=== PATIENT | male | born 1940 | race Caucasian/White ===

== ENCOUNTER 2023-09-25 09:37 | Inpatient (IN) | payer OTHER ==
--- OUTSIDE RECORDS SUMMARY | 2023-09-25 13:41 | XMS REPORT | Continuity of Care Document ---
Author Name Unknown Address [address] [facility] [address] [place] [address] [facility] Address [address] [facility] [address] [place] [address] Care Team Providers [employer] Web Application Developer Name Role Phone Ramón Menjivar MD Primary Care Physician [phone] ARACELY ZAFAR Attending Clinician UnavailARACELY Majano Attending Clinician Unavaila LILLIE Soto Attending Clinician Unavailable EVGENY URIARTE Attending Clinician Unavailable Ramón Menjivar MD Attending Clinician [phone] ADEOLA RITCHIE Attending Clinician UnavailADEOLA Sullivan Attending Clinician UnavailEvgeny Levine MD Attending Clinician [phone] Nurse, [facility] Surgery Attending Clinician Aracely Wong MD Attending Clinician [phone] Fredis Mayorga MD Attending Clinician [phone] Doctor Unassigned, [place] Attending Clinician U navailable Lab, Ang - Db Attending Clinician Unavailable Pob, [facility] Main Attending Clinician UnavailDave Linares MD Attending Clinician [phone] DAVE CARLISLE Attending Clinician Unavailable CHARITY CAMPBELL Attending Clinician UnavailCharity Crooks Attending Clinician [phone] RAMÓN MENJIVAR Attending Clinician Unavailable Jody Kaminski MD Attending Clinician [phone] Unknown, Attending Attending Clinician Unavailab JODY Linares Attending Clinician Unavailable Serena PATRICIO, Adeola Abarca Attending Clinician [phone] BRIT ERICKSON Attending Clinician Unavailable Brit Erickson MD Attending Clinician [phone] Vaccine, Ang Db Cbc Fam Attending Clinician Unav ailable 2, [facility] Lab Attending Clinician Unavailable Nurse, [facility] Surgery Gu Attending Clinician aFby Lyon Attending Clinician [phone] Nadine Corado MD Attending Clinician [phone] NADINE CORADO Attending Clinician Unavailxiomy lord Rm2, [facility] Surg Proc Attending Clinician Unavailab Digna Soriano MA Attending Clinician Unavail dmitriy Zuniga MD, Claus Chaudhari Attending Clinician + [phone] Vaccine, [facility] Family Medicine Attending Clinician Unavailable Jacob Grey DO Attending Clinician [phone] GRAMM DIANA A Attending Clinician Unavailable Gramm MICHAEL Diana A Attending Clinician [phone] FREDIS MAYORGA Attending Clinician Unavail able FREDIS MAYORGA Attending Clinician Unavail able Nurse, [facility] Pob Immunization Attending Clinician Unavailable JACOB GREY Attending Clinician Unavail able DESTIN TIDWELL Attending Clinician Unavailable Lab, [facility] Fam Pob I Attending Clinician Unavailab Qi Lenz Attending Clinician [phone] CorinaEmperatriz Segura Attending Clinician [phone] Uday Pendleton Attending Clinician [phone] EVGENY URIARTE Admitting Clinician Unavailable Evgeny Uriarte MD Admitting Clinician [phone] DAVE CARLISLE Admitting Clinician Unavailable BRIT ERICKSON Admitting Clinician Unavailable NADINE CORADO Admitting Clinician UnavailFREDIS Norris Admitting Clinician Unavail RAMÓN Villagran Admitting Clinician Unavailable Payers Payer Name Policy Type Policy Number Effective Date Expirati on Date Source [facility] PPO [id number] 2020 00:00:00 [employer] CHOICE [id number] 2013 00:00:00 Problems Condition Name Condition Details Condition Category Status Onset Date Resolution Date Last Treatment Date Treating Clinician Comments Source ESTEFANIA treated with BiPAP ESTEFANIA treated with BiPAP Disease Active 08-19 00:00: 00 [facility] Preop cardiovasc ular exam Preop cardiovasc ular exam Disease Active 08-19 00:00: 00 [facility] 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 Disease Active 08-17 00:00: 00 [facility] Retention of urine, unspecifie d Retention of urine, unspecifie d Disease Active 08-17 00:00: 00 [facility] Hyperlipid emia with target LDL less than 100 Hyperlipid emia with target LDL less than 100 Disease Active 2014-05 00:00: 00 [facility] Essential hypertensi on Essential hypertensi on Disease Active 2014-05 00:00: 00 [facility] Hyperplasi a of prostate with lower urinary tract symptoms (LUTS) Hyperplasi a of prostate with lower urinary tract symptoms (LUTS) Disease Active 2014-05 00:00: 00 [facility] Lumbar disc disease Lumbar disc disease Disease Active 2014-05 00:00: 00 [facility] Ocular myasthenia Ocular myasthenia Disease Active 05-03 00:00: 00 [facility] Allergies, Adverse Reactions, Alerts Allergy Name Allergy Type Status Severity Reaction(s) Onset Date Inactive Date Treating Clinician Comments Source NO KNOWN ALLERGIE S Drug Class Active [facility] Social History Social Habit Start Date Stop Date Quantity Comments Source Gender identity [facility] History of tobacco use Cigarette Smoker [facility] Alcoholic beverage intake 2023-09-10 00:00:00 2023-09-10 00:00:00 Current drinker of alcohol (finding) [facility] Alcohol intake 2023-06-09 00:00:00 2023-06-09 00:00:00 Current drinker of alcohol (finding) [facility] History of Social function 2023-05-06 00:00:00 2023-05-06 00:00:00 [facility] Cigarettes smoked current (pack per day) - Reported 2023-05-06 00:00:00 2023-05-06 00:00:00 [facility] Cigarette pack-years 2023-05-06 00:00:00 2023-05-06 00:00:00 [facility] Tobacco use and exposure 2023-05-06 00:00:00 2023-05-06 00:00:00 Smokeless tobacco non-user [facility] Exposure to SARS-CoV-2 (event) 2022-08-16 00:00:00 2022-08-26 13:07:00 Not sure [facility] Tobacco Comment 2021-11-29 00:00:00 2021-11-29 00:00:00 quit 40 years ago. [facility] Sex assigned at 1940 00:00:00 1940 00:00:00 [facility] Smoking Status Start Date Stop Date Source Ex-smoker 2023-05-06 00:00:00 2023-05-06 [facility]00[facility] Ordered Medication Name Filled Medication Name Start Date Stop Date Current Medication? Ordering Clinician Indication Dosage Frequency Signature (SIG) Comments Components Source LOSARTAN 100 mg tablet 09-13 00:00: 00 Yes [id number] TAKE 1 TABLET BY MOUTH EVERY DAY IN THE MORNING [facility] cephALEXin 500 mg capsule 09-13 00:00: 00 Yes [id number] 500mg Take 1 capsule by mouth 4 (four) times daily. [facility] traMADoL (ULTRAM) tablet 50 mg 09-08 17:15: 00 09-08 16:43 :00 No 50mg 50 mg, Oral, ONCE, 1 dose, On Carole 09/09/23 at 1215, Routine, PACU [facility] FENTanyl PF (SUBLIMAZE (PF)) injection 25 mcg 09-08 16:10: 12 09-08 22:18 :27 No 25ug 25 mcg, Slow IV Push, Q5MIN PRN, 4 doses, Starting on Carole 09/09/23 at 1110, Until Carole 09/09/23 at 1718, Routine, Pain (scale 4-6), PACU [facility] ondansetron (ZOFRAN (PF)) injection 4 mg 09-08 16:10: 12 09-08 22:18 :27 No 4mg 4 mg, Slow IV Push, PRN, 1 dose, Starting on Carole 09/09/23 at 1110, Until Carole 09/09/23 at 1718, Routine, Nausea and Vomiting (N/V), PACU [facility] ondansetron (ZOFRAN (PF)) injection 4 mg 09-08 16:01: 14 09-08 22:18 :27 No 4mg 4 mg, Slow IV Push, Q4HPRN, 1 dose, Starting on Carole 09/09/23 at 1101, Until Carole 09/09/23 at 1718, Routine, Nausea and Vomiting (N/V), DSU Recovery [facility] lidocaine (XYLOCAINE) 2 % jelly URO-JET 09-08 15:36: 00 09-08 22:18 :27 No PRN, Starting on Carole 09/09/23 at 1036, Until Carole 09/09/23 at 1718, Routine, Intra-op [facility] water for irrigation irrigation solution 09-08 13:15: 00 09-08 15:23 :24 No PRN, Starting on Carole 09/09/23 at 0815, Until Carole 09/09/23 at 1023, Routine, Intra-op [facility] povidone-io dine (BETADINE) 10 % solution 09-08 13:08: 00 09-08 15:23 :24 No PRN, Starting on Carole 09/09/23 at 0808, Until Carole 09/09/23 at 1023, Routine, Intra-op [facility] sodium chloride 0.9 % irrigation solution 09-08 12:54: 00 09-08 15:23 :24 No PRN, Starting on Carole 09/09/23 at 0754, Until Carole 09/09/23 at 1023, Intra-op [facility] lactated ringers IV infusion 1,000 mL 09-08 11:45: 00 09-08 11:53 :00 No 1000mL at 42 mL/hr, 1,000 mL, IV Infusion, ONCE, 1 dose, On Carole 09/09/23 at 0645, Routine, DSU Pre-op [facility] cephALEXin 500 mg capsule 09-08 00:00: 00 09-13 00:00 :00 No [id number] 500mg Take 1 capsule by mouth 4 (four) times daily for 5 days. [facility] MELOXICAM 7.5 mg tablet 09-07 00:00: 00 Yes [id number] 7.5mg TAKE 1 TABLET BY MOUTH EVERY DAY IN THE MORNING [facility] gabapentin 300 mg capsule 08-29 00:00: 00 Yes [id number] TAKE 2 CAPSULES BY MOUTH 2 (TWO) TIMES DAILY AND 3 CAPSULES AT BEDTIME. [facility] perflutren protein-A microsphr (OPTISON) injection 3 mL 08-22 16:45: 00 08-22 16:43 :00 No [id number] 3mL 3 mL, IV Push, ONCE, 1 dose, On Wed08/23/23 at 1145, Routine [facility] cephALEXin 250 mg capsule 08-22 00:00: 00 08-28 04:59 :00 Yes [id number] 500mg Take 2 capsules by mouth every 12 (twelve) hours for 5 days. [facility] traMADoL 50 mg tablet 08-16 00:00: 00 Yes [id number] TAKE 1 TABLET BY MOUTH EVERY 6 (SIX) HOURS NEEDED FOR PAIN (SCALE 4-6) FOR UP TO 30 DAYS. INDICATION S: CHRONIC PAIN, LUMBAR RADICULOPA THY, S/P SURGERY. INDICATION S: CHRONIC PAIN Indication s: chronic pain, Chronic radiculopa thy [facility] atorvastati n 10 mg tablet 2024-0 4-15 00:00: 00 Yes 10mg Take 1 tablet by mouth in the morning. [facility] TAMSULOSIN 0.4 mg 24 hr capsule 4-09 00:00: 00 Yes [id number] TAKE 1 CAPSULE BY MOUTH IN THE MORNING AND IN THE EVENING [facility] atorvastati n 10 mg tablet 4-07 00:00: 00 08-12 00:00 :00 No TAKE 1 TABLET BY MOUTH EVERY DAY [facility] hydroCHLORO thiazide 25 mg tablet 3-19 00:00: 00 Yes [id number] TAKE 1 TABLET BY MOUTH EVERY DAY [facility] hydroCHLORO thiazide 25 mg tablet 3-11 00:00: 00 Yes [id number] TAKE 1 TABLET BY MOUTH EVERY DAY [facility] HYDROCHLORO THIAZIDE 25 mg tablet 2-16 00:00: 00 07-11 00:00 :00 No [id number] TAKE 1 TABLET BY MOUTH EVERY DAY [facility] SOLIFENACIN 5 mg tablet 2-09 00:00: 00 Yes [id number] TAKE 1 TABLET BY MOUTH EVERY DAY [facility] azithromyci n 250 mg tablet 2-07 00:00: 00 08-17 00:00 :00 No [id number] 250mg Take 1 tablet by mouth in the morning. Take 500 mg day 1, then 250 mg days 2 to 5. [facility] solifenacin 5 mg tablet 1-15 00:00: 00 06-11 00:00 :00 No [id number] TAKE 1 TABLET BY MOUTH EVERY DAY [facility] benzonatate 100 mg capsule 0 1-10 00:00: 00 08-17 00:00 :00 No [id number] 200mg Take 2 capsules by mouth every 8 (eight) hours as needed for Cough. [facility] guaiFENesin 400 mg tablet 1-10 00:00: 00 08-17 00:00 :00 No [id number] 400mg Take 1 tablet by mouth every 4 (four) hours as needed for Cough. [facility] azelastine 137 mcg (0.1 %) nasal spray 05-12 00:00: 00 08-17 00:00 :00 No [id number] 1{spray } Use 1 [place] in each nostril in the morning and 1 [place] in the evening. Use in each nostril as directed [facility] fluticasone propionate 50 mcg/actuati on nasal spray 05-12 00:00: 00 08-17 00:00 :00 No [id number] 1{spray } Use 1 [place] in each nostril in the morning. [facility] molnupiravi r 200 mg capsule 05-12 00:00: 00 08-17 00:00 :00 No [id number] 800mg Take 4 capsules by mouth every 12 (twelve) hours. [facility] atorvastati n 10 mg tablet 05-07 00:00: 00 08-07 00:00 :00 No TAKE 1 TABLET BY MOUTH EVERY DAY [facility] gabapentin 300 mg capsule 05-06 00:00: 00 08-29 00:00 :00 No [id number] Take 2 capsules by mouth 2 (two) times daily AND 3 capsules at bedtime. [facility] hydroCHLORO thiazide 25 mg tablet 2022-05 00:00: 00 06-18 00:00 :00 No [id number] TAKE 1 TABLET BY MOUTH EVERY DAY [facility] solifenacin 5 mg tablet 2022-05 00:00: 00 05-17 00:00 :00 No [id number] TAKE 1 TABLET BY MOUTH EVERY DAY [facility] atorvastati n 10 mg tablet 2022-05 00:00: 00 05-07 00:00 :00 No TAKE 1 TABLET BY MOUTH EVERY DAY [facility] ketoconazol e 2 % cream 2022-05 00:00: 00 Yes APPLY TO RASH ON FACE ONCE DAILY UNTIL HEALED. NEEDED WHEN FLAKING AND RED. [facility] DULOXETINE 30 mg capsule 2022-05 00:00: 00 06-09 00:00 :00 No [id number] 30mg TAKE 1 CAPSULE BY MOUTH EVERY MORNING [facility] methylPREDN ISolone 4 mg tablets 2022-05 00:00: 00 06-09 00:00 :00 No [id number] Take by mouth SEE-INSTRU CTIONS. follow package directions [facility] LOSARTAN 100 mg tablet 2022-05 00:00: 00 Yes [id number] TAKE 1 TABLET BY MOUTH EVERY DAY IN THE MORNING [facility] gabapentin 300 mg capsule 2022-05 00:00: 00 05-06 00:00 :00 No [id number] TAKE 2 CAPSULES BY MOUTH 3 TIMES A DAY [facility] DULoxetine 30 mg capsule 2022-05 00:00: 00 Yes [id number] 30mg Take 1 capsule by mouth in the morning. [facility] gabapentin 300 mg capsule 2022-05 00:00: 00 Yes [id number] TAKE 2 CAPSULES BY MOUTH 3 TIMES A DAY [facility] gadobenate dimeglumine (MULTIHANCE -15 mL) injection 0.2 mL/kg 2022-05 23:30: 00 03-15 23:27 :00 No [id number] .2mL/kg 0.2 mL/kg, Intravenou s, ONCE, 1 dose, On Wed03/15/23 at 1730, Routine [facility] meloxicam 7.5 mg tablet 2022-05 00:00: 00 09-07 00:00 :00 No [id number] 7.5mg Take 1 tablet by mouth every morning. [facility] traMADoL 50 mg tablet 2022-05 00:00: 00 08-15 00:00 :00 No [id number] TAKE 1 TABLET BY MOUTH EVERY 6 (SIX) HOURS NEEDED FOR PAIN (SCALE 4-6) FOR UP TO 30 DAYS. INDICATION S: CHRONIC PAIN, LUMBAR RADICULOPA THY, S/P SURGERY. INDICATION S: CHRONIC PAIN Indication s: chronic pain, Chronic radiculopa thy [facility] LINZESS 145 mcg capsule 2022-05 00:00: 00 Yes 145ug Take 1 capsule by mouth in the morning. [facility] gentamicin injection 80 mg 2022-05 15:45: 00 02-16 15:29 :00 No [id number] 80mg [facility] amoxicillin -pot clavulanate 500 mg (AUGMENTIN) 500-125 mg tablet 2022-05 00:00: 00 02-15 04:59 :00 No [id number] 500mg Take 1 tablet by mouth in the morning and 1 tablet at noon and 1 tablet in the evening. Do all this for 5 days. [facility] gabapentin 300 mg capsule 2022-05 00:00: 00 03-30 00:00 :00 No [id number] TAKE 2 CAPSULES BY MOUTH 3 TIMES A DAY [facility] gabapentin 300 mg capsule 01-26 00:00: 00 02-08 00:00 :00 No [id number] TAKE 2 CAPSULES BY MOUTH 3 TIMES A DAY [facility] ATORVASTATI N 10 mg tablet 01-25 00:00: 00 04-23 00:00 :00 No TAKE 1 TABLET BY MOUTH EVERY DAY [facility] SOLIFENACIN 5 mg tablet 01-25 00:00: 00 04-23 00:00 :00 No [id number] TAKE 1 TABLET BY MOUTH EVERY DAY [facility] HYDROCHLORO THIAZIDE 25 mg tablet 01-25 00:00: 00 04-23 00:00 :00 No [id number] TAKE 1 TABLET BY MOUTH EVERY DAY [facility] amoxicillin -pot clavulanate 500 mg (AUGMENTIN) 500-125 mg tablet 01-11 00:00: 00 01-17 04:59 :00 No [id number] 500mg Take 1 tablet by mouth in the morning and 1 tablet at noon and 1 tablet in the evening. Do all this for 5 days. [facility] cephALEXin (KEFLEX) 500 mg capsule 28 00:00: 00 01-05 04:59 :00 No [id number] 500mg Take 1 capsule by mouth in the morning and 1 capsule in the evening. Do all this for 7 days. [facility] LINZESS 72 mcg Cap 12-07 00:00: 00 06-09 00:00 :00 No 72ug Take 1 capsule by mouth in the morning. [facility] metoclopram david HCl 10 mg tablet 11-12 00:00: 00 02-08 00:00 :00 No TAKE 3 TABLETS BY MOUTH DIRECTED PER YOUR COLONOSCOP Y PREP PACKET [facility] sodium,pota ssium,mag sulfates 17.5-3.13-1 .6 gram 11-12 00:00: 00 02-08 00:00 :00 No TAKE 1 UNIT BY MOUTH DIRECTED USED DIRECTED BY YOUR COLONOSCOP Y PACKET INSTRUCTIO NS [facility] TAMSULOSIN 0.4 mg 24 hr capsule 11-04 00:00: 00 08-09 00:00 :00 No [id number] TAKE 1 CAPSULE BY MOUTH IN THE MORNING AND IN THE EVENING [facility] SOLIFENACIN 5 mg tablet 11-04 00:00: 00 01-25 00:00 :00 No [id number] TAKE 1 TABLET BY MOUTH EVERY DAY [facility] ATORVASTATI N 10 mg tablet 11-04 00:00: 00 01-25 00:00 :00 No TAKE 1 TABLET BY MOUTH EVERY DAY [facility] HYDROCHLORO THIAZIDE 25 mg tablet 11-02 00:00: 00 01-25 00:00 :00 No [id number] TAKE 1 TABLET BY MOUTH EVERY DAY [facility] LOSARTAN 100 mg tablet 10-20 00:00: 00 04-06 00:00 :00 No [id number] TAKE 1 TABLET BY MOUTH EVERY DAY IN THE MORNING [facility] omeprazole 40 mg capsule 2023-0 6-02 00:00: 00 Yes 40mg Take 1 capsule by mouth every morning. [facility] MELOXICAM 7.5 mg tablet 5-15 00:00: 00 03-08 00:00 :00 No [id number] TAKE 1 TABLET BY MOUTH EVERY DAY IN THE MORNING [facility] TRAMADOL 50 mg tablet 5-04 00:00: 00 03-08 00:00 :00 No [id number] TAKE 1 TABLET BY MOUTH EVERY 6 (SIX) HOURS NEEDED FOR PAIN (SCALE 4-6) FOR UP TO 30 DAYS. INDICATION S: CHRONIC PAIN, LUMBAR RADICULOPA THY, S/P SURGERY. INDICATION S: CHRONIC PAIN [facility] SOLIFENACIN 5 mg tablet 4-20 00:00: 00 11-04 00:00 :00 No [id number] TAKE 1 TABLET BY MOUTH EVERY DAY [facility] ATORVASTATI N 10 mg tablet 4-10 00:00: 00 11-04 00:00 :00 No TAKE 1 TABLET BY MOUTH EVERY DAY [facility] tamsulosin 0.4 mg 24 hr capsule 4-05 00:00: 00 11-04 00:00 :00 No [id number] .4mg Take 1 capsule by mouth in the morning and 1 capsule in the evening. [facility] HYDROCHLORO THIAZIDE 25 mg tablet 3-24 00:00: 00 11-02 00:00 :00 No [id number] TAKE 1 TABLET BY MOUTH EVERY DAY [facility] TAMSULOSIN 0.4 mg 24 hr capsule 0 1-30 00:00: 00 08-05 00:00 :00 No [id number] TAKE 1 CAPSULE BY MOUTH EVERYDAY AT BEDTIME [facility] famotidine (PEPCID) 40 mg tablet 1-19 07:39: 17 05-21 00:00 :00 No 40mg Take 40 mg by mouth daily. [facility] SOLIFENACIN 5 mg tablet 1-17 00:00: 00 08-20 00:00 :00 No [id number] TAKE 1 TABLET BY MOUTH EVERY DAY [facility] ATORVASTATI N 10 mg tablet 05-19 00:00: 00 08-10 00:00 :00 No TAKE 1 TABLET BY MOUTH EVERY DAY [facility] HYDROCHLORO THIAZIDE 25 mg tablet 05-07 00:00: 00 07-24 00:00 :00 No [id number] TAKE 1 TABLET BY MOUTH EVERY DAY [facility] TRAMADOL 50 mg tablet 2021-05 00:00: 00 09-03 00:00 :00 No [id number] TAKE 1 TABLET BY MOUTH EVERY 6 (SIX) HOURS NEEDED FOR PAIN (SCALE 4-6) FOR UP TO 30 DAYS. INDICATION S: CHRONIC PAIN, LUMBAR RADICULOPA THY, S/P SURGERY. INDICATION S: CHRONIC PAIN [facility] GABAPENTIN 300 mg capsule 2021-05 00:00: 00 01-26 00:00 :00 No [id number] TAKE 2 CAPSULES BY MOUTH 3 TIMES A DAY [facility] losartan 100 mg tablet 2021-05 00:00: 00 10-20 00:00 :00 No [id number] 100mg Take 1 tablet by mouth in the morning. [facility] meloxicam 7.5 mg tablet 2021-05 00:00: 00 09-14 00:00 :00 No [id number] 7.5mg Take 1 tablet by mouth in the morning. [facility] losartan 100 mg tablet 2021-05 00:00: 00 03-31 00:00 :00 No [id number] TAKE 1 TABLET BY MOUTH EVERY DAY [facility] famotidine 20 mg tablet 2021-05 00:00: 00 02-04 00:00 :00 No 20mg Take 1 tablet by mouth every evening. [facility] pantoprazol e 40 mg EC tablet 2021-05 00:00: 00 05-21 00:00 :00 No 40mg Take 40 mg by mouth every other day. [facility] fluocinonid e 0.05 % solution 2021-05 00:00: 00 Yes APPLY DAILY TO SCALP NEEDED FOR ITCHING [facility] tamsulosin 0.4 mg 24 hr capsule 2021-05 00:00: 00 06-01 00:00 :00 No .4mg Take 0.4 mg by mouth at bedtime. [facility] ATORVASTATI N 10 mg tablet 2021-05 00:00: 00 05-19 00:00 :00 No TAKE 1 TABLET BY MOUTH EVERY DAY [facility] HYDROCHLORO THIAZIDE 25 mg tablet 2021-05 0 00:00: 00 05-07 00:00 :00 No [id number] TAKE 1 TABLET BY MOUTH EVERY DAY [facility] SOLIFENACIN 5 mg tablet 2021-05 0 00:00: 00 05-19 00:00 :00 No [id number] TAKE 1 TABLET BY MOUTH EVERY DAY [facility] MELOXICAM 7.5 mg tablet 2021-05 0 00:00: 00 03-31 00:00 :00 No [id number] TAKE 1 TABLET BY MOUTH EVERY DAY [facility] Sodium Fluoride 1.1 % Pste 01-15 00:00: 00 08-17 00:00 :00 No BRUSH TEETH WITH PEA SIZE AMOUNT AT BEDTIME [facility] fluorouraci L 5 % cream 01-14 00:00: 00 08-17 00:00 :00 No APPLY TO AFFECTED AREA TWICE A DAY FOR 2 WEEKS THEN STOP [facility] MELOXICAM 7.5 mg tablet 01-13 00:00: 00 02-12 00:00 :00 No [id number] TAKE 1 TABLET BY MOUTH EVERY DAY [facility] LOSARTAN 100 mg tablet 12-29 00:00: 00 03-27 00:00 :00 No [id number] TAKE 1 TABLET BY MOUTH EVERY DAY [facility] MELOXICAM 7.5 mg tablet 12-22 00:00: 00 01-13 00:00 :00 No [id number] TAKE 1 TABLET BY MOUTH EVERY DAY [facility] molnupiravi r 200 mg capsule 11-29 00:00: 00 05-21 00:00 :00 No [id number] 800mg Take 4 capsules by mouth every 12 (twelve) hours. [facility] guaiFENesin 400 mg tablet 11-29 00:00: 00 05-21 00:00 :00 No [id number] 400mg Take 1 tablet by mouth every 4 (four) hours as needed for Cough. [facility] HYDROCHLORO THIAZIDE 25 mg tablet 11-28 00:00: 00 02-24 00:00 :00 No [id number] TAKE 1 TABLET BY MOUTH EVERY DAY [facility] SOLIFENACIN 5 mg tablet 11-24 00:00: 00 02-23 00:00 :00 No [id number] TAKE 1 TABLET BY MOUTH EVERY DAY [facility] TRAMADOL 50 mg tablet 11-14 00:00: 00 04-27 00:00 :00 No [id number] TAKE 1 TABLET BY MOUTH EVERY 6 (SIX) HOURS NEEDED FOR PAIN (SCALE 4-6) FOR UP TO 30 DAYS. INDICATION S: CHRONIC PAIN, LUMBAR RADICULOPA THY, S/P SURGERY. INDICATION S: CHRONIC PAIN [facility] ATORVASTATI N 10 mg tablet 11-12 00:00: 00 03-04 00:00 :00 No TAKE 1 TABLET BY MOUTH EVERY DAY [facility] MELOXICAM 7.5 mg tablet 11-12 00:00: 00 12-22 00:00 :00 No [id number] TAKE 1 TABLET BY MOUTH EVERY DAY [facility] MELOXICAM 7.5 mg tablet 10-01 00:00: 00 Yes [id number] TAKE 1 TABLET BY MOUTH EVERY DAY [facility] LOSARTAN 100 mg tablet 5- 00:00: 00 12-29 00:00 :00 No [id number] TAKE 1 TABLET BY MOUTH EVERY DAY [facility] TAMSULOSIN 0.4 mg 24 hr capsule 5-10 00:00: 00 12-09 04:59 :00 No [id number] TAKE 1 CAPSULE BY MOUTH EVERYDAY AT BEDTIME [facility] SOLIFENACIN 5 mg tablet 4-26 00:00: 00 11-24 00:00 :00 No [id number] TAKE 1 TABLET BY MOUTH EVERY DAY [facility] HYDROCHLORO THIAZIDE 25 mg tablet 4-15 00:00: 00 11-28 00:00 :00 No [id number] TAKE 1 TABLET BY MOUTH EVERY DAY [facility] ATORVASTATI N 10 mg tablet 08-15 00:00: 00 11-12 00:00 :00 No TAKE 1 TABLET BY MOUTH EVERY DAY [facility] famotidine (PEPCID) 40 mg tablet 08-07 11:47: 19 Yes 40mg Take 40 mg by mouth daily. [facility] gabapentin 300 mg capsule 3-14 00:00: 00 04-21 00:00 :00 No [id number] TAKE 2 CAPSULES BY MOUTH 3 TIMES A DAY [facility] traMADoL 50 mg tablet 2-10 00:00: 00 11-14 00:00 :00 No [id number] TAKE 1 TABLET BY MOUTH EVERY 6 (SIX) HOURS NEEDED FOR PAIN (SCALE 4-6) FOR UP TO 30 DAYS. INDICATION S: CHRONIC PAIN, LUMBAR RADICULOPA THY, S/P SURGERY. Indication s: chronic pain [facility] HYDROCHLORO THIAZIDE 25 mg tablet 5-04 00:00: 00 11-27 00:00 :00 No [id number] TAKE 1 TABLET BY MOUTH EVERY DAY [facility] MELOXICAM 7.5 mg tablet 5-03 00:00: 00 10-02 00:00 :00 No [id number] TAKE 1 TABLET BY MOUTH EVERY DAY [facility] LOSARTAN 100 mg tablet 4-08 00:00: 00 11-01 00:00 :00 No [id number] TAKE 1 TABLET BY MOUTH EVERY DAY [facility] ATORVASTATI N 10 mg tablet 3-15 00:00: 00 10-09 00:00 :00 No TAKE 1 TABLET BY MOUTH EVERY DAY [facility] gabapentin 300 mg capsule 3-05 00:00: 00 07-14 00:00 :00 No [id number] TAKE 2 CAPSULES 3 TIMES A DAY [facility] SOLIFENACIN 5 mg tablet 2-26 00:00: 00 10-21 00:00 :00 No [id number] TAKE 1 TABLET BY MOUTH EVERY DAY [facility] ketoconazol e 2 % shampoo 2019-05 2- 00:00: 00 05-06 00:00 :00 No [facility] Immunizations Ordered Immunization Name Filled Immunization Name Date Status Comments Source SARS-COV-2 COVID-19 LAKESHA-SUCROSE VACCINE 12 YRS+, BIVALENT 0.3ML, IM, (PFIZER [facility] [employer]) 2022-01-21 00:00:00 Completed [facility] Influenza Virus Vaccine,quad Im,preserve Free 65+ 2022-01-21 00:00:00 Completed [facility] SARS-COV-2 COVID-19 LAKESHA-SUCROSE VACCINE 12 YRS+, BIVALENT 0.3ML, IM, (PFIZER [facility] BOOSTER) 2022-01-21 00:00:00 Completed [facility] Influenza Virus Vaccine,quad Im,preserve Free 65+ 2022-01-21 00:00:00 Completed [facility] SARS-COV-2 COVID-19 LAKESHA-SUCROSE VACCINE 12 YRS+, BIVALENT 0.3ML, IM, (PFIZER [facility] [employer] BOOSTER) 2022-01-21 00:00:00 Completed [facility] Influenza Virus Vaccine,quad Im,preserve Free 65+ 2022-01-21 00:00:00 Completed [facility] SARS-COV-2 COVID-19 LAKESHA-SUCROSE VACCINE 12 YRS+, BIVALENT 0.3ML, IM, (PFIZER [employer] BOOSTER) 2022-01-21 00:00:00 Completed [facility] Influenza Virus Vaccine,quad Im,preserve Free 65+ 2022-01-21 00:00:00 Completed [facility] SARS-COV-2 COVID-19 LAKESHA-SUCROSE VACCINE 12 YRS+, BIVALENT 0.3ML, IM, (PFIZER [employer] BOOSTER) 2022-01-21 00:00:00 Completed [facility] Influenza Virus Vaccine,quad Im,preserve Free 65+ 2022-01-21 00:00:00 Completed [facility] SARS-COV-2 COVID-19 LAKESHA-SUCROSE VACCINE 12 YRS+, BIVALENT 0.3ML, IM, (PFIZER [employer] BOOSTER) 2022-01-21 00:00:00 Completed [facility] Influenza Virus Vaccine,quad Im,preserve Free 65+ 2022-01-21 00:00:00 Completed [facility] SARS-COV-2 COVID-19 LAKESHA-SUCROSE VACCINE 12 YRS+, BIVALENT 0.3ML, IM, (PFIZER [employer] BOOSTER) 2022-01-21 00:00:00 Completed [facility] Influenza Virus Vaccine,quad Im,preserve Free 65+ 2022-01-21 00:00:00 Completed [facility] SARS-COV-2 COVID-19 LAKESHA-SUCROSE VACCINE 12 YRS+, BIVALENT 0.3ML, IM, (PFIZER [employer] BOOSTER) 2022-01-21 00:00:00 Completed [facility] Influenza Virus Vaccine,quad Im,preserve Free 65+ 2022-01-21 00:00:00 Completed [facility] SARS-COV-2 COVID-19 LAKESHA-SUCROSE VACCINE 12 YRS+, BIVALENT 0.3ML, IM, (PFIZER [employer] BOOSTER) 2022-01-21 00:00:00 Completed [facility] Influenza Virus Vaccine,quad Im,preserve Free 65+ 2022-01-21 00:00:00 Completed [facility] SARS-COV-2 COVID-19 LAKESHA-SUCROSE VACCINE 12 YRS+, BIVALENT 0.3ML, IM, (PFIZER [employer] BOOSTER) 2022-01-21 00:00:00 Completed [facility] Influenza Virus Vaccine,quad Im,preserve Free 65+ 2022-01-21 00:00:00 Completed [facility] SARS-COV-2 COVID-19 LAKESHA-SUCROSE VACCINE 12 YRS+, BIVALENT 0.3ML, IM, (PFIZER [employer] BOOSTER) 2022-01-21 00:00:00 Completed [facility] Influenza Virus Vaccine,quad Im,preserve Free 65+ 2022-01-21 00:00:00 Completed [facility] SARS-COV-2 COVID-19 LAKESHA-SUCROSE VACCINE 12 YRS+, BIVALENT 0.3ML, IM, (PFIZER [employer] BOOSTER) 2022-01-21 00:00:00 Completed [facility] Influenza Virus Vaccine,quad Im,preserve Free 65+ 2022-01-21 00:00:00 Completed [facility] SARS-COV-2 COVID-19 LAKESHA-SUCROSE VACCINE 12 YRS+, BIVALENT 0.3ML, IM, (PFIZER [employer] BOOSTER) 2022-01-21 00:00:00 Completed [facility] Influenza Virus Vaccine,quad Im,preserve Free 65+ 2022-01-21 00:00:00 Completed [facility] SARS-COV-2 COVID-19 LAKESHA-SUCROSE VACCINE 12 YRS+, BIVALENT 0.3ML, IM, (PFIZER [employer] BOOSTER) 2022-01-21 00:00:00 Completed [facility] Influenza Virus Vaccine,quad Im,preserve Free 65+ 2022-01-21 00:00:00 Completed [facility] SARS-COV-2 COVID-19 LAEKSHA-SUCROSE VACCINE 12 YRS+, BIVALENT 0.3ML, IM, (PFIZER [employer] BOOSTER) 2022-01-21 00:00:00 Completed [facility] Influenza Virus Vaccine,quad Im,preserve Free 65+ 2022-01-21 00:00:00 Completed [facility] SARS-COV-2 COVID-19 LAKESHA-SUCROSE VACCINE 12 YRS+, BIVALENT 0.3ML, IM, (PFIZER [employer] BOOSTER) 2022-01-21 00:00:00 Completed [facility] Influenza Virus Vaccine,quad Im,preserve Free 65+ 2022-01-21 00:00:00 Completed [facility] SARS-COV-2 COVID-19 LAKESHA-SUCROSE VACCINE 12 YRS+, BIVALENT 0.3ML, IM, (PFIZER [employer] BOOSTER) 2022-01-21 00:00:00 Completed [facility] Influenza Virus Vaccine,quad Im,preserve Free 65+ 2022-01-21 00:00:00 Completed [facility] SARS-COV-2 COVID-19 LAKESHA-SUCROSE VACCINE 12 YRS+, BIVALENT 0.3ML, IM, (PFIZER [employer] BOOSTER) 2022-01-21 00:00:00 Completed [facility] Influenza Virus Vaccine,quad Im,preserve Free 65+ 2022-01-21 00:00:00 Completed [facility] SARS-COV-2 COVID-19 LAKESHA-SUCROSE VACCINE 12 YRS+, BIVALENT 0.3ML, IM, (PFIZER [employer] BOOSTER) 2022-01-21 00:00:00 Completed [facility] Influenza Virus Vaccine,quad Im,preserve Free 65+ 2022-01-21 00:00:00 Completed [facility] SARS-COV-2 COVID-19 LAKESHA-SUCROSE VACCINE 12 YRS+, BIVALENT 0.3ML, IM, (PFIZER [employer] BOOSTER) 2022-01-21 00:00:00 Completed [facility] Influenza Virus Vaccine,quad Im,preserve Free 65+ 2022-01-21 00:00:00 Completed [facility] SARS-COV-2 COVID-19 LAKESHA-SUCROSE VACCINE 12 YRS+, BIVALENT 0.3ML, IM, (PFIZER [employer] BOOSTER) 2022-01-21 00:00:00 Completed [facility] Influenza Virus Vaccine,quad Im,preserve Free 65+ 2022-01-21 00:00:00 Completed [facility] SARS-COV-2 COVID-19 LAKESHA-SUCROSE VACCINE 12 YRS+, BIVALENT 0.3ML, IM, (PFIZER [employer] BOOSTER) 2022-01-21 00:00:00 Completed [facility] Influenza Virus Vaccine,quad Im,preserve Free 65+ 2022-01-21 00:00:00 Completed [facility] SARS-COV-2 COVID-19 LAKESHA-SUCROSE VACCINE 12 YRS+, BIVALENT 0.3ML, IM, (PFIZER [employer] BOOSTER) 2022-01-21 00:00:00 Completed [facility] Influenza Virus Vaccine,quad Im,preserve Free 65+ 2022-01-21 00:00:00 Completed [facility] SARS-COV-2 COVID-19 LAKESHA-SUCROSE VACCINE 12 YRS+, BIVALENT 0.3ML, IM, (PFIZER [employer] BOOSTER) 2022-01-21 00:00:00 Completed [facility] Influenza Virus Vaccine,quad Im,preserve Free 65+ 2022-01-21 00:00:00 Completed [facility] SARS-COV-2 COVID-19 LAKESHA-SUCROSE VACCINE 12 YRS+, BIVALENT 0.3ML, IM, (PFIZER [employer] BOOSTER) 2022-01-21 00:00:00 Completed [facility] Influenza Virus Vaccine,quad Im,preserve Free 65+ 2022-01-21 00:00:00 Completed [facility] SARS-COV-2 COVID-19 LAKESHA-SUCROSE VACCINE 12 YRS+, BIVALENT 0.3ML, IM, (PFIZER [employer] BOOSTER) 2022-01-21 00:00:00 Completed [facility] Influenza Virus Vaccine,quad Im,preserve Free 65+ 2022-01-21 00:00:00 Completed [facility] SARS-COV-2 COVID-19 LAKESHA-SUCROSE VACCINE 12 YRS+, BIVALENT 0.3ML, IM, (PFIZER [facility] TOP) 2022-01-21 00:00:00 Completed [facility] Influenza Virus Vaccine,quad Im,preserve Free 65+ 2022-01-21 00:00:00 Completed [facility] SARS-COV-2 COVID-19 LAKESHA-SUCROSE VACCINE 12 YRS+, BIVALENT 0.3ML, IM, (PFIZER [facility] TOP) 2022-01-21 00:00:00 Completed [facility] Influenza Virus Vaccine,quad Im,preserve Free 65+ 2022-01-21 00:00:00 Completed [facility] SARS-COV-2 COVID-19 LAKESHA-SUCROSE VACCINE 12 YRS+, BIVALENT 0.3ML, IM, (PFIZER [facility] TOP) 2022-01-21 00:00:00 Completed [facility] Influenza Virus Vaccine,quad Im,preserve Free 65+ 2022-01-21 00:00:00 Completed [facility] SARS-COV-2 COVID-19 LAKESHA-SUCROSE VACCINE 12 YRS+, BIVALENT 0.3ML, IM, (PFIZER [facility] TOP) 2022-01-21 00:00:00 Completed [facility] Influenza Virus Vaccine,quad Im,preserve Free 65+ 2022-01-21 00:00:00 Completed [facility] SARS-COV-2 COVID-19 LAKESHA-SUCROSE VACCINE 12 YRS+, BIVALENT 0.3ML, IM, (PFIZER [facility] TOP) 2022-01-21 00:00:00 Completed [facility] Influenza Virus Vaccine,quad Im,preserve Free 65+ 2022-01-21 00:00:00 Completed [facility] SARS-COV-2 COVID-19 LAKESHA-SUCROSE VACCINE 12 YRS+, BIVALENT 0.3ML, IM, (PFIZER [facility] TOP) 2022-01-21 00:00:00 Completed [facility] Influenza Virus Vaccine,quad Im,preserve Free 65+ 2022-01-21 00:00:00 Completed [facility] SARS-COV-2 COVID-19 LAKESHA-SUCROSE VACCINE 12 YRS+, BIVALENT 0.3ML, IM, (PFIZER [facility] TOP) 2022-01-21 00:00:00 Completed [facility] Influenza Virus Vaccine,quad Im,preserve Free 65+ 2022-01-21 00:00:00 Completed [facility] SARS-COV-2 COVID-19 LAKESHA-SUCROSE VACCINE 12 YRS+, BIVALENT 0.3ML, IM, (PFIZER [facility] TOP) 2022-01-21 00:00:00 Completed [facility] Influenza Virus Vaccine,quad Im,preserve Free 65+ 2022-01-21 00:00:00 Completed [facility] SARS-COV-2 COVID-19 LAKESHA-SUCROSE VACCINE 12 YRS+, BIVALENT 0.3ML, IM, (PFIZER [facility] TOP) 2022-01-21 00:00:00 Completed [facility] Influenza Virus Vaccine,quad Im,preserve Free 65+ 2022-01-21 00:00:00 Completed [facility] SARS-COV-2 COVID-19 LAKESHA-SUCROSE VACCINE 12 YRS+, BIVALENT 0.3ML, IM, (PFIZER [facility] TOP) 2022-01-21 00:00:00 Completed [facility] Influenza Virus Vaccine,quad Im,preserve Free 65+ 2022-01-21 00:00:00 Completed [facility] SARS-COV-2 COVID-19 LAKESHA-SUCROSE VACCINE 12 YRS+, BIVALENT 0.3ML, IM, (PFIZER [facility] TOP) 2022-01-21 00:00:00 Completed [facility] Influenza Virus Vaccine,quad Im,preserve Free 65+ 2022-01-21 00:00:00 Completed [facility] SARS-COV-2 COVID-19 LAKESHA-SUCROSE VACCINE 12 YRS+, BIVALENT 0.3ML, IM, (PFIZER [facility] TOP) 2022-01-21 00:00:00 Completed [facility] Influenza Virus Vaccine,quad Im,preserve Free 65+ 2022-01-21 00:00:00 Completed [facility] SARS-COV-2 COVID-19 LAKESHA-SUCROSE VACCINE 12 YRS+, BIVALENT 0.3ML, IM, (PFIZER [facility] TOP) 2022-01-21 00:00:00 Completed [facility] Influenza Virus Vaccine,quad Im,preserve Free 65+ 2022-01-21 00:00:00 Completed [facility] SARS-COV-2 COVID-19 LAKESHA-SUCROSE VACCINE 12 YRS+, BIVALENT 0.3ML, IM, (PFIZER [facility] TOP) 2022-01-21 00:00:00 Completed [facility] Influenza Virus Vaccine,quad Im,preserve Free 65+ 2022-01-21 00:00:00 Completed [facility] SARS-COV-2 COVID-19 LAKESHA-SUCROSE VACCINE 12 YRS+, BIVALENT 0.3ML, IM, (PFIZER [facility] TOP) 2022-01-21 00:00:00 Completed [facility] Influenza Virus Vaccine,quad Im,preserve Free 65+ 2022-01-21 00:00:00 Completed [facility] SARS-COV-2 COVID-19 LAKESHA-SUCROSE VACCINE 12 YRS+, BIVALENT 0.3ML, IM, (PFIZER [facility] TOP) 2022-01-21 00:00:00 Completed [facility] Influenza Virus Vaccine,quad Im,preserve Free 65+ 2022-01-21 00:00:00 Completed [facility] SARS-COV-2 COVID-19 LAKESHA-SUCROSE VACCINE 12 YRS+, BIVALENT 0.3ML, IM, (PFIZER [facility] TOP) 2022-01-21 00:00:00 Completed [facility] Influenza Virus Vaccine,quad Im,preserve Free 65+ 2022-01-21 00:00:00 Completed [facility] SARS-COV-2 COVID-19 LAKESHA-SUCROSE VACCINE 12 YRS+, BIVALENT 0.3ML, IM, (PFIZER [facility] TOP) 2022-01-21 00:00:00 Completed [facility] Influenza Virus Vaccine,quad Im,preserve Free 65+ 2022-01-21 00:00:00 Completed [facility] SARS-COV-2 COVID-19 LAKESHA-SUCROSE VACCINE 12 YRS+, BIVALENT 0.3ML, IM, (PFIZER [facility] TOP) 2022-01-21 00:00:00 Completed [facility] Influenza Virus Vaccine,quad Im,preserve Free 65+ 2022-01-21 00:00:00 Completed [facility] SARS-COV-2 COVID-19 LAKESAH-SUCROSE VACCINE 12 YRS+, BIVALENT 0.3ML, IM, (PFIZER [facility] TOP) 2022-01-21 00:00:00 Completed [facility] Influenza Virus Vaccine,quad Im,preserve Free 65+ 2022-01-21 00:00:00 Completed [facility] SARS-COV-2 COVID-19 LAKESHA-SUCROSE VACCINE 12 YRS+, BIVALENT 0.3ML, IM, (PFIZER [facility] TOP) 2022-01-21 00:00:00 Completed [facility] Influenza Virus Vaccine,quad Im,preserve Free 65+ 2022-01-21 00:00:00 Completed [facility] SARS-COV-2 COVID-19 LAKESHA-SUCROSE VACCINE 12 YRS+, BIVALENT 0.3ML, IM, (PFIZER [facility] TOP) 2022-01-21 00:00:00 Completed [facility] Influenza Virus Vaccine,quad Im,preserve Free 65+ 2022-01-21 00:00:00 Completed [facility] SARS-COV-2 COVID-19 LAKESHA-SUCROSE VACCINE 12 YRS+, BIVALENT 0.3ML, IM, (PFIZER [facility] TOP) 2022-01-21 00:00:00 Completed [facility] Influenza Virus Vaccine,quad Im,preserve Free 65+ 2022-01-21 00:00:00 Completed [facility] SARS-COV-2 COVID-19 LAKESHA-SUCROSE VACCINE 12 YRS+, BIVALENT 0.3ML, IM, (PFIZER [facility] TOP) 2022-01-21 00:00:00 Completed [facility] Influenza Virus Vaccine,quad Im,preserve Free 65+ 2022-01-21 00:00:00 Completed [facility] SARS-COV-2 COVID-19 LAKESHA-SUCROSE VACCINE 12 YRS+, BIVALENT 0.3ML, IM, (PFIZER [facility] TOP) 2022-01-21 00:00:00 Completed [facility] Influenza Virus Vaccine,quad Im,preserve Free 65+ 2022-01-21 00:00:00 Completed [facility] SARS-COV-2 COVID-19 LAKESHA-SUCROSE VACCINE 12 YRS+, BIVALENT 0.3ML, IM, (PFIZER [facility] TOP) 2022-01-21 00:00:00 Completed [facility] Influenza Virus Vaccine,quad Im,preserve Free 65+ (FLUAD) 2022-01-21 00:00:00 Completed [facility] SARS-COV-2 COVID-19 LAKESHA-SUCROSE VACCINE 12 YRS+, BIVALENT 0.3ML, IM, (PFIZER [facility] TOP) 2022-01-21 00:00:00 Completed [facility] Influenza Virus Vaccine,quad Im,preserve Free 65+ (FLUAD) 2022-01-21 00:00:00 Completed [facility] SARS-COV-2 COVID-19 LAKESHA-SUCROSE VACCINE 12 YRS+, BIVALENT 0.3ML, IM, (PFIZER [facility] TOP) 2022-01-21 00:00:00 Completed [facility] Influenza Virus Vaccine,quad Im,preserve Free 65+ (FLUAD) 2022-01-21 00:00:00 Completed [facility] SARS-COV-2 COVID-19 LAKESHA-SUCROSE VACCINE 12 YRS+, BIVALENT 0.3ML, IM, (PFIZER [facility] TOP) 2022-01-21 00:00:00 Completed [facility] Influenza Virus Vaccine,quad Im,preserve Free 65+ (FLUAD) 2022-01-21 00:00:00 Completed [facility] SARS-COV-2 COVID-19 LAKESHA-SUCROSE VACCINE 12 YRS+, BIVALENT 0.3ML, IM, (PFIZER [facility] TOP) 2022-01-21 00:00:00 Completed [facility] Influenza Virus Vaccine,quad Im,preserve Free 65+ (FLUAD) 2022-01-21 00:00:00 Completed [facility] SARS-COV-2 COVID-19 LAKESHA-SUCROSE VACCINE 12 YRS+, BIVALENT 0.3ML, IM, (PFIZER [facility] TOP) 2022-01-21 00:00:00 Completed [facility] Influenza Virus Vaccine,quad Im,preserve Free 65+ (FLUAD) 2022-01-21 00:00:00 Completed [facility] SARS-COV-2 COVID-19 LAKESHA-SUCROSE VACCINE 12 YRS+, BIVALENT 0.3ML, IM, (PFIZER [facility] TOP) 2022-01-21 00:00:00 Completed [facility] Influenza Virus Vaccine,quad Im,preserve Free 65+ (FLUAD) 2022-01-21 00:00:00 Completed [facility] SARS-COV-2 COVID-19 LAKESHA-SUCROSE VACCINE 12 YRS+, BIVALENT 0.3ML, IM, (PFIZER [facility] TOP) 2022-01-21 00:00:00 Completed [facility] Influenza Virus Vaccine,quad Im,preserve Free 65+ (FLUAD) 2022-01-21 00:00:00 Completed [facility] SARS-COV-2 COVID-19 LAKESHA-SUCROSE VACCINE 12 YRS+, BIVALENT 0.3ML, IM, (PFIZER [facility] TOP) 2022-01-21 00:00:00 Completed [facility] Influenza Virus Vaccine,quad Im,preserve Free 65+ (FLUAD) 2022-01-21 00:00:00 Completed [facility] SARS-COV-2 COVID-19 LAKESHA-SUCROSE VACCINE 12 YRS+, BIVALENT 0.3ML, IM, (PFIZER [facility] TOP) 2022-01-21 00:00:00 Completed [facility] Influenza Virus Vaccine,quad Im,preserve Free 65+ (FLUAD) 2022-01-21 00:00:00 Completed [facility] SARS-COV-2 COVID-19 LAKESHA-SUCROSE VACCINE 12 YRS+, BIVALENT 0.3ML, IM, (PFIZER [facility] TOP) 2022-01-21 00:00:00 Completed [facility] Influenza Virus Vaccine,quad Im,preserve Free 65+ (FLUAD) 2022-01-21 00:00:00 Completed [facility] SARS-COV-2 COVID-19 LAKESHA-SUCROSE VACCINE 12 YRS+, BIVALENT 0.3ML, IM, (PFIZER [facility] TOP) 2022-01-21 00:00:00 Completed [facility] Influenza Virus Vaccine,quad Im,preserve Free 65+ (FLUAD) 2022-01-21 00:00:00 Completed [facility] SARS-COV-2 COVID-19 LAKESHA-SUCROSE VACCINE 12 YRS+, BIVALENT 0.3ML, IM, (PFIZER [facility] TOP) 2022-01-21 00:00:00 Completed [facility] Influenza Virus Vaccine,quad Im,preserve Free 65+ (FLUAD) 2022-01-21 00:00:00 Completed [facility] SARS-COV-2 COVID-19 LAKESHA-SUCROSE VACCINE 12 YRS+, BIVALENT 0.3ML, IM, (PFIZER [facility] TOP) 2022-01-21 00:00:00 Completed [facility] Influenza Virus Vaccine,quad Im,preserve Free 65+ (FLUAD) 2022-01-21 00:00:00 Completed [facility] SARS-COV-2 COVID-19 LAKESHA-SUCROSE VACCINE 12 YRS+, BIVALENT 0.3ML, IM, (PFIZER [facility] TOP) 2022-01-21 00:00:00 Completed [facility] Influenza Virus Vaccine,quad Im,preserve Free 65+ (FLUAD) 2022-01-21 00:00:00 Completed [facility] SARS-COV-2 COVID-19 PFIZER LAKESHA-SUCROSE VACCINE ([facility] TOP) 2021-08-07 00:00:00 Completed [facility] SARS-COV-2 COVID-19 PFIZER LAKESHA-SUCROSE VACCINE ([facility] TOP) 2021-08-07 00:00:00 Completed [facility] SARS-COV-2 COVID-19 PFIZER LAKESHA-SUCROSE VACCINE ([facility] TOP) 2021-08-07 00:00:00 Completed [facility] SARS-COV-2 COVID-19 PFIZER LAKESHA-SUCROSE VACCINE ([facility] TOP) 2021-08-07 00:00:00 Completed [facility] SARS-COV-2 COVID-19 PFIZER LAKESHA-SUCROSE VACCINE ([facility] TOP) 2021-08-07 00:00:00 Completed [facility] SARS-COV-2 COVID-19 PFIZER LAKESHA-SUCROSE VACCINE ([facility] TOP) 2021-08-07 00:00:00 Completed [facility] SARS-COV-2 COVID-19 PFIZER LAKESHA-SUCROSE VACCINE ([facility] TOP) 2021-08-07 00:00:00 Completed [facility] SARS-COV-2 COVID-19 PFIZER LAKESHA-SUCROSE VACCINE ([facility] TOP) 2021-08-07 00:00:00 Completed [facility] SARS-COV-2 COVID-19 PFIZER LAKESHA-SUCROSE VACCINE ([facility] TOP) 2021-08-07 00:00:00 Completed [facility] SARS-COV-2 COVID-19 PFIZER LAKESHA-SUCROSE VACCINE ([facility] TOP) 2021-08-07 00:00:00 Completed [facility] SARS-COV-2 COVID-19 PFIZER LAKESHA-SUCROSE VACCINE ([facility] TOP) 2021-08-07 00:00:00 Completed [facility] SARS-COV-2 COVID-19 PFIZER LAKESHA-SUCROSE VACCINE ([facility] TOP) 2021-08-07 00:00:00 Completed [facility] SARS-COV-2 COVID-19 PFIZER LAKESHA-SUCROSE VACCINE ([facility] TOP) 2021-08-07 00:00:00 Completed [facility] SARS-COV-2 COVID-19 PFIZER LAKESHA-SUCROSE VACCINE ([facility] TOP) 2021-08-07 00:00:00 Completed [facility] SARS-COV-2 COVID-19 PFIZER LAKESHA-SUCROSE VACCINE ([facility] TOP) 2021-08-07 00:00:00 Completed [facility] SARS-COV-2 COVID-19 PFIZER LAKESHA-SUCROSE VACCINE ([facility] TOP) 2021-08-07 00:00:00 Completed [facility] SARS-COV-2 COVID-19 PFIZER LAKESHA-SUCROSE VACCINE ([facility] TOP) 2021-08-07 00:00:00 Completed [facility] SARS-COV-2 COVID-19 PFIZER LAKESHA-SUCROSE VACCINE ([facility] TOP) 2021-08-07 00:00:00 Completed [facility] SARS-COV-2 COVID-19 PFIZER LAKESHA-SUCROSE VACCINE ([facility] TOP) 2021-08-07 00:00:00 Completed [facility] SARS-COV-2 COVID-19 PFIZER LAKESHA-SUCROSE VACCINE ([facility] TOP) 2021-08-07 00:00:00 Completed [facility] SARS-COV-2 COVID-19 PFIZER LAKESHA-SUCROSE VACCINE ([facility] TOP) 2021-08-07 00:00:00 Completed [facility] SARS-COV-2 COVID-19 PFIZER LAKESHA-SUCROSE VACCINE ([facility] TOP) 2021-08-07 00:00:00 Completed [facility] SARS-COV-2 COVID-19 PFIZER LAKESHA-SUCROSE VACCINE ([facility] TOP) 2021-08-07 00:00:00 Completed [facility] SARS-COV-2 COVID-19 PFIZER LAKESHA-SUCROSE VACCINE ([facility] TOP) 2021-08-07 00:00:00 Completed [facility] SARS-COV-2 COVID-19 PFIZER LAKESHA-SUCROSE VACCINE ([facility] TOP) 2021-08-07 00:00:00 Completed [facility] SARS-COV-2 COVID-19 PFIZER LAKESHA-SUCROSE VACCINE ([facility] TOP) 2021-08-07 00:00:00 Completed [facility] SARS-COV-2 COVID-19 PFIZER LAKESHA-SUCROSE VACCINE ([facility] TOP) 2021-08-07 00:00:00 Completed [facility] SARS-COV-2 COVID-19 PFIZER LAKESHA-SUCROSE VACCINE ([facility] TOP) 2021-08-07 00:00:00 Completed [facility] SARS-COV-2 COVID-19 PFIZER ALKESHA-SUCROSE VACCINE ([facility] TOP) 2021-08-07 00:00:00 Completed [facility] SARS-COV-2 COVID-19 PFIZER LAKESHA-SUCROSE VACCINE ([facility] TOP) 2021-08-07 00:00:00 Completed [facility] SARS-COV-2 COVID-19 PFIZER LAKESHA-SUCROSE VACCINE ([facility] TOP) 2021-08-07 00:00:00 Completed [facility] SARS-COV-2 COVID-19 PFIZER LAKESHA-SUCROSE VACCINE ([facility] TOP) 2021-08-07 00:00:00 Completed [facility] SARS-COV-2 COVID-19 PFIZER LAKESHA-SUCROSE VACCINE ([facility] TOP) 2021-08-07 00:00:00 Completed [facility] SARS-COV-2 COVID-19 PFIZER LAKESHA-SUCROSE VACCINE ([facility] TOP) 2021-08-07 00:00:00 Completed [facility] SARS-COV-2 COVID-19 PFIZER LAKESHA-SUCROSE VACCINE ([facility] TOP) 2021-08-07 00:00:00 Completed [facility] SARS-COV-2 COVID-19 PFIZER LAKESHA-SUCROSE VACCINE ([facility] TOP) 2021-08-07 00:00:00 Completed [facility] SARS-COV-2 COVID-19 PFIZER LAKESHA-SUCROSE VACCINE ([facility] TOP) 2021-08-07 00:00:00 Completed [facility] SARS-COV-2 COVID-19 PFIZER LAKESHA-SUCROSE VACCINE ([facility] TOP) 2021-08-07 00:00:00 Completed [facility] SARS-COV-2 COVID-19 PFIZER LAKESHA-SUCROSE VACCINE ([facility] TOP) 2021-08-07 00:00:00 Completed [facility] SARS-COV-2 COVID-19 PFIZER LAKESHA-SUCROSE VACCINE ([facility] TOP) 2021-08-07 00:00:00 Completed [facility] SARS-COV-2 COVID-19 PFIZER LAKESHA-SUCROSE VACCINE ([facility] TOP) 2021-08-07 00:00:00 Completed [facility] SARS-COV-2 COVID-19 PFIZER LAKESHA-SUCROSE VACCINE ([facility]) 2021-08-07 00:00:00 Completed [facility] SARS-COV-2 COVID-19 PFIZER LAKESHA-SUCROSE VACCINE ([facility]) 2021-08-07 00:00:00 Completed [facility] SARS-COV-2 COVID-19 PFIZER LAKESHA-SUCROSE VACCINE ([facility]) 2021-08-07 00:00:00 Completed [facility] SARS-COV-2 COVID-19 PFIZER LAKESHA-SUCROSE VACCINE ([facility]) 2021-08-07 00:00:00 Completed [facility] SARS-COV-2 COVID-19 PFIZER LAKESHA-SUCROSE VACCINE ([facility]) 2021-08-07 00:00:00 Completed [facility] SARS-COV-2 COVID-19 PFIZER LAKESHA-SUCROSE VACCINE ([facility]) 2021-08-07 00:00:00 Completed [facility] SARS-COV-2 COVID-19 PFIZER LAKESHA-SUCROSE VACCINE ([facility]) 2021-08-07 00:00:00 Completed [facility] SARS-COV-2 COVID-19 PFIZER LAKESHA-SUCROSE VACCINE ([facility]) 2021-08-07 00:00:00 Completed [facility] SARS-COV-2 COVID-19 PFIZER LAKESHA-SUCROSE VACCINE ([facility]) 2021-08-07 00:00:00 Completed [facility] SARS-COV-2 COVID-19 PFIZER LAKESHA-SUCROSE VACCINE ([facility]) 2021-08-07 00:00:00 Completed [facility] SARS-COV-2 COVID-19 PFIZER LAKESHA-SUCROSE VACCINE ([facility]) 2021-08-07 00:00:00 Completed [facility] SARS-COV-2 COVID-19 PFIZER LAKESHA-SUCROSE VACCINE ([facility]) 2021-08-07 00:00:00 Completed [facility] SARS-COV-2 COVID-19 PFIZER LAKESHA-SUCROSE VACCINE ([facility]) 2021-08-07 00:00:00 Completed [facility] SARS-COV-2 COVID-19 PFIZER LAKESHA-SUCROSE VACCINE ([facility]) 2021-08-07 00:00:00 Completed [facility] SARS-COV-2 COVID-19 PFIZER LAKESHA-SUCROSE VACCINE ([facility]) 2021-08-07 00:00:00 Completed [facility] SARS-COV-2 COVID-19 PFIZER LAKESHA-SUCROSE VACCINE ([facility]) 2021-08-07 00:00:00 Completed [facility] SARS-COV-2 COVID-19 PFIZER LAKESHA-SUCROSE VACCINE ([facility]) 2021-08-07 00:00:00 Completed [facility] SARS-COV-2 COVID-19 PFIZER LAKESHA-SUCROSE VACCINE ([facility]) 2021-08-07 00:00:00 Completed [facility] SARS-COV-2 COVID-19 PFIZER LAKESHA-SUCROSE VACCINE ([facility] TOP) 2021-08-07 00:00:00 Completed [facility] SARS-COV-2 COVID-19 PFIZER LAKESHA-SUCROSE VACCINE ([facility]) 2021-08-07 00:00:00 Completed [facility] SARS-COV-2 COVID-19 PFIZER LAKESHA-SUCROSE VACCINE ([facility]) 2021-08-07 00:00:00 Completed [facility] SARS-COV-2 COVID-19 PFIZER LAKESHA-SUCROSE VACCINE ([facility]) 2021-08-07 00:00:00 Completed [facility] SARS-COV-2 COVID-19 PFIZER LAKESHA-SUCROSE VACCINE ([facility]) 2021-08-07 00:00:00 Completed [facility] SARS-COV-2 COVID-19 PFIZER LAKESHA-SUCROSE VACCINE ([facility]) 2021-08-07 00:00:00 Completed [facility] SARS-COV-2 COVID-19 PFIZER LAKESHA-SUCROSE VACCINE ([facility]) 2021-08-07 00:00:00 Completed [facility] SARS-COV-2 COVID-19 PFIZER LAKESHA-SUCROSE VACCINE ([facility]) 2021-08-07 00:00:00 Completed [facility] SARS-COV-2 COVID-19 PFIZER LAKESHA-SUCROSE VACCINE ([facility]) 2021-08-07 00:00:00 Completed [facility] SARS-COV-2 COVID-19 PFIZER LAKESHA-SUCROSE VACCINE ([facility]) 2021-08-07 00:00:00 Completed [facility] SARS-COV-2 COVID-19 PFIZER LAKESHA-SUCROSE VACCINE ([facility]) 2021-08-07 00:00:00 Completed [facility] SARS-COV-2 COVID-19 PFIZER LAKESHA-SUCROSE VACCINE ([facility]) 2021-08-07 00:00:00 Completed [facility] SARS-COV-2 COVID-19 PFIZER LAKESHA-SUCROSE VACCINE ([facility]) 2021-08-07 00:00:00 Completed [facility] SARS-COV-2 COVID-19 PFIZER LAKESHA-SUCROSE VACCINE ([facility]) 2021-08-07 00:00:00 Completed [facility] SARS-COV-2 COVID-19 PFIZER LAKESHA-SUCROSE VACCINE ([facility]) 2021-08-07 00:00:00 Completed [facility] SARS-COV-2 COVID-19 PFIZER LAKESHA-SUCROSE VACCINE ([facility]) 2021-08-07 00:00:00 Completed [facility] SARS-COV-2 COVID-19 PFIZER LAKESHA-SUCROSE VACCINE ([facility]) 2021-08-07 00:00:00 Completed [facility] SARS-COV-2 COVID-19 PFIZER LAKESHA-SUCROSE VACCINE ([facility]) 2021-08-07 00:00:00 Completed [facility] SARS-COV-2 COVID-19 PFIZER LAKESHA-SUCROSE VACCINE ([facility]) 2021-08-07 00:00:00 Completed [facility] SARS-COV-2 COVID-19 PFIZER LAKESHA-SUCROSE VACCINE ([facility]) 2021-08-07 00:00:00 Completed [facility] SARS-COV-2 COVID-19 PFIZER LAKESHA-SUCROSE VACCINE ([facility]) 2021-08-07 00:00:00 Completed [facility] SARS-COV-2 COVID-19 PFIZER LAKESHA-SUCROSE VACCINE ([facility]) 2021-08-07 00:00:00 Completed [facility] SARS-COV-2 COVID-19 PFIZER LAKESHA-SUCROSE VACCINE ([facility]) 2021-08-07 00:00:00 Completed [facility] SARS-COV-2 COVID-19 PFIZER LAKESHA-SUCROSE VACCINE ([facility]) 2021-08-07 00:00:00 Completed [facility] SARS-COV-2 COVID-19 PFIZER LAKESHA-SUCROSE VACCINE ([facility]) 2021-08-07 00:00:00 Completed [facility] SARS-COV-2 COVID-19 PFIZER LAKESHA-SUCROSE VACCINE ([facility]) 2021-08-07 00:00:00 Completed [facility] SARS-COV-2 COVID-19 PFIZER LAKESHA-SUCROSE VACCINE ([facility]) 2021-08-07 00:00:00 Completed [facility] SARS-COV-2 COVID-19 PFIZER LAKESHA-SUCROSE VACCINE ([facility]) 2021-08-07 00:00:00 Completed [facility] SARS-COV-2 COVID-19 PFIZER LAKESHA-SUCROSE VACCINE ([facility]) 2021-08-07 00:00:00 Completed [facility] SARS-COV-2 COVID-19 PFIZER LAKESHA-SUCROSE VACCINE ([facility]) 2021-08-07 00:00:00 Completed [facility] SARS-COV-2 COVID-19 PFIZER LAKESHA-SUCROSE VACCINE ([facility]) 2021-08-07 00:00:00 Completed [facility] SARS-COV-2 COVID-19 PFIZER VACCINE 2021-02-14 00:00:00 Completed [facility] SARS-COV-2 COVID-19 PFIZER VACCINE 2021-02-14 00:00:00 Completed [facility] SARS-COV-2 COVID-19 PFIZER VACCINE 2021-02-14 00:00:00 Completed [facility] SARS-COV-2 COVID-19 PFIZER VACCINE 2021-02-14 00:00:00 Completed [facility] SARS-COV-2 COVID-19 PFIZER VACCINE 2021-02-14 00:00:00 Completed [facility] SARS-COV-2 COVID-19 PFIZER VACCINE 2021-02-14 00:00:00 Completed [facility] SARS-COV-2 COVID-19 PFIZER VACCINE 2021-02-14 00:00:00 Completed [facility] SARS-COV-2 COVID-19 PFIZER VACCINE 2021-02-14 00:00:00 Completed [facility] SARS-COV-2 COVID-19 PFIZER VACCINE 2021-02-14 00:00:00 Completed [facility] SARS-COV-2 COVID-19 PFIZER VACCINE 2021-02-14 00:00:00 Completed [facility] SARS-COV-2 COVID-19 PFIZER VACCINE 2021-02-14 00:00:00 Completed [facility] SARS-COV-2 COVID-19 PFIZER VACCINE 2021-02-14 00:00:00 Completed [facility] SARS-COV-2 COVID-19 PFIZER VACCINE 2021-02-14 00:00:00 Completed [facility] SARS-COV-2 COVID-19 PFIZER VACCINE 2021-02-14 00:00:00 Completed [facility] SARS-COV-2 COVID-19 PFIZER VACCINE 2021-02-14 00:00:00 Completed [facility] SARS-COV-2 COVID-19 PFIZER VACCINE 2021-02-14 00:00:00 Completed [facility] SARS-COV-2 COVID-19 PFIZER VACCINE 2021-02-14 00:00:00 Completed [facility] SARS-COV-2 COVID-19 PFIZER VACCINE 2021-02-14 00:00:00 Completed [facility] SARS-COV-2 COVID-19 PFIZER VACCINE 2021-02-14 00:00:00 Completed [facility] SARS-COV-2 COVID-19 PFIZER VACCINE 2021-02-14 00:00:00 Completed [facility] SARS-COV-2 COVID-19 PFIZER VACCINE 2021-02-14 00:00:00 Completed [facility] SARS-COV-2 COVID-19 PFIZER VACCINE 2021-02-14 00:00:00 Completed [facility] SARS-COV-2 COVID-19 PFIZER VACCINE 2021-02-14 00:00:00 Completed [facility] SARS-COV-2 COVID-19 PFIZER VACCINE 2021-02-14 00:00:00 Completed [facility] SARS-COV-2 COVID-19 PFIZER VACCINE 2021-02-14 00:00:00 Completed [facility] SARS-COV-2 COVID-19 PFIZER VACCINE 2021-02-14 00:00:00 Completed [facility] SARS-COV-2 COVID-19 PFIZER VACCINE 2021-02-14 00:00:00 Completed [facility] SARS-COV-2 COVID-19 PFIZER VACCINE 2021-02-14 00:00:00 Completed [facility] SARS-COV-2 COVID-19 PFIZER VACCINE 2021-02-14 00:00:00 Completed [facility] SARS-COV-2 COVID-19 PFIZER VACCINE 2021-02-14 00:00:00 Completed [facility] SARS-COV-2 COVID-19 PFIZER VACCINE 2021-02-14 00:00:00 Completed [facility] SARS-COV-2 COVID-19 PFIZER VACCINE 2021-02-14 00:00:00 Completed [facility] SARS-COV-2 COVID-19 PFIZER VACCINE 2021-02-14 00:00:00 Completed [facility] SARS-COV-2 COVID-19 PFIZER VACCINE 2021-02-14 00:00:00 Completed [facility] SARS-COV-2 COVID-19 PFIZER VACCINE 2021-02-14 00:00:00 Completed [facility] SARS-COV-2 COVID-19 PFIZER VACCINE 2021-02-14 00:00:00 Completed [facility] SARS-COV-2 COVID-19 PFIZER VACCINE 2021-02-14 00:00:00 Completed [facility] SARS-COV-2 COVID-19 PFIZER VACCINE 2021-02-14 00:00:00 Completed [facility] SARS-COV-2 COVID-19 PFIZER VACCINE 2021-02-14 00:00:00 Completed [facility] SARS-COV-2 COVID-19 PFIZER VACCINE 2021-02-14 00:00:00 Completed [facility] SARS-COV-2 COVID-19 PFIZER VACCINE 2021-02-14 00:00:00 Completed [facility] SARS-COV-2 COVID-19 PFIZER VACCINE 2021-02-14 00:00:00 Completed [facility] SARS-COV-2 COVID-19 PFIZER VACCINE 2021-02-14 00:00:00 Completed [facility] SARS-COV-2 COVID-19 PFIZER VACCINE 2021-02-14 00:00:00 Completed [facility] SARS-COV-2 COVID-19 PFIZER VACCINE 2021-02-14 00:00:00 Completed [facility] SARS-COV-2 COVID-19 PFIZER VACCINE 2021-02-14 00:00:00 Completed [facility] SARS-COV-2 COVID-19 PFIZER VACCINE 2021-02-14 00:00:00 Completed [facility] SARS-COV-2 COVID-19 PFIZER VACCINE 2021-02-14 00:00:00 Completed [facility] SARS-COV-2 COVID-19 PFIZER VACCINE 2021-02-14 00:00:00 Completed [facility] SARS-COV-2 COVID-19 PFIZER VACCINE 2021-02-14 00:00:00 Completed [facility] SARS-COV-2 COVID-19 PFIZER VACCINE 2021-02-14 00:00:00 Completed [facility] SARS-COV-2 COVID-19 PFIZER VACCINE 2021-02-14 00:00:00 Completed [facility] SARS-COV-2 COVID-19 PFIZER VACCINE 2021-02-14 00:00:00 Completed [facility] SARS-COV-2 COVID-19 PFIZER VACCINE 2021-02-14 00:00:00 Completed [facility] SARS-COV-2 COVID-19 PFIZER VACCINE 2021-02-14 00:00:00 Completed [facility] SARS-COV-2 COVID-19 PFIZER VACCINE 2021-02-14 00:00:00 Completed [facility] SARS-COV-2 COVID-19 PFIZER VACCINE 2021-02-14 00:00:00 Completed [facility] SARS-COV-2 COVID-19 PFIZER VACCINE 2021-02-14 00:00:00 Completed [facility] SARS-COV-2 COVID-19 PFIZER VACCINE 2021-02-14 00:00:00 Completed [facility] SARS-COV-2 COVID-19 PFIZER VACCINE 2021-02-14 00:00:00 Completed [facility] SARS-COV-2 COVID-19 PFIZER VACCINE 2021-02-14 00:00:00 Completed [facility] SARS-COV-2 COVID-19 PFIZER VACCINE 2021-02-14 00:00:00 Completed [facility] SARS-COV-2 COVID-19 PFIZER VACCINE 2021-02-14 00:00:00 Completed [facility] SARS-COV-2 COVID-19 PFIZER VACCINE 2021-02-14 00:00:00 Completed [facility] SARS-COV-2 COVID-19 PFIZER VACCINE 2021-02-14 00:00:00 Completed [facility] SARS-COV-2 COVID-19 PFIZER VACCINE 2021-02-14 00:00:00 Completed [facility] SARS-COV-2 COVID-19 PFIZER VACCINE 2021-02-14 00:00:00 Completed [facility] SARS-COV-2 COVID-19 PFIZER VACCINE 2021-02-14 00:00:00 Completed [facility] SARS-COV-2 COVID-19 PFIZER VACCINE 2021-02-14 00:00:00 Completed [facility] SARS-COV-2 COVID-19 PFIZER VACCINE 2021-02-14 00:00:00 Completed [facility] SARS-COV-2 COVID-19 PFIZER VACCINE 2021-02-14 00:00:00 Completed [facility] SARS-COV-2 COVID-19 PFIZER VACCINE 2021-02-14 00:00:00 Completed [facility] SARS-COV-2 COVID-19 PFIZER VACCINE 2021-02-14 00:00:00 Completed [facility] SARS-COV-2 COVID-19 PFIZER VACCINE 2021-02-14 00:00:00 Completed [facility] SARS-COV-2 COVID-19 PFIZER VACCINE 2021-02-14 00:00:00 Completed [facility] SARS-COV-2 COVID-19 PFIZER VACCINE 2021-02-14 00:00:00 Completed [facility] SARS-COV-2 COVID-19 PFIZER VACCINE 2021-02-14 00:00:00 Completed [facility] SARS-COV-2 COVID-19 PFIZER VACCINE 2021-02-14 00:00:00 Completed [facility] SARS-COV-2 COVID-19 PFIZER VACCINE 2021-02-14 00:00:00 Completed [facility] SARS-COV-2 COVID-19 PFIZER VACCINE 2021-02-14 00:00:00 Completed [facility] SARS-COV-2 COVID-19 PFIZER VACCINE 2021-02-14 00:00:00 Completed [facility] SARS-COV-2 COVID-19 PFIZER VACCINE 2021-02-14 00:00:00 Completed [facility] SARS-COV-2 COVID-19 PFIZER VACCINE 2021-02-14 00:00:00 Completed [facility] SARS-COV-2 COVID-19 PFIZER VACCINE 2021-02-14 00:00:00 Completed [facility] SARS-COV-2 COVID-19 PFIZER VACCINE 2021-02-14 00:00:00 Completed [facility] SARS-COV-2 COVID-19 PFIZER VACCINE 2021-02-14 00:00:00 Completed [facility] SARS-COV-2 COVID-19 PFIZER VACCINE 2021-02-14 00:00:00 Completed [facility] SARS-COV-2 COVID-19 PFIZER VACCINE 2021-02-14 00:00:00 Completed [facility] SARS-COV-2 COVID-19 PFIZER VACCINE 2021-02-14 00:00:00 Completed [facility] SARS-COV-2 COVID-19 PFIZER VACCINE 2021-02-14 00:00:00 Completed [facility] SARS-COV-2 COVID-19 PFIZER VACCINE 2021-02-14 00:00:00 Completed [facility] SARS-COV-2 COVID-19 PFIZER VACCINE 2020-06-13 00:00:00 Completed [facility] SARS-COV-2 COVID-19 PFIZER VACCINE 2020-06-13 00:00:00 Completed [facility] SARS-COV-2 COVID-19 PFIZER VACCINE 2020-06-13 00:00:00 Completed [facility] SARS-COV-2 COVID-19 PFIZER VACCINE 2020-06-13 00:00:00 Completed [facility] SARS-COV-2 COVID-19 PFIZER VACCINE 2020-06-13 00:00:00 Completed [facility] SARS-COV-2 COVID-19 PFIZER VACCINE 2020-06-13 00:00:00 Completed [facility] SARS-COV-2 COVID-19 PFIZER VACCINE 2020-06-13 00:00:00 Completed [facility] SARS-COV-2 COVID-19 PFIZER VACCINE 2020-06-13 00:00:00 Completed [facility] SARS-COV-2 COVID-19 PFIZER VACCINE 2020-06-13 00:00:00 Completed [facility] SARS-COV-2 COVID-19 PFIZER VACCINE 2020-06-13 00:00:00 Completed [facility] SARS-COV-2 COVID-19 PFIZER VACCINE 2020-06-13 00:00:00 Completed [facility] SARS-COV-2 COVID-19 PFIZER VACCINE 2020-06-13 00:00:00 Completed [facility] SARS-COV-2 COVID-19 PFIZER VACCINE 2020-06-13 00:00:00 Completed [facility] SARS-COV-2 COVID-19 PFIZER VACCINE 2020-06-13 00:00:00 Completed [facility] SARS-COV-2 COVID-19 PFIZER VACCINE 2020-06-13 00:00:00 Completed [facility] SARS-COV-2 COVID-19 PFIZER VACCINE 2020-06-13 00:00:00 Completed [facility] SARS-COV-2 COVID-19 PFIZER VACCINE 2020-06-13 00:00:00 Completed [facility] SARS-COV-2 COVID-19 PFIZER VACCINE 2020-06-13 00:00:00 Completed [facility] SARS-COV-2 COVID-19 PFIZER VACCINE 2020-06-13 00:00:00 Completed [facility] SARS-COV-2 COVID-19 PFIZER VACCINE 2020-06-13 00:00:00 Completed [facility] SARS-COV-2 COVID-19 PFIZER VACCINE 2020-06-13 00:00:00 Completed [facility] SARS-COV-2 COVID-19 PFIZER VACCINE 2020-06-13 00:00:00 Completed [facility] SARS-COV-2 COVID-19 PFIZER VACCINE 2020-06-13 00:00:00 Completed [facility] SARS-COV-2 COVID-19 PFIZER VACCINE 2020-06-13 00:00:00 Completed [facility] SARS-COV-2 COVID-19 PFIZER VACCINE 2020-06-13 00:00:00 Completed [facility] SARS-COV-2 COVID-19 PFIZER VACCINE 2020-06-13 00:00:00 Completed [facility] SARS-COV-2 COVID-19 PFIZER VACCINE 2020-06-13 00:00:00 Completed [facility] SARS-COV-2 COVID-19 PFIZER VACCINE 2020-06-13 00:00:00 Completed [facility] SARS-COV-2 COVID-19 PFIZER VACCINE 2020-06-13 00:00:00 Completed [facility] SARS-COV-2 COVID-19 PFIZER VACCINE 2020-06-13 00:00:00 Completed [facility] SARS-COV-2 COVID-19 PFIZER VACCINE 2020-06-13 00:00:00 Completed [facility] SARS-COV-2 COVID-19 PFIZER VACCINE 2020-06-13 00:00:00 Completed [facility] SARS-COV-2 COVID-19 PFIZER VACCINE 2020-06-13 00:00:00 Completed [facility] SARS-COV-2 COVID-19 PFIZER VACCINE 2020-06-13 00:00:00 Completed [facility] SARS-COV-2 COVID-19 PFIZER VACCINE 2020-06-13 00:00:00 Completed [facility] SARS-COV-2 COVID-19 PFIZER VACCINE 2020-06-13 00:00:00 Completed [facility] SARS-COV-2 COVID-19 PFIZER VACCINE 2020-06-13 00:00:00 Completed [facility] SARS-COV-2 COVID-19 PFIZER VACCINE 2020-06-13 00:00:00 Completed [facility] SARS-COV-2 COVID-19 PFIZER VACCINE 2020-06-13 00:00:00 Completed [facility] SARS-COV-2 COVID-19 PFIZER VACCINE 2020-06-13 00:00:00 Completed [facility] SARS-COV-2 COVID-19 PFIZER VACCINE 2020-06-13 00:00:00 Completed [facility] SARS-COV-2 COVID-19 PFIZER VACCINE 2020-06-13 00:00:00 Completed [facility] SARS-COV-2 COVID-19 PFIZER VACCINE 2020-06-13 00:00:00 Completed [facility] SARS-COV-2 COVID-19 PFIZER VACCINE 2020-06-13 00:00:00 Completed [facility] SARS-COV-2 COVID-19 PFIZER VACCINE 2020-06-13 00:00:00 Completed [facility] SARS-COV-2 COVID-19 PFIZER VACCINE 2020-06-13 00:00:00 Completed [facility] SARS-COV-2 COVID-19 PFIZER VACCINE 2020-06-13 00:00:00 Completed [facility] SARS-COV-2 COVID-19 PFIZER VACCINE 2020-06-13 00:00:00 Completed [facility] SARS-COV-2 COVID-19 PFIZER VACCINE 2020-06-13 00:00:00 Completed [facility] SARS-COV-2 COVID-19 PFIZER VACCINE 2020-06-13 00:00:00 Completed [facility] SARS-COV-2 COVID-19 PFIZER VACCINE 2020-06-13 00:00:00 Completed [facility] SARS-COV-2 COVID-19 PFIZER VACCINE 2020-06-13 00:00:00 Completed [facility] SARS-COV-2 COVID-19 PFIZER VACCINE 2020-06-13 00:00:00 Completed [facility] SARS-COV-2 COVID-19 PFIZER VACCINE 2020-06-13 00:00:00 Completed [facility] SARS-COV-2 COVID-19 PFIZER VACCINE 2020-06-13 00:00:00 Completed [facility] SARS-COV-2 COVID-19 PFIZER VACCINE 2020-06-13 00:00:00 Completed [facility] SARS-COV-2 COVID-19 PFIZER VACCINE 2020-06-13 00:00:00 Completed [facility] SARS-COV-2 COVID-19 PFIZER VACCINE 2020-06-13 00:00:00 Completed [facility] SARS-COV-2 COVID-19 PFIZER VACCINE 2020-06-13 00:00:00 Completed [facility] SARS-COV-2 COVID-19 PFIZER VACCINE 2020-06-13 00:00:00 Completed [facility] SARS-COV-2 COVID-19 PFIZER VACCINE 2020-06-13 00:00:00 Completed [facility] SARS-COV-2 COVID-19 PFIZER VACCINE 2020-06-13 00:00:00 Completed [facility] SARS-COV-2 COVID-19 PFIZER VACCINE 2020-06-13 00:00:00 Completed [facility] SARS-COV-2 COVID-19 PFIZER VACCINE 2020-06-13 00:00:00 Completed [facility] SARS-COV-2 COVID-19 PFIZER VACCINE 2020-06-13 00:00:00 Completed [facility] SARS-COV-2 COVID-19 PFIZER VACCINE 2020-06-13 00:00:00 Completed [facility] SARS-COV-2 COVID-19 PFIZER VACCINE 2020-06-13 00:00:00 Completed [facility] SARS-COV-2 COVID-19 PFIZER VACCINE 2020-06-13 00:00:00 Completed [facility] SARS-COV-2 COVID-19 PFIZER VACCINE 2020-06-13 00:00:00 Completed [facility] SARS-COV-2 COVID-19 PFIZER VACCINE 2020-06-13 00:00:00 Completed [facility] SARS-COV-2 COVID-19 PFIZER VACCINE 2020-06-13 00:00:00 Completed [facility] SARS-COV-2 COVID-19 PFIZER VACCINE 2020-06-13 00:00:00 Completed [facility] SARS-COV-2 COVID-19 PFIZER VACCINE 2020-06-13 00:00:00 Completed [facility] SARS-COV-2 COVID-19 PFIZER VACCINE 2020-06-13 00:00:00 Completed [facility] SARS-COV-2 COVID-19 PFIZER VACCINE 2020-06-13 00:00:00 Completed [facility] SARS-COV-2 COVID-19 PFIZER VACCINE 2020-06-13 00:00:00 Completed [facility] SARS-COV-2 COVID-19 PFIZER VACCINE 2020-06-13 00:00:00 Completed [facility] SARS-COV-2 COVID-19 PFIZER VACCINE 2020-06-13 00:00:00 Completed [facility] SARS-COV-2 COVID-19 PFIZER VACCINE 2020-06-13 00:00:00 Completed [facility] SARS-COV-2 COVID-19 PFIZER VACCINE 2020-06-13 00:00:00 Completed [facility] SARS-COV-2 COVID-19 PFIZER VACCINE 2020-06-13 00:00:00 Completed [facility] SARS-COV-2 COVID-19 PFIZER VACCINE 2020-06-13 00:00:00 Completed [facility] SARS-COV-2 COVID-19 PFIZER VACCINE 2020-06-13 00:00:00 Completed [facility] SARS-COV-2 COVID-19 PFIZER VACCINE 2020-06-13 00:00:00 Completed [facility] SARS-COV-2 COVID-19 PFIZER VACCINE 2020-06-13 00:00:00 Completed [facility] SARS-COV-2 COVID-19 PFIZER VACCINE 2020-06-13 00:00:00 Completed [facility] SARS-COV-2 COVID-19 PFIZER VACCINE 2020-06-13 00:00:00 Completed [facility] SARS-COV-2 COVID-19 PFIZER VACCINE 2020-06-13 00:00:00 Completed [facility] SARS-COV-2 COVID-19 PFIZER VACCINE 2020-06-13 00:00:00 Completed [facility] SARS-COV-2 COVID-19 PFIZER VACCINE 2020-06-13 00:00:00 Completed [facility] SARS-COV-2 COVID-19 PFIZER VACCINE 2020-06-13 00:00:00 Completed [facility] SARS-COV-2 COVID-19 PFIZER VACCINE 2020-05-23 00:00:00 Completed [facility] SARS-COV-2 COVID-19 PFIZER VACCINE 2020-05-23 00:00:00 Completed [facility] SARS-COV-2 COVID-19 PFIZER VACCINE 2020-05-23 00:00:00 Completed [facility] SARS-COV-2 COVID-19 PFIZER VACCINE 2020-05-23 00:00:00 Completed [facility] SARS-COV-2 COVID-19 PFIZER VACCINE 2020-05-23 00:00:00 Completed [facility] SARS-COV-2 COVID-19 PFIZER VACCINE 2020-05-23 00:00:00 Completed [facility] SARS-COV-2 COVID-19 PFIZER VACCINE 2020-05-23 00:00:00 Completed [facility] SARS-COV-2 COVID-19 PFIZER VACCINE 2020-05-23 00:00:00 Completed [facility] SARS-COV-2 COVID-19 PFIZER VACCINE 2020-05-23 00:00:00 Completed [facility] SARS-COV-2 COVID-19 PFIZER VACCINE 2020-05-23 00:00:00 Completed [facility] SARS-COV-2 COVID-19 PFIZER VACCINE 2020-05-23 00:00:00 Completed [facility] SARS-COV-2 COVID-19 PFIZER VACCINE 2020-05-23 00:00:00 Completed [facility] SARS-COV-2 COVID-19 PFIZER VACCINE 2020-05-23 00:00:00 Completed [facility] SARS-COV-2 COVID-19 PFIZER VACCINE 2020-05-23 00:00:00 Completed [facility] SARS-COV-2 COVID-19 PFIZER VACCINE 2020-05-23 00:00:00 Completed [facility] SARS-COV-2 COVID-19 PFIZER VACCINE 2020-05-23 00:00:00 Completed [facility] SARS-COV-2 COVID-19 PFIZER VACCINE 2020-05-23 00:00:00 Completed [facility] SARS-COV-2 COVID-19 PFIZER VACCINE 2020-05-23 00:00:00 Completed [facility] SARS-COV-2 COVID-19 PFIZER VACCINE 2020-05-23 00:00:00 Completed [facility] SARS-COV-2 COVID-19 PFIZER VACCINE 2020-05-23 00:00:00 Completed [facility] SARS-COV-2 COVID-19 PFIZER VACCINE 2020-05-23 00:00:00 Completed [facility] SARS-COV-2 COVID-19 PFIZER VACCINE 2020-05-23 00:00:00 Completed [facility] SARS-COV-2 COVID-19 PFIZER VACCINE 2020-05-23 00:00:00 Completed [facility] SARS-COV-2 COVID-19 PFIZER VACCINE 2020-05-23 00:00:00 Completed [facility] SARS-COV-2 COVID-19 PFIZER VACCINE 2020-05-23 00:00:00 Completed [facility] SARS-COV-2 COVID-19 PFIZER VACCINE 2020-05-23 00:00:00 Completed [facility] SARS-COV-2 COVID-19 PFIZER VACCINE 2020-05-23 00:00:00 Completed [facility] SARS-COV-2 COVID-19 PFIZER VACCINE 2020-05-23 00:00:00 Completed [facility] SARS-COV-2 COVID-19 PFIZER VACCINE 2020-05-23 00:00:00 Completed [facility] SARS-COV-2 COVID-19 PFIZER VACCINE 2020-05-23 00:00:00 Completed [facility] SARS-COV-2 COVID-19 PFIZER VACCINE 2020-05-23 00:00:00 Completed [facility] SARS-COV-2 COVID-19 PFIZER VACCINE 2020-05-23 00:00:00 Completed [facility] SARS-COV-2 COVID-19 PFIZER VACCINE 2020-05-23 00:00:00 Completed [facility] SARS-COV-2 COVID-19 PFIZER VACCINE 2020-05-23 00:00:00 Completed [facility] SARS-COV-2 COVID-19 PFIZER VACCINE 2020-05-23 00:00:00 Completed [facility] SARS-COV-2 COVID-19 PFIZER VACCINE 2020-05-23 00:00:00 Completed [facility] SARS-COV-2 COVID-19 PFIZER VACCINE 2020-05-23 00:00:00 Completed [facility] SARS-COV-2 COVID-19 PFIZER VACCINE 2020-05-23 00:00:00 Completed [facility] SARS-COV-2 COVID-19 PFIZER VACCINE 2020-05-23 00:00:00 Completed [facility] SARS-COV-2 COVID-19 PFIZER VACCINE 2020-05-23 00:00:00 Completed [facility] SARS-COV-2 COVID-19 PFIZER VACCINE 2020-05-23 00:00:00 Completed [facility] SARS-COV-2 COVID-19 PFIZER VACCINE 2020-05-23 00:00:00 Completed [facility] SARS-COV-2 COVID-19 PFIZER VACCINE 2020-05-23 00:00:00 Completed [facility] SARS-COV-2 COVID-19 PFIZER VACCINE 2020-05-23 00:00:00 Completed [facility] SARS-COV-2 COVID-19 PFIZER VACCINE 2020-05-23 00:00:00 Completed [facility] SARS-COV-2 COVID-19 PFIZER VACCINE 2020-05-23 00:00:00 Completed [facility] SARS-COV-2 COVID-19 PFIZER VACCINE 2020-05-23 00:00:00 Completed [facility] SARS-COV-2 COVID-19 PFIZER VACCINE 2020-05-23 00:00:00 Completed [facility] SARS-COV-2 COVID-19 PFIZER VACCINE 2020-05-23 00:00:00 Completed [facility] SARS-COV-2 COVID-19 PFIZER VACCINE 2020-05-23 00:00:00 Completed [facility] SARS-COV-2 COVID-19 PFIZER VACCINE 2020-05-23 00:00:00 Completed [facility] SARS-COV-2 COVID-19 PFIZER VACCINE 2020-05-23 00:00:00 Completed [facility] SARS-COV-2 COVID-19 PFIZER VACCINE 2020-05-23 00:00:00 Completed [facility] SARS-COV-2 COVID-19 PFIZER VACCINE 2020-05-23 00:00:00 Completed [facility] SARS-COV-2 COVID-19 PFIZER VACCINE 2020-05-23 00:00:00 Completed [facility] SARS-COV-2 COVID-19 PFIZER VACCINE 2020-05-23 00:00:00 Completed [facility] SARS-COV-2 COVID-19 PFIZER VACCINE 2020-05-23 00:00:00 Completed [facility] SARS-COV-2 COVID-19 PFIZER VACCINE 2020-05-23 00:00:00 Completed [facility] SARS-COV-2 COVID-19 PFIZER VACCINE 2020-05-23 00:00:00 Completed [facility] SARS-COV-2 COVID-19 PFIZER VACCINE 2020-05-23 00:00:00 Completed [facility] SARS-COV-2 COVID-19 PFIZER VACCINE 2020-05-23 00:00:00 Completed [facility] SARS-COV-2 COVID-19 PFIZER VACCINE 2020-05-23 00:00:00 Completed [facility] SARS-COV-2 COVID-19 PFIZER VACCINE 2020-05-23 00:00:00 Completed [facility] SARS-COV-2 COVID-19 PFIZER VACCINE 2020-05-23 00:00:00 Completed [facility] SARS-COV-2 COVID-19 PFIZER VACCINE 2020-05-23 00:00:00 Completed [facility] SARS-COV-2 COVID-19 PFIZER VACCINE 2020-05-23 00:00:00 Completed [facility] SARS-COV-2 COVID-19 PFIZER VACCINE 2020-05-23 00:00:00 Completed [facility] SARS-COV-2 COVID-19 PFIZER VACCINE 2020-05-23 00:00:00 Completed [facility] SARS-COV-2 COVID-19 PFIZER VACCINE 2020-05-23 00:00:00 Completed [facility] SARS-COV-2 COVID-19 PFIZER VACCINE 2020-05-23 00:00:00 Completed [facility] SARS-COV-2 COVID-19 PFIZER VACCINE 2020-05-23 00:00:00 Completed [facility] SARS-COV-2 COVID-19 PFIZER VACCINE 2020-05-23 00:00:00 Completed [facility] SARS-COV-2 COVID-19 PFIZER VACCINE 2020-05-23 00:00:00 Completed [facility] SARS-COV-2 COVID-19 PFIZER VACCINE 2020-05-23 00:00:00 Completed [facility] SARS-COV-2 COVID-19 PFIZER VACCINE 2020-05-23 00:00:00 Completed [facility] SARS-COV-2 COVID-19 PFIZER VACCINE 2020-05-23 00:00:00 Completed [facility] SARS-COV-2 COVID-19 PFIZER VACCINE 2020-05-23 00:00:00 Completed [facility] SARS-COV-2 COVID-19 PFIZER VACCINE 2020-05-23 00:00:00 Completed [facility] SARS-COV-2 COVID-19 PFIZER VACCINE 2020-05-23 00:00:00 Completed [facility] SARS-COV-2 COVID-19 PFIZER VACCINE 2020-05-23 00:00:00 Completed [facility] SARS-COV-2 COVID-19 PFIZER VACCINE 2020-05-23 00:00:00 Completed [facility] SARS-COV-2 COVID-19 PFIZER VACCINE 2020-05-23 00:00:00 Completed [facility] SARS-COV-2 COVID-19 PFIZER VACCINE 2020-05-23 00:00:00 Completed [facility] SARS-COV-2 COVID-19 PFIZER VACCINE 2020-05-23 00:00:00 Completed [facility] SARS-COV-2 COVID-19 PFIZER VACCINE 2020-05-23 00:00:00 Completed [facility] SARS-COV-2 COVID-19 PFIZER VACCINE 2020-05-23 00:00:00 Completed [facility] SARS-COV-2 COVID-19 PFIZER VACCINE 2020-05-23 00:00:00 Completed [facility] SARS-COV-2 COVID-19 PFIZER VACCINE 2020-05-23 00:00:00 Completed [facility] SARS-COV-2 COVID-19 PFIZER VACCINE 2020-05-23 00:00:00 Completed [facility] SARS-COV-2 COVID-19 PFIZER VACCINE 2020-05-23 00:00:00 Completed [facility] SARS-COV-2 COVID-19 PFIZER VACCINE 2020-05-23 00:00:00 Completed [facility] Influenza Virus Vaccine 2020-01-26 00:00:00 Completed [facility] Influenza Virus Vaccine 2020-01-26 00:00:00 Completed [facility] Influenza Virus Vaccine 2020-01-26 00:00:00 Completed [facility] Influenza Virus Vaccine 2020-01-26 00:00:00 Completed [facility] Influenza Virus Vaccine 2020-01-26 00:00:00 Completed [facility] Influenza Virus Vaccine 2020-01-26 00:00:00 Completed [facility] Influenza Virus Vaccine 2020-01-26 00:00:00 Completed [facility] Influenza Virus Vaccine 2020-01-26 00:00:00 Completed [facility] Influenza Virus Vaccine 2020-01-26 00:00:00 Completed [facility] Influenza Virus Vaccine 2020-01-26 00:00:00 Completed [facility] Influenza Virus Vaccine 2020-01-26 00:00:00 Completed [facility] Influenza Virus Vaccine 2020-01-26 00:00:00 Completed [facility] Influenza Virus Vaccine 2020-01-26 00:00:00 Completed [facility] Influenza Virus Vaccine 2020-01-26 00:00:00 Completed [facility] Influenza Virus Vaccine 2020-01-26 00:00:00 Completed [facility] Influenza Virus Vaccine 2020-01-26 00:00:00 Completed [facility] Influenza Virus Vaccine 2020-01-26 00:00:00 Completed [facility] Influenza Virus Vaccine 2020-01-26 00:00:00 Completed [facility] Influenza Virus Vaccine 2020-01-26 00:00:00 Completed [facility] Influenza Virus Vaccine 2020-01-26 00:00:00 Completed [facility] Influenza Virus Vaccine 2020-01-26 00:00:00 Completed [facility] Influenza Virus Vaccine 2020-01-26 00:00:00 Completed [facility] Influenza Virus Vaccine 2020-01-26 00:00:00 Completed [facility] Influenza Virus Vaccine 2020-01-26 00:00:00 Completed [facility] Influenza Virus Vaccine 2020-01-26 00:00:00 Completed [facility] Influenza Virus Vaccine 2020-01-26 00:00:00 Completed [facility] Influenza Virus Vaccine 2020-01-26 00:00:00 Completed [facility] Influenza Virus Vaccine 2020-01-26 00:00:00 Completed [facility] Influenza Virus Vaccine 2020-01-26 00:00:00 Completed [facility] Influenza Virus Vaccine 2020-01-26 00:00:00 Completed [facility] Influenza Virus Vaccine 2020-01-26 00:00:00 Completed [facility] Influenza Virus Vaccine 2020-01-26 00:00:00 Completed [facility] Influenza Virus Vaccine 2020-01-26 00:00:00 Completed [facility] Influenza Virus Vaccine 2020-01-26 00:00:00 Completed [facility] Influenza Virus Vaccine 2020-01-26 00:00:00 Completed [facility] Influenza Virus Vaccine 2020-01-26 00:00:00 Completed [facility] Influenza Virus Vaccine 2020-01-26 00:00:00 Completed [facility] Influenza Virus Vaccine 2020-01-26 00:00:00 Completed [facility] Influenza Virus Vaccine 2020-01-26 00:00:00 Completed [facility] Influenza Virus Vaccine 2020-01-26 00:00:00 Completed [facility] Influenza Virus Vaccine 2020-01-26 00:00:00 Completed [facility] Influenza Virus Vaccine 2020-01-26 00:00:00 Completed [facility] Influenza Virus Vaccine 2020-01-26 00:00:00 Completed [facility] Influenza Virus Vaccine 2020-01-26 00:00:00 Completed [facility] Influenza Virus Vaccine 2020-01-26 00:00:00 Completed [facility] Influenza Virus Vaccine 2020-01-26 00:00:00 Completed [facility] Influenza Virus Vaccine 2020-01-26 00:00:00 Completed [facility] Influenza Virus Vaccine 2020-01-26 00:00:00 Completed [facility] Influenza Virus Vaccine 2020-01-26 00:00:00 Completed [facility] Influenza Virus Vaccine 2020-01-26 00:00:00 Completed [facility] Influenza Virus Vaccine 2020-01-26 00:00:00 Completed [facility] Influenza Virus Vaccine 2020-01-26 00:00:00 Completed [facility] Influenza Virus Vaccine 2020-01-26 00:00:00 Completed [facility] Influenza Virus Vaccine 2020-01-26 00:00:00 Completed [facility] Influenza Virus Vaccine 2020-01-26 00:00:00 Completed [facility] Influenza Virus Vaccine 2020-01-26 00:00:00 Completed [facility] Influenza Virus Vaccine 2020-01-26 00:00:00 Completed [facility] Influenza Virus Vaccine 2020-01-26 00:00:00 Completed [facility] Influenza Virus Vaccine 2020-01-26 00:00:00 Completed [facility] Influenza Virus Vaccine 2020-01-26 00:00:00 Completed [facility] Influenza Virus Vaccine 2020-01-26 00:00:00 Completed [facility] Influenza Virus Vaccine 2020-01-26 00:00:00 Completed [facility] Influenza Virus Vaccine 2020-01-26 00:00:00 Completed [facility] Influenza Virus Vaccine 2020-01-26 00:00:00 Completed [facility] Influenza Virus Vaccine 2020-01-26 00:00:00 Completed [facility] Influenza Virus Vaccine 2020-01-26 00:00:00 Completed [facility] Influenza Virus Vaccine 2020-01-26 00:00:00 Completed [facility] Influenza Virus Vaccine 2020-01-26 00:00:00 Completed [facility] Influenza Virus Vaccine 2020-01-26 00:00:00 Completed [facility] Influenza Virus Vaccine 2020-01-26 00:00:00 Completed [facility] Influenza Virus Vaccine 2020-01-26 00:00:00 Completed [facility] Influenza Virus Vaccine 2020-01-26 00:00:00 Completed [facility] Influenza Virus Vaccine 2020-01-26 00:00:00 Completed [facility] Influenza Virus Vaccine 2020-01-26 00:00:00 Completed [facility] Influenza Virus Vaccine 2020-01-26 00:00:00 Completed [facility] Influenza Virus Vaccine 2020-01-26 00:00:00 Completed [facility] Influenza Virus Vaccine 2020-01-26 00:00:00 Completed [facility] Influenza Virus Vaccine 2020-01-26 00:00:00 Completed [facility] Influenza Virus Vaccine 2020-01-26 00:00:00 Completed [facility] Influenza Virus Vaccine 2020-01-26 00:00:00 Completed [facility] Influenza Virus Vaccine 2020-01-26 00:00:00 Completed [facility] Influenza Virus Vaccine 2020-01-26 00:00:00 Completed [facility] Influenza Virus Vaccine 2020-01-26 00:00:00 Completed [facility] Influenza Virus Vaccine 2020-01-26 00:00:00 Completed [facility] Influenza Virus Vaccine 2020-01-26 00:00:00 Completed [facility] Influenza Virus Vaccine 2020-01-26 00:00:00 Completed [facility] Influenza Virus Vaccine 2020-01-26 00:00:00 Completed [facility] Influenza Virus Vaccine 2020-01-26 00:00:00 Completed [facility] Influenza Virus Vaccine 2020-01-26 00:00:00 Completed [facility] Influenza Virus Vaccine 2020-01-26 00:00:00 Completed [facility] Influenza Virus Vaccine 2020-01-26 00:00:00 Completed [facility] Influenza High Dose 2019-03-13 00:00:00 Completed [facility] Influenza High Dose 2019-03-13 00:00:00 Completed [facility] Influenza High Dose 2019-03-13 00:00:00 Completed [facility] Influenza High Dose 2019-03-13 00:00:00 Completed [facility] Influenza High Dose 2019-03-13 00:00:00 Completed [facility] Influenza High Dose 2019-03-13 00:00:00 Completed [facility] Influenza High Dose 2019-03-13 00:00:00 Completed [facility] Influenza High Dose 2019-03-13 00:00:00 Completed [facility] Influenza High Dose 2019-03-13 00:00:00 Completed [facility] Influenza High Dose 2019-03-13 00:00:00 Completed [facility] Influenza High Dose 2019-03-13 00:00:00 Completed [facility] Influenza High Dose 2019-03-13 00:00:00 Completed [facility] Influenza High Dose 2019-03-13 00:00:00 Completed [facility] Influenza High Dose 2019-03-13 00:00:00 Completed [facility] Influenza High Dose 2019-03-13 00:00:00 Completed [facility] Influenza High Dose 2019-03-13 00:00:00 Completed [facility] Influenza High Dose 2019-03-13 00:00:00 Completed [facility] Influenza High Dose 2019-03-13 00:00:00 Completed [facility] Influenza High Dose 2019-03-13 00:00:00 Completed [facility] Influenza High Dose 2019-03-13 00:00:00 Completed [facility] Influenza High Dose 2019-03-13 00:00:00 Completed [facility] Influenza High Dose 2019-03-13 00:00:00 Completed [facility] Influenza High Dose 2019-03-13 00:00:00 Completed [facility] Influenza High Dose 2019-03-13 00:00:00 Completed [facility] Influenza High Dose 2019-03-13 00:00:00 Completed [facility] Influenza High Dose 2019-03-13 00:00:00 Completed [facility] Influenza High Dose 2019-03-13 00:00:00 Completed [facility] Influenza High Dose 2019-03-13 00:00:00 Completed [facility] Influenza High Dose 2019-03-13 00:00:00 Completed [facility] Influenza High Dose 2019-03-13 00:00:00 Completed [facility] Influenza High Dose 2019-03-13 00:00:00 Completed [facility] Influenza High Dose 2019-03-13 00:00:00 Completed [facility] Influenza High Dose 2019-03-13 00:00:00 Completed [facility] Influenza High Dose 2019-03-13 00:00:00 Completed [facility] Influenza High Dose 2019-03-13 00:00:00 Completed [facility] Influenza High Dose 2019-03-13 00:00:00 Completed [facility] Influenza High Dose 2019-03-13 00:00:00 Completed [facility] Influenza High Dose 2019-03-13 00:00:00 Completed [facility] Influenza High Dose 2019-03-13 00:00:00 Completed [facility] Influenza High Dose 2019-03-13 00:00:00 Completed [facility] Influenza High Dose 2019-03-13 00:00:00 Completed [facility] Influenza High Dose 2019-03-13 00:00:00 Completed [facility] Influenza High Dose 2019-03-13 00:00:00 Completed [facility] Influenza High Dose 2019-03-13 00:00:00 Completed [facility] Influenza High Dose 2019-03-13 00:00:00 Completed [facility] Influenza High Dose 2019-03-13 00:00:00 Completed [facility] Influenza High Dose 2019-03-13 00:00:00 Completed [facility] Influenza High Dose 2019-03-13 00:00:00 Completed [facility] Influenza High Dose 2019-03-13 00:00:00 Completed [facility] Influenza High Dose 2019-03-13 00:00:00 Completed [facility] Influenza High Dose 2019-03-13 00:00:00 Completed [facility] Influenza High Dose 2019-03-13 00:00:00 Completed [facility] Influenza High Dose 2019-03-13 00:00:00 Completed [facility] Influenza High Dose 2019-03-13 00:00:00 Completed [facility] Influenza High Dose 2019-03-13 00:00:00 Completed [facility] Influenza High Dose 2019-03-13 00:00:00 Completed [facility] Influenza High Dose 2019-03-13 00:00:00 Completed [facility] Influenza High Dose 2019-03-13 00:00:00 Completed [facility] Influenza High Dose 2019-03-13 00:00:00 Completed [facility] Influenza High Dose 2019-03-13 00:00:00 Completed [facility] Influenza High Dose 2019-03-13 00:00:00 Completed [facility] Influenza High Dose 2019-03-13 00:00:00 Completed [facility] Influenza High Dose 2019-03-13 00:00:00 Completed [facility] Influenza High Dose 2019-03-13 00:00:00 Completed [facility] Influenza High Dose 2019-03-13 00:00:00 Completed [facility] Influenza High Dose 2019-03-13 00:00:00 Completed [facility] Influenza High Dose 2019-03-13 00:00:00 Completed [facility] Influenza High Dose 2019-03-13 00:00:00 Completed [facility] Influenza High Dose 2019-03-13 00:00:00 Completed [facility] Influenza High Dose 2019-03-13 00:00:00 Completed [facility] Influenza High Dose 2019-03-13 00:00:00 Completed [facility] Influenza High Dose 2019-03-13 00:00:00 Completed [facility] Influenza High Dose 2019-03-13 00:00:00 Completed [facility] Influenza High Dose 2019-03-13 00:00:00 Completed [facility] Influenza High Dose 2019-03-13 00:00:00 Completed [facility] Influenza High Dose 2019-03-13 00:00:00 Completed [facility] Influenza High Dose 2019-03-13 00:00:00 Completed [facility] Influenza High Dose 2019-03-13 00:00:00 Completed [facility] Influenza High Dose 2019-03-13 00:00:00 Completed [facility] Influenza High Dose 2019-03-13 00:00:00 Completed [facility] Influenza High Dose 2019-03-13 00:00:00 Completed [facility] Influenza High Dose 2019-03-13 00:00:00 Completed [facility] Influenza High Dose 2019-03-13 00:00:00 Completed [facility] Influenza High Dose 2019-03-13 00:00:00 Completed [facility] Influenza High Dose 2019-03-13 00:00:00 Completed [facility] Influenza High Dose 2019-03-13 00:00:00 Completed [facility] Influenza High Dose 2019-03-13 00:00:00 Completed [facility] Influenza High Dose 2019-03-13 00:00:00 Completed [facility] Influenza High Dose 2019-03-13 00:00:00 Completed [facility] Influenza High Dose 2019-03-13 00:00:00 Completed [facility] Influenza High Dose 2019-03-13 00:00:00 Completed [facility] Influenza High Dose 2018-04-14 00:00:00 Completed [facility] Influenza High Dose 2018-04-14 00:00:00 Completed [facility] Influenza High Dose 2018-04-14 00:00:00 Completed [facility] Influenza High Dose 2018-04-14 00:00:00 Completed [facility] Influenza High Dose 2018-04-14 00:00:00 Completed [facility] Influenza High Dose 2018-04-14 00:00:00 Completed [facility] Influenza High Dose 2018-04-14 00:00:00 Completed [facility] Influenza High Dose 2018-04-14 00:00:00 Completed [facility] Influenza High Dose 2018-04-14 00:00:00 Completed [facility] Influenza High Dose 2018-04-14 00:00:00 Completed [facility] Influenza High Dose 2018-04-14 00:00:00 Completed [facility] Influenza High Dose 2018-04-14 00:00:00 Completed [facility] Influenza High Dose 2018-04-14 00:00:00 Completed [facility] Influenza High Dose 2018-04-14 00:00:00 Completed [facility] Influenza High Dose 2018-04-14 00:00:00 Completed [facility] Influenza High Dose 2018-04-14 00:00:00 Completed [facility] Influenza High Dose 2018-04-14 00:00:00 Completed [facility] Influenza High Dose 2018-04-14 00:00:00 Completed [facility] Influenza High Dose 2018-04-14 00:00:00 Completed [facility] Influenza High Dose 2018-04-14 00:00:00 Completed [facility] Influenza High Dose 2018-04-14 00:00:00 Completed [facility] Influenza High Dose 2018-04-14 00:00:00 Completed [facility] Influenza High Dose 2018-04-14 00:00:00 Completed [facility] Influenza High Dose 2018-04-14 00:00:00 Completed [facility] Influenza High Dose 2018-04-14 00:00:00 Completed [facility] Influenza High Dose 2018-04-14 00:00:00 Completed [facility] Influenza High Dose 2018-04-14 00:00:00 Completed [facility] Influenza High Dose 2018-04-14 00:00:00 Completed [facility] Influenza High Dose 2018-04-14 00:00:00 Completed [facility] Influenza High Dose 2018-04-14 00:00:00 Completed [facility] Influenza High Dose 2018-04-14 00:00:00 Completed [facility] Influenza High Dose 2018-04-14 00:00:00 Completed [facility] Influenza High Dose 2018-04-14 00:00:00 Completed [facility] Influenza High Dose 2018-04-14 00:00:00 Completed [facility] Influenza High Dose 2018-04-14 00:00:00 Completed [facility] Influenza High Dose 2018-04-14 00:00:00 Completed [facility] Influenza High Dose 2018-04-14 00:00:00 Completed [facility] Influenza High Dose 2018-04-14 00:00:00 Completed [facility] Influenza High Dose 2018-04-14 00:00:00 Completed [facility] Influenza High Dose 2018-04-14 00:00:00 Completed [facility] Influenza High Dose 2018-04-14 00:00:00 Completed [facility] Influenza High Dose 2018-04-14 00:00:00 Completed [facility] Influenza High Dose 2018-04-14 00:00:00 Completed [facility] Influenza High Dose 2018-04-14 00:00:00 Completed [facility] Influenza High Dose 2018-04-14 00:00:00 Completed [facility] Influenza High Dose 2018-04-14 00:00:00 Completed [facility] Influenza High Dose 2018-04-14 00:00:00 Completed [facility] Influenza High Dose 2018-04-14 00:00:00 Completed [facility] Influenza High Dose 2018-04-14 00:00:00 Completed [facility] Influenza High Dose 2018-04-14 00:00:00 Completed [facility] Influenza High Dose 2018-04-14 00:00:00 Completed [facility] Influenza High Dose 2018-04-14 00:00:00 Completed [facility] Influenza High Dose 2018-04-14 00:00:00 Completed [facility] Influenza High Dose 2018-04-14 00:00:00 Completed [facility] Influenza High Dose 2018-04-14 00:00:00 Completed [facility] Influenza High Dose 2018-04-14 00:00:00 Completed [facility] Influenza High Dose 2018-04-14 00:00:00 Completed [facility] Influenza High Dose 2018-04-14 00:00:00 Completed [facility] Influenza High Dose 2018-04-14 00:00:00 Completed [facility] Influenza High Dose 2018-04-14 00:00:00 Completed [facility] Influenza High Dose 2018-04-14 00:00:00 Completed [facility] Influenza High Dose 2018-04-14 00:00:00 Completed [facility] Influenza High Dose 2018-04-14 00:00:00 Completed [facility] Influenza High Dose 2018-04-14 00:00:00 Completed [facility] Influenza High Dose 2018-04-14 00:00:00 Completed [facility] Influenza High Dose 2018-04-14 00:00:00 Completed [facility] Influenza High Dose 2018-04-14 00:00:00 Completed [facility] Influenza High Dose 2018-04-14 00:00:00 Completed [facility] Influenza High Dose 2018-04-14 00:00:00 Completed [facility] Influenza High Dose 2018-04-14 00:00:00 Completed [facility] Influenza High Dose 2018-04-14 00:00:00 Completed [facility] Influenza High Dose 2018-04-14 00:00:00 Completed [facility] Influenza High Dose 2018-04-14 00:00:00 Completed [facility] Influenza High Dose 2018-04-14 00:00:00 Completed [facility] Influenza High Dose 2018-04-14 00:00:00 Completed [facility] Influenza High Dose 2018-04-14 00:00:00 Completed [facility] Influenza High Dose 2018-04-14 00:00:00 Completed [facility] Influenza High Dose 2018-04-14 00:00:00 Completed [facility] Influenza High Dose 2018-04-14 00:00:00 Completed [facility] Influenza High Dose 2018-04-14 00:00:00 Completed [facility] Influenza High Dose 2018-04-14 00:00:00 Completed [facility] Influenza High Dose 2018-04-14 00:00:00 Completed [facility] Influenza High Dose 2018-04-14 00:00:00 Completed [facility] Influenza High Dose 2018-04-14 00:00:00 Completed [facility] Influenza High Dose 2018-04-14 00:00:00 Completed [facility] Influenza High Dose 2018-04-14 00:00:00 Completed [facility] Influenza High Dose 2018-04-14 00:00:00 Completed [facility] Influenza High Dose 2018-04-14 00:00:00 Completed [facility] Influenza High Dose 2018-04-14 00:00:00 Completed [facility] Influenza High Dose 2018-04-14 00:00:00 Completed [facility] Influenza High Dose 2018-04-14 00:00:00 Completed [facility] Influenza High Dose 2017-04-12 00:00:00 Completed [facility] Influenza High Dose 2017-04-12 00:00:00 Completed [facility] Influenza High Dose 2017-04-12 00:00:00 Completed [facility] Influenza High Dose 2017-04-12 00:00:00 Completed [facility] Influenza High Dose 2017-04-12 00:00:00 Completed [facility] Influenza High Dose 2017-04-12 00:00:00 Completed [facility] Influenza High Dose 2017-04-12 00:00:00 Completed [facility] Influenza High Dose 2017-04-12 00:00:00 Completed [facility] Influenza High Dose 2017-04-12 00:00:00 Completed [facility] Influenza High Dose 2017-04-12 00:00:00 Completed [facility] Influenza High Dose 2017-04-12 00:00:00 Completed [facility] Influenza High Dose 2017-04-12 00:00:00 Completed [facility] Influenza High Dose 2017-04-12 00:00:00 Completed [facility] Influenza High Dose 2017-04-12 00:00:00 Completed [facility] Influenza High Dose 2017-04-12 00:00:00 Completed [facility] Influenza High Dose 2017-04-12 00:00:00 Completed [facility] Influenza High Dose 2017-04-12 00:00:00 Completed [facility] Influenza High Dose 2017-04-12 00:00:00 Completed [facility] Influenza High Dose 2017-04-12 00:00:00 Completed [facility] Influenza High Dose 2017-04-12 00:00:00 Completed [facility] Influenza High Dose 2017-04-12 00:00:00 Completed [facility] Influenza High Dose 2017-04-12 00:00:00 Completed [facility] Influenza High Dose 2017-04-12 00:00:00 Completed [facility] Influenza High Dose 2017-04-12 00:00:00 Completed [facility] Influenza High Dose 2017-04-12 00:00:00 Completed [facility] Influenza High Dose 2017-04-12 00:00:00 Completed [facility] Influenza High Dose 2017-04-12 00:00:00 Completed [facility] Influenza High Dose 2017-04-12 00:00:00 Completed [facility] Influenza High Dose 2017-04-12 00:00:00 Completed [facility] Influenza High Dose 2017-04-12 00:00:00 Completed [facility] Influenza High Dose 2017-04-12 00:00:00 Completed [facility] Influenza High Dose 2017-04-12 00:00:00 Completed [facility] Influenza High Dose 2017-04-12 00:00:00 Completed [facility] Influenza High Dose 2017-04-12 00:00:00 Completed [facility] Influenza High Dose 2017-04-12 00:00:00 Completed [facility] Influenza High Dose 2017-04-12 00:00:00 Completed [facility] Influenza High Dose 2017-04-12 00:00:00 Completed [facility] Influenza High Dose 2017-04-12 00:00:00 Completed [facility] Influenza High Dose 2017-04-12 00:00:00 Completed [facility] Influenza High Dose 2017-04-12 00:00:00 Completed [facility] Influenza High Dose 2017-04-12 00:00:00 Completed [facility] Influenza High Dose 2017-04-12 00:00:00 Completed [facility] Influenza High Dose 2017-04-12 00:00:00 Completed [facility] Influenza High Dose 2017-04-12 00:00:00 Completed [facility] Influenza High Dose 2017-04-12 00:00:00 Completed [facility] Influenza High Dose 2017-04-12 00:00:00 Completed [facility] Influenza High Dose 2017-04-12 00:00:00 Completed [facility] Influenza High Dose 2017-04-12 00:00:00 Completed [facility] Influenza High Dose 2017-04-12 00:00:00 Completed [facility] Influenza High Dose 2017-04-12 00:00:00 Completed [facility] Influenza High Dose 2017-04-12 00:00:00 Completed [facility] Influenza High Dose 2017-04-12 00:00:00 Completed [facility] Influenza High Dose 2017-04-12 00:00:00 Completed [facility] Influenza High Dose 2017-04-12 00:00:00 Completed [facility] Influenza High Dose 2017-04-12 00:00:00 Completed [facility] Influenza High Dose 2017-04-12 00:00:00 Completed [facility] Influenza High Dose 2017-04-12 00:00:00 Completed [facility] Influenza High Dose 2017-04-12 00:00:00 Completed [facility] Influenza High Dose 2017-04-12 00:00:00 Completed [facility] Influenza High Dose 2017-04-12 00:00:00 Completed [facility] Influenza High Dose 2017-04-12 00:00:00 Completed [facility] Influenza High Dose 2017-04-12 00:00:00 Completed [facility] Influenza High Dose 2017-04-12 00:00:00 Completed [facility] Influenza High Dose 2017-04-12 00:00:00 Completed [facility] Influenza High Dose 2017-04-12 00:00:00 Completed [facility] Influenza High Dose 2017-04-12 00:00:00 Completed [facility] Influenza High Dose 2017-04-12 00:00:00 Completed [facility] Influenza High Dose 2017-04-12 00:00:00 Completed [facility] Influenza High Dose 2017-04-12 00:00:00 Completed [facility] Influenza High Dose 2017-04-12 00:00:00 Completed [facility] Influenza High Dose 2017-04-12 00:00:00 Completed [facility] Influenza High Dose 2017-04-12 00:00:00 Completed [facility] Influenza High Dose 2017-04-12 00:00:00 Completed [facility] Influenza High Dose 2017-04-12 00:00:00 Completed [facility] Influenza High Dose 2017-04-12 00:00:00 Completed [facility] Influenza High Dose 2017-04-12 00:00:00 Completed [facility] Influenza High Dose 2017-04-12 00:00:00 Completed [facility] Influenza High Dose 2017-04-12 00:00:00 Completed [facility] Influenza High Dose 2017-04-12 00:00:00 Completed [facility] Influenza High Dose 2017-04-12 00:00:00 Completed [facility] Influenza High Dose 2017-04-12 00:00:00 Completed [facility] Influenza High Dose 2017-04-12 00:00:00 Completed [facility] Influenza High Dose 2017-04-12 00:00:00 Completed [facility] Influenza High Dose 2017-04-12 00:00:00 Completed [facility] Influenza High Dose 2017-04-12 00:00:00 Completed [facility] Influenza High Dose 2017-04-12 00:00:00 Completed [facility] Influenza High Dose 2017-04-12 00:00:00 Completed [facility] Influenza High Dose 2017-04-12 00:00:00 Completed [facility] Influenza High Dose 2017-04-12 00:00:00 Completed [facility] Influenza High Dose 2017-04-12 00:00:00 Completed [facility] Influenza High Dose 2017-04-12 00:00:00 Completed [facility] Pneumococcal 13 Conjugate, PCV13 (Prevnar 13) 2016-03-04 00:00:00 Completed [facility] Influenza High Dose 2016-03-04 00:00:00 Completed [facility] Pneumococcal 13 Conjugate, PCV13 (Prevnar 13) 2016-03-04 00:00:00 Completed [facility] Influenza High Dose 2016-03-04 00:00:00 Completed [facility] Pneumococcal 13 Conjugate, PCV13 (Prevnar 13) 2016-03-04 00:00:00 Completed [facility] Influenza High Dose 2016-03-04 00:00:00 Completed [facility] Pneumococcal 13 Conjugate, PCV13 (Prevnar 13) 2016-03-04 00:00:00 Completed [facility] Influenza High Dose 2016-03-04 00:00:00 Completed [facility] Pneumococcal 13 Conjugate, PCV13 (Prevnar 13) 2016-03-04 00:00:00 Completed [facility] Influenza High Dose 2016-03-04 00:00:00 Completed [facility] Pneumococcal 13 Conjugate, PCV13 (Prevnar 13) 2016-03-04 00:00:00 Completed [facility] Influenza High Dose 2016-03-04 00:00:00 Completed [facility] Pneumococcal 13 Conjugate, PCV13 (Prevnar 13) 2016-03-04 00:00:00 Completed [facility] Influenza High Dose 2016-03-04 00:00:00 Completed [facility] Pneumococcal 13 Conjugate, PCV13 (Prevnar 13) 2016-03-04 00:00:00 Completed [facility] Influenza High Dose 2016-03-04 00:00:00 Completed [facility] Pneumococcal 13 Conjugate, PCV13 (Prevnar 13) 2016-03-04 00:00:00 Completed [facility] Influenza High Dose 2016-03-04 00:00:00 Completed [facility] Pneumococcal 13 Conjugate, PCV13 (Prevnar 13) 2016-03-04 00:00:00 Completed [facility] Influenza High Dose 2016-03-04 00:00:00 Completed [facility] Pneumococcal 13 Conjugate, PCV13 (Prevnar 13) 2016-03-04 00:00:00 Completed [facility] Influenza High Dose 2016-03-04 00:00:00 Completed [facility] Pneumococcal 13 Conjugate, PCV13 (Prevnar 13) 2016-03-04 00:00:00 Completed [facility] Influenza High Dose 2016-03-04 00:00:00 Completed [facility] Pneumococcal 13 Conjugate, PCV13 (Prevnar 13) 2016-03-04 00:00:00 Completed [facility] Influenza High Dose 2016-03-04 00:00:00 Completed [facility] Pneumococcal 13 Conjugate, PCV13 (Prevnar 13) 2016-03-04 00:00:00 Completed [facility] Influenza High Dose 2016-03-04 00:00:00 Completed [facility] Pneumococcal 13 Conjugate, PCV13 (Prevnar 13) 2016-03-04 00:00:00 Completed [facility] Influenza High Dose 2016-03-04 00:00:00 Completed [facility] Pneumococcal 13 Conjugate, PCV13 (Prevnar 13) 2016-03-04 00:00:00 Completed [facility] Influenza High Dose 2016-03-04 00:00:00 Completed [facility] Pneumococcal 13 Conjugate, PCV13 (Prevnar 13) 2016-03-04 00:00:00 Completed [facility] Influenza High Dose 2016-03-04 00:00:00 Completed [facility] Pneumococcal 13 Conjugate, PCV13 (Prevnar 13) 2016-03-04 00:00:00 Completed [facility] Influenza High Dose 2016-03-04 00:00:00 Completed [facility] Pneumococcal 13 Conjugate, PCV13 (Prevnar 13) 2016-03-04 00:00:00 Completed [facility] Influenza High Dose 2016-03-04 00:00:00 Completed [facility] Pneumococcal 13 Conjugate, PCV13 (Prevnar 13) 2016-03-04 00:00:00 Completed [facility] Influenza High Dose 2016-03-04 00:00:00 Completed [facility] Pneumococcal 13 Conjugate, PCV13 (Prevnar 13) 2016-03-04 00:00:00 Completed [facility] Influenza High Dose 2016-03-04 00:00:00 Completed [facility] Pneumococcal 13 Conjugate, PCV13 (Prevnar 13) 2016-03-04 00:00:00 Completed [facility] Influenza High Dose 2016-03-04 00:00:00 Completed [facility] Pneumococcal 13 Conjugate, PCV13 (Prevnar 13) 2016-03-04 00:00:00 Completed [facility] Influenza High Dose 2016-03-04 00:00:00 Completed [facility] Pneumococcal 13 Conjugate, PCV13 (Prevnar 13) 2016-03-04 00:00:00 Completed [facility] Influenza High Dose 2016-03-04 00:00:00 Completed [facility] Pneumococcal 13 Conjugate, PCV13 (Prevnar 13) 2016-03-04 00:00:00 Completed [facility] Influenza High Dose 2016-03-04 00:00:00 Completed [facility] Pneumococcal 13 Conjugate, PCV13 (Prevnar 13) 2016-03-04 00:00:00 Completed [facility] Influenza High Dose 2016-03-04 00:00:00 Completed [facility] Pneumococcal 13 Conjugate, PCV13 (Prevnar 13) 2016-03-04 00:00:00 Completed [facility] Influenza High Dose 2016-03-04 00:00:00 Completed [facility] Pneumococcal 13 Conjugate, PCV13 (Prevnar 13) 2016-03-04 00:00:00 Completed [facility] Influenza High Dose 2016-03-04 00:00:00 Completed [facility] Pneumococcal 13 Conjugate, PCV13 (Prevnar 13) 2016-03-04 00:00:00 Completed [facility] Influenza High Dose 2016-03-04 00:00:00 Completed [facility] Pneumococcal 13 Conjugate, PCV13 (Prevnar 13) 2016-03-04 00:00:00 Completed [facility] Influenza High Dose 2016-03-04 00:00:00 Completed [facility] Pneumococcal 13 Conjugate, PCV13 (Prevnar 13) 2016-03-04 00:00:00 Completed [facility] Influenza High Dose 2016-03-04 00:00:00 Completed [facility] Pneumococcal 13 Conjugate, PCV13 (Prevnar 13) 2016-03-04 00:00:00 Completed [facility] Influenza High Dose 2016-03-04 00:00:00 Completed [facility] Pneumococcal 13 Conjugate, PCV13 (Prevnar 13) 2016-03-04 00:00:00 Completed [facility] Influenza High Dose 2016-03-04 00:00:00 Completed [facility] Pneumococcal 13 Conjugate, PCV13 (Prevnar 13) 2016-03-04 00:00:00 Completed [facility] Influenza High Dose 2016-03-04 00:00:00 Completed [facility] Pneumococcal 13 Conjugate, PCV13 (Prevnar 13) 2016-03-04 00:00:00 Completed [facility] Influenza High Dose 2016-03-04 00:00:00 Completed [facility] Pneumococcal 13 Conjugate, PCV13 (Prevnar 13) 2016-03-04 00:00:00 Completed [facility] Influenza High Dose 2016-03-04 00:00:00 Completed [facility] Pneumococcal 13 Conjugate, PCV13 (Prevnar 13) 2016-03-04 00:00:00 Completed [facility] Influenza High Dose 2016-03-04 00:00:00 Completed [facility] Pneumococcal 13 Conjugate, PCV13 (Prevnar 13) 2016-03-04 00:00:00 Completed [facility] Influenza High Dose 2016-03-04 00:00:00 Completed [facility] Pneumococcal 13 Conjugate, PCV13 (Prevnar 13) 2016-03-04 00:00:00 Completed [facility] Influenza High Dose 2016-03-04 00:00:00 Completed [facility] Pneumococcal 13 Conjugate, PCV13 (Prevnar 13) 2016-03-04 00:00:00 Completed [facility] Influenza High Dose 2016-03-04 00:00:00 Completed [facility] Pneumococcal 13 Conjugate, PCV13 (Prevnar 13) 2016-03-04 00:00:00 Completed [facility] Influenza High Dose 2016-03-04 00:00:00 Completed [facility] Pneumococcal 13 Conjugate, PCV13 (Prevnar 13) 2016-03-04 00:00:00 Completed [facility] Influenza High Dose 2016-03-04 00:00:00 Completed [facility] Pneumococcal 13 Conjugate, PCV13 (Prevnar 13) 2016-03-04 00:00:00 Completed [facility] Influenza High Dose 2016-03-04 00:00:00 Completed [facility] Pneumococcal 13 Conjugate, PCV13 (Prevnar 13) 2016-03-04 00:00:00 Completed [facility] Influenza High Dose 2016-03-04 00:00:00 Completed [facility] Pneumococcal 13 Conjugate, PCV13 (Prevnar 13) 2016-03-04 00:00:00 Completed [facility] Influenza High Dose 2016-03-04 00:00:00 Completed [facility] Pneumococcal 13 Conjugate, PCV13 (Prevnar 13) 2016-03-04 00:00:00 Completed [facility] Influenza High Dose 2016-03-04 00:00:00 Completed [facility] Pneumococcal 13 Conjugate, PCV13 (Prevnar 13) 2016-03-04 00:00:00 Completed [facility] Influenza High Dose 2016-03-04 00:00:00 Completed [facility] Pneumococcal 13 Conjugate, PCV13 (Prevnar 13) 2016-03-04 00:00:00 Completed [facility] Influenza High Dose 2016-03-04 00:00:00 Completed [facility] Pneumococcal 13 Conjugate, PCV13 (Prevnar 13) 2016-03-04 00:00:00 Completed [facility] Influenza High Dose 2016-03-04 00:00:00 Completed [facility] Pneumococcal 13 Conjugate, PCV13 (Prevnar 13) 2016-03-04 00:00:00 Completed [facility] Influenza High Dose 2016-03-04 00:00:00 Completed [facility] Pneumococcal 13 Conjugate, PCV13 (Prevnar 13) 2016-03-04 00:00:00 Completed [facility] Influenza High Dose 2016-03-04 00:00:00 Completed [facility] Pneumococcal 13 Conjugate, PCV13 (Prevnar 13) 2016-03-04 00:00:00 Completed [facility] Influenza High Dose 2016-03-04 00:00:00 Completed [facility] Pneumococcal 13 Conjugate, PCV13 (Prevnar 13) 2016-03-04 00:00:00 Completed [facility] Influenza High Dose 2016-03-04 00:00:00 Completed [facility] Pneumococcal 13 Conjugate, PCV13 (Prevnar 13) 2016-03-04 00:00:00 Completed [facility] Influenza High Dose 2016-03-04 00:00:00 Completed [facility] Pneumococcal 13 Conjugate, PCV13 (Prevnar 13) 2016-03-04 00:00:00 Completed [facility] Influenza High Dose 2016-03-04 00:00:00 Completed [facility] Pneumococcal 13 Conjugate, PCV13 (Prevnar 13) 2016-03-04 00:00:00 Completed [facility] Influenza High Dose 2016-03-04 00:00:00 Completed [facility] Pneumococcal 13 Conjugate, PCV13 (Prevnar 13) 2016-03-04 00:00:00 Completed [facility] Influenza High Dose 2016-03-04 00:00:00 Completed [facility] Pneumococcal 13 Conjugate, PCV13 (Prevnar 13) 2016-03-04 00:00:00 Completed [facility] Influenza High Dose 2016-03-04 00:00:00 Completed [facility] Pneumococcal 13 Conjugate, PCV13 (Prevnar 13) 2016-03-04 00:00:00 Completed [facility] Influenza High Dose 2016-03-04 00:00:00 Completed [facility] Pneumococcal 13 Conjugate, PCV13 (Prevnar 13) 2016-03-04 00:00:00 Completed [facility] Influenza High Dose 2016-03-04 00:00:00 Completed [facility] Pneumococcal 13 Conjugate, PCV13 (Prevnar 13) 2016-03-04 00:00:00 Completed [facility] Influenza High Dose 2016-03-04 00:00:00 Completed [facility] Pneumococcal 13 Conjugate, PCV13 (Prevnar 13) 2016-03-04 00:00:00 Completed [facility] Influenza High Dose 2016-03-04 00:00:00 Completed [facility] Pneumococcal 13 Conjugate, PCV13 (Prevnar 13) 2016-03-04 00:00:00 Completed [facility] Influenza High Dose 2016-03-04 00:00:00 Completed [facility] Pneumococcal 13 Conjugate, PCV13 (Prevnar 13) 2016-03-04 00:00:00 Completed [facility] Influenza High Dose 2016-03-04 00:00:00 Completed [facility] Pneumococcal 13 Conjugate, PCV13 (Prevnar 13) 2016-03-04 00:00:00 Completed [facility] Influenza High Dose 2016-03-04 00:00:00 Completed [facility] Pneumococcal 13 Conjugate, PCV13 (Prevnar 13) 2016-03-04 00:00:00 Completed [facility] Influenza High Dose 2016-03-04 00:00:00 Completed [facility] Pneumococcal 13 Conjugate, PCV13 (Prevnar 13) 2016-03-04 00:00:00 Completed [facility] Influenza High Dose 2016-03-04 00:00:00 Completed [facility] Pneumococcal 13 Conjugate, PCV13 (Prevnar 13) 2016-03-04 00:00:00 Completed [facility] Influenza High Dose 2016-03-04 00:00:00 Completed [facility] Pneumococcal 13 Conjugate, PCV13 (Prevnar 13) 2016-03-04 00:00:00 Completed [facility] Influenza High Dose 2016-03-04 00:00:00 Completed [facility] Pneumococcal 13 Conjugate, PCV13 (Prevnar 13) 2016-03-04 00:00:00 Completed [facility] Influenza High Dose 2016-03-04 00:00:00 Completed [facility] Pneumococcal 13 Conjugate, PCV13 (Prevnar 13) 2016-03-04 00:00:00 Completed [facility] Influenza High Dose 2016-03-04 00:00:00 Completed [facility] Pneumococcal 13 Conjugate, PCV13 (Prevnar 13) 2016-03-04 00:00:00 Completed [facility] Influenza High Dose 2016-03-04 00:00:00 Completed [facility] Pneumococcal 13 Conjugate, PCV13 (Prevnar 13) 2016-03-04 00:00:00 Completed [facility] Influenza High Dose 2016-03-04 00:00:00 Completed [facility] Pneumococcal 13 Conjugate, PCV13 (Prevnar 13) 2016-03-04 00:00:00 Completed [facility] Influenza High Dose 2016-03-04 00:00:00 Completed [facility] Pneumococcal 13 Conjugate, PCV13 (Prevnar 13) 2016-03-04 00:00:00 Completed [facility] Influenza High Dose 2016-03-04 00:00:00 Completed [facility] Pneumococcal 13 Conjugate, PCV13 (Prevnar 13) 2016-03-04 00:00:00 Completed [facility] Influenza High Dose 2016-03-04 00:00:00 Completed [facility] Pneumococcal 13 Conjugate, PCV13 (Prevnar 13) 2016-03-04 00:00:00 Completed [facility] Influenza High Dose 2016-03-04 00:00:00 Completed [facility] Pneumococcal 13 Conjugate, PCV13 (Prevnar 13) 2016-03-04 00:00:00 Completed [facility] Influenza High Dose 2016-03-04 00:00:00 Completed [facility] Pneumococcal 13 Conjugate, PCV13 (Prevnar 13) 2016-03-04 00:00:00 Completed [facility] Influenza High Dose 2016-03-04 00:00:00 Completed [facility] Pneumococcal 13 Conjugate, PCV13 (Prevnar 13) 2016-03-04 00:00:00 Completed [facility] Influenza High Dose 2016-03-04 00:00:00 Completed [facility] Pneumococcal 13 Conjugate, PCV13 (Prevnar 13) 2016-03-04 00:00:00 Completed [facility] Influenza High Dose 2016-03-04 00:00:00 Completed [facility] Pneumococcal 13 Conjugate, PCV13 (Prevnar 13) 2016-03-04 00:00:00 Completed [facility] Influenza High Dose 2016-03-04 00:00:00 Completed [facility] Pneumococcal 13 Conjugate, PCV13 (Prevnar 13) 2016-03-04 00:00:00 Completed [facility] Influenza High Dose 2016-03-04 00:00:00 Completed [facility] Pneumococcal 13 Conjugate, PCV13 (Prevnar 13) 2016-03-04 00:00:00 Completed [facility] Influenza High Dose 2016-03-04 00:00:00 Completed [facility] Pneumococcal 13 Conjugate, PCV13 (Prevnar 13) 2016-03-04 00:00:00 Completed [facility] Influenza High Dose 2016-03-04 00:00:00 Completed [facility] Pneumococcal 13 Conjugate, PCV13 (Prevnar 13) 2016-03-04 00:00:00 Completed [facility] Influenza High Dose 2016-03-04 00:00:00 Completed [facility] Pneumococcal 13 Conjugate, PCV13 (Prevnar 13) 2016-03-04 00:00:00 Completed [facility] Influenza High Dose 2016-03-04 00:00:00 Completed [facility] Pneumococcal 13 Conjugate, PCV13 (Prevnar 13) 2016-03-04 00:00:00 Completed [facility] Influenza High Dose 2016-03-04 00:00:00 Completed [facility] Pneumococcal 13 Conjugate, PCV13 (Prevnar 13) 2016-03-04 00:00:00 Completed [facility] Influenza High Dose 2016-03-04 00:00:00 Completed [facility] Pneumococcal 13 Conjugate, PCV13 (Prevnar 13) 2016-03-04 00:00:00 Completed [facility] Influenza High Dose 2016-03-04 00:00:00 Completed [facility] Pneumococcal 13 Conjugate, PCV13 (Prevnar 13) 2016-03-04 00:00:00 Completed [facility] Influenza High Dose 2016-03-04 00:00:00 Completed [facility] Influenza High Dose 2015-03-18 00:00:00 Completed [facility] Influenza High Dose 2015-03-18 00:00:00 Completed [facility] Influenza High Dose 2015-03-18 00:00:00 Completed [facility] Influenza High Dose 2015-03-18 00:00:00 Completed [facility] Influenza High Dose 2015-03-18 00:00:00 Completed [facility] Influenza High Dose 2015-03-18 00:00:00 Completed [facility] Influenza High Dose 2015-03-18 00:00:00 Completed [facility] Influenza High Dose 2015-03-18 00:00:00 Completed [facility] Influenza High Dose 2015-03-18 00:00:00 Completed [facility] Influenza High Dose 2015-03-18 00:00:00 Completed [facility] Influenza High Dose 2015-03-18 00:00:00 Completed [facility] Influenza High Dose 2015-03-18 00:00:00 Completed [facility] Influenza High Dose 2015-03-18 00:00:00 Completed [facility] Influenza High Dose 2015-03-18 00:00:00 Completed [facility] Influenza High Dose 2015-03-18 00:00:00 Completed [facility] Influenza High Dose 2015-03-18 00:00:00 Completed [facility] Influenza High Dose 2015-03-18 00:00:00 Completed [facility] [facility] 2015-03-18 00:00:00 Completed [facility] Influenza High Dose 2015-03-18 00:00:00 Completed [facility] Influenza High Dose 2015-03-18 00:00:00 Completed [facility] Influenza High Dose 2015-03-18 00:00:00 Completed [facility] Influenza High Dose 2015-03-18 00:00:00 Completed [facility] Influenza High Dose 2015-03-18 00:00:00 Completed [facility] Influenza High Dose 2015-03-18 00:00:00 Completed [facility] Influenza High Dose 2015-03-18 00:00:00 Completed [facility] Influenza High Dose 2015-03-18 00:00:00 Completed [facility] Influenza High Dose 2015-03-18 00:00:00 Completed [facility] Influenza High Dose 2015-03-18 00:00:00 Completed [facility] Influenza High Dose 2015-03-18 00:00:00 Completed [facility] Influenza High Dose 2015-03-18 00:00:00 Completed [facility] Influenza High Dose 2015-03-18 00:00:00 Completed [facility] Influenza High Dose 2015-03-18 00:00:00 Completed [facility] Influenza High Dose 2015-03-18 00:00:00 Completed [facility] Influenza High Dose 2015-03-18 00:00:00 Completed [facility] Influenza High Dose 2015-03-18 00:00:00 Completed [facility] Influenza High Dose 2015-03-18 00:00:00 Completed [facility] Influenza High Dose 2015-03-18 00:00:00 Completed [facility] Influenza High Dose 2015-03-18 00:00:00 Completed [facility] Influenza High Dose 2015-03-18 00:00:00 Completed [facility] Influenza High Dose 2015-03-18 00:00:00 Completed [facility] Influenza High Dose 2015-03-18 00:00:00 Completed [facility] Influenza High Dose 2015-03-18 00:00:00 Completed [facility] Influenza High Dose 2015-03-18 00:00:00 Completed [facility] Influenza High Dose 2015-03-18 00:00:00 Completed [facility] Influenza High Dose 2015-03-18 00:00:00 Completed [facility] Influenza High Dose 2015-03-18 00:00:00 Completed [facility] Influenza High Dose 2015-03-18 00:00:00 Completed [facility] Influenza High Dose 2015-03-18 00:00:00 Completed [facility] Influenza High Dose 2015-03-18 00:00:00 Completed [facility] Influenza High Dose 2015-03-18 00:00:00 Completed [facility] Influenza High Dose 2015-03-18 00:00:00 Completed [facility] Influenza High Dose 2015-03-18 00:00:00 Completed [facility] Influenza High Dose 2015-03-18 00:00:00 Completed [facility] Influenza High Dose 2015-03-18 00:00:00 Completed [facility] Influenza High Dose 2015-03-18 00:00:00 Completed [facility] Influenza High Dose 2015-03-18 00:00:00 Completed [facility] Influenza High Dose 2015-03-18 00:00:00 Completed [facility] Influenza High Dose 2015-03-18 00:00:00 Completed [facility] Influenza High Dose 2015-03-18 00:00:00 Completed [facility] Influenza High Dose 2015-03-18 00:00:00 Completed [facility] Influenza High Dose 2015-03-18 00:00:00 Completed [facility] Influenza High Dose 2015-03-18 00:00:00 Completed [facility] Influenza High Dose 2015-03-18 00:00:00 Completed [facility] Influenza High Dose 2015-03-18 00:00:00 Completed [facility] Influenza High Dose 2015-03-18 00:00:00 Completed [facility] Influenza High Dose 2015-03-18 00:00:00 Completed [facility] Influenza High Dose 2015-03-18 00:00:00 Completed [facility] Influenza High Dose 2015-03-18 00:00:00 Completed [facility] Influenza High Dose 2015-03-18 00:00:00 Completed [facility] Influenza High Dose 2015-03-18 00:00:00 Completed [facility] Influenza High Dose 2015-03-18 00:00:00 Completed [facility] Influenza High Dose 2015-03-18 00:00:00 Completed [facility] Influenza High Dose 2015-03-18 00:00:00 Completed [facility] Influenza High Dose 2015-03-18 00:00:00 Completed [facility] Influenza High Dose 2015-03-18 00:00:00 Completed [facility] Influenza High Dose 2015-03-18 00:00:00 Completed [facility] Influenza High Dose 2015-03-18 00:00:00 Completed [facility] Influenza High Dose 2015-03-18 00:00:00 Completed [facility] Influenza High Dose 2015-03-18 00:00:00 Completed [facility] Influenza High Dose 2015-03-18 00:00:00 Completed [facility] Influenza High Dose 2015-03-18 00:00:00 Completed [facility] Influenza High Dose 2015-03-18 00:00:00 Completed [facility] Influenza High Dose 2015-03-18 00:00:00 Completed [facility] Influenza High Dose 2015-03-18 00:00:00 Completed [facility] Influenza High Dose 2015-03-18 00:00:00 Completed [facility] Influenza High Dose 2015-03-18 00:00:00 Completed [facility] Influenza High Dose 2015-03-18 00:00:00 Completed [facility] Influenza High Dose 2015-03-18 00:00:00 Completed [facility] Influenza High Dose 2015-03-18 00:00:00 Completed [facility] Influenza High Dose 2015-03-18 00:00:00 Completed [facility] Influenza High Dose 2015-03-18 00:00:00 Completed [facility] Pneumococcal Polysaccharide, PPSV23 (PNEUMOVAX) 2013-03-04 00:00:00 Completed [facility] Pneumococcal Polysaccharide, PPSV23 (PNEUMOVAX) 2013-03-04 00:00:00 Completed [facility] Pneumococcal Polysaccharide, PPSV23 (PNEUMOVAX) 2013-03-04 00:00:00 Completed [facility] Pneumococcal Polysaccharide, PPSV23 (PNEUMOVAX) 2013-03-04 00:00:00 Completed [facility] Pneumococcal Polysaccharide, PPSV23 (PNEUMOVAX) 2013-03-04 00:00:00 Completed [facility] Pneumococcal Polysaccharide, PPSV23 (PNEUMOVAX) 2013-03-04 00:00:00 Completed [facility] Pneumococcal Polysaccharide, PPSV23 (PNEUMOVAX) 2013-03-04 00:00:00 Completed [facility] Pneumococcal Polysaccharide, PPSV23 (PNEUMOVAX) 2013-03-04 00:00:00 Completed [facility] Pneumococcal Polysaccharide, PPSV23 (PNEUMOVAX) 2013-03-04 00:00:00 Completed [facility] Pneumococcal Polysaccharide, PPSV23 (PNEUMOVAX) 2013-03-04 00:00:00 Completed [facility] Pneumococcal Polysaccharide, PPSV23 (PNEUMOVAX) 2013-03-04 00:00:00 Completed [facility] Pneumococcal Polysaccharide, PPSV23 (PNEUMOVAX) 2013-03-04 00:00:00 Completed [facility] Pneumococcal Polysaccharide, PPSV23 (PNEUMOVAX) 2013-03-04 00:00:00 Completed [facility] Pneumococcal Polysaccharide, PPSV23 (PNEUMOVAX) 2013-03-04 00:00:00 Completed [facility] Pneumococcal Polysaccharide, PPSV23 (PNEUMOVAX) 2013-03-04 00:00:00 Completed [facility] Pneumococcal Polysaccharide, PPSV23 (PNEUMOVAX) 2013-03-04 00:00:00 Completed [facility] Pneumococcal Polysaccharide, PPSV23 (PNEUMOVAX) 2013-03-04 00:00:00 Completed [facility] Pneumococcal Polysaccharide, PPSV23 (PNEUMOVAX) 2013-03-04 00:00:00 Completed [facility] Pneumococcal Polysaccharide, PPSV23 (PNEUMOVAX) 2013-03-04 00:00:00 Completed [facility] Pneumococcal Polysaccharide, PPSV23 (PNEUMOVAX) 2013-03-04 00:00:00 Completed [facility] Pneumococcal Polysaccharide, PPSV23 (PNEUMOVAX) 2013-03-04 00:00:00 Completed [facility] Pneumococcal Polysaccharide, PPSV23 (PNEUMOVAX) 2013-03-04 00:00:00 Completed [facility] Pneumococcal Polysaccharide, PPSV23 (PNEUMOVAX) 2013-03-04 00:00:00 Completed [facility] Pneumococcal Polysaccharide, PPSV23 (PNEUMOVAX) 2013-03-04 00:00:00 Completed [facility] Pneumococcal Polysaccharide, PPSV23 (PNEUMOVAX) 2013-03-04 00:00:00 Completed [facility] Pneumococcal Polysaccharide, PPSV23 (PNEUMOVAX) 2013-03-04 00:00:00 Completed [facility] Pneumococcal Polysaccharide, PPSV23 (PNEUMOVAX) 2013-03-04 00:00:00 Completed [facility] Pneumococcal Polysaccharide, PPSV23 (PNEUMOVAX) 2013-03-04 00:00:00 Completed [facility] Pneumococcal Polysaccharide, PPSV23 (PNEUMOVAX) 2013-03-04 00:00:00 Completed [facility] Pneumococcal Polysaccharide, PPSV23 (PNEUMOVAX) 2013-03-04 00:00:00 Completed [facility] Pneumococcal Polysaccharide, PPSV23 (PNEUMOVAX) 2013-03-04 00:00:00 Completed [facility] Pneumococcal Polysaccharide, PPSV23 (PNEUMOVAX) 2013-03-04 00:00:00 Completed [facility] Pneumococcal Polysaccharide, PPSV23 (PNEUMOVAX) 2013-03-04 00:00:00 Completed [facility] Pneumococcal Polysaccharide, PPSV23 (PNEUMOVAX) 2013-03-04 00:00:00 Completed [facility] Pneumococcal Polysaccharide, PPSV23 (PNEUMOVAX) 2013-03-04 00:00:00 Completed [facility] Pneumococcal Polysaccharide, PPSV23 (PNEUMOVAX) 2013-03-04 00:00:00 Completed [facility] Pneumococcal Polysaccharide, PPSV23 (PNEUMOVAX) 2013-03-04 00:00:00 Completed [facility] Pneumococcal Polysaccharide, PPSV23 (PNEUMOVAX) 2013-03-04 00:00:00 Completed [facility] Pneumococcal Polysaccharide, PPSV23 (PNEUMOVAX) 2013-03-04 00:00:00 Completed [facility] Pneumococcal Polysaccharide, PPSV23 (PNEUMOVAX) 2013-03-04 00:00:00 Completed [facility] Pneumococcal Polysaccharide, PPSV23 (PNEUMOVAX) 2013-03-04 00:00:00 Completed [facility] Pneumococcal Polysaccharide, PPSV23 (PNEUMOVAX) 2013-03-04 00:00:00 Completed [facility] Pneumococcal Polysaccharide, PPSV23 (PNEUMOVAX) 2013-03-04 00:00:00 Completed [facility] Pneumococcal Polysaccharide, PPSV23 (PNEUMOVAX) 2013-03-04 00:00:00 Completed [facility] Pneumococcal Polysaccharide, PPSV23 (PNEUMOVAX) 2013-03-04 00:00:00 Completed [facility] Pneumococcal Polysaccharide, PPSV23 (PNEUMOVAX) 2013-03-04 00:00:00 Completed [facility] Pneumococcal Polysaccharide, PPSV23 (PNEUMOVAX) 2013-03-04 00:00:00 Completed [facility] Pneumococcal Polysaccharide, PPSV23 (PNEUMOVAX) 2013-03-04 00:00:00 Completed [facility] Pneumococcal Polysaccharide, PPSV23 (PNEUMOVAX) 2013-03-04 00:00:00 Completed [facility] Pneumococcal Polysaccharide, PPSV23 (PNEUMOVAX) 2013-03-04 00:00:00 Completed [facility] Pneumococcal Polysaccharide, PPSV23 (PNEUMOVAX) 2013-03-04 00:00:00 Completed [facility] Pneumococcal Polysaccharide, PPSV23 (PNEUMOVAX) 2013-03-04 00:00:00 Completed [facility] Pneumococcal Polysaccharide, PPSV23 (PNEUMOVAX) 2013-03-04 00:00:00 Completed [facility] Pneumococcal Polysaccharide, PPSV23 (PNEUMOVAX) 2013-03-04 00:00:00 Completed [facility] Pneumococcal Polysaccharide, PPSV23 (PNEUMOVAX) 2013-03-04 00:00:00 Completed [facility] Pneumococcal Polysaccharide, PPSV23 (PNEUMOVAX) 2013-03-04 00:00:00 Completed [facility] Pneumococcal Polysaccharide, PPSV23 (PNEUMOVAX) 2013-03-04 00:00:00 Completed [facility] Pneumococcal Polysaccharide, PPSV23 (PNEUMOVAX) 2013-03-04 00:00:00 Completed [facility] Pneumococcal Polysaccharide, PPSV23 (PNEUMOVAX) 2013-03-04 00:00:00 Completed [facility] Pneumococcal Polysaccharide, PPSV23 (PNEUMOVAX) 2013-03-04 00:00:00 Completed [facility] Pneumococcal Polysaccharide, PPSV23 (PNEUMOVAX) 2013-03-04 00:00:00 Completed [facility] Pneumococcal Polysaccharide, PPSV23 (PNEUMOVAX) 2013-03-04 00:00:00 Completed [facility] Pneumococcal Polysaccharide, PPSV23 (PNEUMOVAX) 2013-03-04 00:00:00 Completed [facility] Pneumococcal Polysaccharide, PPSV23 (PNEUMOVAX) 2013-03-04 00:00:00 Completed [facility] Pneumococcal Polysaccharide, PPSV23 (PNEUMOVAX) 2013-03-04 00:00:00 Completed [facility] Pneumococcal Polysaccharide, PPSV23 (PNEUMOVAX) 2013-03-04 00:00:00 Completed [facility] Pneumococcal Polysaccharide, PPSV23 (PNEUMOVAX) 2013-03-04 00:00:00 Completed [facility] Pneumococcal Polysaccharide, PPSV23 (PNEUMOVAX) 2013-03-04 00:00:00 Completed [facility] Pneumococcal Polysaccharide, PPSV23 (PNEUMOVAX) 2013-03-04 00:00:00 Completed [facility] Pneumococcal Polysaccharide, PPSV23 (PNEUMOVAX) 2013-03-04 00:00:00 Completed [facility] Pneumococcal Polysaccharide, PPSV23 (PNEUMOVAX) 2013-03-04 00:00:00 Completed [facility] Pneumococcal Polysaccharide, PPSV23 (PNEUMOVAX) 2013-03-04 00:00:00 Completed [facility] Pneumococcal Polysaccharide, PPSV23 (PNEUMOVAX) 2013-03-04 00:00:00 Completed [facility] Pneumococcal Polysaccharide, PPSV23 (PNEUMOVAX) 2013-03-04 00:00:00 Completed [facility] Pneumococcal Polysaccharide, PPSV23 (PNEUMOVAX) 2013-03-04 00:00:00 Completed [facility] Pneumococcal Polysaccharide, PPSV23 (PNEUMOVAX) 2013-03-04 00:00:00 Completed [facility] Pneumococcal Polysaccharide, PPSV23 (PNEUMOVAX) 2013-03-04 00:00:00 Completed [facility] Pneumococcal Polysaccharide, PPSV23 (PNEUMOVAX) 2013-03-04 00:00:00 Completed [facility] Pneumococcal Polysaccharide, PPSV23 (PNEUMOVAX) 2013-03-04 00:00:00 Completed [facility] Pneumococcal Polysaccharide, PPSV23 (PNEUMOVAX) 2013-03-04 00:00:00 Completed [facility] Pneumococcal Polysaccharide, PPSV23 (PNEUMOVAX) 2013-03-04 00:00:00 Completed [facility] Pneumococcal Polysaccharide, PPSV23 (PNEUMOVAX) 2013-03-04 00:00:00 Completed [facility] Pneumococcal Polysaccharide, PPSV23 (PNEUMOVAX) 2013-03-04 00:00:00 Completed [facility] Pneumococcal Polysaccharide, PPSV23 (PNEUMOVAX) 2013-03-04 00:00:00 Completed [facility] Pneumococcal Polysaccharide, PPSV23 (PNEUMOVAX) 2013-03-04 00:00:00 Completed [facility] Pneumococcal Polysaccharide, PPSV23 (PNEUMOVAX) 2013-03-04 00:00:00 Completed [facility] Pneumococcal Polysaccharide, PPSV23 (PNEUMOVAX) 2013-03-04 00:00:00 Completed [facility] Pneumococcal Polysaccharide, PPSV23 (PNEUMOVAX) 2013-03-04 00:00:00 Completed [facility] Pneumococcal Polysaccharide, PPSV23 (PNEUMOVAX) 2013-03-04 00:00:00 Completed [facility] Pneumococcal Polysaccharide, PPSV23 (PNEUMOVAX) 2013-03-04 00:00:00 Completed [facility] Pneumococcal Polysaccharide, PPSV23 (PNEUMOVAX) 2013-03-04 00:00:00 Completed [facility] Influenza High Dose Unknown Completed [facility] Pneumococcal 13 Conjugate, PCV13 (Prevnar 13) Unknown Completed [facility] Influenza High Dose Unknown Completed [facility] Influenza High Dose Unknown Completed [facility] Pneumococcal Polysaccharide, PPSV23 (PNEUMOVAX) Unknown [facility] Influ[facility] High Dose Unknown Completed [facility] Influenza High Dose Unknown Completed [facility] Influenza Virus Vaccine Unknown Completed [facility] SARS-COV-2 COVID-19 PFIZER VACCINE Unknown Completed [facility] SARS-COV-2 COVID-19 PFIZER VACCINE Unknown Completed [facility] SARS-COV-2 COVID-19 PFIZER VACCINE Unknown Completed [facility] SARS-COV-2 COVID-19 PFIZER LAKESHA-SUCROSE VACCINE (OLIVEROS TOP) Unknown [facility] SARS-COV-2 COVID-19 LAKESHA-SUCROSE VACCINE 12 YRS+, BIVALENT 0.3ML, IM, (PFIZER OLIVEROS TOP) Unknown Completed [facility] Influenza Virus Vaccine,quad Im,preserve Free 65+ (FLUAD) Unknown Completed [facility] Influenza High Dose Unknown Completed [facility] Pneumococcal 13 Conjugate, PCV13 (Prevnar 13) Unknown Completed [facility] Influenza High Dose Unknown Completed [facility] Influenza High Dose Unknown Completed [facility] Pneumococcal Polysaccharide, PPSV23 (PNEUMOVAX) Unknown [facility] Influenza High Dose Unknown Completed [facility] Influenza High Dose Unknown Completed [facility] Influenza Virus Vaccine Unknown Completed [facility] SARS-COV-2 COVID-19 PFIZER VACCINE Unknown Completed [facility] SARS-COV-2 COVID-19 PFIZER VACCINE Unknown Completed [facility] SARS-COV-2 COVID-19 PFIZER VACCINE Unknown Completed [facility] SARS-COV-2 COVID-19 PFIZER LAKESHA-SUCROSE VACCINE (OLIVEROS TOP) Unknown [facility] SARS-COV-2 COVID-19 LAKESHA-SUCROSE VACCINE 12 YRS+, BIVALENT 0.3ML, IM, (PFIZER OLIVEROS TOP) Unknown Completed [facility] Influenza Virus Vaccine,quad Im,preserve Free 65+ (FLUAD) Unknown Completed [facility] Influenza High Dose Unknown Completed [facility] Pneumococcal 13 Conjugate, PCV13 (Prevnar 13) Unknown Completed [facility] Influenza High Dose Unknown Completed [facility] Influenza High Dose Unknown Completed [facility] Pneumococcal Polysaccharide, PPSV23 (PNEUMOVAX) Unknown [facility] Influenza High Dose Unknown Completed [facility] Influenza High Dose Unknown Completed [facility] Influenza Virus Vaccine Unknown Completed [facility] SARS-COV-2 COVID-19 PFIZER VACCINE Unknown Completed [facility] SARS-COV-2 COVID-19 PFIZER VACCINE Unknown Completed [facility] SARS-COV-2 COVID-19 PFIZER VACCINE Unknown Completed [facility] SARS-COV-2 COVID-19 PFIZER LAKESHA-SUCROSE VACCINE (OLIVEROS TOP) Unknown [facility] SARS-COV-2 COVID-19 LAKESHA-SUCROSE VACCINE 12 YRS+, BIVALENT 0.3ML, IM, (PFIZER OLIVEROS TOP) Unknown Completed [facility] Influenza Virus Vaccine,quad Im,preserve Free 65+ (FLUAD) Unknown Completed [facility] Influenza High Dose Unknown Completed [facility] Pneumococcal 13 Conjugate, PCV13 (Prevnar 13) Unknown Completed [facility] Influenza High Dose Unknown Completed [facility] Influenza High Dose Unknown Completed [facility] Pneumococcal Polysaccharide, PPSV23 (PNEUMOVAX) Unknown [facility] Influenza High Dose Unknown Completed [facility] Influenza High Dose Unknown Completed [facility] Influenza Virus Vaccine Unknown Completed [facility] SARS-COV-2 COVID-19 PFIZER VACCINE Unknown Completed [facility] SARS-COV-2 COVID-19 PFIZER VACCINE Unknown Completed [facility] SARS-COV-2 COVID-19 PFIZER VACCINE Unknown Completed [facility] SARS-COV-2 COVID-19 PFIZER LAKESHA-SUCROSE VACCINE (OLIVEROS TOP) Unknown [facility] SARS-COV-2 COVID-19 LAKESHA-SUCROSE VACCINE 12 YRS+, BIVALENT 0.3ML, IM, (PFIZER OLIVEROS TOP) Unknown Completed [facility] Influenza Virus Vaccine,quad Im,preserve Free 65+ (FLUAD) Unknown Completed [facility] Influenza High Dose Unknown Completed [facility] Pneumococcal 13 Conjugate, PCV13 (Prevnar 13) Unknown Completed [facility] Influenza High Dose Unknown Completed [facility] Influenza High Dose Unknown Completed [facility] Pneumococcal Polysaccharide, PPSV23 (PNEUMOVAX) Unknown [facility] Influenza High Dose Unknown Completed [facility] Influenza High Dose Unknown Completed [facility] Influenza Virus Vaccine Unknown Completed [facility] SARS-COV-2 COVID-19 PFIZER VACCINE Unknown Completed [facility] SARS-COV-2 COVID-19 PFIZER VACCINE Unknown Completed [facility] SARS-COV-2 COVID-19 PFIZER VACCINE Unknown Completed [facility] SARS-COV-2 COVID-19 PFIZER LAKESHA-SUCROSE VACCINE (OLIVEROS TOP) Unknown [facility] Influenza High Dose Unknown Completed [facility] Pneumococcal 13 Conjugate, PCV13 (Prevnar 13) Unknown Completed [facility] Influenza High Dose Unknown Completed [facility] Influenza High Dose Unknown Completed [facility] Pneumococcal Polysaccharide, PPSV23 (PNEUMOVAX) [facility] Influenza High Dose Unknown Completed [facility] Influenza Virus Vaccine Unknown Completed [facility] SARS-COV-2 COVID-19 PFIZER VACCINE Unknown Completed [facility] SARS-COV-2 COVID-19 PFIZER VACCINE Unknown Completed [facility] SARS-COV-2 COVID-19 PFIZER VACCINE Unknown Completed [facility] SARS-COV-2 COVID-19 PFIZER LAKESHA-SUCROSE VACCINE (OLIVEROS TOP) Unknown [facility] Influenza High Dose Unknown Completed [facility] Pneumococcal 13 Conjugate, PCV13 (Prevnar 13) Unknown Completed [facility] Influenza High Dose Unknown Completed [facility] Influenza High Dose Unknown Completed [facility] Pneumococcal Polysaccharide, PPSV23 (PNEUMOVAX) Unknown [facility] Influenza High Dose Unknown Completed [facility] Influenza High Dose Unknown Completed [facility] Influenza Virus Vaccine Unknown Completed [facility] SARS-COV-2 COVID-19 PFIZER VACCINE Unknown Completed [facility] SARS-COV-2 COVID-19 PFIZER VACCINE Unknown Completed [facility] SARS-COV-2 COVID-19 PFIZER VACCINE Unknown Completed [facility] Influenza High Dose Unknown Completed [facility] Pneumococcal 13 Conjugate, PCV13 (Prevnar 13) Unknown Completed [facility] Influenza High Dose Unknown Completed [facility] Influenza High Dose Unknown Completed [facility] Pneumococcal Polysaccharide, PPSV23 (PNEUMOVAX) Unknown [facility] Influenza High Dose Unknown Completed [facility] Influenza High Dose Unknown Completed [facility] Influenza Virus Vaccine Unknown Completed [facility] SARS-COV-2 COVID-19 PFIZER VACCINE Unknown Completed [facility] SARS-COV-2 COVID-19 PFIZER VACCINE Unknown Completed [facility] SARS-COV-2 COVID-19 PFIZER VACCINE Unknown Completed [facility] Influenza High Dose Unknown Completed [facility] Pneumococcal 13 Conjugate, PCV13 (Prevnar 13) Unknown Completed [facility] Influenza High Dose Unknown Completed [facility] Influenza High Dose Unknown Completed [facility] Pneumococcal Polysaccharide, PPSV23 (PNEUMOVAX) Unknown [facility]pleted [facility] Influenza High Dose Unknown Completed [facility] Influenza High Dose Unknown Completed [facility] Influenza Virus Vaccine Unknown Completed [facility] SARS-COV-2 COVID-19 PFIZER VACCINE Unknown Completed [facility] SARS-COV-2 COVID-19 PFIZER VACCINE Unknown Completed [facility] SARS-COV-2 COVID-19 PFIZER VACCINE Unknown Completed [facility] Influenza High Dose Unknown Completed [facility] Pneumococcal 13 Conjugate, PCV13 (Prevnar 13) Unknown Completed [facility] Influenza High Dose Unknown Completed [facility] Influenza High Dose Unknown Completed [facility] Pneumococcal Polysaccharide, PPSV23 (PNEUMOVAX) Unknown [facility]pleted [facility] Influenza High Dose Unknown Completed [facility] Influenza High Dose Unknown Completed [facility] Influenza Virus Vaccine Unknown Completed [facility] SARS-COV-2 COVID-19 PFIZER VACCINE Unknown Completed [facility] SARS-COV-2 COVID-19 PFIZER VACCINE Unknown Completed [facility] Influenza High Dose Unknown Completed [facility] Pneumococcal 13 Conjugate, PCV13 (Prevnar 13) Unknown Completed [facility] [facility] Completed [facility] Influenza High Dose Unknown Completed [facility] Pneumococcal Polysaccharide, PPSV23 (PNEUMOVAX) Unknown [facility] Influ[facility] High Dose Unknown Completed [facility] Influenza High Dose Unknown Completed [facility] Influenza Virus Vaccine Unknown Completed [facility] SARS-COV-2 COVID-19 PFIZER VACCINE Unknown Completed [facility] SARS-COV-2 COVID-19 PFIZER VACCINE Unknown Completed [facility] Influenza High Dose Unknown Completed [facility] Pneumococcal 13 Conjugate, PCV13 (Prevnar 13) Unknown Completed [facility] Influenza High Dose Unknown Completed [facility] Influenza High Dose Unknown Completed [facility] Pneumococcal Polysaccharide, PPSV23 (PNEUMOVAX) Unknown [facility] Influenza High Dose Unknown Completed [facility] Influenza High Dose Unknown Completed [facility] Influenza Virus Vaccine Unknown Completed [facility] SARS-COV-2 COVID-19 PFIZER VACCINE Unknown Completed [facility] SARS-COV-2 COVID-19 PFIZER VACCINE Unknown Completed [facility] Influenza High Dose Unknown Completed [facility] Pneumococcal 13 Conjugate, PCV13 (Prevnar 13) Unknown Completed [facility] Influenza High Dose Unknown Completed [facility] Influenza High Dose Unknown Completed [facility] Pneumococcal Polysaccharide, PPSV23 (PNEUMOVAX) Unknown [facility] Influenza High Dose Unknown Completed [facility] Influenza High Dose Unknown Completed [facility] Influenza Virus Vaccine Unknown Completed [facility] SARS-COV-2 COVID-19 PFIZER VACCINE Unknown Completed [facility] SARS-COV-2 COVID-19 PFIZER VACCINE Unknown Completed [facility] Influenza High Dose Unknown Completed [facility] Pneumococcal 13 Conjugate, PCV13 (Prevnar 13) Unknown Completed [facility] Influenza High Dose Unknown Completed [facility] Influenza High Dose Unknown Completed [facility] Pneumococcal Polysaccharide, PPSV23 (PNEUMOVAX) Unknown [facility] Influenza High Dose Unknown Completed [facility] Influenza High Dose Unknown Completed [facility] Influenza Virus Vaccine Unknown Completed [facility] SARS-COV-2 COVID-19 PFIZER VACCINE Unknown Completed [facility] SARS-COV-2 COVID-19 PFIZER VACCINE Unknown Completed [facility] Influenza High Dose Unknown Completed [facility] Pneumococcal 13 Conjugate, PCV13 (Prevnar 13) Unknown Completed [facility] Influenza High Dose Unknown Completed [facility] Influenza High Dose Unknown Completed [facility] Pneumococcal Polysaccharide, PPSV23 (PNEUMOVAX) Unknown [facility] Influenza High Dose Unknown Completed [facility] Influenza High Dose Unknown Completed [facility] Influenza Virus Vaccine Unknown Completed [facility] SARS-COV-2 COVID-19 PFIZER VACCINE Unknown Completed [facility] SARS-COV-2 COVID-19 PFIZER VACCINE Unknown Completed [facility] Influenza High Dose Unknown Completed [facility] Pneumococcal 13 Conjugate, PCV13 (Prevnar 13) Unknown Completed [facility] Influenza High Dose Unknown Completed [facility] Influenza High Dose Unknown Completed [facility] Pneumococcal Polysaccharide, PPSV23 (PNEUMOVAX) Unknown [facility] Influenza High Dose Unknown Completed [facility] Influenza High Dose Unknown Completed [facility] Influenza Virus Vaccine Unknown Completed [facility] Influenza High Dose Unknown Completed [facility] Pneumococcal 13 Conjugate, PCV13 (Prevnar 13) Unknown Completed [facility] Influenza High Dose Unknown Completed [facility] Influenza High Dose Unknown Completed [facility] Pneumococcal Polysaccharide, PPSV23 (PNEUMOVAX) Unknown [facility] Influenza High Dose Unknown Completed [facility] Influenza High Dose Unknown Completed [facility] Influenza High Dose Unknown Completed [facility] Pneumococcal 13 Conjugate, PCV13 (Prevnar 13) Unknown Completed [facility] Influenza High Dose Unknown Completed [facility] Influenza High Dose Unknown Completed [facility] Pneumococcal Polysaccharide, PPSV23 (PNEUMOVAX) Unknown [facility]pleted [facility] Influenza High Dose Unknown Completed [facility] Influenza High Dose Unknown Completed [facility] Influenza Virus Vaccine Unknown Completed [facility] SARS-COV-2 COVID-19 PFIZER VACCINE Unknown Completed [facility] SARS-COV-2 COVID-19 PFIZER VACCINE Unknown Completed [facility] SARS-COV-2 COVID-19 PFIZER VACCINE Unknown Completed [facility] SARS-COV-2 COVID-19 PFIZER LAKESHA-SUCROSE VACCINE (OLIVEROS TOP) Unknown [facility]pleted [facility] SARS-COV-2 COVID-19 LAKESHA-SUCROSE VACCINE 12 YRS+, BIVALENT 0.3ML, IM, (PFIZER OLIVEROS TOP) Unknown Completed [facility] Influenza Virus Vaccine,quad Im,preserve Free 65+ (FLUAD) Unknown Completed [facility] Influenza High Dose Unknown Completed [facility] Pneumococcal 13 Conjugate, PCV13 (Prevnar 13) Unknown Completed [facility] Influenza High Dose Unknown Completed [facility] Influenza High Dose Unknown Completed [facility] Pneumococcal Polysaccharide, PPSV23 (PNEUMOVAX) Unknown [facility]pleted [facility] Influenza High Dose Unknown Completed [facility] Influenza High Dose Unknown Completed [facility] Influenza Virus Vaccine Unknown Completed [facility] SARS-COV-2 COVID-19 PFIZER VACCINE Unknown Completed [facility] SARS-COV-2 COVID-19 PFIZER VACCINE Unknown Completed [facility] SARS-COV-2 COVID-19 PFIZER VACCINE Unknown Completed [facility] SARS-COV-2 COVID-19 PFIZER LAKESHA-SUCROSE VACCINE (OLIVEROS TOP) Unknown Completed [facility] SARS-COV-2 COVID-19 LAKESHA-SUCROSE VACCINE 12 YRS+, BIVALENT 0.3ML, IM, (PFIZER OLIVEROS TOP) Unknown Completed [facility] Influenza Virus Vaccine,quad Im,preserve Free 65+ (FLUAD) Unknown Completed [facility] Influenza High Dose Unknown Completed [facility] Pneumococcal 13 Conjugate, PCV13 (Prevnar 13) Unknown Completed [facility] Influenza High Dose Unknown Completed [facility] Influenza High Dose Unknown Completed [facility] Pneumococcal Polysaccharide, PPSV23 (PNEUMOVAX) Unknown [facility]pleted [facility] Influenza High Dose Unknown Completed [facility] Influenza High Dose Unknown Completed [facility] Influenza Virus Vaccine Unknown Completed [facility] SARS-COV-2 COVID-19 PFIZER VACCINE Unknown Completed [facility] SARS-COV-2 COVID-19 PFIZER VACCINE Unknown Completed [facility] SARS-COV-2 COVID-19 PFIZER VACCINE Unknown Completed [facility] SARS-COV-2 COVID-19 PFIZER LAKESHA-SUCROSE VACCINE (OLIVEROS TOP) Unknown Completed [facility] SARS-COV-2 COVID-19 LAKESHA-SUCROSE VACCINE 12 YRS+, BIVALENT 0.3ML, IM, (PFIZER OLIVEROS TOP) Unknown Completed [facility] Influenza Virus Vaccine,quad Im,preserve Free 65+ (FLUAD) Unknown Completed [facility] Influenza High Dose Unknown Completed [facility] Pneumococcal 13 Conjugate, PCV13 (Prevnar 13) Unknown Completed [facility] Influenza High Dose Unknown Completed [facility] Influenza High Dose Unknown Completed [facility] Pneumococcal Polysaccharide, PPSV23 (PNEUMOVAX) Unknown Completed [facility] Influenza High Dose Unknown Completed [facility] Influenza High Dose Unknown Completed [facility] Influenza Virus Vaccine Unknown Completed [facility] SARS-COV-2 COVID-19 PFIZER VACCINE Unknown Completed [facility] SARS-COV-2 COVID-19 PFIZER VACCINE Unknown Completed [facility] SARS-COV-2 COVID-19 PFIZER VACCINE Unknown Completed [facility] SARS-COV-2 COVID-19 PFIZER LAKESHA-SUCROSE VACCINE (OLIVEROS TOP) Unknown Completed [facility] SARS-COV-2 COVID-19 LAKESHA-SUCROSE VACCINE 12 YRS+, BIVALENT 0.3ML, IM, (PFIZER OLIVEROS TOP) Unknown Completed [facility] Influenza Virus Vaccine,quad Im,preserve Free 65+ (FLUAD) Unknown Completed [facility] Influenza Virus Vaccine,quad Im,preserve Free 65+ (FLUAD) Unknown Completed [facility] Influenza High Dose Unknown Completed [facility] Pneumococcal 13 Conjugate, PCV13 (Prevnar 13) Unknown Completed [facility] Influenza High Dose Unknown Completed [facility] Influenza High Dose Unknown Completed [facility] Pneumococcal Polysaccharide, PPSV23 (PNEUMOVAX) Unknown Completed [facility] Influenza High Dose Unknown Completed [facility] Influenza High Dose Unknown Completed [facility] Influenza Virus Vaccine Unknown Completed [facility] SARS-COV-2 COVID-19 PFIZER VACCINE Unknown Completed [facility] SARS-COV-2 COVID-19 PFIZER VACCINE Unknown Completed [facility] SARS-COV-2 COVID-19 PFIZER VACCINE Unknown Completed [facility] SARS-COV-2 COVID-19 PFIZER LAKESHA-SUCROSE VACCINE (OLIVEROS TOP) Unknown Completed [facility] SARS-COV-2 COVID-19 LAKESHA-SUCROSE VACCINE 12 YRS+, BIVALENT 0.3ML, IM, (PFIZER OLIVEROS TOP) Unknown Completed [facility] Influenza Virus Vaccine,quad Im,preserve Free 65+ (FLUAD) Unknown Completed [facility] Influenza Virus Vaccine,quad Im,preserve Free 65+ (FLUAD) Unknown Completed [facility] Influenza High Dose Unknown Completed [facility] Pneumococcal 13 Conjugate, PCV13 (Prevnar 13) Unknown Completed [facility] Influenza High Dose Unknown Completed [facility] Influenza High Dose Unknown Completed [facility] Pneumococcal Polysaccharide, PPSV23 (PNEUMOVAX) Unknown Completed [facility] Influenza High Dose Unknown Completed [facility] Influenza High Dose Unknown Completed [facility] Influenza Virus Vaccine Unknown Completed [facility] SARS-COV-2 COVID-19 PFIZER VACCINE Unknown Completed [facility] SARS-COV-2 COVID-19 PFIZER VACCINE Unknown Completed [facility] SARS-COV-2 COVID-19 PFIZER VACCINE Unknown Completed [facility] SARS-COV-2 COVID-19 PFIZER LAKESHA-SUCROSE VACCINE (OLIVEROS TOP) Unknown Completed [facility] SARS-COV-2 COVID-19 LAKESHA-SUCROSE VACCINE 12 YRS+, BIVALENT 0.3ML, IM, (PFIZER OLIVEROS TOP) Unknown Completed [facility] Influenza Virus Vaccine,quad Im,preserve Free 65+ (FLUAD) Unknown Completed [facility] Influenza Virus Vaccine,quad Im,preserve Free 65+ (FLUAD) Unknown Completed [facility] Influenza High Dose Unknown Completed [facility] Pneumococcal 13 Conjugate, PCV13 (Prevnar 13) Unknown Completed [facility] Influenza High Dose Unknown Completed [facility] Influenza High Dose Unknown Completed [facility] Pneumococcal Polysaccharide, PPSV23 (PNEUMOVAX) Unknown Completed [facility] Influenza High Dose Unknown Completed [facility] Influenza High Dose Unknown Completed [facility] Influenza Virus Vaccine Unknown Completed [facility] SARS-COV-2 COVID-19 PFIZER VACCINE Unknown Completed [facility] SARS-COV-2 COVID-19 PFIZER VACCINE Unknown Completed [facility] SARS-COV-2 COVID-19 PFIZER VACCINE Unknown Completed [facility] SARS-COV-2 COVID-19 PFIZER LAKESHA-SUCROSE VACCINE (OLIVEROS TOP) Unknown Completed [facility] SARS-COV-2 COVID-19 LAKESHA-SUCROSE VACCINE 12 YRS+, BIVALENT 0.3ML, IM, (PFIZER OLIVEROS TOP) Unknown Completed [facility] Influenza Virus Vaccine,quad Im,preserve Free 65+ (FLUAD) Unknown Completed [facility] Influenza Virus Vaccine,quad Im,preserve Free 65+ (FLUAD) Unknown Completed [facility] Influenza High Dose Unknown Completed [facility] Pneumococcal 13 Conjugate, PCV13 (Prevnar 13) Unknown Completed [facility] Influenza High Dose Unknown Completed [facility] Influenza High Dose Unknown Completed [facility] Pneumococcal Polysaccharide, PPSV23 (PNEUMOVAX) Unknown Completed [facility] Influenza High Dose Unknown Completed [facility] Influenza High Dose Unknown Completed [facility] Influenza Virus Vaccine Unknown Completed [facility] SARS-COV-2 COVID-19 PFIZER VACCINE Unknown Completed [facility] SARS-COV-2 COVID-19 PFIZER VACCINE Unknown Completed [facility] SARS-COV-2 COVID-19 PFIZER VACCINE Unknown Completed [facility] SARS-COV-2 COVID-19 PFIZER LAKESHA-SUCROSE VACCINE (OLIVEROS TOP) Unknown Completed [facility] SARS-COV-2 COVID-19 LAKESHA-SUCROSE VACCINE 12 YRS+, BIVALENT 0.3ML, IM, (PFIZER OLIVEROS TOP) Unknown Completed [facility] Influenza Virus Vaccine,quad Im,preserve Free 65+ (FLUAD) Unknown Completed [facility] Influenza Virus Vaccine,quad Im,preserve Free 65+ (FLUAD) Unknown Completed [facility] Influenza High Dose Unknown Completed [facility] Pneumococcal 13 Conjugate, PCV13 (Prevnar 13) Unknown Completed [facility] Influenza High Dose Unknown Completed [facility] Influenza High Dose Unknown Completed [facility] Pneumococcal Polysaccharide, PPSV23 (PNEUMOVAX) Unknown Completed [facility] Influenza High Dose Unknown Completed [facility] Influenza High Dose Unknown Completed [facility] Influenza Virus Vaccine Unknown Completed [facility] SARS-COV-2 COVID-19 PFIZER VACCINE Unknown Completed [facility] SARS-COV-2 COVID-19 PFIZER VACCINE Unknown Completed [facility] SARS-COV-2 COVID-19 PFIZER VACCINE Unknown Completed [facility] SARS-COV-2 COVID-19 PFIZER LAKESHA-SUCROSE VACCINE (OLIVEROS TOP) Unknown Completed [facility] SARS-COV-2 COVID-19 LAKESHA-SUCROSE VACCINE 12 YRS+, BIVALENT 0.3ML, IM, (PFIZER OLIVEROS TOP) Unknown Completed [facility] Influenza Virus Vaccine,quad Im,preserve Free 65+ (FLUAD) Unknown Completed [facility] Influenza Virus Vaccine,quad Im,preserve Free 65+ (FLUAD) Unknown Completed [facility] Influenza High Dose Unknown Completed [facility] Pneumococcal 13 Conjugate, PCV13 (Prevnar 13) Unknown Completed [facility] Influenza High Dose Unknown Completed [facility] Influenza High Dose Unknown Completed [facility] Pneumococcal Polysaccharide, PPSV23 (PNEUMOVAX) Unknown [facility]pleted [facility] Influenza High Dose Unknown Completed [facility] Influenza High Dose Unknown Completed [facility] Influenza Virus Vaccine Unknown Completed [facility] SARS-COV-2 COVID-19 PFIZER VACCINE Unknown Completed [facility] SARS-COV-2 COVID-19 PFIZER VACCINE Unknown Completed [facility] SARS-COV-2 COVID-19 PFIZER VACCINE Unknown Completed [facility] SARS-COV-2 COVID-19 PFIZER LAKESHA-SUCROSE VACCINE (OLIVEROS TOP) Unknown Completed [facility] SARS-COV-2 COVID-19 LAKESHA-SUCROSE VACCINE 12 YRS+, BIVALENT 0.3ML, IM, (PFIZER OLIVEROS TOP) Unknown Completed [facility] Influenza Virus Vaccine,quad Im,preserve Free 65+ (FLUAD) Unknown Completed [facility] Influenza Virus Vaccine,quad Im,preserve Free 65+ (FLUAD) Unknown Completed [facility] Influenza High Dose Unknown Completed [facility] Pneumococcal 13 Conjugate, PCV13 (Prevnar 13) Unknown Completed [facility] Influenza High Dose Unknown Completed [facility] Influenza High Dose Unknown Completed [facility] Pneumococcal Polysaccharide, PPSV23 (PNEUMOVAX) Unknown [facility]pleted [facility] Influenza High Dose Unknown Completed [facility] Influenza High Dose Unknown Completed [facility] Influenza Virus Vaccine Unknown Completed [facility] SARS-COV-2 COVID-19 PFIZER VACCINE Unknown Completed [facility] SARS-COV-2 COVID-19 PFIZER VACCINE Unknown Completed [facility] SARS-COV-2 COVID-19 PFIZER VACCINE Unknown Completed [facility] SARS-COV-2 COVID-19 PFIZER LAKESHA-SUCROSE VACCINE (OLIVEROS TOP) Unknown Completed [facility] SARS-COV-2 COVID-19 LAKESHA-SUCROSE VACCINE 12 YRS+, BIVALENT 0.3ML, IM, (PFIZER OLIVEROS TOP) Unknown Completed [facility] Influenza Virus Vaccine,quad Im,preserve Free 65+ (FLUAD) Unknown Completed [facility] Influenza Virus Vaccine,quad Im,preserve Free 65+ (FLUAD) Unknown Completed [facility] Influenza High Dose Unknown Completed [facility] Pneumococcal 13 Conjugate, PCV13 (Prevnar 13) Unknown Completed [facility] Influenza High Dose Unknown Completed [facility] Influenza High Dose Unknown Completed [facility] Pneumococcal Polysaccharide, PPSV23 (PNEUMOVAX) Unknown Completed [facility] Influenza High Dose Unknown Completed [facility] Influenza High Dose Unknown Completed [facility] Influenza Virus Vaccine Unknown Completed [facility] SARS-COV-2 COVID-19 PFIZER VACCINE Unknown Completed [facility] SARS-COV-2 COVID-19 PFIZER VACCINE Unknown Completed [facility] SARS-COV-2 COVID-19 PFIZER VACCINE Unknown Completed [facility] SARS-COV-2 COVID-19 PFIZER LAKESHA-SUCROSE VACCINE (OLIVEROS TOP) Unknown Completed [facility] SARS-COV-2 COVID-19 LAKESHA-SUCROSE VACCINE 12 YRS+, BIVALENT 0.3ML, IM, (PFIZER OLIVEROS TOP) Unknown Completed [facility] Influenza Virus Vaccine,quad Im,preserve Free 65+ (FLUAD) Unknown Completed [facility] Influenza Virus Vaccine,quad Im,preserve Free 65+ (FLUAD) Unknown Completed [facility] Influenza High Dose Unknown Completed [facility] Pneumococcal 13 Conjugate, PCV13 (Prevnar 13) Unknown Completed [facility] Influenza High Dose Unknown Completed [facility] Influenza High Dose Unknown Completed [facility] Pneumococcal Polysaccharide, PPSV23 (PNEUMOVAX) Unknown [facility]pleted [facility] Influenza High Dose Unknown Completed [facility] Influenza High Dose Unknown Completed [facility] Influenza Virus Vaccine Unknown Completed [facility] SARS-COV-2 COVID-19 PFIZER VACCINE Unknown Completed [facility] SARS-COV-2 COVID-19 PFIZER VACCINE Unknown Completed [facility] SARS-COV-2 COVID-19 PFIZER VACCINE Unknown Completed [facility] SARS-COV-2 COVID-19 PFIZER LAKESHA-SUCROSE VACCINE (OLIVEROS TOP) Unknown Completed [facility] SARS-COV-2 COVID-19 LAKESHA-SUCROSE VACCINE 12 YRS+, BIVALENT 0.3ML, IM, (PFIZER OLIVEROS TOP) Unknown Completed [facility] Influenza Virus Vaccine,quad Im,preserve Free 65+ (FLUAD) Unknown Completed [facility] Influenza Virus Vaccine,quad Im,preserve Free 65+ (FLUAD) Unknown Completed [facility] Influenza High Dose Unknown Completed [facility] Pneumococcal 13 Conjugate, PCV13 (Prevnar 13) Unknown Completed [facility] Influenza High Dose Unknown Completed [facility] Influenza High Dose Unknown Completed [facility] Pneumococcal Polysaccharide, PPSV23 (PNEUMOVAX) Unknown [facility]pleted [facility] Influenza High Dose Unknown Completed [facility] Influenza High Dose Unknown Completed [facility] Influenza Virus Vaccine Unknown Completed [facility] SARS-COV-2 COVID-19 PFIZER VACCINE Unknown Completed [facility] SARS-COV-2 COVID-19 PFIZER VACCINE Unknown Completed [facility] SARS-COV-2 COVID-19 PFIZER VACCINE Unknown Completed [facility] SARS-COV-2 COVID-19 PFIZER LAKESHA-SUCROSE VACCINE (OLIVEROS TOP) Unknown Completed [facility] SARS-COV-2 COVID-19 LAKESHA-SUCROSE VACCINE 12 YRS+, BIVALENT 0.3ML, IM, (PFIZER OLIVEROS TOP) Unknown Completed [facility] Influenza Virus Vaccine,quad Im,preserve Free 65+ (FLUAD) Unknown Completed [facility] Influenza Virus Vaccine,quad Im,preserve Free 65+ (FLUAD) Unknown Completed [facility] Influenza High Dose Unknown Completed [facility] Pneumococcal 13 Conjugate, PCV13 (Prevnar 13) Unknown Completed [facility] Influenza High Dose Unknown Completed [facility] Influenza High Dose Unknown Completed [facility] Pneumococcal Polysaccharide, PPSV23 (PNEUMOVAX) Unknown Completed [facility] Influenza High Dose Unknown Completed [facility] Influenza High Dose Unknown Completed [facility] Influenza Virus Vaccine Unknown Completed [facility] SARS-COV-2 COVID-19 PFIZER VACCINE Unknown Completed [facility] SARS-COV-2 COVID-19 PFIZER VACCINE Unknown Completed [facility] SARS-COV-2 COVID-19 PFIZER VACCINE Unknown Completed [facility] SARS-COV-2 COVID-19 PFIZER LAKESHA-SUCROSE VACCINE (OLIVEROS TOP) Unknown Completed [facility] SARS-COV-2 COVID-19 LAKESHA-SUCROSE VACCINE 12 YRS+, BIVALENT 0.3ML, IM, (PFIZER OLIVEROS TOP) Unknown Completed [facility] Influenza Virus Vaccine,quad Im,preserve Free 65+ (FLUAD) Unknown Completed [facility] Influenza Virus Vaccine,quad Im,preserve Free 65+ (FLUAD) Unknown Completed [facility] Influenza High Dose Unknown Completed [facility] Pneumococcal 13 Conjugate, PCV13 (Prevnar 13) Unknown Completed [facility] Influenza High Dose Unknown Completed [facility] Influenza High Dose Unknown Completed [facility] Pneumococcal Polysaccharide, PPSV23 (PNEUMOVAX) Unknown [facility]pleted [facility] Influenza High Dose Unknown Completed [facility] Influenza High Dose Unknown Completed [facility] Influenza Virus Vaccine Unknown Completed [facility] SARS-COV-2 COVID-19 PFIZER VACCINE Unknown Completed [facility] SARS-COV-2 COVID-19 PFIZER VACCINE Unknown Completed [facility] SARS-COV-2 COVID-19 PFIZER VACCINE Unknown Completed [facility] SARS-COV-2 COVID-19 PFIZER LAKESHA-SUCROSE VACCINE (OLIVEROS TOP) Unknown Completed [facility] SARS-COV-2 COVID-19 LAKESHA-SUCROSE VACCINE 12 YRS+, BIVALENT 0.3ML, IM, (PFIZER OLIVEROS TOP) Unknown Completed [facility] Influenza Virus Vaccine,quad Im,preserve Free 65+ (FLUAD) Unknown Completed [facility] Influenza Virus Vaccine,quad Im,preserve Free 65+ (FLUAD) Unknown Completed [facility] Influenza High Dose Unknown Completed [facility] Pneumococcal 13 Conjugate, PCV13 (Prevnar 13) Unknown Completed [facility] Influenza High Dose Unknown Completed [facility] Influenza High Dose Unknown Completed [facility] Pneumococcal Polysaccharide, PPSV23 (PNEUMOVAX) Unknown [facility] Influenza High Dose Unknown Completed [facility] Influenza High Dose Unknown Completed [facility] [facility] Vaccine Unknown Completed [facility] SARS-COV-2 COVID-19 PFIZER VACCINE Unknown Completed [facility] SARS-COV-2 COVID-19 PFIZER VACCINE Unknown Completed [facility] SARS-COV-2 COVID-19 PFIZER VACCINE Unknown Completed [facility] SARS-COV-2 COVID-19 PFIZER LAKESHA-SUCROSE VACCINE (OLIVEROS TOP) Unknown [facility] SARS-COV-2 COVID-19 LAKESHA-SUCROSE VACCINE 12 YRS+, BIVALENT 0.3ML, IM, (PFIZER OLIVEROS TOP) Unknown Completed [facility] Influenza Virus Vaccine,quad Im,preserve Free 65+ (FLUAD) Unknown Completed [facility] Influenza Virus Vaccine,quad Im,preserve Free 65+ (FLUAD) Unknown Completed [facility] Influenza High Dose Unknown Completed [facility] Pneumococcal 13 Conjugate, PCV13 (Prevnar 13) Unknown Completed [facility] Influenza High Dose Unknown Completed [facility] Influenza High Dose Unknown Completed [facility] Pneumococcal Polysaccharide, PPSV23 (PNEUMOVAX) Unknown Completed [facility] Influenza High Dose Unknown Completed [facility] Influenza High Dose Unknown Completed [facility] Influenza Virus Vaccine Unknown Completed [facility] SARS-COV-2 COVID-19 PFIZER VACCINE Unknown Completed [facility] SARS-COV-2 COVID-19 PFIZER VACCINE Unknown Completed [facility] SARS-COV-2 COVID-19 PFIZER VACCINE Unknown Completed [facility] SARS-COV-2 COVID-19 PFIZER LAKESHA-SUCROSE VACCINE (OLIVEROS TOP) Unknown Completed [facility] SARS-COV-2 COVID-19 LAKESHA-SUCROSE VACCINE 12 YRS+, BIVALENT 0.3ML, IM, (PFIZER OLIVEROS TOP) Unknown Completed [facility] Influenza Virus Vaccine,quad Im,preserve Free 65+ (FLUAD) Unknown Completed [facility] Influenza Virus Vaccine,quad Im,preserve Free 65+ (FLUAD) Unknown Completed [facility] Influenza High Dose Unknown Completed [facility] Pneumococcal 13 Conjugate, PCV13 (Prevnar 13) Unknown Completed [facility] Influenza High Dose Unknown Completed [facility] Influenza High Dose Unknown Completed [facility] Pneumococcal Polysaccharide, PPSV23 (PNEUMOVAX) Unknown [facility]pleted [facility] Influenza High Dose Unknown Completed [facility] Influenza High Dose Unknown Completed [facility] Influenza Virus Vaccine Unknown Completed [facility] SARS-COV-2 COVID-19 PFIZER VACCINE Unknown Completed [facility] SARS-COV-2 COVID-19 PFIZER VACCINE Unknown Completed [facility] SARS-COV-2 COVID-19 PFIZER VACCINE Unknown Completed [facility] SARS-COV-2 COVID-19 PFIZER LAKESHA-SUCROSE VACCINE (OLIVEROS TOP) Unknown Completed [facility] SARS-COV-2 COVID-19 LAKESHA-SUCROSE VACCINE 12 YRS+, BIVALENT 0.3ML, IM, (PFIZER OLIVEROS TOP) Unknown Completed [facility] Influenza Virus Vaccine,quad Im,preserve Free 65+ (FLUAD) Unknown Completed [facility] Influenza Virus Vaccine,quad Im,preserve Free 65+ (FLUAD) Unknown Completed [facility] Influenza High Dose Unknown Completed [facility] Pneumococcal 13 Conjugate, PCV13 (Prevnar 13) Unknown Completed [facility] Influenza High Dose Unknown Completed [facility] Influenza High Dose Unknown Completed [facility] Pneumococcal Polysaccharide, PPSV23 (PNEUMOVAX) Unknown [facility]pleted [facility] Influenza High Dose Unknown Completed [facility] Influenza High Dose Unknown Completed [facility] Influenza Virus Vaccine Unknown Completed [facility] SARS-COV-2 COVID-19 PFIZER VACCINE Unknown Completed [facility] SARS-COV-2 COVID-19 PFIZER VACCINE Unknown Completed [facility] SARS-COV-2 COVID-19 PFIZER VACCINE Unknown Completed [facility] SARS-COV-2 COVID-19 PFIZER LAKESHA-SUCROSE VACCINE (OLIVEROS TOP) Unknown Completed [facility] SARS-COV-2 COVID-19 LAKESHA-SUCROSE VACCINE 12 YRS+, BIVALENT 0.3ML, IM, (PFIZER OLIVEROS TOP) Unknown Completed [facility] Influenza Virus Vaccine,quad Im,preserve Free 65+ (FLUAD) Unknown Completed [facility] Influenza Virus Vaccine,quad Im,preserve Free 65+ (FLUAD) Unknown Completed [facility] Influenza High Dose Unknown Completed [facility] Pneumococcal 13 Conjugate, PCV13 (Prevnar 13) Unknown Completed [facility] Influenza High Dose Unknown Completed [facility] Influenza High Dose Unknown Completed [facility] Pneumococcal Polysaccharide, PPSV23 (PNEUMOVAX) Unknown Completed [facility] Influenza High Dose Unknown Completed [facility] Influenza High Dose Unknown Completed [facility] Influenza Virus Vaccine Unknown Completed [facility] SARS-COV-2 COVID-19 PFIZER VACCINE Unknown Completed [facility] SARS-COV-2 COVID-19 PFIZER VACCINE Unknown Completed [facility] SARS-COV-2 COVID-19 PFIZER VACCINE Unknown Completed [facility] SARS-COV-2 COVID-19 PFIZER LAKESHA-SUCROSE VACCINE (OLIVEROS TOP) Unknown Completed [facility] SARS-COV-2 COVID-19 LAKESHA-SUCROSE VACCINE 12 YRS+, BIVALENT 0.3ML, IM, (PFIZER OLIVEROS TOP) Unknown Completed [facility] Influenza Virus Vaccine,quad Im,preserve Free 65+ (FLUAD) Unknown Completed [facility] Influenza Virus Vaccine,quad Im,preserve Free 65+ (FLUAD) Unknown Completed [facility] Influenza High Dose Unknown Completed [facility] Pneumococcal 13 Conjugate, PCV13 (Prevnar 13) Unknown Completed [facility] Influenza High Dose Unknown Completed [facility] Influenza High Dose Unknown Completed [facility] Pneumococcal Polysaccharide, PPSV23 (PNEUMOVAX) Unknown Completed [facility] Influenza High Dose Unknown Completed [facility] Influenza High Dose Unknown Completed [facility] Influenza Virus Vaccine Unknown Completed [facility] SARS-COV-2 COVID-19 PFIZER VACCINE Unknown Completed [facility] SARS-COV-2 COVID-19 PFIZER VACCINE Unknown Completed [facility] SARS-COV-2 COVID-19 PFIZER VACCINE Unknown Completed [facility] SARS-COV-2 COVID-19 PFIZER LAKESHA-SUCROSE VACCINE (OLIVEROS TOP) Unknown [facility]pleted [facility] SARS-COV-2 COVID-19 LAKESHA-SUCROSE VACCINE 12 YRS+, BIVALENT 0.3ML, IM, (PFIZER OLIVEROS TOP) Unknown Completed [facility] Influenza Virus Vaccine,quad Im,preserve Free 65+ (FLUAD) Unknown Completed [facility] Influenza Virus Vaccine,quad Im,preserve Free 65+ (FLUAD) Unknown Completed [facility] Influenza High Dose Unknown Completed [facility] Pneumococcal 13 Conjugate, PCV13 (Prevnar 13) Unknown Completed [facility] Influenza High Dose Unknown Completed [facility] Influenza High Dose Unknown Completed [facility] Pneumococcal Polysaccharide, PPSV23 (PNEUMOVAX) Unknown Completed [facility] Influenza High Dose Unknown Completed [facility] Influenza High Dose Unknown Completed [facility] Influenza Virus Vaccine Unknown Completed [facility] SARS-COV-2 COVID-19 PFIZER VACCINE Unknown Completed [facility] SARS-COV-2 COVID-19 PFIZER VACCINE Unknown Completed [facility] SARS-COV-2 COVID-19 PFIZER VACCINE Unknown Completed [facility] SARS-COV-2 COVID-19 PFIZER LAKESHA-SUCROSE VACCINE (OLIVEROS TOP) Unknown Completed [facility] SARS-COV-2 COVID-19 LAKESHA-SUCROSE VACCINE 12 YRS+, BIVALENT 0.3ML, IM, (PFIZER OLIVEROS TOP) Unknown Completed [facility] Influenza Virus Vaccine,quad Im,preserve Free 65+ (FLUAD) Unknown Completed [facility] Influenza Virus Vaccine,quad Im,preserve Free 65+ (FLUAD) Unknown Completed [facility] SARS-COV-2 COVID 19 LAKESHA SUCROSE VACCINE 12+, [id number], 0.3 ML (30 MCG), IM PFIZER (OLIVEROS TOP) Unknown Completed [facility] Influenza High Dose Unknown Completed [facility] Pneumococcal 13 Conjugate, PCV13 (Prevnar 13) Unknown Completed [facility] Influenza High Dose Unknown Completed [facility] Influenza High Dose Unknown Completed [facility] Pneumococcal Polysaccharide, PPSV23 (PNEUMOVAX) Unknown Completed [facility] Influenza High Dose Unknown Completed [facility] Influenza High Dose Unknown Completed [facility] Influenza Virus Vaccine Unknown Completed [facility] SARS-COV-2 COVID-19 PFIZER VACCINE Unknown Completed [facility] SARS-COV-2 COVID-19 PFIZER VACCINE Unknown Completed [facility] SARS-COV-2 COVID-19 PFIZER VACCINE Unknown Completed [facility] SARS-COV-2 COVID-19 PFIZER LAKESHA-SUCROSE VACCINE (OLIVEROS TOP) Unknown Completed [facility] SARS-COV-2 COVID-19 LAKESHA-SUCROSE VACCINE 12 YRS+, BIVALENT 0.3ML, IM, (PFIZER OLIVEROS TOP) Unknown Completed [facility] Influenza Virus Vaccine,quad Im,preserve Free 65+ (FLUAD) Unknown Completed [facility] Influenza Virus Vaccine,quad Im,preserve Free 65+ (FLUAD) Unknown Completed [facility] SARS-COV-2 COVID 19 LAKESHA SUCROSE VACCINE 12+, [id number], 0.3 ML (30 MCG), IM PFIZER (OLIVEROS TOP) Unknown Completed [facility] Influenza High Dose Unknown Completed [facility] Pneumococcal 13 Conjugate, PCV13 (Prevnar 13) Unknown Completed [facility] Influenza High Dose Unknown Completed [facility] Influenza High Dose Unknown Completed [facility] Pneumococcal Polysaccharide, PPSV23 (PNEUMOVAX) Unknown Completed [facility] Influenza High Dose Unknown Completed [facility] Influenza High Dose Unknown Completed [facility] Influenza Virus Vaccine Unknown Completed [facility] SARS-COV-2 COVID-19 PFIZER VACCINE Unknown Completed [facility] SARS-COV-2 COVID-19 PFIZER VACCINE Unknown Completed [facility] SARS-COV-2 COVID-19 PFIZER VACCINE Unknown Completed [facility] SARS-COV-2 COVID-19 PFIZER LAKESHA-SUCROSE VACCINE (OLIVEROS TOP) Unknown [facility]pleted [facility] SARS-COV-2 COVID-19 LAKESHA-SUCROSE VACCINE 12 YRS+, BIVALENT 0.3ML, IM, (PFIZER OLIVEROS TOP) Unknown Completed [facility] Influenza Virus Vaccine,quad Im,preserve Free 65+ (FLUAD) Unknown Completed [facility] Influenza Virus Vaccine,quad Im,preserve Free 65+ (FLUAD) Unknown Completed [facility] SARS-COV-2 COVID 19 LAKESHA SUCROSE VACCINE 12+, , 0.3 ML (30 MCG), IM PFIZER (OLIVEROS TOP) Unknown Completed [facility] Influenza High Dose Unknown Completed [facility] Pneumococcal 13 Conjugate, PCV13 (Prevnar 13) Unknown Completed [facility] Influenza High Dose Unknown Completed [facility] Influenza High Dose Unknown Completed [facility] Pneumococcal Polysaccharide, PPSV23 (PNEUMOVAX) Unknown Completed [facility] Influenza High Dose Unknown Completed [facility] Influenza High Dose Unknown Completed [facility] Influenza Virus Vaccine Unknown Completed [facility] SARS-COV-2 COVID-19 PFIZER VACCINE Unknown Completed [facility] SARS-COV-2 COVID-19 PFIZER VACCINE Unknown Completed [facility] SARS-COV-2 COVID-19 PFIZER VACCINE Unknown Completed [facility] SARS-COV-2 COVID-19 PFIZER LAKESHA-SUCROSE VACCINE (OLIVEROS TOP) Unknown Completed [facility] SARS-COV-2 COVID-19 LAKESHA-SUCROSE VACCINE 12 YRS+, BIVALENT 0.3ML, IM, (PFIZER OLIVEROS TOP) Unknown Completed [facility] Influenza Virus Vaccine,quad Im,preserve Free 65+ (FLUAD) Unknown Completed [facility] Influenza Virus Vaccine,quad Im,preserve Free 65+ (FLUAD) Unknown Completed [facility] SARS-COV-2 COVID 19 LAKESHA SUCROSE VACCINE 12, , 0.3 ML (30 MCG), IM PFIZER (OLIVEROS TOP) Unknown Completed [facility] Influenza High Dose Unknown Completed [facility] Pneumococcal 13 Conjugate, PCV13 (Prevnar 13) Unknown Completed [facility] Influenza High Dose Unknown Completed [facility] Influenza High Dose Unknown Completed [facility] Pneumococcal Polysaccharide, PPSV23 (PNEUMOVAX) Unknown [facility]pleted [facility] Influenza High Dose Unknown Completed [facility] Influenza High Dose Unknown Completed [facility] Influenza Virus Vaccine Unknown Completed [facility] SARS-COV-2 COVID-19 PFIZER VACCINE Unknown Completed [facility] SARS-COV-2 COVID-19 PFIZER VACCINE Unknown Completed [facility] SARS-COV-2 COVID-19 PFIZER VACCINE Unknown Completed [facility] SARS-COV-2 COVID-19 PFIZER LAKESHA-SUCROSE VACCINE (OLIVEROS TOP) Unknown Completed [facility] SARS-COV-2 COVID-19 LAKESHA-SUCROSE VACCINE 12 YRS+, BIVALENT 0.3ML, IM, (PFIZER OLIVEROS TOP) Unknown Completed [facility] Influenza Virus Vaccine,quad Im,preserve Free 65+ (FLUAD) Unknown Completed [facility] Influenza Virus Vaccine,quad Im,preserve Free 65+ (FLUAD) Unknown Completed [facility] SARS-COV-2 COVID 19 LAKESHA SUCROSE VACCINE 12+, [id number], 0.3 ML (30 MCG), IM PFIZER (OLIVEROS TOP) Unknown Completed [facility] Influenza High Dose Unknown Completed [facility] Pneumococcal 13 Conjugate, PCV13 (Prevnar 13) Unknown Completed [facility] Influenza High Dose Unknown Completed [facility] Influenza High Dose Unknown Completed [facility] Pneumococcal Polysaccharide, PPSV23 (PNEUMOVAX) Unknown Completed [facility] Influenza High Dose Unknown Completed [facility] Influenza High Dose Unknown Completed [facility] Influenza Virus Vaccine Unknown Completed [facility] SARS-COV-2 COVID-19 PFIZER VACCINE Unknown Completed [facility] SARS-COV-2 COVID-19 PFIZER VACCINE Unknown Completed [facility] SARS-COV-2 COVID-19 PFIZER VACCINE Unknown Completed [facility] SARS-COV-2 COVID-19 PFIZER LAKESHA-SUCROSE VACCINE (OLIVEROS TOP) Unknown Completed [facility] SARS-COV-2 COVID-19 LAKESHA-SUCROSE VACCINE 12 YRS+, BIVALENT 0.3ML, IM, (PFIZER OLIVEROS TOP) Unknown Completed [facility] Influenza Virus Vaccine,quad Im,preserve Free 65+ (FLUAD) Unknown Completed [facility] Influenza Virus Vaccine,quad Im,preserve Free 65+ (FLUAD) Unknown Completed [facility] SARS-COV-2 COVID 19 LAKESHA SUCROSE VACCINE 12+, [id number], 0.3 ML (30 MCG), IM PFIZER (OLIVEROS TOP) Unknown Completed [facility] Influenza High Dose Unknown Completed [facility] Pneumococcal 13 Conjugate, PCV13 (Prevnar 13) Unknown Completed [facility] Influenza High Dose Unknown Completed [facility] Influenza High Dose Unknown Completed [facility] Pneumococcal Polysaccharide, PPSV23 (PNEUMOVAX) Unknown [facility]pleted [facility] Influenza High Dose Unknown Completed [facility] Influenza High Dose Unknown Completed [facility] Influenza Virus Vaccine Unknown Completed [facility] SARS-COV-2 COVID-19 PFIZER VACCINE Unknown Completed [facility] SARS-COV-2 COVID-19 PFIZER VACCINE Unknown Completed [facility] SARS-COV-2 COVID-19 PFIZER VACCINE Unknown Completed [facility] SARS-COV-2 COVID-19 PFIZER LAKESHA-SUCROSE VACCINE (OLIVEROS TOP) Unknown Completed [facility] SARS-COV-2 COVID-19 LAKESHA-SUCROSE VACCINE 12 YRS+, BIVALENT 0.3ML, IM, (PFIZER OLIVEROS TOP) Unknown Completed [facility] Influenza Virus Vaccine,quad Im,preserve Free 65+ (FLUAD) Unknown Completed [facility] Influenza Virus Vaccine,quad Im,preserve Free 65+ (FLUAD) Unknown Completed [facility] Influenza High Dose Unknown Completed [facility] Pneumococcal 13 Conjugate, PCV13 (Prevnar 13) Unknown Completed [facility] Influenza High Dose Unknown Completed [facility] Influenza High Dose Unknown Completed [facility] Pneumococcal Polysaccharide, PPSV23 (PNEUMOVAX) Unknown Completed [facility] Influenza High Dose Unknown Completed [facility] Influenza High Dose Unknown Completed [facility] Influenza Virus Vaccine Unknown Completed [facility] SARS-COV-2 COVID-19 PFIZER VACCINE Unknown Completed [facility] SARS-COV-2 COVID-19 PFIZER VACCINE Unknown Completed [facility] SARS-COV-2 COVID-19 PFIZER VACCINE Unknown Completed [facility] SARS-COV-2 COVID-19 PFIZER LAKESHA-SUCROSE VACCINE (OLIVEROS TOP) Unknown Completed [facility] SARS-COV-2 COVID-19 LAKESHA-SUCROSE VACCINE 12 YRS+, BIVALENT 0.3ML, IM, (PFIZER OLIVEROS TOP) Unknown Completed [facility] Influenza Virus Vaccine,quad Im,preserve Free 65+ (FLUAD) Unknown Completed [facility] Influenza Virus Vaccine,quad Im,preserve Free 65+ (FLUAD) Unknown Completed [facility] SARS-COV-2 COVID 19 LAKESHA SUCROSE VACCINE 12+, , 0.3 ML (30 MCG), IM PFIZER (OLIVEROS TOP) Unknown Completed [facility] Influenza High Dose Unknown Completed [facility] Pneumococcal 13 Conjugate, PCV13 (Prevnar 13) Unknown Completed [facility] Influenza High Dose Unknown Completed [facility] Influenza High Dose Unknown Completed [facility] Pneumococcal Polysaccharide, PPSV23 (PNEUMOVAX) Unknown Completed [facility] Influenza High Dose Unknown Completed [facility] Influenza High Dose Unknown Completed [facility] Influenza Virus Vaccine Unknown Completed [facility] SARS-COV-2 COVID-19 PFIZER VACCINE Unknown Completed [facility] SARS-COV-2 COVID-19 PFIZER VACCINE Unknown Completed [facility] SARS-COV-2 COVID-19 PFIZER VACCINE Unknown Completed [facility] SARS-COV-2 COVID-19 PFIZER LAKESHA-SUCROSE VACCINE (OLIVEROS TOP) Unknown Completed [facility] SARS-COV-2 COVID-19 LAKESHA-SUCROSE VACCINE 12 YRS+, BIVALENT 0.3ML, IM, (PFIZER OLIVEROS TOP) Unknown Completed [facility] Influenza Virus Vaccine,quad Im,preserve Free 65+ (FLUAD) Unknown Completed [facility] Influenza Virus Vaccine,quad Im,preserve Free 65+ (FLUAD) Unknown Completed [facility] SARS-COV-2 COVID 19 LAKESHA SUCROSE VACCINE 12+, , 0.3 ML (30 MCG), IM PFIZER (OLIVEROS TOP) Unknown Completed [facility] Influenza High Dose Unknown Completed [facility] Pneumococcal 13 Conjugate, PCV13 (Prevnar 13) Unknown Completed [facility] Influenza High Dose Unknown Completed [facility] Influenza High Dose Unknown Completed [facility] Pneumococcal Polysaccharide, PPSV23 (PNEUMOVAX) Unknown [facility]pleted [facility] Influenza High Dose Unknown Completed [facility] Influenza High Dose Unknown Completed [facility] Influenza Virus Vaccine Unknown Completed [facility] SARS-COV-2 COVID-19 PFIZER VACCINE Unknown Completed [facility] SARS-COV-2 COVID-19 PFIZER VACCINE Unknown Completed [facility] SARS-COV-2 COVID-19 PFIZER VACCINE Unknown Completed [facility] SARS-COV-2 COVID-19 PFIZER LAKESHA-SUCROSE VACCINE (OLIVEROS TOP) Unknown Completed [facility] SARS-COV-2 COVID-19 LAKESHA-SUCROSE VACCINE 12 YRS+, BIVALENT 0.3ML, IM, (PFIZER OLIVEROS TOP) Unknown Completed [facility] Influenza Virus Vaccine,quad Im,preserve Free 65+ (FLUAD) Unknown Completed [facility] Influenza Virus Vaccine,quad Im,preserve Free 65+ (FLUAD) Unknown Completed [facility] SARS-COV-2 COVID 19 LAKESHA SUCROSE VACCINE 12+, [id number], 0.3 ML (30 MCG), IM PFIZER (OLIVEROS TOP) Unknown Completed [facility] Influenza High Dose Unknown Completed [facility] Pneumococcal 13 Conjugate, PCV13 (Prevnar 13) Unknown Completed [facility] Influenza High Dose Unknown Completed [facility] Influenza High Dose Unknown Completed [facility] Pneumococcal Polysaccharide, PPSV23 (PNEUMOVAX) Unknown Completed [facility] Influenza High Dose Unknown Completed [facility] Influenza High Dose Unknown Completed [facility] Influenza Virus Vaccine Unknown Completed [facility] SARS-COV-2 COVID-19 PFIZER VACCINE Unknown Completed [facility] SARS-COV-2 COVID-19 PFIZER VACCINE Unknown Completed [facility] SARS-COV-2 COVID-19 PFIZER VACCINE Unknown Completed [facility] SARS-COV-2 COVID-19 PFIZER LAKESHA-SUCROSE VACCINE (OLIVEROS TOP) Unknown Completed [facility] SARS-COV-2 COVID-19 LAKESHA-SUCROSE VACCINE 12 YRS+, BIVALENT 0.3ML, IM, (PFIZER OLIVEROS TOP) Unknown Completed [facility] Influenza Virus Vaccine,quad Im,preserve Free 65+ (FLUAD) Unknown Completed [facility] Influenza Virus Vaccine,quad Im,preserve Free 65+ (FLUAD) Unknown Completed [facility] Influenza High Dose Unknown Completed [facility] Pneumococcal 13 Conjugate, PCV13 (Prevnar 13) Unknown Completed [facility] Influenza High Dose Unknown Completed [facility] Influenza High Dose Unknown Completed [facility] Pneumococcal Polysaccharide, PPSV23 (PNEUMOVAX) Unknown Completed [facility] Influenza High Dose Unknown Completed [facility] Influenza High Dose Unknown Completed [facility] Influenza Virus Vaccine Unknown Completed [facility] SARS-COV-2 COVID-19 PFIZER VACCINE Unknown Completed [facility] SARS-COV-2 COVID-19 PFIZER VACCINE Unknown Completed [facility] SARS-COV-2 COVID-19 PFIZER VACCINE Unknown Completed [facility] SARS-COV-2 COVID-19 PFIZER LAKESHA-SUCROSE VACCINE (OLIVEROS TOP) Unknown [facility]pleted [facility] SARS-COV-2 COVID-19 LAKESHA-SUCROSE VACCINE 12 YRS+, BIVALENT 0.3ML, IM, (PFIZER OLIVEROS TOP) Unknown Completed [facility] Influenza Virus Vaccine,quad Im,preserve Free 65+ (FLUAD) Unknown Completed [facility] Influenza Virus Vaccine,quad Im,preserve Free 65+ (FLUAD) Unknown Completed [facility] SARS-COV-2 COVID 19 LAKESHA SUCROSE VACCINE 12+, [id number], 0.3 ML (30 MCG), IM PFIZER (OLIVEROS TOP) Unknown Completed [facility] Influenza High Dose Unknown Completed [facility] Pneumococcal 13 Conjugate, PCV13 (Prevnar 13) Unknown Completed [facility] Influenza High Dose Unknown Completed [facility] Influenza High Dose Unknown Completed [facility] Pneumococcal Polysaccharide, PPSV23 (PNEUMOVAX) Unknown Completed [facility] Influenza High Dose Unknown Completed [facility] Influenza High Dose Unknown Completed [facility] Influenza Virus Vaccine Unknown Completed [facility] SARS-COV-2 COVID-19 PFIZER VACCINE Unknown Completed [facility] SARS-COV-2 COVID-19 PFIZER VACCINE Unknown Completed [facility] SARS-COV-2 COVID-19 PFIZER VACCINE Unknown Completed [facility] SARS-COV-2 COVID-19 PFIZER LAKESHA-SUCROSE VACCINE (OLIVEROS TOP) Unknown Completed [facility] SARS-COV-2 COVID-19 LAKESHA-SUCROSE VACCINE 12 YRS+, BIVALENT 0.3ML, IM, (PFIZER OLIVEROS TOP) Unknown Completed [facility] Influenza Virus Vaccine,quad Im,preserve Free 65+ (FLUAD) Unknown Completed [facility] Influenza Virus Vaccine,quad Im,preserve Free 65+ (FLUAD) Unknown Completed [facility] [facility] 19 LAKESHA SUCROSE VACCINE 12+, [id number], 0.3 ML (30 MCG), IM PFIZER (OLIVEROS TOP) Unknown Completed [facility] Influenza High Dose Unknown Completed [facility] Pneumococcal 13 Conjugate, PCV13 (Prevnar 13) Unknown Completed [facility] Influenza High Dose Unknown Completed [facility] Influenza High Dose Unknown Completed [facility] Pneumococcal Polysaccharide, PPSV23 (PNEUMOVAX) Unknown [facility]pleted [facility] Influenza High Dose Unknown Completed [facility] Influenza High Dose Unknown Completed [facility] Influenza Virus Vaccine Unknown Completed [facility] SARS-COV-2 COVID-19 PFIZER VACCINE Unknown Completed [facility] SARS-COV-2 COVID-19 PFIZER VACCINE Unknown Completed [facility] SARS-COV-2 COVID-19 PFIZER VACCINE Unknown Completed [facility] SARS-COV-2 COVID-19 PFIZER LAKESHA-SUCROSE VACCINE (OLIVEROS TOP) Unknown [facility]pleted [facility] SARS-COV-2 COVID-19 LAKESHA-SUCROSE VACCINE 12 YRS+, BIVALENT 0.3ML, IM, (PFIZER OLIVEROS TOP) Unknown Completed [facility] Influenza Virus Vaccine,quad Im,preserve Free 65+ (FLUAD) Unknown Completed [facility] Influenza Virus Vaccine,quad Im,preserve Free 65+ (FLUAD) Unknown Completed [facility] SARS-COV-2 COVID 19 LAKESHA SUCROSE VACCINE 12+, , 0.3 ML (30 MCG), IM PFIZER (OLIVEROS TOP) Unknown Completed [facility] Influenza High Dose Unknown Completed [facility] Pneumococcal 13 Conjugate, PCV13 (Prevnar 13) Unknown Completed [facility] Influenza High Dose Unknown Completed [facility] Influenza High Dose Unknown Completed [facility] Pneumococcal Polysaccharide, PPSV23 (PNEUMOVAX) Unknown [facility] Influenza High Dose Unknown Completed [facility] Influenza High Dose Unknown Completed [facility] Influenza Virus Vaccine Unknown Completed [facility] SARS-COV-2 COVID-19 PFIZER VACCINE Unknown Completed [facility] SARS-COV-2 COVID-19 PFIZER VACCINE Unknown Completed [facility] SARS-COV-2 COVID-19 PFIZER VACCINE Unknown Completed [facility] SARS-COV-2 COVID-19 PFIZER LAKESHA-SUCROSE VACCINE (OLIVEROS TOP) Unknown [facility]pleted [facility] SARS-COV-2 COVID-19 LAKESHA-SUCROSE VACCINE 12 YRS+, BIVALENT 0.3ML, IM, (PFIZER OLIVEROS TOP) Unknown Completed [facility] Influenza Virus Vaccine,quad Im,preserve Free 65+ (FLUAD) Unknown Completed [facility] Influenza Virus Vaccine,quad Im,preserve Free 65+ (FLUAD) Unknown Completed [facility] SARS-COV-2 COVID 19 LAKESHA SUCROSE VACCINE 12+, , 0.3 ML (30 MCG), IM PFIZER (OLIVEROS TOP) Unknown Completed [facility] Influenza High Dose Unknown Completed [facility] Pneumococcal 13 Conjugate, PCV13 (Prevnar 13) Unknown Completed [facility] Influenza High Dose Unknown Completed [facility] Influenza High Dose Unknown Completed [facility] Pneumococcal Polysaccharide, PPSV23 (PNEUMOVAX) Unknown [facility]pleted [facility] Influenza High Dose Unknown Completed [facility] Influenza High Dose Unknown Completed [facility] Influenza Virus Vaccine Unknown Completed [facility] SARS-COV-2 COVID-19 PFIZER VACCINE Unknown Completed [facility] SARS-COV-2 COVID-19 PFIZER VACCINE Unknown Completed [facility] SARS-COV-2 COVID-19 PFIZER VACCINE Unknown Completed [facility] SARS-COV-2 COVID-19 PFIZER LAKESHA-SUCROSE VACCINE (OLIVEROS TOP) Unknown [facility]pleted [facility] SARS-COV-2 COVID-19 LAKESHA-SUCROSE VACCINE 12 YRS+, BIVALENT 0.3ML, IM, (PFIZER OLIVEROS TOP) Unknown Completed [facility] Influenza Virus Vaccine,quad Im,preserve Free 65+ (FLUAD) Unknown Completed [facility] Influenza Virus Vaccine,quad Im,preserve Free 65+ (FLUAD) Unknown Completed [facility] SARS-COV-2 COVID 19 LAKESHA SUCROSE VACCINE 12+, [id number], 0.3 ML (30 MCG), IM PFIZER (OLIVEROS TOP) Unknown Completed [facility] Influenza High Dose Unknown Completed [facility] Pneumococcal 13 Conjugate, PCV13 (Prevnar 13) Unknown Completed [facility] Influenza High Dose Unknown Completed [facility] Influenza High Dose Unknown Completed [facility] Pneumococcal Polysaccharide, PPSV23 (PNEUMOVAX) Unknown Completed [facility] Influenza High Dose Unknown Completed [facility] Influenza High Dose Unknown Completed [facility] Influenza Virus Vaccine Unknown Completed [facility] SARS-COV-2 COVID-19 PFIZER VACCINE Unknown Completed [facility] SARS-COV-2 COVID-19 PFIZER VACCINE Unknown Completed [facility] SARS-COV-2 COVID-19 PFIZER VACCINE Unknown Completed [facility] SARS-COV-2 COVID-19 PFIZER LAKESHA-SUCROSE VACCINE (OLIVEROS TOP) Unknown [facility]pleted [facility] SARS-COV-2 COVID-19 LAKESHA-SUCROSE VACCINE 12 YRS+, BIVALENT 0.3ML, IM, (PFIZER OLIVEROS TOP) Unknown Completed [facility] Influenza Virus Vaccine,quad Im,preserve Free 65+ (FLUAD) Unknown Completed [facility] Influenza Virus Vaccine,quad Im,preserve Free 65+ (FLUAD) Unknown Completed [facility] SARS-COV-2 COVID 19 LAKESHA SUCROSE VACCINE 12+, [id number], 0.3 ML (30 MCG), IM PFIZER (OLIVEROS TOP) Unknown Completed [facility] Influenza High Dose Unknown Completed [facility] Pneumococcal 13 Conjugate, PCV13 (Prevnar 13) Unknown Completed [facility] Influenza High Dose Unknown Completed [facility] Influenza High Dose Unknown Completed [facility] Pneumococcal Polysaccharide, PPSV23 (PNEUMOVAX) Unknown Completed [facility] Influenza High Dose Unknown Completed [facility] Influenza High Dose Unknown Completed [facility] Influenza Virus Vaccine Unknown Completed [facility] SARS-COV-2 COVID-19 PFIZER VACCINE Unknown Completed [facility] SARS-COV-2 COVID-19 PFIZER VACCINE Unknown Completed [facility] SARS-COV-2 COVID-19 PFIZER VACCINE Unknown Completed [facility] SARS-COV-2 COVID-19 PFIZER LAKESHA-SUCROSE VACCINE (OLIVEROS TOP) Unknown Completed [facility] SARS-COV-2 COVID-19 LAKESHA-SUCROSE VACCINE 12 YRS+, BIVALENT 0.3ML, IM, (PFIZER OLIVEROS TOP) Unknown Completed [facility] Influenza Virus Vaccine,quad Im,preserve Free 65+ (FLUAD) Unknown Completed [facility] Influenza Virus Vaccine,quad Im,preserve Free 65+ (FLUAD) Unknown Completed [facility] SARS-COV-2 COVID 19 LAKESHA SUCROSE VACCINE 12+, , 0.3 ML (30 MCG), IM PFIZER (OLIVEROS TOP) Unknown Completed [facility] Influenza High Dose Unknown Completed [facility] Pneumococcal 13 Conjugate, PCV13 (Prevnar 13) Unknown Completed [facility] Influenza High Dose Unknown Completed [facility] Influenza High Dose Unknown Completed [facility] Pneumococcal Polysaccharide, PPSV23 (PNEUMOVAX) Unknown Completed [facility] Influenza High Dose Unknown Completed [facility] Influenza High Dose Unknown Completed [facility] Influenza Virus Vaccine Unknown Completed [facility] SARS-COV-2 COVID-19 PFIZER VACCINE Unknown Completed [facility] SARS-COV-2 COVID-19 PFIZER VACCINE Unknown Completed [facility] SARS-COV-2 COVID-19 PFIZER VACCINE Unknown Completed [facility] SARS-COV-2 COVID-19 PFIZER LAKESHA-SUCROSE VACCINE (OLIVEROS TOP) Unknown Completed [facility] SARS-COV-2 COVID-19 LAKESHA-SUCROSE VACCINE 12 YRS+, BIVALENT 0.3ML, IM, (PFIZER OLIVEROS TOP) Unknown Completed [facility] Influenza Virus Vaccine,quad Im,preserve Free 65+ (FLUAD) Unknown Completed [facility] Influenza Virus Vaccine,quad Im,preserve Free 65+ (FLUAD) Unknown Completed [facility] SARS-COV-2 COVID 19 LAKESHA SUCROSE VACCINE 12+, , 0.3 ML (30 MCG), IM PFIZER (OLIVEROS TOP) Unknown Completed [facility] Influenza High Dose Unknown Completed [facility] Pneumococcal 13 Conjugate, PCV13 (Prevnar 13) Unknown Completed [facility] Influenza High Dose Unknown Completed [facility] Influenza High Dose Unknown Completed [facility] Pneumococcal Polysaccharide, PPSV23 (PNEUMOVAX) Unknown Completed [facility] Influenza High Dose Unknown Completed [facility] Influenza High Dose Unknown Completed [facility] Influenza Virus Vaccine Unknown Completed [facility] SARS-COV-2 COVID-19 PFIZER VACCINE Unknown Completed [facility] SARS-COV-2 COVID-19 PFIZER VACCINE Unknown Completed [facility] SARS-COV-2 COVID-19 PFIZER VACCINE Unknown Completed [facility] SARS-COV-2 COVID-19 PFIZER LAKESHA-SUCROSE VACCINE (OLIVEROS TOP) Unknown Completed [facility] SARS-COV-2 COVID-19 LAKESHA-SUCROSE VACCINE 12 YRS+, BIVALENT 0.3ML, IM, (PFIZER OLIVEROS TOP) Unknown Completed [facility] Influenza Virus Vaccine,quad Im,preserve Free 65+ (FLUAD) Unknown Completed [facility] Influenza Virus Vaccine,quad Im,preserve Free 65+ (FLUAD) Unknown Completed [facility] SARS-COV-2 COVID 19 LAKESHA SUCROSE VACCINE 12, , 0.3 ML (30 MCG), IM PFIZER (OLIVEROS TOP) Unknown Completed [facility] Influenza High Dose Unknown Completed [facility] Pneumococcal 13 Conjugate, PCV13 (Prevnar 13) Unknown Completed [facility] Influenza High Dose Unknown Completed [facility] Influenza High Dose Unknown Completed [facility] Pneumococcal Polysaccharide, PPSV23 (PNEUMOVAX) Unknown [facility]pleted [facility] Influenza High Dose Unknown Completed [facility] Influenza High Dose Unknown Completed [facility] Influenza Virus Vaccine Unknown Completed [facility] SARS-COV-2 COVID-19 PFIZER VACCINE Unknown Completed [facility] SARS-COV-2 COVID-19 PFIZER VACCINE Unknown Completed [facility] SARS-COV-2 COVID-19 PFIZER VACCINE Unknown Completed [facility] SARS-COV-2 COVID-19 PFIZER LAKESHA-SUCROSE VACCINE (OLIVEROS TOP) Unknown Completed [facility] SARS-COV-2 COVID-19 LAKESHA-SUCROSE VACCINE 12 YRS+, BIVALENT 0.3ML, IM, (PFIZER OLIVEROS TOP) Unknown Completed [facility] Influenza Virus Vaccine,quad Im,preserve Free 65+ (FLUAD) Unknown Completed [facility] Influenza Virus Vaccine,quad Im,preserve Free 65+ (FLUAD) Unknown Completed [facility] SARS-COV-2 COVID 19 LAKESHA SUCROSE VACCINE 12, , 0.3 ML (30 MCG), IM PFIZER (OLIVEROS TOP) Unknown Completed [facility] Influenza High Dose Unknown Completed [facility] Pneumococcal 13 Conjugate, PCV13 (Prevnar 13) Unknown Completed [facility] Influenza High Dose Unknown Completed [facility] Influenza High Dose Unknown Completed [facility] Pneumococcal Polysaccharide, PPSV23 (PNEUMOVAX) Unknown [facility]pleted [facility] Influenza High Dose Unknown Completed [facility] Influenza High Dose Unknown Completed [facility] Influenza Virus Vaccine Unknown Completed [facility] SARS-COV-2 COVID-19 PFIZER VACCINE Unknown Completed [facility] SARS-COV-2 COVID-19 PFIZER VACCINE Unknown Completed [facility] SARS-COV-2 COVID-19 PFIZER VACCINE Unknown Completed [facility] SARS-COV-2 COVID-19 PFIZER LAKESHA-SUCROSE VACCINE (OLIVEROS TOP) Unknown Completed [facility] SARS-COV-2 COVID-19 LAKESHA-SUCROSE VACCINE 12 YRS+, BIVALENT 0.3ML, IM, (PFIZER OLIVEROS TOP) Unknown Completed [facility] Influenza Virus Vaccine,quad Im,preserve Free 65+ (FLUAD) Unknown Completed [facility] Influenza Virus Vaccine,quad Im,preserve Free 65+ (FLUAD) Unknown Completed [facility] SARS-COV-2 COVID 19 LAKESHA SUCROSE VACCINE 12+, [id number], 0.3 ML (30 MCG), IM PFIZER (OLIVEROS TOP) Unknown Completed [facility] Influenza High Dose Unknown Completed [facility] Pneumococcal 13 Conjugate, PCV13 (Prevnar 13) Unknown Completed [facility] Influenza High Dose Unknown Completed [facility] Influenza High Dose Unknown Completed [facility] Pneumococcal Polysaccharide, PPSV23 (PNEUMOVAX) Unknown Completed [facility] Influenza High Dose Unknown Completed [facility] Influenza High Dose Unknown Completed [facility] Influenza Virus Vaccine Unknown Completed [facility] SARS-COV-2 COVID-19 PFIZER VACCINE Unknown Completed [facility] SARS-COV-2 COVID-19 PFIZER VACCINE Unknown Completed [facility] SARS-COV-2 COVID-19 PFIZER VACCINE Unknown Completed [facility] SARS-COV-2 COVID-19 PFIZER LAKESHA-SUCROSE VACCINE (OLIVEROS TOP) Unknown Completed [facility] SARS-COV-2 COVID-19 LAKESHA-SUCROSE VACCINE 12 YRS+, BIVALENT 0.3ML, IM, (PFIZER OLIVEROS TOP) Unknown Completed [facility] Influenza Virus Vaccine,quad Im,preserve Free 65+ (FLUAD) Unknown Completed [facility] Influenza Virus Vaccine,quad Im,preserve Free 65+ (FLUAD) Unknown Completed [facility] SARS-COV-2 COVID 19 LAKESHA SUCROSE VACCINE 12+, , 0.3 ML (30 MCG), IM PFIZER (OLIVEROS TOP) Unknown Completed [facility] Influenza High Dose Unknown Completed [facility] Pneumococcal 13 Conjugate, PCV13 (Prevnar 13) Unknown Completed [facility] Influenza High Dose Unknown Completed [facility] Influenza High Dose Unknown Completed [facility] Pneumococcal Polysaccharide, PPSV23 (PNEUMOVAX) Unknown Completed [facility] Influenza High Dose Unknown Completed [facility] Influenza High Dose Unknown Completed [facility] Influenza Virus Vaccine Unknown Completed [facility] SARS-COV-2 COVID-19 PFIZER VACCINE Unknown Completed [facility] SARS-COV-2 COVID-19 PFIZER VACCINE Unknown Completed [facility] SARS-COV-2 COVID-19 PFIZER VACCINE Unknown Completed [facility] SARS-COV-2 COVID-19 PFIZER LAKESHA-SUCROSE VACCINE (OLIVEROS TOP) Unknown Completed [facility] SARS-COV-2 COVID-19 LAKESHA-SUCROSE VACCINE 12 YRS+, BIVALENT 0.3ML, IM, (PFIZER OLIVEROS TOP) Unknown Completed [facility] Influenza Virus Vaccine,quad Im,preserve Free 65+ (FLUAD) Unknown Completed [facility] Influenza Virus Vaccine,quad Im,preserve Free 65+ (FLUAD) Unknown Completed [facility] SARS-COV-2 COVID 19 LAKESHA SUCROSE VACCINE 12, , 0.3 ML (30 MCG), IM PFIZER (OLIVEROS TOP) Unknown Completed [facility] Influenza High Dose Unknown Completed [facility] Pneumococcal 13 Conjugate, PCV13 (Prevnar 13) Unknown Completed [facility] Influenza High Dose Unknown Completed [facility] Influenza High Dose Unknown Completed [facility] Pneumococcal Polysaccharide, PPSV23 (PNEUMOVAX) Unknown Completed [facility] Influenza High Dose Unknown Completed [facility] Influenza High Dose Unknown Completed [facility] Influenza Virus Vaccine Unknown Completed [facility] SARS-COV-2 COVID-19 PFIZER VACCINE Unknown Completed [facility] SARS-COV-2 COVID-19 PFIZER VACCINE Unknown Completed [facility] SARS-COV-2 COVID-19 PFIZER VACCINE Unknown Completed [facility] SARS-COV-2 COVID-19 PFIZER LAKESHA-SUCROSE VACCINE (OLIVEROS TOP) Unknown Completed [facility] SARS-COV-2 COVID-19 LAKESHA-SUCROSE VACCINE 12 YRS+, BIVALENT 0.3ML, IM, (PFIZER OLIVEROS TOP) Unknown Completed [facility] Influenza Virus Vaccine,quad Im,preserve Free 65+ (FLUAD) Unknown Completed [facility] Influenza Virus Vaccine,quad Im,preserve Free 65+ (FLUAD) Unknown Completed [facility] SARS-COV-2 COVID 19 LAKESHA SUCROSE VACCINE 12+, , 0.3 ML (30 MCG), IM PFIZER (OLIVEROS TOP) Unknown Completed [facility] Influenza High Dose Unknown Completed [facility] Pneumococcal 13 Conjugate, PCV13 (Prevnar 13) Unknown Completed [facility] Influenza High Dose Unknown Completed [facility] Influenza High Dose Unknown Completed [facility] Pneumococcal Polysaccharide, PPSV23 (PNEUMOVAX) Unknown Completed [facility] Influenza High Dose Unknown Completed [facility] Influenza High Dose Unknown Completed [facility] Influenza Virus Vaccine Unknown Completed [facility] SARS-COV-2 COVID-19 PFIZER VACCINE Unknown Completed [facility] SARS-COV-2 COVID-19 PFIZER VACCINE Unknown Completed [facility] SARS-COV-2 COVID-19 PFIZER VACCINE Unknown Completed [facility] SARS-COV-2 COVID-19 PFIZER LAKESHA-SUCROSE VACCINE (OLIVEROS TOP) Unknown Completed [facility] SARS-COV-2 COVID-19 LAKESHA-SUCROSE VACCINE 12 YRS+, BIVALENT 0.3ML, IM, (PFIZER OLIVEROS TOP) Unknown Completed [facility] Influenza Virus Vaccine,quad Im,preserve Free 65+ (FLUAD) Unknown Completed [facility] Influenza Virus Vaccine,quad Im,preserve Free 65+ (FLUAD) Unknown Completed [facility] SARS-COV-2 COVID 19 LAKESHA SUCROSE VACCINE 12+, , 0.3 ML (30 MCG), IM PFIZER (OLIVEROS TOP) Unknown Completed [facility] Influenza High Dose Unknown Completed [facility] Pneumococcal 13 Conjugate, PCV13 (Prevnar 13) Unknown Completed [facility] Influenza High Dose Unknown Completed [facility] Influenza High Dose Unknown Completed [facility] Pneumococcal Polysaccharide, PPSV23 (PNEUMOVAX) Unknown Completed [facility] Influenza High Dose Unknown Completed [facility] Influenza High Dose Unknown Completed [facility] Influenza Virus Vaccine Unknown Completed [facility] SARS-COV-2 COVID-19 PFIZER VACCINE Unknown Completed [facility] SARS-COV-2 COVID-19 PFIZER VACCINE Unknown Completed [facility] SARS-COV-2 COVID-19 PFIZER VACCINE Unknown Completed [facility] SARS-COV-2 COVID-19 PFIZER LAKESHA-SUCROSE VACCINE (OLIVEROS TOP) Unknown Completed [facility] SARS-COV-2 COVID-19 LAKESHA-SUCROSE VACCINE 12 YRS+, BIVALENT 0.3ML, IM, (PFIZER OLIVEROS TOP) Unknown Completed [facility] Influenza Virus Vaccine,quad Im,preserve Free 65+ (FLUAD) Unknown Completed [facility] Influenza Virus Vaccine,quad Im,preserve Free 65+ (FLUAD) Unknown Completed [facility] SARS-COV-2 COVID 19 LAKESHA SUCROSE VACCINE 12+, [id number], 0.3 ML (30 MCG), IM PFIZER (OLIVEROS TOP) Unknown Completed [facility] Influenza High Dose Unknown Completed [facility] Pneumococcal 13 Conjugate, PCV13 (Prevnar 13) Unknown Completed [facility] Influenza High Dose Unknown Completed [facility] Influenza High Dose Unknown Completed [facility] Pneumococcal Polysaccharide, PPSV23 (PNEUMOVAX) Unknown Completed [facility] Influenza High Dose Unknown Completed [facility] Influenza High Dose Unknown Completed [facility] Influenza Virus Vaccine Unknown Completed [facility] SARS-COV-2 COVID-19 PFIZER VACCINE Unknown Completed [facility] SARS-COV-2 COVID-19 PFIZER VACCINE Unknown Completed [facility] SARS-COV-2 COVID-19 PFIZER VACCINE Unknown Completed [facility] SARS-COV-2 COVID-19 PFIZER LAKESHA-SUCROSE VACCINE (OLIVEROS TOP) Unknown Completed [facility] SARS-COV-2 COVID-19 LAKESHA-SUCROSE VACCINE 12 YRS+, BIVALENT 0.3ML, IM, (PFIZER OLIVEROS TOP) Unknown Completed [facility] Influenza Virus Vaccine,quad Im,preserve Free 65+ (FLUAD) Unknown Completed [facility] Influenza Virus Vaccine,quad Im,preserve Free 65+ (FLUAD) Unknown Completed [facility] SARS-COV-2 COVID 19 LAKESHA SUCROSE VACCINE 12+, , 0.3 ML (30 MCG), IM PFIZER (OLIVEROS TOP) Unknown Completed [facility] Influenza High Dose Unknown Completed [facility] Pneumococcal 13 Conjugate, PCV13 (Prevnar 13) Unknown Completed [facility] Influenza High Dose Unknown Completed [facility] Influenza High Dose Unknown Completed [facility] Pneumococcal Polysaccharide, PPSV23 (PNEUMOVAX) Unknown Completed [facility] Influenza High Dose Unknown Completed [facility] Influenza High Dose Unknown Completed [facility] Influenza Virus Vaccine Unknown Completed [facility] SARS-COV-2 COVID-19 PFIZER VACCINE Unknown Completed [facility] SARS-COV-2 COVID-19 PFIZER VACCINE Unknown Completed [facility] SARS-COV-2 COVID-19 PFIZER VACCINE Unknown Completed [facility] SARS-COV-2 COVID-19 PFIZER LAKESHA-SUCROSE VACCINE (OLIVEROS TOP) Unknown Completed [facility] SARS-COV-2 COVID-19 LAKESHA-SUCROSE VACCINE 12 YRS+, BIVALENT 0.3ML, IM, (PFIZER OLIVEROS TOP) Unknown Completed [facility] Influenza Virus Vaccine,quad Im,preserve Free 65+ (FLUAD) Unknown Completed [facility] Influenza Virus Vaccine,quad Im,preserve Free 65+ (FLUAD) Unknown Completed [facility] SARS-COV-2 COVID 19 LAKESHA SUCROSE VACCINE 12+, , 0.3 ML (30 MCG), IM PFIZER (OLIVEROS TOP) Unknown Completed [facility] Influenza High Dose Unknown Completed [facility] Pneumococcal 13 Conjugate, PCV13 (Prevnar 13) Unknown Completed [facility] Influenza High Dose Unknown Completed [facility] Influenza High Dose Unknown Completed [facility] Pneumococcal Polysaccharide, PPSV23 (PNEUMOVAX) Unknown [facility]pleted [facility] Influenza High Dose Unknown Completed [facility] Influenza High Dose Unknown Completed [facility] Influenza Virus Vaccine Unknown Completed [facility] SARS-COV-2 COVID-19 PFIZER VACCINE Unknown Completed [facility] SARS-COV-2 COVID-19 PFIZER VACCINE Unknown Completed [facility] SARS-COV-2 COVID-19 PFIZER VACCINE Unknown Completed [facility] SARS-COV-2 COVID-19 PFIZER LAKESHA-SUCROSE VACCINE (OLIVEROS TOP) Unknown Completed [facility] SARS-COV-2 COVID-19 LAKESHA-SUCROSE VACCINE 12 YRS+, BIVALENT 0.3ML, IM, (PFIZER OLIVEROS TOP) Unknown Completed [facility] Influenza Virus Vaccine,quad Im,preserve Free 65+ (FLUAD) Unknown Completed [facility] Influenza Virus Vaccine,quad Im,preserve Free 65+ (FLUAD) Unknown Completed [facility] SARS-COV-2 COVID 19 LAKESHA SUCROSE VACCINE , , 0.3 ML (30 MCG), IM PFIZER (OLIVEROS TOP) Unknown Completed [facility] Influenza High Dose Unknown Completed [facility] Pneumococcal 13 Conjugate, PCV13 (Prevnar 13) Unknown Completed [facility] Influenza High Dose Unknown Completed [facility] Influenza High Dose Unknown Completed [facility] Pneumococcal Polysaccharide, PPSV23 (PNEUMOVAX) Unknown Completed [facility] Influenza High Dose Unknown Completed [facility] Influenza High Dose Unknown Completed [facility] Influenza Virus Vaccine Unknown Completed [facility] SARS-COV-2 COVID-19 PFIZER VACCINE Unknown Completed [facility] SARS-COV-2 COVID-19 PFIZER VACCINE Unknown Completed [facility] SARS-COV-2 COVID-19 PFIZER VACCINE Unknown Completed [facility] SARS-COV-2 COVID-19 PFIZER LAKESHA-SUCROSE VACCINE (OLIVEROS TOP) Unknown Completed [facility] [facility] SARS-COV-2 COVID-19 LAKESHA-SUCROSE VACCINE 12 YRS+, BIVALENT 0.3ML, IM, (PFIZER OLIVEROS TOP) Unknown Completed [facility] Influenza Virus Vaccine,quad Im,preserve Free 65+ (FLUAD) Unknown Completed [facility] Influenza Virus Vaccine,quad Im,preserve Free 65+ (FLUAD) Unknown Completed [facility] SARS-COV-2 COVID 19 LAKESHA SUCROSE VACCINE , , 0.3 ML (30 MCG), IM PFIZER (OLIVEROS TOP) Unknown Completed [facility] Influenza High Dose Unknown Completed [facility] Pneumococcal 13 Conjugate, PCV13 (Prevnar 13) Unknown Completed [facility] Influenza High Dose Unknown Completed [facility] Influenza High Dose Unknown Completed [facility] Pneumococcal Polysaccharide, PPSV23 (PNEUMOVAX) Unknown [facility]pleted [facility] Influenza High Dose Unknown Completed [facility] Influenza High Dose Unknown Completed [facility] Influenza Virus Vaccine Unknown Completed [facility] SARS-COV-2 COVID-19 PFIZER VACCINE Unknown Completed [facility] SARS-COV-2 COVID-19 PFIZER VACCINE Unknown Completed [facility] SARS-COV-2 COVID-19 PFIZER VACCINE Unknown Completed [facility] SARS-COV-2 COVID-19 PFIZER LAKESHA-SUCROSE VACCINE (OLIVEROS TOP) Unknown [facility] SARS-COV-2 COVID-19 LAKESHA-SUCROSE VACCINE 12 YRS+, BIVALENT 0.3ML, IM, (PFIZER OLIVEROS TOP) Unknown Completed [facility] Influenza Virus Vaccine,quad Im,preserve Free 65+ (FLUAD) Unknown Completed [facility] Influenza Virus Vaccine,quad Im,preserve Free 65+ (FLUAD) Unknown Completed [facility] SARS-COV-2 COVID 19 LAKESHA SUCROSE VACCINE 12+, [id number], 0.3 ML (30 MCG), IM PFIZER (OLIVEROS TOP) Unknown Completed [facility] Influenza High Dose Unknown Completed [facility] Pneumococcal 13 Conjugate, PCV13 (Prevnar 13) Unknown Completed [facility] Influenza High Dose Unknown Completed [facility] Influenza High Dose Unknown Completed [facility] Pneumococcal Polysaccharide, PPSV23 (PNEUMOVAX) Unknown [facility]pleted [facility] Influenza High Dose Unknown Completed [facility] Influenza High Dose Unknown Completed [facility] Influenza Virus Vaccine Unknown Completed [facility] SARS-COV-2 COVID-19 PFIZER VACCINE Unknown Completed [facility] SARS-COV-2 COVID-19 PFIZER VACCINE Unknown Completed [facility] SARS-COV-2 COVID-19 PFIZER VACCINE Unknown Completed [facility] SARS-COV-2 COVID-19 PFIZER LAKESHA-SUCROSE VACCINE (OLIVEROS TOP) Unknown [facility] SARS-COV-2 COVID-19 LAKESHA-SUCROSE VACCINE 12 YRS+, BIVALENT 0.3ML, IM, (PFIZER OLIVEROS TOP) Unknown Completed [facility] Influenza Virus Vaccine,quad Im,preserve Free 65+ (FLUAD) Unknown Completed [facility] Influenza Virus Vaccine,quad Im,preserve Free 65+ (FLUAD) Unknown Completed [facility] SARS-COV-2 COVID 19 LAKESHA SUCROSE VACCINE 12+, , 0.3 ML (30 MCG), IM PFIZER (OLIVEROS TOP) Unknown Completed [facility] Influenza High Dose Unknown Completed [facility] Pneumococcal 13 Conjugate, PCV13 (Prevnar 13) Unknown Completed [facility] Influenza High Dose Unknown Completed [facility] Influenza High Dose Unknown Completed [facility] Pneumococcal Polysaccharide, PPSV23 (PNEUMOVAX) Unknown [facility]pleted [facility] Influenza High Dose Unknown Completed [facility] Influenza High Dose Unknown Completed [facility] Influenza Virus Vaccine Unknown Completed [facility] SARS-COV-2 COVID-19 PFIZER VACCINE Unknown Completed [facility] SARS-COV-2 COVID-19 PFIZER VACCINE Unknown Completed [facility] SARS-COV-2 COVID-19 PFIZER VACCINE Unknown Completed [facility] SARS-COV-2 COVID-19 PFIZER LAKESHA-SUCROSE VACCINE (OLIVEROS TOP) Unknown [facility]pleted [facility] SARS-COV-2 COVID-19 LAKESHA-SUCROSE VACCINE 12 YRS+, BIVALENT 0.3ML, IM, (PFIZER OLIVEROS TOP) Unknown Completed [facility] Influenza Virus Vaccine,quad Im,preserve Free 65+ (FLUAD) Unknown Completed [facility] Influenza Virus Vaccine,quad Im,preserve Free 65+ (FLUAD) Unknown Completed [facility] SARS-COV-2 COVID 19 LAKESHA SUCROSE VACCINE 12+, , 0.3 ML (30 MCG), IM PFIZER (OLIVEROS TOP) Unknown Completed [facility] Influenza High Dose Unknown Completed [facility] Pneumococcal 13 Conjugate, PCV13 (Prevnar 13) Unknown Completed [facility] Influenza High Dose Unknown Completed [facility] Influenza High Dose Unknown Completed [facility] Pneumococcal Polysaccharide, PPSV23 (PNEUMOVAX) Unknown [facility]pleted [facility] Influenza High Dose Unknown Completed [facility] Influenza High Dose Unknown Completed [facility] Influenza Virus Vaccine Unknown Completed [facility] SARS-COV-2 COVID-19 PFIZER VACCINE Unknown Completed [facility] SARS-COV-2 COVID-19 PFIZER VACCINE Unknown Completed [facility] SARS-COV-2 COVID-19 PFIZER VACCINE Unknown Completed [facility] SARS-COV-2 COVID-19 PFIZER LAKESHA-SUCROSE VACCINE (OLIVEROS TOP) Unknown [facility]pleted [facility] SARS-COV-2 COVID-19 LAKESHA-SUCROSE VACCINE 12 YRS+, BIVALENT 0.3ML, IM, (PFIZER OLIVEROS TOP) Unknown Completed [facility] Influenza Virus Vaccine,quad Im,preserve Free 65+ (FLUAD) Unknown Completed [facility] Influenza Virus Vaccine,quad Im,preserve Free 65+ (FLUAD) Unknown Completed [facility] SARS-COV-2 COVID 19 LAKESHA SUCROSE VACCINE , 0.3 ML (30 MCG), IM PFIZER (OLIVEROS TOP) Unknown Completed [facility] Influenza High Dose Unknown Completed [facility] Pneumococcal 13 Conjugate, PCV13 (Prevnar 13) Unknown Completed [facility] Influenza High Dose Unknown Completed [facility] Influenza High Dose Unknown Completed [facility] Pneumococcal Polysaccharide, PPSV23 (PNEUMOVAX) Unknown Completed [facility] Influenza High Dose Unknown Completed [facility] Influenza High Dose Unknown Completed [facility] Influenza Virus Vaccine Unknown Completed [facility] SARS-COV-2 COVID-19 PFIZER VACCINE Unknown Completed [facility] SARS-COV-2 COVID-19 PFIZER VACCINE Unknown Completed [facility] SARS-COV-2 COVID-19 PFIZER VACCINE Unknown Completed [facility] SARS-COV-2 COVID-19 PFIZER LAKESHA-SUCROSE VACCINE (OLIVEROS TOP) Unknown Completed [facility] SARS-COV-2 COVID-19 LAKESHA-SUCROSE VACCINE 12 YRS+, BIVALENT 0.3ML, IM, (PFIZER OLIVEROS TOP) Unknown Completed [facility] Influenza Virus Vaccine,quad Im,preserve Free 65+ (FLUAD) Unknown Completed [facility] Influenza Virus Vaccine,quad Im,preserve Free 65+ (FLUAD) Unknown Completed [facility] SARS-COV-2 COVID 19 LAKESHA SUCROSE VACCINE 12, , 0.3 ML (30 MCG), IM PFIZER (OLIVEROS TOP) Unknown Completed [facility] Influenza High Dose Unknown Completed [facility] Pneumococcal 13 Conjugate, PCV13 (Prevnar 13) Unknown Completed [facility] Influenza High Dose Unknown Completed [facility] Influenza High Dose Unknown Completed [facility] Pneumococcal Polysaccharide, PPSV23 (PNEUMOVAX) Unknown Completed [facility] Influenza High Dose Unknown Completed [facility] Influenza High Dose Unknown Completed [facility] Influenza Virus Vaccine Unknown Completed [facility] SARS-COV-2 COVID-19 PFIZER VACCINE Unknown Completed [facility] SARS-COV-2 COVID-19 PFIZER VACCINE Unknown Completed [facility] SARS-COV-2 COVID-19 PFIZER VACCINE Unknown Completed [facility] SARS-COV-2 COVID-19 PFIZER LAKESHA-SUCROSE VACCINE (OLIVEROS TOP) Unknown Completed [facility] SARS-COV-2 COVID-19 LAKESHA-SUCROSE VACCINE 12 YRS+, BIVALENT 0.3ML, IM, (PFIZER OLIVEROS TOP) Unknown Completed [facility] Influenza Virus Vaccine,quad Im,preserve Free 65+ (FLUAD) Unknown Completed [facility] Influenza Virus Vaccine,quad Im,preserve Free 65+ (FLUAD) Unknown Completed [facility] SARS-COV-2 COVID 19 LAKESHA SUCROSE VACCINE 12+, , 0.3 ML (30 MCG), IM PFIZER (OLIVEROS TOP) Unknown Completed [facility] Influenza High Dose Unknown Completed [facility] Pneumococcal 13 Conjugate, PCV13 (Prevnar 13) Unknown Completed [facility] Influenza High Dose Unknown Completed [facility] Influenza High Dose Unknown Completed [facility] Pneumococcal Polysaccharide, PPSV23 (PNEUMOVAX) Unknown Completed [facility] Influenza High Dose Unknown Completed [facility] Influenza High Dose Unknown Completed [facility] Influenza Virus Vaccine Unknown Completed [facility] SARS-COV-2 COVID-19 PFIZER VACCINE Unknown Completed [facility] SARS-COV-2 COVID-19 PFIZER VACCINE Unknown Completed [facility] SARS-COV-2 COVID-19 PFIZER VACCINE Unknown Completed [facility] SARS-COV-2 COVID-19 PFIZER LAKESHA-SUCROSE VACCINE (OLIVEROS TOP) Unknown Completed [facility] SARS-COV-2 COVID-19 LAKESHA-SUCROSE VACCINE 12 YRS+, BIVALENT 0.3ML, IM, (PFIZER OLIVEROS TOP) Unknown Completed [facility] Influenza Virus Vaccine,quad Im,preserve Free 65+ (FLUAD) Unknown Completed [facility] Influenza Virus Vaccine,quad Im,preserve Free 65+ (FLUAD) Unknown Completed [facility] SARS-COV-2 COVID 19 LAKESHA SUCROSE VACCINE 12+, , 0.3 ML (30 MCG), IM PFIZER (OLIVEROS TOP) Unknown Completed [facility] Influenza High Dose Unknown Completed [facility] Pneumococcal 13 Conjugate, PCV13 (Prevnar 13) Unknown Completed [facility] Influenza High Dose Unknown Completed [facility] Influenza High Dose Unknown Completed [facility] Pneumococcal Polysaccharide, PPSV23 (PNEUMOVAX) Unknown Completed [facility] Influenza High Dose Unknown Completed [facility] Influenza High Dose Unknown Completed [facility] Influenza Virus Vaccine Unknown Completed [facility] SARS-COV-2 COVID-19 PFIZER VACCINE Unknown Completed [facility] SARS-COV-2 COVID-19 PFIZER VACCINE Unknown Completed [facility] SARS-COV-2 COVID-19 PFIZER VACCINE Unknown Completed [facility] SARS-COV-2 COVID-19 PFIZER LAKESHA-SUCROSE VACCINE (OLIVEROS TOP) Unknown Completed [facility] SARS-COV-2 COVID-19 LAKESHA-SUCROSE VACCINE 12 YRS+, BIVALENT 0.3ML, IM, (PFIZER OLIVEROS TOP) Unknown Completed [facility] Influenza Virus Vaccine,quad Im,preserve Free 65+ (FLUAD) Unknown Completed [facility] Influenza Virus Vaccine,quad Im,preserve Free 65+ (FLUAD) Unknown Completed [facility] SARS-COV-2 COVID 19 LAKESHA SUCROSE VACCINE 12+, , 0.3 ML (30 MCG), IM PFIZER (OLIVEROS TOP) Unknown Completed [facility] Influenza High Dose Unknown Completed [facility] Pneumococcal 13 Conjugate, PCV13 (Prevnar 13) Unknown Completed [facility] Influenza High Dose Unknown Completed [facility] Influenza High Dose Unknown Completed [facility] Pneumococcal Polysaccharide, PPSV23 (PNEUMOVAX) Unknown Completed [facility] Influenza High Dose Unknown Completed [facility] Influenza High Dose Unknown Completed [facility] Influenza Virus Vaccine Unknown Completed [facility] SARS-COV-2 COVID-19 PFIZER VACCINE Unknown Completed [facility] SARS-COV-2 COVID-19 PFIZER VACCINE Unknown Completed [facility] SARS-COV-2 COVID-19 PFIZER VACCINE Unknown Completed [facility] SARS-COV-2 COVID-19 PFIZER LAKESHA-SUCROSE VACCINE (OLIVEROS TOP) Unknown Completed [facility] SARS-COV-2 COVID-19 LAKESHA-SUCROSE VACCINE 12 YRS+, BIVALENT 0.3ML, IM, (PFIZER OLIVEROS TOP) Unknown Completed [facility] Influenza Virus Vaccine,quad Im,preserve Free 65+ (FLUAD) Unknown Completed [facility] Influenza Virus Vaccine,quad Im,preserve Free 65+ (FLUAD) Unknown Completed [facility] SARS-COV-2 COVID 19 LAKESHA SUCROSE VACCINE 12+, [id number], 0.3 ML (30 MCG), IM PFIZER (OLIVEROS TOP) Unknown Completed [facility] Influenza High Dose Unknown Completed [facility] Pneumococcal 13 Conjugate, PCV13 (Prevnar 13) Unknown Completed [facility] Influenza High Dose Unknown Completed [facility] Influenza High Dose Unknown Completed [facility] Pneumococcal Polysaccharide, PPSV23 (PNEUMOVAX) Unknown Completed [facility] Influenza High Dose Unknown Completed [facility] Influenza High Dose Unknown Completed [facility] Influenza Virus Vaccine Unknown Completed [facility] SARS-COV-2 COVID-19 PFIZER VACCINE Unknown Completed [facility] SARS-COV-2 COVID-19 PFIZER VACCINE Unknown Completed [facility] SARS-COV-2 COVID-19 PFIZER VACCINE Unknown Completed [facility] SARS-COV-2 COVID-19 PFIZER LAKESHA-SUCROSE VACCINE (OLIVEROS TOP) Unknown Completed [facility] SARS-COV-2 COVID-19 LAKESHA-SUCROSE VACCINE 12 YRS+, BIVALENT 0.3ML, IM, (PFIZER OLIVEROS TOP) Unknown Completed [facility] Influenza Virus Vaccine,quad Im,preserve Free 65+ (FLUAD) Unknown Completed [facility] Influenza Virus Vaccine,quad Im,preserve Free 65+ (FLUAD) Unknown Completed [facility] SARS-COV-2 COVID 19 LAKESHA SUCROSE VACCINE 12+, [id number], 0.3 ML (30 MCG), IM PFIZER (OLIVEROS TOP) Unknown Completed [facility] Influenza High Dose Unknown Completed [facility] Pneumococcal 13 Conjugate, PCV13 (Prevnar 13) Unknown Completed [facility] Influenza High Dose Unknown Completed [facility] Influenza High Dose Unknown Completed [facility] Pneumococcal Polysaccharide, PPSV23 (PNEUMOVAX) Unknown Completed [facility] Influenza High Dose Unknown Completed [facility] Influenza High Dose Unknown Completed [facility] Influenza Virus Vaccine Unknown Completed [facility] SARS-COV-2 COVID-19 PFIZER VACCINE Unknown Completed [facility] SARS-COV-2 COVID-19 PFIZER VACCINE Unknown Completed [facility] SARS-COV-2 COVID-19 PFIZER VACCINE Unknown Completed [facility] SARS-COV-2 COVID-19 PFIZER LAKESHA-SUCROSE VACCINE (OLIVEROS TOP) Unknown Completed [facility] SARS-COV-2 COVID-19 LAKESHA-SUCROSE VACCINE 12 YRS+, BIVALENT 0.3ML, IM, (PFIZER OLIVEROS TOP) Unknown Completed [facility] Influenza Virus Vaccine,quad Im,preserve Free 65+ (FLUAD) Unknown Completed [facility] Influenza Virus Vaccine,quad Im,preserve Free 65+ (FLUAD) Unknown Completed [facility] SARS-COV-2 COVID 19 LAKESHA SUCROSE VACCINE 12+, [id number], 0.3 ML (30 MCG), IM PFIZER (OLIVEROS TOP) Unknown Completed [facility] Influenza High Dose Unknown Completed [facility] Pneumococcal 13 Conjugate, PCV13 (Prevnar 13) Unknown Completed [facility] Influenza High Dose Unknown Completed [facility] Influenza High Dose Unknown Completed [facility] Pneumococcal Polysaccharide, PPSV23 (PNEUMOVAX) Unknown Completed [facility] Influenza High Dose Unknown Completed [facility] Influenza High Dose Unknown Completed [facility] Influenza Virus Vaccine Unknown Completed [facility] SARS-COV-2 COVID-19 PFIZER VACCINE Unknown Completed [facility] SARS-COV-2 COVID-19 PFIZER VACCINE Unknown Completed [facility] SARS-COV-2 COVID-19 PFIZER VACCINE Unknown Completed [facility] SARS-COV-2 COVID-19 PFIZER LAKESHA-SUCROSE VACCINE (OLIVEROS TOP) Unknown Completed [facility] SARS-COV-2 COVID-19 LAKESHA-SUCROSE VACCINE 12 YRS+, BIVALENT 0.3ML, IM, (PFIZER OLIVEROS TOP) Unknown Completed [facility] Influenza Virus Vaccine,quad Im,preserve Free 65+ (FLUAD) Unknown Completed [facility] Influenza Virus Vaccine,quad Im,preserve Free 65+ (FLUAD) Unknown Completed [facility] SARS-COV-2 COVID 19 LAKESHA SUCROSE VACCINE 12+, , 0.3 ML (30 MCG), IM PFIZER (OLIVEROS TOP) Unknown Completed [facility] Influenza High Dose Unknown Completed [facility] Pneumococcal 13 Conjugate, PCV13 (Prevnar 13) Unknown Completed [facility] Influenza High Dose Unknown Completed [facility] Influenza High Dose Unknown Completed [facility] Pneumococcal Polysaccharide, PPSV23 (PNEUMOVAX) Unknown Completed [facility] Influenza High Dose Unknown Completed [facility] Influenza High Dose Unknown Completed [facility] Influenza Virus Vaccine Unknown Completed [facility] SARS-COV-2 COVID-19 PFIZER VACCINE Unknown Completed [facility] SARS-COV-2 COVID-19 PFIZER VACCINE Unknown Completed [facility] SARS-COV-2 COVID-19 PFIZER VACCINE Unknown Completed [facility] SARS-COV-2 COVID-19 PFIZER LAKESHA-SUCROSE VACCINE (OLIVEROS TOP) Unknown Completed [facility] SARS-COV-2 COVID-19 LAKESHA-SUCROSE VACCINE 12 YRS+, BIVALENT 0.3ML, IM, (PFIZER OLIVEROS TOP) Unknown Completed [facility] Influenza Virus Vaccine,quad Im,preserve Free 65+ (FLUAD) Unknown Completed [facility] Influenza Virus Vaccine,quad Im,preserve Free 65+ (FLUAD) Unknown Completed [facility] SARS-COV-2 COVID 19 LAKESHA SUCROSE VACCINE 12, , 0.3 ML (30 MCG), IM PFIZER (OLIVEROS TOP) Unknown Completed [facility] Influenza High Dose Unknown Completed [facility] Pneumococcal 13 Conjugate, PCV13 (Prevnar 13) Unknown Completed [facility] Influenza High Dose Unknown Completed [facility] Influenza High Dose Unknown Completed [facility] Pneumococcal Polysaccharide, PPSV23 (PNEUMOVAX) Unknown Completed [facility] Influenza High Dose Unknown Completed [facility] Influenza High Dose Unknown Completed [facility] Influenza Virus Vaccine Unknown Completed [facility] SARS-COV-2 COVID-19 PFIZER VACCINE Unknown Completed [facility] SARS-COV-2 COVID-19 PFIZER VACCINE Unknown Completed [facility] SARS-COV-2 COVID-19 PFIZER VACCINE Unknown Completed [facility] SARS-COV-2 COVID-19 PFIZER LAKESHA-SUCROSE VACCINE (OLIVEROS TOP) Unknown Completed [facility] SARS-COV-2 COVID-19 LAKESHA-SUCROSE VACCINE 12 YRS+, BIVALENT 0.3ML, IM, (PFIZER OLIVEROS TOP) Unknown Completed [facility] Influenza Virus Vaccine,quad Im,preserve Free 65+ (FLUAD) Unknown Completed [facility] Influenza Virus Vaccine,quad Im,preserve Free 65+ (FLUAD) Unknown Completed [facility] SARS-COV-2 COVID 19 LAKESHA SUCROSE VACCINE 12+, [id number], 0.3 ML (30 MCG), IM PFIZER (OLIVEROS TOP) Unknown Completed [facility] Influenza High Dose Unknown Completed [facility] Pneumococcal 13 Conjugate, PCV13 (Prevnar 13) Unknown Completed [facility] Influenza High Dose Unknown Completed [facility] Influenza High Dose Unknown Completed [facility] Pneumococcal Polysaccharide, PPSV23 (PNEUMOVAX) Unknown Completed [facility] Influenza High Dose Unknown Completed [facility] Influenza High Dose Unknown Completed [facility] Influenza Virus Vaccine Unknown Completed [facility] SARS-COV-2 COVID-19 PFIZER VACCINE Unknown Completed [facility] SARS-COV-2 COVID-19 PFIZER VACCINE Unknown Completed [facility] SARS-COV-2 COVID-19 PFIZER VACCINE Unknown Completed [facility] SARS-COV-2 COVID-19 PFIZER LAKESHA-SUCROSE VACCINE (OLIVEROS TOP) Unknown Completed [facility] SARS-COV-2 COVID-19 LAKESHA-SUCROSE VACCINE 12 YRS+, BIVALENT 0.3ML, IM, (PFIZER OLIVEROS TOP) Unknown Completed [facility] Influenza Virus Vaccine,quad Im,preserve Free 65+ (FLUAD) Unknown Completed [facility] Influenza Virus Vaccine,quad Im,preserve Free 65+ (FLUAD) Unknown Completed [facility] SARS-COV-2 COVID 19 LAKESHA SUCROSE VACCINE 12+, [id number], 0.3 ML (30 MCG), IM PFIZER (OLIVEROS TOP) Unknown Completed [facility] Influenza High Dose Unknown Completed [facility] Pneumococcal 13 Conjugate, PCV13 (Prevnar 13) Unknown Completed [facility] Influenza High Dose Unknown Completed [facility] Influenza High Dose Unknown Completed [facility] Pneumococcal Polysaccharide, PPSV23 (PNEUMOVAX) Unknown Completed [facility] Influenza High Dose Unknown Completed [facility] Influenza High Dose Unknown Completed [facility] Influenza Virus Vaccine Unknown Completed [facility] SARS-COV-2 COVID-19 PFIZER VACCINE Unknown Completed [facility] SARS-COV-2 COVID-19 PFIZER VACCINE Unknown Completed [facility] SARS-COV-2 COVID-19 PFIZER VACCINE Unknown Completed [facility] SARS-COV-2 COVID-19 PFIZER LAKESHA-SUCROSE VACCINE (OLIVEROS TOP) Unknown Completed [facility] SARS-COV-2 COVID-19 LAKESHA-SUCROSE VACCINE 12 YRS+, BIVALENT 0.3ML, IM, (PFIZER OLIVEROS TOP) Unknown Completed [facility] Influenza Virus Vaccine,quad Im,preserve Free 65+ (FLUAD) Unknown Completed [facility] Influenza Virus Vaccine,quad Im,preserve Free 65+ (FLUAD) Unknown Completed [facility] SARS-COV-2 COVID 19 LAKESHA SUCROSE VACCINE 12+, [id number], 0.3 ML (30 MCG), IM PFIZER (OLIVEROS TOP) Unknown Completed [facility] Influenza High Dose Unknown Completed [facility] Pneumococcal 13 Conjugate, PCV13 (Prevnar 13) Unknown Completed [facility] Influenza High Dose Unknown Completed [facility] Influenza High Dose Unknown Completed [facility] Pneumococcal Polysaccharide, PPSV23 (PNEUMOVAX) Unknown Completed [facility] Influenza High Dose Unknown Completed [facility] Influenza High Dose Unknown Completed [facility] Influenza Virus Vaccine Unknown Completed [facility] SARS-COV-2 COVID-19 PFIZER VACCINE Unknown Completed [facility] SARS-COV-2 COVID-19 PFIZER VACCINE Unknown Completed [facility] SARS-COV-2 COVID-19 PFIZER VACCINE Unknown Completed [facility] SARS-COV-2 COVID-19 PFIZER LAKESHA-SUCROSE VACCINE (OLIVEROS TOP) Unknown Completed [facility] SARS-COV-2 COVID-19 LAKESHA-SUCROSE VACCINE 12 YRS+, BIVALENT 0.3ML, IM, (PFIZER OLIVEROS TOP) Unknown Completed [facility] Influenza Virus Vaccine,quad Im,preserve Free 65+ (FLUAD) Unknown Completed [facility] Influenza Virus Vaccine,quad Im,preserve Free 65+ (FLUAD) Unknown Completed [facility] SARS-COV-2 COVID 19 LAKESHA SUCROSE VACCINE 12, , 0.3 ML (30 MCG), IM PFIZER (OLIVEROS TOP) Unknown Completed [facility] Influenza High Dose Unknown Completed [facility] Pneumococcal 13 Conjugate, PCV13 (Prevnar 13) Unknown Completed [facility] Influenza High Dose Unknown Completed [facility] Influenza High Dose Unknown Completed [facility] Pneumococcal Polysaccharide, PPSV23 (PNEUMOVAX) Unknown Completed [facility] Influenza High Dose Unknown Completed [facility] Influenza High Dose Unknown Completed [facility] Influenza Virus Vaccine Unknown Completed [facility] [facility] PFIZER VACCINE Unknown Completed [facility] SARS-COV-2 COVID-19 PFIZER VACCINE Unknown Completed [facility] SARS-COV-2 COVID-19 PFIZER VACCINE Unknown Completed [facility] SARS-COV-2 COVID-19 PFIZER LAKESHA-SUCROSE VACCINE (OLIVEROS TOP) Unknown [facility]pleted [facility] SARS-COV-2 COVID-19 LAKESHA-SUCROSE VACCINE 12 YRS+, BIVALENT 0.3ML, IM, (PFIZER OILVEROS TOP) Unknown Completed [facility] Influenza Virus Vaccine,quad Im,preserve Free 65+ (FLUAD) Unknown Completed [facility] Influenza Virus Vaccine,quad Im,preserve Free 65+ (FLUAD) Unknown Completed [facility] SARS-COV-2 COVID 19 LAKESHA SUCROSE VACCINE 12, , 0.3 ML (30 MCG), IM PFIZER (OLIVEROS TOP) Unknown Completed [facility] Influenza High Dose Unknown Completed [facility] Pneumococcal 13 Conjugate, PCV13 (Prevnar 13) Unknown Completed [facility] Influenza High Dose Unknown Completed [facility] Influenza High Dose Unknown Completed [facility] Pneumococcal Polysaccharide, PPSV23 (PNEUMOVAX) Unknown [facility] Influenza High Dose Unknown Completed [facility] Influenza High Dose Unknown Completed [facility] Influenza Virus Vaccine Unknown Completed [facility] SARS-COV-2 COVID-19 PFIZER VACCINE Unknown Completed [facility] SARS-COV-2 COVID-19 PFIZER VACCINE Unknown Completed [facility] SARS-COV-2 COVID-19 PFIZER VACCINE Unknown Completed [facility] SARS-COV-2 COVID-19 PFIZER LAKESHA-SUCROSE VACCINE (OLIVEROS TOP) Unknown [facility]pleted [facility] SARS-COV-2 COVID-19 LAKESHA-SUCROSE VACCINE 12 YRS+, BIVALENT 0.3ML, IM, (PFIZER OLIVEROS TOP) Unknown Completed [facility] Influenza Virus Vaccine,quad Im,preserve Free 65+ (FLUAD) Unknown Completed [facility] Influenza Virus Vaccine,quad Im,preserve Free 65+ (FLUAD) Unknown Completed [facility] SARS-COV-2 COVID 19 LAKESHA SUCROSE VACCINE 12, [id number], 0.3 ML (30 MCG), IM PFIZER (OLIVEROS TOP) Unknown Completed [facility] Influenza High Dose Unknown Completed [facility] Pneumococcal 13 Conjugate, PCV13 (Prevnar 13) Unknown Completed [facility] Influenza High Dose Unknown Completed [facility] Influenza High Dose Unknown Completed [facility] Pneumococcal Polysaccharide, PPSV23 (PNEUMOVAX) Unknown [facility]pleted [facility] Influenza High Dose Unknown Completed [facility] Influenza High Dose Unknown Completed [facility] Influenza Virus Vaccine Unknown Completed [facility] SARS-COV-2 COVID-19 PFIZER VACCINE Unknown Completed [facility] SARS-COV-2 COVID-19 PFIZER VACCINE Unknown Completed [facility] SARS-COV-2 COVID-19 PFIZER VACCINE Unknown Completed [facility] SARS-COV-2 COVID-19 PFIZER LAKESHA-SUCROSE VACCINE (OLIVEROS TOP) Unknown [facility] SARS-COV-2 COVID-19 LAKESHA-SUCROSE VACCINE 12 YRS+, BIVALENT 0.3ML, IM, (PFIZER OLIVEROS TOP) Unknown Completed [facility] Influenza Virus Vaccine,quad Im,preserve Free 65+ (FLUAD) Unknown Completed [facility] Influenza Virus Vaccine,quad Im,preserve Free 65+ (FLUAD) Unknown Completed [facility] SARS-COV-2 COVID 19 LAKESHA SUCROSE VACCINE 12+, , 0.3 ML (30 MCG), IM PFIZER (OLIVEROS TOP) Unknown Completed [facility] Influenza High Dose Unknown Completed [facility] Pneumococcal 13 Conjugate, PCV13 (Prevnar 13) Unknown Completed [facility] Influenza High Dose Unknown Completed [facility] Influenza High Dose Unknown Completed [facility] Pneumococcal Polysaccharide, PPSV23 (PNEUMOVAX) Unknown [facility]pleted [facility] Influenza High Dose Unknown Completed [facility] Influenza High Dose Unknown Completed [facility] Influenza Virus Vaccine Unknown Completed [facility] SARS-COV-2 COVID-19 PFIZER VACCINE Unknown Completed [facility] SARS-COV-2 COVID-19 PFIZER VACCINE Unknown Completed [facility] SARS-COV-2 COVID-19 PFIZER VACCINE Unknown Completed [facility] SARS-COV-2 COVID-19 PFIZER LAKESHA-SUCROSE VACCINE (OLIVEROS TOP) Unknown [facility]pleted [facility] SARS-COV-2 COVID-19 LAKESHA-SUCROSE VACCINE 12 YRS+, BIVALENT 0.3ML, IM, (PFIZER OLIVEROS TOP) Unknown Completed [facility] Influenza Virus Vaccine,quad Im,preserve Free 65+ (FLUAD) Unknown Completed [facility] Influenza Virus Vaccine,quad Im,preserve Free 65+ (FLUAD) Unknown Completed [facility] SARS-COV-2 COVID 19 LAKESHA SUCROSE VACCINE 12+, , 0.3 ML (30 MCG), IM PFIZER (OLIVEROS TOP) Unknown Completed [facility] Influenza High Dose Unknown Completed [facility] Pneumococcal 13 Conjugate, PCV13 (Prevnar 13) Unknown Completed [facility] Influenza High Dose Unknown Completed [facility] Influenza High Dose Unknown Completed [facility] Pneumococcal Polysaccharide, PPSV23 (PNEUMOVAX) Unknown [facility]pleted [facility] Influenza High Dose Unknown Completed [facility] Influenza High Dose Unknown Completed [facility] Influenza Virus Vaccine Unknown Completed [facility] SARS-COV-2 COVID-19 PFIZER VACCINE Unknown Completed [facility] SARS-COV-2 COVID-19 PFIZER VACCINE Unknown Completed [facility] SARS-COV-2 COVID-19 PFIZER VACCINE Unknown Completed [facility] SARS-COV-2 COVID-19 PFIZER LAKESHA-SUCROSE VACCINE (OLIVEROS TOP) Unknown [facility]pleted [facility] SARS-COV-2 COVID-19 LAKESHA-SUCROSE VACCINE 12 YRS+, BIVALENT 0.3ML, IM, (PFIZER OLIVEROS TOP) Unknown Completed [facility] Influenza Virus Vaccine,quad Im,preserve Free 65+ (FLUAD) Unknown Completed [facility] Influenza Virus Vaccine,quad Im,preserve Free 65+ (FLUAD) Unknown Completed [facility] SARS-COV-2 COVID 19 LAKESHA SUCROSE VACCINE 12+, , 0.3 ML (30 MCG), IM PFIZER (OLIVEROS TOP) Unknown Completed [facility] Influenza High Dose Unknown Completed [facility] Pneumococcal 13 Conjugate, PCV13 (Prevnar 13) Unknown Completed [facility] Influenza High Dose Unknown Completed [facility] Influenza High Dose Unknown Completed [facility] Pneumococcal Polysaccharide, PPSV23 (PNEUMOVAX) Unknown Completed [facility] Influenza High Dose Unknown Completed [facility] Influenza High Dose Unknown Completed [facility] Influenza Virus Vaccine Unknown Completed [facility] SARS-COV-2 COVID-19 PFIZER VACCINE Unknown Completed [facility] SARS-COV-2 COVID-19 PFIZER VACCINE Unknown Completed [facility] SARS-COV-2 COVID-19 PFIZER VACCINE Unknown Completed [facility] SARS-COV-2 COVID-19 PFIZER LAKESHA-SUCROSE VACCINE (OLIVEROS TOP) Unknown [facility]pleted [facility] SARS-COV-2 COVID-19 LAKESHA-SUCROSE VACCINE 12 YRS+, BIVALENT 0.3ML, IM, (PFIZER OLIVEROS TOP) Unknown Completed [facility] Influenza Virus Vaccine,quad Im,preserve Free 65+ (FLUAD) Unknown Completed [facility] Influenza Virus Vaccine,quad Im,preserve Free 65+ (FLUAD) Unknown Completed [facility] SARS-COV-2 COVID 19 LAKESHA SUCROSE VACCINE 12+, , 0.3 ML (30 MCG), IM PFIZER (OLIVEROS TOP) Unknown Completed [facility] Influenza High Dose Unknown Completed [facility] Pneumococcal 13 Conjugate, PCV13 (Prevnar 13) Unknown Completed [facility] Influenza High Dose Unknown Completed [facility] Influenza High Dose Unknown Completed [facility] Pneumococcal Polysaccharide, PPSV23 (PNEUMOVAX) Unknown [facility]pleted [facility] Influenza High Dose Unknown Completed [facility] Influenza High Dose Unknown Completed [facility] Influenza Virus Vaccine Unknown Completed [facility] SARS-COV-2 COVID-19 PFIZER VACCINE Unknown Completed [facility] SARS-COV-2 COVID-19 PFIZER VACCINE Unknown Completed [facility] SARS-COV-2 COVID-19 PFIZER VACCINE Unknown Completed [facility] SARS-COV-2 COVID-19 PFIZER LAKESHA-SUCROSE VACCINE (OLIVEROS TOP) Unknown Completed [facility] SARS-COV-2 COVID-19 LAKESHA-SUCROSE VACCINE 12 YRS+, BIVALENT 0.3ML, IM, (PFIZER OLIVEROS TOP) Unknown Completed [facility] Influenza Virus Vaccine,quad Im,preserve Free 65+ (FLUAD) Unknown Completed [facility] Influenza Virus Vaccine,quad Im,preserve Free 65+ (FLUAD) Unknown Completed [facility] SARS-COV-2 COVID 19 LAKESHA SUCROSE VACCINE 12+, [id number], 0.3 ML (30 MCG), IM PFIZER (OLIVEROS TOP) Unknown Completed [facility] Influenza High Dose Unknown Completed [facility] Pneumococcal 13 Conjugate, PCV13 (Prevnar 13) Unknown Completed [facility] Influenza High Dose Unknown Completed [facility] Influenza High Dose Unknown Completed [facility] Pneumococcal Polysaccharide, PPSV23 (PNEUMOVAX) Unknown [facility]pleted [facility] Influenza High Dose Unknown Completed [facility] Influenza High Dose Unknown Completed [facility] Influenza Virus Vaccine Unknown Completed [facility] SARS-COV-2 COVID-19 PFIZER VACCINE Unknown Completed [facility] SARS-COV-2 COVID-19 PFIZER VACCINE Unknown Completed [facility] SARS-COV-2 COVID-19 PFIZER VACCINE Unknown Completed [facility] SARS-COV-2 COVID-19 PFIZER LAKESHA-SUCROSE VACCINE (OLIVEROS TOP) Unknown Completed [facility] SARS-COV-2 COVID-19 LAKESHA-SUCROSE VACCINE 12 YRS+, BIVALENT 0.3ML, IM, (PFIZER OLIVEROS TOP) Unknown Completed [facility] Influenza Virus Vaccine,quad Im,preserve Free 65+ (FLUAD) Unknown Completed [facility] Influenza Virus Vaccine,quad Im,preserve Free 65+ (FLUAD) Unknown Completed [facility] SARS-COV-2 COVID 19 LAKESHA SUCROSE VACCINE 12+, , 0.3 ML (30 MCG), IM PFIZER (OLIVEROS TOP) Unknown Completed [facility] Influenza High Dose Unknown Completed [facility] Pneumococcal 13 Conjugate, PCV13 (Prevnar 13) Unknown Completed [facility] Influenza High Dose Unknown Completed [facility] Influenza High Dose Unknown Completed [facility] Pneumococcal Polysaccharide, PPSV23 (PNEUMOVAX) Unknown Completed [facility] Influenza High Dose Unknown Completed [facility] Influenza High Dose Unknown Completed [facility] Influenza Virus Vaccine Unknown Completed [facility] SARS-COV-2 COVID-19 PFIZER VACCINE Unknown Completed [facility] SARS-COV-2 COVID-19 PFIZER VACCINE Unknown Completed [facility] SARS-COV-2 COVID-19 PFIZER VACCINE Unknown Completed [facility] SARS-COV-2 COVID-19 PFIZER LAKESHA-SUCROSE VACCINE (OLIVEROS TOP) Unknown Completed [facility] SARS-COV-2 COVID-19 LAKESHA-SUCROSE VACCINE 12 YRS+, BIVALENT 0.3ML, IM, (PFIZER OLIVEROS TOP) Unknown Completed [facility] Influenza Virus Vaccine,quad Im,preserve Free 65+ (FLUAD) Unknown Completed [facility] Influenza Virus Vaccine,quad Im,preserve Free 65+ (FLUAD) Unknown Completed [facility] SARS-COV-2 COVID 19 LAKESHA SUCROSE VACCINE 12+, , 0.3 ML (30 MCG), IM PFIZER (OLIVEROS TOP) Unknown Completed [facility] Influenza High Dose Unknown Completed [facility] Pneumococcal 13 Conjugate, PCV13 (Prevnar 13) Unknown Completed [facility] Influenza High Dose Unknown Completed [facility] Influenza High Dose Unknown Completed [facility] Pneumococcal Polysaccharide, PPSV23 (PNEUMOVAX) Unknown [facility]pleted [facility] Influenza High Dose Unknown Completed [facility] Influenza High Dose Unknown Completed [facility] Influenza Virus Vaccine Unknown Completed [facility] SARS-COV-2 COVID-19 PFIZER VACCINE Unknown Completed [facility] SARS-COV-2 COVID-19 PFIZER VACCINE Unknown Completed [facility] SARS-COV-2 COVID-19 PFIZER VACCINE Unknown Completed [facility] SARS-COV-2 COVID-19 PFIZER LAKESHA-SUCROSE VACCINE (OLIVEROS TOP) Unknown Completed [facility] SARS-COV-2 COVID-19 LAKESHA-SUCROSE VACCINE 12 YRS+, BIVALENT 0.3ML, IM, (PFIZER OLIVEROS TOP) Unknown Completed [facility] Influenza Virus Vaccine,quad Im,preserve Free 65+ (FLUAD) Unknown Completed [facility] Influenza Virus Vaccine,quad Im,preserve Free 65+ (FLUAD) Unknown Completed [facility] SARS-COV-2 COVID 19 LAKESHA SUCROSE VACCINE 12, , 0.3 ML (30 MCG), IM PFIZER (OLIVEROS TOP) Unknown Completed [facility] Influenza High Dose Unknown Completed [facility] Pneumococcal 13 Conjugate, PCV13 (Prevnar 13) Unknown Completed [facility] Influenza High Dose Unknown Completed [facility] Influenza High Dose Unknown Completed [facility] Pneumococcal Polysaccharide, PPSV23 (PNEUMOVAX) Unknown Completed [facility] Influenza High Dose Unknown Completed [facility] Influenza High Dose Unknown Completed [facility] Influenza Virus Vaccine Unknown Completed [facility] SARS-COV-2 COVID-19 PFIZER VACCINE Unknown Completed [facility] SARS-COV-2 COVID-19 PFIZER VACCINE Unknown Completed [facility] SARS-COV-2 COVID-19 PFIZER VACCINE Unknown Completed [facility] SARS-COV-2 COVID-19 PFIZER LAKESHA-SUCROSE VACCINE (OLIVEROS TOP) Unknown Completed [facility] SARS-COV-2 COVID-19 LAKESHA-SUCROSE VACCINE 12 YRS+, BIVALENT 0.3ML, IM, (PFIZER OLIVEROS TOP) Unknown Completed [facility] Influenza Virus Vaccine,quad Im,preserve Free 65+ (FLUAD) Unknown Completed [facility] Influenza Virus Vaccine,quad Im,preserve Free 65+ (FLUAD) Unknown Completed [facility] SARS-COV-2 COVID 19 LAKESHA SUCROSE VACCINE 12+, , 0.3 ML (30 MCG), IM PFIZER (OLIVEROS TOP) Unknown Completed [facility] Influenza High Dose Unknown Completed [facility] Pneumococcal 13 Conjugate, PCV13 (Prevnar 13) Unknown Completed [facility] Influenza High Dose Unknown Completed [facility] Influenza High Dose Unknown Completed [facility] Pneumococcal Polysaccharide, PPSV23 (PNEUMOVAX) Unknown Completed [facility] Influenza High Dose Unknown Completed [facility] Influenza High Dose Unknown Completed [facility] Influenza Virus Vaccine Unknown Completed [facility] SARS-COV-2 COVID-19 PFIZER VACCINE Unknown Completed [facility] SARS-COV-2 COVID-19 PFIZER VACCINE Unknown Completed [facility] SARS-COV-2 COVID-19 PFIZER VACCINE Unknown Completed [facility] SARS-COV-2 COVID-19 PFIZER LAKESHA-SUCROSE VACCINE (OLIVEROS TOP) Unknown Completed [facility] SARS-COV-2 COVID-19 LAKESHA-SUCROSE VACCINE 12 YRS+, BIVALENT 0.3ML, IM, (PFIZER OLIVEROS TOP) Unknown Completed [facility] Influenza Virus Vaccine,quad Im,preserve Free 65+ (FLUAD) Unknown Completed [facility] Influenza Virus Vaccine,quad Im,preserve Free 65+ (FLUAD) Unknown Completed [facility] SARS-COV-2 COVID 19 LAKESHA SUCROSE VACCINE 12+, [id number], 0.3 ML (30 MCG), IM PFIZER (OLIVEROS TOP) Unknown Completed [facility] Influenza High Dose Unknown Completed [facility] Pneumococcal 13 Conjugate, PCV13 (Prevnar 13) Unknown Completed [facility] Influenza High Dose Unknown Completed [facility] Influenza High Dose Unknown Completed [facility] Pneumococcal Polysaccharide, PPSV23 (PNEUMOVAX) Unknown Completed [facility] Influenza High Dose Unknown Completed [facility] Influenza High Dose Unknown Completed [facility] Influenza Virus Vaccine Unknown Completed [facility] SARS-COV-2 COVID-19 PFIZER VACCINE Unknown Completed [facility] SARS-COV-2 COVID-19 PFIZER VACCINE Unknown Completed [facility] SARS-COV-2 COVID-19 PFIZER VACCINE Unknown Completed [facility] SARS-COV-2 COVID-19 PFIZER LAKESHA-SUCROSE VACCINE (OLIVEROS TOP) Unknown Completed [facility] SARS-COV-2 COVID-19 LAKESHA-SUCROSE VACCINE 12 YRS+, BIVALENT 0.3ML, IM, (PFIZER OLIVEROS TOP) Unknown Completed [facility] Influenza Virus Vaccine,quad Im,preserve Free 65+ (FLUAD) Unknown Completed [facility] Influenza Virus Vaccine,quad Im,preserve Free 65+ (FLUAD) Unknown Completed [facility] SARS-COV-2 COVID 19 LAKESHA SUCROSE VACCINE 12+, , 0.3 ML (30 MCG), IM PFIZER (OLIVEROS TOP) Unknown Completed [facility] Influenza High Dose Unknown Completed [facility] Pneumococcal 13 Conjugate, PCV13 (Prevnar 13) Unknown Completed [facility] Influenza High Dose Unknown Completed [facility] Influenza High Dose Unknown Completed [facility] Pneumococcal Polysaccharide, PPSV23 (PNEUMOVAX) Unknown Completed [facility] Influenza High Dose Unknown Completed [facility] Influenza High Dose Unknown Completed [facility] Influenza Virus Vaccine Unknown Completed [facility] SARS-COV-2 COVID-19 PFIZER VACCINE Unknown Completed [facility] SARS-COV-2 COVID-19 PFIZER VACCINE Unknown Completed [facility] SARS-COV-2 COVID-19 PFIZER VACCINE Unknown Completed [facility] SARS-COV-2 COVID-19 PFIZER LAKESHA-SUCROSE VACCINE (OLIVEROS TOP) Unknown Completed [facility] SARS-COV-2 COVID-19 LAKESHA-SUCROSE VACCINE 12 YRS+, BIVALENT 0.3ML, IM, (PFIZER OLIVEROS TOP) Unknown Completed [facility] Influenza Virus Vaccine,quad Im,preserve Free 65+ (FLUAD) Unknown Completed [facility] Influenza Virus Vaccine,quad Im,preserve Free 65+ (FLUAD) Unknown Completed [facility] SARS-COV-2 COVID 19 LAKESHA SUCROSE VACCINE 12, , 0.3 ML (30 MCG), IM PFIZER (OLIVEROS TOP) Unknown Completed [facility] Influenza High Dose Unknown Completed [facility] Pneumococcal 13 Conjugate, PCV13 (Prevnar 13) Unknown Completed [facility] Influenza High Dose Unknown Completed [facility] Influenza High Dose Unknown Completed [facility] Pneumococcal Polysaccharide, PPSV23 (PNEUMOVAX) Unknown Completed [facility] Influenza High Dose Unknown Completed [facility] Influenza High Dose Unknown Completed [facility] Influenza Virus Vaccine Unknown Completed [facility] SARS-COV-2 COVID-19 PFIZER VACCINE Unknown Completed [facility] SARS-COV-2 COVID-19 PFIZER VACCINE Unknown Completed [facility] SARS-COV-2 COVID-19 PFIZER VACCINE Unknown Completed [facility] SARS-COV-2 COVID-19 PFIZER LAKESHA-SUCROSE VACCINE (OLIVEROS TOP) Unknown Completed [facility] SARS-COV-2 COVID-19 LAKESHA-SUCROSE VACCINE 12 YRS+, BIVALENT 0.3ML, IM, (PFIZER OLIVEROS TOP) Unknown Completed [facility] Influenza Virus Vaccine,quad Im,preserve Free 65+ (FLUAD) Unknown Completed [facility] Influenza Virus Vaccine,quad Im,preserve Free 65+ (FLUAD) Unknown Completed [facility] SARS-COV-2 COVID 19 LAKESHA SUCROSE VACCINE 12+, , 0.3 ML (30 MCG), IM PFIZER (OLIVEROS TOP) Unknown Completed [facility] Influenza High Dose Unknown Completed [facility] Pneumococcal 13 Conjugate, PCV13 (Prevnar 13) Unknown Completed [facility] Influenza High Dose Unknown Completed [facility] Influenza High Dose Unknown Completed [facility] Pneumococcal Polysaccharide, PPSV23 (PNEUMOVAX) Unknown Completed [facility] Influenza High Dose Unknown Completed [facility] Influenza High Dose Unknown Completed [facility] Influenza Virus Vaccine Unknown Completed [facility] SARS-COV-2 COVID-19 PFIZER VACCINE Unknown Completed [facility] SARS-COV-2 COVID-19 PFIZER VACCINE Unknown Completed [facility] SARS-COV-2 COVID-19 PFIZER VACCINE Unknown Completed [facility] SARS-COV-2 COVID-19 PFIZER LAKESHA-SUCROSE VACCINE (OLIVEROS TOP) Unknown Completed [facility] SARS-COV-2 COVID-19 LAKESHA-SUCROSE VACCINE 12 YRS+, BIVALENT 0.3ML, IM, (PFIZER OLIVEROS TOP) Unknown Completed [facility] Influenza Virus Vaccine,quad Im,preserve Free 65+ (FLUAD) Unknown Completed [facility] Influenza Virus Vaccine,quad Im,preserve Free 65+ (FLUAD) Unknown Completed [facility] SARS-COV-2 COVID 19 LAKESHA SUCROSE VACCINE 12+, , 0.3 ML (30 MCG), IM PFIZER (OLIVEROS TOP) Unknown Completed [facility] Influenza High Dose Unknown Completed [facility] Pneumococcal 13 Conjugate, PCV13 (Prevnar 13) Unknown Completed [facility] Influenza High Dose Unknown Completed [facility] Influenza High Dose Unknown Completed [facility] Pneumococcal Polysaccharide, PPSV23 (PNEUMOVAX) Unknown Completed [facility] Influenza High Dose Unknown Completed [facility] Influenza High Dose Unknown Completed [facility] Influenza Virus Vaccine Unknown Completed [facility] SARS-COV-2 COVID-19 PFIZER VACCINE Unknown Completed [facility] SARS-COV-2 COVID-19 PFIZER VACCINE Unknown Completed [facility] SARS-COV-2 COVID-19 PFIZER VACCINE Unknown Completed [facility] SARS-COV-2 COVID-19 PFIZER LAKESHA-SUCROSE VACCINE (OLIVEROS TOP) Unknown [facility]pleted [facility] SARS-COV-2 COVID-19 LAKESHA-SUCROSE VACCINE 12 YRS+, BIVALENT 0.3ML, IM, (PFIZER OLIVEROS TOP) Unknown Completed [facility] Influenza Virus Vaccine,quad Im,preserve Free 65+ (FLUAD) Unknown Completed [facility] Influenza Virus Vaccine,quad Im,preserve Free 65+ (FLUAD) Unknown Completed [facility] SARS-COV-2 COVID 19 LAKESHA SUCROSE VACCINE 12+, [id number], 0.3 ML (30 MCG), IM PFIZER (OLIVEROS TOP) Unknown Completed [facility] Influenza High Dose Unknown Completed [facility] Pneumococcal 13 Conjugate, PCV13 (Prevnar 13) Unknown Completed [facility] Influenza High Dose Unknown Completed [facility] Influenza High Dose Unknown Completed [facility] Pneumococcal Polysaccharide, PPSV23 (PNEUMOVAX) Unknown Completed [facility] Influenza High Dose Unknown Completed [facility] Influenza High Dose Unknown Completed [facility] Influenza Virus Vaccine Unknown Completed [facility] SARS-COV-2 COVID-19 PFIZER VACCINE Unknown Completed [facility] SARS-COV-2 COVID-19 PFIZER VACCINE Unknown Completed [facility] SARS-COV-2 COVID-19 PFIZER VACCINE Unknown Completed [facility] SARS-COV-2 COVID-19 PFIZER LAKESHA-SUCROSE VACCINE (OLIVEROS TOP) Unknown Completed [facility] SARS-COV-2 COVID-19 LAKESHA-SUCROSE VACCINE 12 YRS+, BIVALENT 0.3ML, IM, (PFIZER OLIVEROS TOP) Unknown Completed [facility] Influenza Virus Vaccine,quad Im,preserve Free 65+ (FLUAD) Unknown Completed [facility] Influenza Virus Vaccine,quad Im,preserve Free 65+ (FLUAD) Unknown Completed [facility] SARS-COV-2 COVID 19 LAKESHA SUCROSE VACCINE 12+, , 0.3 ML (30 MCG), IM PFIZER (OLIVEROS TOP) Unknown Completed [facility] Influenza High Dose Unknown Completed [facility] Pneumococcal 13 Conjugate, PCV13 (Prevnar 13) Unknown Completed [facility] Influenza High Dose Unknown Completed [facility] Influenza High Dose Unknown Completed [facility] Pneumococcal Polysaccharide, PPSV23 (PNEUMOVAX) Unknown [facility]pleted [facility] Influenza High Dose Unknown Completed [facility] Influenza High Dose Unknown Completed [facility] Influenza Virus Vaccine Unknown Completed [facility] SARS-COV-2 COVID-19 PFIZER VACCINE Unknown Completed [facility] SARS-COV-2 COVID-19 PFIZER VACCINE Unknown Completed [facility] SARS-COV-2 COVID-19 PFIZER VACCINE Unknown Completed [facility] SARS-COV-2 COVID-19 PFIZER LAKESHA-SUCROSE VACCINE (OLIVEROS TOP) Unknown [facility]pleted [facility] SARS-COV-2 COVID-19 LAKESHA-SUCROSE VACCINE 12 YRS+, BIVALENT 0.3ML, IM, (PFIZER OLIVEROS TOP) Unknown Completed [facility] Influenza Virus Vaccine,quad Im,preserve Free 65+ (FLUAD) Unknown Completed [facility] Influenza Virus Vaccine,quad Im,preserve Free 65+ (FLUAD) Unknown Completed [facility] SARS-COV-2 COVID 19 LAKESHA SUCROSE VACCINE 12+, , 0.3 ML (30 MCG), IM PFIZER (OLIVEROS TOP) Unknown Completed [facility] Influenza High Dose Unknown Completed [facility] Pneumococcal 13 Conjugate, PCV13 (Prevnar 13) Unknown Completed [facility] Influenza High Dose Unknown Completed [facility] Influenza High Dose Unknown Completed [facility] Pneumococcal Polysaccharide, PPSV23 (PNEUMOVAX) Unknown [facility]pleted [facility] Influenza High Dose Unknown Completed [facility] Influenza High Dose Unknown Completed [facility] Influenza Virus Vaccine Unknown Completed [facility] SARS-COV-2 COVID-19 PFIZER VACCINE Unknown Completed [facility] SARS-COV-2 COVID-19 PFIZER VACCINE Unknown Completed [facility] SARS-COV-2 COVID-19 PFIZER VACCINE Unknown Completed [facility] SARS-COV-2 COVID-19 PFIZER LAKESHA-SUCROSE VACCINE (OLIVEROS TOP) Unknown Completed [facility] SARS-COV-2 COVID-19 LAKESHA-SUCROSE VACCINE 12 YRS+, BIVALENT 0.3ML, IM, (PFIZER OLIVEROS TOP) Unknown Completed [facility] Influenza Virus Vaccine,quad Im,preserve Free 65+ (FLUAD) Unknown Completed [facility] Influenza Virus Vaccine,quad Im,preserve Free 65+ (FLUAD) Unknown Completed [facility] SARS-COV-2 COVID 19 LAKESHA SUCROSE VACCINE 12, , 0.3 ML (30 MCG), IM PFIZER (OLIVEROS TOP) Unknown Completed [facility] Influenza High Dose Unknown Completed [facility] Pneumococcal 13 Conjugate, PCV13 (Prevnar 13) Unknown Completed [facility] Influenza High Dose Unknown Completed [facility] Influenza High Dose Unknown Completed [facility] Pneumococcal Polysaccharide, PPSV23 (PNEUMOVAX) Unknown Completed [facility] Influenza High Dose Unknown Completed [facility] Influenza High Dose Unknown Completed [facility] Influenza Virus Vaccine Unknown Completed [facility] SARS-COV-2 COVID-19 PFIZER VACCINE Unknown Completed [facility] SARS-COV-2 COVID-19 PFIZER VACCINE Unknown Completed [facility] SARS-COV-2 COVID-19 PFIZER VACCINE Unknown Completed [facility] SARS-COV-2 COVID-19 PFIZER LAKESHA-SUCROSE VACCINE (OLIVEROS TOP) Unknown Completed [facility] SARS-COV-2 COVID-19 LAKESHA-SUCROSE VACCINE 12 YRS+, BIVALENT 0.3ML, IM, (PFIZER OLIVEROS TOP) Unknown Completed [facility] Influenza Virus Vaccine,quad Im,preserve Free 65+ (FLUAD) Unknown Completed [facility] Influenza Virus Vaccine,quad Im,preserve Free 65+ (FLUAD) Unknown Completed [facility] SARS-COV-2 COVID 19 LAKESHA SUCROSE VACCINE 12+, , 0.3 ML (30 MCG), IM PFIZER (OLIVEROS TOP) Unknown Completed [facility] Influenza High Dose Unknown Completed [facility] Pneumococcal 13 Conjugate, PCV13 (Prevnar 13) Unknown Completed [facility] Influenza High Dose Unknown Completed [facility] Influenza High Dose Unknown Completed [facility] Pneumococcal Polysaccharide, PPSV23 (PNEUMOVAX) Unknown Completed [facility] Influenza High Dose Unknown Completed [facility] Influenza High Dose Unknown Completed [facility] Influenza Virus Vaccine Unknown Completed [facility] SARS-COV-2 COVID-19 PFIZER VACCINE Unknown Completed [facility] SARS-COV-2 COVID-19 PFIZER VACCINE Unknown Completed [facility] SARS-COV-2 COVID-19 PFIZER VACCINE Unknown Completed [facility] SARS-COV-2 COVID-19 PFIZER LAKESHA-SUCROSE VACCINE (OLIVEROS TOP) Unknown Completed [facility] SARS-COV-2 COVID-19 LAKESHA-SUCROSE VACCINE 12 YRS+, BIVALENT 0.3ML, IM, (PFIZER OLIVEROS TOP) Unknown Completed [facility] Influenza Virus Vaccine,quad Im,preserve Free 65+ (FLUAD) Unknown Completed [facility] Influenza Virus Vaccine,quad Im,preserve Free 65+ (FLUAD) Unknown Completed [facility] SARS-COV-2 COVID 19 LAKESHA SUCROSE VACCINE 12+, [id number], 0.3 ML (30 MCG), IM PFIZER (OLIVEROS TOP) Unknown Completed [facility] Influenza High Dose Unknown Completed [facility] Pneumococcal 13 Conjugate, PCV13 (Prevnar 13) Unknown Completed [facility] Influenza High Dose Unknown Completed [facility] Influenza High Dose Unknown Completed [facility] Pneumococcal Polysaccharide, PPSV23 (PNEUMOVAX) Unknown Completed [facility] Influenza High Dose Unknown Completed [facility] Influenza High Dose Unknown Completed [facility] Influenza Virus Vaccine Unknown Completed [facility] SARS-COV-2 COVID-19 PFIZER VACCINE Unknown Completed [facility] SARS-COV-2 COVID-19 PFIZER VACCINE Unknown Completed [facility] SARS-COV-2 COVID-19 PFIZER VACCINE Unknown Completed [facility] SARS-COV-2 COVID-19 PFIZER LAKESHA-SUCROSE VACCINE (OLIVEROS TOP) Unknown Completed [facility] SARS-COV-2 COVID-19 LAKESHA-SUCROSE VACCINE 12 YRS+, BIVALENT 0.3ML, IM, (PFIZER OLIVEROS TOP) Unknown Completed [facility] Influenza Virus Vaccine,quad Im,preserve Free 65+ (FLUAD) Unknown Completed [facility] Influenza Virus Vaccine,quad Im,preserve Free 65+ (FLUAD) Unknown Completed [facility] SARS-COV-2 COVID 19 LAKESHA SUCROSE VACCINE 12+, , 0.3 ML (30 MCG), IM PFIZER (OLIVEROS TOP) Unknown Completed [facility] Influenza High Dose Unknown Completed [facility] Pneumococcal 13 Conjugate, PCV13 (Prevnar 13) Unknown Completed [facility] Influenza High Dose Unknown Completed [facility] Influenza High Dose Unknown Completed [facility] Pneumococcal Polysaccharide, PPSV23 (PNEUMOVAX) Unknown Completed [facility] Influenza High Dose Unknown Completed [facility] Influenza High Dose Unknown Completed [facility] Influenza Virus Vaccine Unknown Completed [facility] SARS-COV-2 COVID-19 PFIZER VACCINE Unknown Completed [facility] SARS-COV-2 COVID-19 PFIZER VACCINE Unknown Completed [facility] SARS-COV-2 COVID-19 PFIZER VACCINE Unknown Completed [facility] SARS-COV-2 COVID-19 PFIZER LAKESHA-SUCROSE VACCINE (OLIVEROS TOP) Unknown Completed [facility] SARS-COV-2 COVID-19 LAKESHA-SUCROSE VACCINE 12 YRS+, BIVALENT 0.3ML, IM, (PFIZER OLIVEROS TOP) Unknown Completed [facility] Influenza Virus Vaccine,quad Im,preserve Free 65+ (FLUAD) Unknown Completed [facility] Influenza Virus Vaccine,quad Im,preserve Free 65+ (FLUAD) Unknown Completed [facility] SARS-COV-2 COVID 19 LAKESHA SUCROSE VACCINE 12, , 0.3 ML (30 MCG), IM PFIZER (OLIVEROS TOP) Unknown Completed [facility] Influenza High Dose Unknown Completed [facility] Pneumococcal 13 Conjugate, PCV13 (Prevnar 13) Unknown Completed [facility] Influenza High Dose Unknown Completed [facility] Influenza High Dose Unknown Completed [facility] Pneumococcal Polysaccharide, PPSV23 (PNEUMOVAX) Unknown Completed [facility] Influenza High Dose Unknown Completed [facility] Influenza High Dose Unknown Completed [facility] Influenza Virus Vaccine Unknown Completed [facility] SARS-COV-2 COVID-19 PFIZER VACCINE Unknown Completed [facility] SARS-COV-2 COVID-19 PFIZER VACCINE Unknown Completed [facility] SARS-COV-2 COVID-19 PFIZER VACCINE Unknown Completed [facility] SARS-COV-2 COVID-19 PFIZER LAKESHA-SUCROSE VACCINE (OLIVEROS TOP) Unknown Completed [facility] SARS-COV-2 COVID-19 LAKESHA-SUCROSE VACCINE 12 YRS+, BIVALENT 0.3ML, IM, (PFIZER OLIVEROS TOP) Unknown Completed [facility] Influenza Virus Vaccine,quad Im,preserve Free 65+ (FLUAD) Unknown Completed [facility] Influenza Virus Vaccine,quad Im,preserve Free 65+ (FLUAD) Unknown Completed [facility] SARS-COV-2 COVID 19 LAKESHA SUCROSE VACCINE 12+, , 0.3 ML (30 MCG), IM PFIZER (OLIVEROS TOP) Unknown Completed [facility] Vital Signs Vital Name Observation Time Observation Value Comments S ource Body weight 2023-09-13 15:43:00 81.647 kg [facility] BMI 2023-09-13 15:43:00 29.95 kg/m2 [facility] Systolic blood pressure 2023-09-09 19:06:00 128 mm[Hg] [facility] Diastolic blood pressure 2023-09-09 19:06:00 60 mm[Hg] [facility] Heart rate 2023-09-09 19:06:00 97 /min [facility] Respiratory rate 2023-09-09 19:06:00 14 /min [facility] Oxygen saturation in Arterial blood by Pulse oximetry 2023-09-09 19:06:00 91 /min [facility] Body temperature 2023-09-09 15:27:00 36.44 Janis [facility] Body height 2023-08-31 22:00:00 167.6 cm [facility] Body weight 2023-08-31 22:00:00 81.647 kg [facility] BMI 2023-08-31 22:00:00 29.05 kg/m2 [facility] Systolic blood pressure 2023-09-09 11:50:00 149 mm[Hg] [facility] Diastolic blood pressure 2023-09-09 11:50:00 82 mm[Hg] [facility] Heart rate 2023-09-09 11:50:00 65 /min [facility] Body temperature 2023-09-09 11:50:00 36.44 Jan[facility] Respiratory rate 2023-09-09 11:50:00 19 /min [facility] Oxygen saturation in Arterial blood by Pulse oximetry 2023-09-09 11:50:00 99 /min [facility] Body height 2023-08-31 22:00:00 167.6 cm [facility] Body weight 2023-08-31 22:00:00 81.647 kg [facility] BMI 2023-08-31 22:00:00 29.05 kg/m2 [facility] Systolic blood pressure 2023-09-08 19:26:00 145 mm[Hg] [facility] Diastolic blood pressure 2023-09-08 19:26:00 80 mm[Hg] [facility] Heart rate 2023-09-08 19:26:00 80 /min [facility] Respiratory rate 2023-09-08 19:26:00 17 /min [facility] Body height 2023-09-08 19:26:00 165.1 cm [facility] Body weight 2023-09-08 19:26:00 78.529 kg [facility] BMI 2023-09-08 19:26:00 28.81 kg/m2 [facility] Oxygen saturation in Arterial blood by Pulse oximetry 2023-09-08 19:26:00 96 /min [facility] Systolic blood pressure 2023-08-20 15:40:00 149 mm[Hg] [facility] Diastolic blood pressure 2023-08-20 15:40:00 79 mm[Hg] [facility] Heart rate 2023-08-20 15:40:00 61 /min [facility] Oxygen saturation in Arterial blood by Pulse oximetry 2023-08-20 15:40:00 96 /min [facility] Respiratory rate 2023-08-20 15:38:00 18 /min [facility] Body height 2023-08-20 15:38:00 165.1 cm [facility] Body weight 2023-08-20 15:38:00 78.926 kg [facility] BMI 2023-08-20 15:38:00 28.96 kg/m2 [facility] Systolic blood pressure 2023-08-18 18:50:00 140 mm[Hg] [facility] Diastolic blood pressure 2023-08-18 18:50:00 75 mm[Hg] [facility] Heart rate 2023-08-18 18:50:00 85 /min [facility] Oxygen saturation in Arterial blood by Pulse oximetry 2023-08-18 18:50:00 94 /min [facility] Body temperature 2023-08-18 18:49:00 36.61 Jan[facility] Respiratory rate 2023-08-18 18:49:00 16 /min [facility] Body weight 2023-08-18 18:49:00 79.833 kg [facility] BMI 2023-08-18 18:49:00 29.29 kg/m2 [facility] Systolic blood pressure 2023-06-09 15:26:00 157 mm[Hg] [facility] Diastolic blood pressure 2023-06-09 15:26:00 80 mm[Hg] [facility] Heart rate 2023-06-09 15:25:00 77 /min [facility] Body temperature 2023-06-09 15:25:00 36.17 [facility] Body height 2023-06-09 15:25:00 165.1 cm [facility] Body weight 2023-06-09 15:25:00 77.61 kg [facility] BMI 2023-06-09 15:25:00 28.47 kg/m2 [facility] Oxygen saturation in Arterial blood by Pulse oximetry 2023-06-09 15:25:00 98 /min [facility] Systolic blood pressure 2023-05-19 21:19:00 169 mm[Hg] [facility] Diastolic blood pressure 2023-05-19 21:19:00 84 mm[Hg] [facility] Heart rate 2023-05-19 21:19:00 73 /min [facility] Respiratory rate 2023-05-19 21:19:00 18 /min [facility] Body height 2023-05-19 21:19:00 167.6 cm [facility] Body weight 2023-05-19 21:19:00 79.379 kg [facility] BMI 2023-05-19 21:19:00 28.25 kg/m2 [facility] Oxygen saturation in Arterial blood by Pulse oximetry 2023-05-19 21:19:00 97 /min [facility] Systolic blood pressure 2023-05-12 15:45:00 131 mm[Hg] [facility] Diastolic blood pressure 2023-05-12 15:45:00 76 mm[Hg] [facility] Heart rate 2023-05-12 15:45:00 77 /min [facility] Body temperature 2023-05-12 15:45:00 37 Jan[facility] Respiratory rate 2023-05-12 15:45:00 17 /min [facility] Body height 2023-05-12 15:45:00 167.6 cm [facility] Body weight 2023-05-12 15:45:00 80.196 kg [facility] BMI 2023-05-12 15:45:00 28.54 kg/m2 [facility] Oxygen saturation in Arterial blood by Pulse oximetry 2023-05-12 15:45:00 96 /min [facility] Systolic blood pressure 2023-05-06 16:19:00 136 mm[Hg] [facility] Diastolic blood pressure 2023-05-06 16:19:00 77 mm[Hg] [facility] Heart rate 2023-05-06 16:00:00 76 /min [facility] Respiratory rate 2023-05-06 16:00:00 18 /min [facility] Body height 2023-05-06 16:00:00 167.6 cm [facility] Body weight 2023-05-06 16:00:00 78.019 kg [facility] BMI 2023-05-06 16:00:00 27.76 kg/m2 [facility] Oxygen saturation in Arterial blood by Pulse oximetry 2023-05-06 16:00:00 96 /min [facility] Systolic blood pressure 2023-04-29 19:26:00 124 mm[Hg] [facility] Diastolic blood pressure 2023-04-29 19:26:00 83 mm[Hg] [facility] Heart rate 2023-04-29 19:26:00 89 /min [facility] Body height 2023-04-29 19:26:00 167.6 cm [facility] Body weight 2023-04-29 19:26:00 78.155 kg [facility] BMI 2023-04-29 19:26:00 27.81 kg/m2 [facility] Oxygen saturation in Arterial blood by Pulse oximetry 2023-04-29 19:26:00 97 /min [facility] Systolic blood pressure 2023-04-22 22:00:00 153 mm[Hg] [facility] Diastolic blood pressure 2023-04-22 22:00:00 75 mm[Hg] [facility] Heart rate 2023-04-22 22:00:00 73 /min [facility] Respiratory rate 2023-04-22 22:00:00 14 /min [facility] Oxygen saturation in Arterial blood by Pulse oximetry 2023-04-22 22:00:00 99 /min [facility] Body temperature 2023-04-22 20:53:00 36.06 Jan[facility] Body height 2023-04-22 20:53:00 172.7 cm [facility] Body weight 2023-04-22 20:53:00 81.647 kg [facility] BMI 2023-04-22 20:53:00 27.37 kg/m2 [facility] Systolic blood pressure 2023-02-16 14:29:00 158 mm[Hg] [facility] Diastolic blood pressure 2023-02-16 14:29:00 87 mm[Hg] [facility] Heart rate 2023-02-16 14:29:00 78 /min [facility] Oxygen saturation in Arterial blood by Pulse oximetry 2023-02-16 14:29:00 96 /min [facility] Body temperature 2023-02-16 14:27:00 36.72 Jan[facility] Respiratory rate 2023-02-16 14:27:00 18 /min [facility] Body height 2023-02-16 14:27:00 166.4 cm [facility] Body weight 2023-02-16 14:27:00 78.472 kg [facility] BMI 2023-02-16 14:27:00 28.35 kg/m2 [facility] Body weight 2023-02-12 15:25:00 78.926 kg [facility] BMI 2023-02-12 15:25:00 28.96 kg/m2 [facility] Systolic blood pressure 2023-02-08 20:10:00 157 mm[Hg] [facility] Diastolic blood pressure 2023-02-08 20:10:00 84 mm[Hg] [facility] Heart rate 2023-02-08 19:58:00 77 /min [facility] Respiratory rate 2023-02-08 19:58:00 18 /min [facility] Body height 2023-02-08 19:58:00 165.1 cm [facility] Body weight 2023-02-08 19:58:00 78.926 kg [facility] BMI 2023-02-08 19:58:00 28.96 kg/m2 [facility] Oxygen saturation in Arterial blood by Pulse oximetry 2023-02-08 19:58:00 97 /min [facility] Systolic blood pressure 2023-01-06 20:20:00 153 mm[Hg] [facility] Diastolic blood pressure 2023-01-06 20:20:00 81 mm[Hg] [facility] Heart rate 2023-01-06 20:19:00 70 /min [facility] Body temperature 2023-01-06 20:19:00 36.56 [facility] Respiratory rate 2023-01-06 20:19:00 18 /min [facility] Body weight 2023-01-06 20:19:00 80.74 kg [facility] BMI 2023-01-06 20:19:00 28.73 kg/m2 [facility] Oxygen saturation in Arterial blood by Pulse oximetry 2023-01-06 20:19:00 97 /min [facility] Systolic blood pressure 2022-10-21 13:15:00 149 mm[Hg] [facility] Diastolic blood pressure 2022-10-21 13:15:00 78 mm[Hg] [facility] Heart rate 2022-10-21 13:15:00 63 /min [facility] Oxygen saturation in Arterial blood by Pulse oximetry 2022-10-21 13:15:00 97 /min [facility] Body temperature 2022-10-21 13:12:00 36.44 Jan[facility] Respiratory rate 2022-10-21 13:12:00 18 /min [facility] Body height 2022-10-21 13:12:00 167.6 cm [facility] Body weight 2022-10-21 13:12:00 81.012 kg [facility] BMI 2022-10-21 13:12:00 28.83 kg/m2 [facility] Systolic blood pressure 2022-08-26 18:19:00 143 mm[Hg] [facility] Diastolic blood pressure 2022-08-26 18:19:00 72 mm[Hg] [facility] Heart rate 2022-08-26 18:13:00 78 /min [facility] Body weight 2022-08-26 18:13:00 82.101 kg [facility] BMI 2022-08-26 18:13:00 29.21 kg/m2 [facility] Oxygen saturation in Arterial blood by Pulse oximetry 2022-08-26 18:13:00 94 /min [facility] Systolic blood pressure 2022-08-05 15:42:00 155 mm[Hg] [facility] Diastolic blood pressure 2022-08-05 15:42:00 79 mm[Hg] [facility] Heart rate 2022-08-05 15:42:00 62 /min [facility] Oxygen saturation in Arterial blood by Pulse oximetry 2022-08-05 15:42:00 94 /min [facility] Body temperature 2022-08-05 15:39:00 36.44 Jan[facility] Respiratory rate 2022-08-05 15:39:00 18 /min [facility] Body height 2022-08-05 15:39:00 167.6 cm [facility] Body weight 2022-08-05 15:39:00 83.553 kg [facility] BMI 2022-08-05 15:39:00 29.73 kg/m2 [facility] Systolic blood pressure 2022-05-21 13:39:00 173 mm[Hg] [facility] Diastolic blood pressure 2022-05-21 13:39:00 70 mm[Hg] [facility] Heart rate 2022-05-21 13:38:00 62 /min [facility] Body height 2022-05-21 13:38:00 172.7 cm [facility] Body weight 2022-05-21 13:38:00 83.462 kg [facility] BMI 2022-05-21 13:38:00 27.98 kg/m2 [facility] Oxygen saturation in Arterial blood by Pulse oximetry 2022-05-21 13:38:00 98 /min [facility] Systolic blood pressure 2022-03-31 15:41:00 135 mm[Hg] [facility] Diastolic blood pressure 2022-03-31 15:41:00 80 mm[Hg] [facility] Heart rate 2022-03-31 15:41:00 70 /min [facility] Body height 2022-03-31 15:41:00 172.7 cm [facility] Body weight 2022-03-31 15:41:00 81.375 kg [facility] BMI 2022-03-31 15:41:00 27.28 kg/m2 [facility] Oxygen saturation in Arterial blood by Pulse oximetry 2022-03-31 15:41:00 98 /min [facility] Systolic blood pressure 2021-11-29 17:30:00 157 mm[Hg] [facility] Diastolic blood pressure 2021-11-29 17:30:00 80 mm[Hg] [facility] Heart rate 2021-11-29 17:27:00 74 /min [facility] Body temperature 2021-11-29 17:27:00 37.5 Jan[facility] Respiratory rate 2021-11-29 17:27:00 16 /min [facility] Body height 2021-11-29 17:27:00 175.3 cm [facility] Body weight 2021-11-29 17:27:00 82.328 kg [facility] BMI 2021-11-29 17:27:00 26.80 kg/m2 [facility] Oxygen saturation in Arterial blood by Pulse oximetry 2021-11-29 17:27:00 96 /min [facility] Procedures Procedure Date / Time Performed Performing Clinician Source [id number] - HI LASER ENUCLEATION PROSTATE W/MORCELLATION 2023-09-09 12:41:00 Evgeny Uriarte [facility] TRANSTHORACIC ECHO (TTE) COMPLETE W/ CONTRAST 2023-08-23 16:57:21 Dave Carlisle [facility] EKG-12 LEAD 2023-08-20 15:35:26 Doctor Unass igned, [place] [facility] POCT URINALYSIS AUTO 2023-08-18 18:57:00 Diaz Campbell [facility] MAGALY,POST-VOID RES,US,NON-IMAGING 2023-08-18 18:56:00 Charity Campbell [facility] POCT URINALYSIS AUTO 2023-05-19 00:00:00 Diaz Campbell [facility] POCT SARS-COV-2 ANTIGEN (BINAX NOW) 2023-05-12 16:27:00 Jody Kaminski [facility] CT HIP LEFT WO CONTRAST 2023-04-22 21:57:41 Do khari Erickson [facility] XR HIPS 3 VW LEFT 2023-04-22 21:22:00 Brit Erickson [facility] SARS-COV-2 COVID 19 LAKESHA SUCROSE VACCINE 12+, , 0.3 ML (30 MCG), IM PFIZER (OLIVEROS TOP) 2023-03-23 16:21:55 Doctor Unassigned, [place] [facility] POCT URINALYSIS AUTO 2023-02-16 14:35:00 Mark Uriarte [facility] DISCLOSURE AND CONSENT, MEDICAL AND SURGICAL PROCEDURES 2023-02-16 05:01:00 Doctor Unassigned, [place] [facility] FLU VACC(),65+YR,0. 5 ML,IM,ADJUVANTED,QUAD(FL UAD) 2023-02-08 20:18:42 Lillie Smith [facility] REFERRAL- REQUEST/RESPONSE 2022-11-26 05:01:00 Doctor Unassigned, [place] [facility] POCT URINALYSIS AUTO 2022-10-21 13:46:00 Diaz Campbell [facility] CONSENT/REFUSAL FOR DIAGNOSIS AND TREATMENT 2022-10-21 12:54:13 Doctor Unassigned, [place] [facility] PATIENT FINANCIAL POLICY 2022-08-05 15:16:18 Doctor Unassigned, [place] [facility] DME/SUPPLY JUSTIFICATION 2022-04-29 06:01:00 Doc tor Unassigned, [place] [facility] EXTERNAL PROVIDER RECORDS 2022-02-06 05:01:00 Doctor Unassigned, [place] [facility] POCT SARS-COV-2 ANTIGEN (BINAX NOW) 2021-11-29 00:00:00 Jody Kaminski [facility] EXTERNAL PROVIDER RECORDS 2021-11-27 05:01:00 Doctor Unassigned, [place] [facility] REFERRAL- REQUEST/RESPONSE 2021-11-10 05:01:00 Doctor Unassigned, [place] [facility] AUTHORIZATION TO RELEASE PHI TO [facility] 2021-05-16 06:01:00 Doctor Unassigned, [place] [facility] Encounters Start Date/Time End Date/Time Encounter Type Admission Type Attending [facility] Care Facility Care Department Encounter ID Source 2023-11-11 10:00:00 2023-11-11 10:00:00 Outpatient R LILLIE SMITH [facility] [id number] [facility] 2023-09-28 14:45:00 2023-09-28 14:45:00 Outpatient R EVGENY URIARTE [facility] [id number] [facility] 2023-09-24 00:00:00 2023-09-24 09:15:05 Telephone Otto [facility] XAVIER?[facility] 1.2.840.114 350.1.13.10 4.2.7.2.686 [id number] [facility] 2023-09-16 00:00:00 2023-09-16 16:45:53 Telephone Otto [facility] XAVIER?[facility] 1.2.840.114 350.1.13.10 4.2.7.2.686 [id number] 044 [id number] [facility] 2023-09-16 00:00:00 2023-09-16 13:11:43 Telephone Otto [facility] 1.2.840.114 350.1.13.10 4.2.7.2.686 [id number] [id number] [facility] 2023-09-14 00:00:00 2023-09-14 16:13:13 Refill Kalani [facility] 1.2.840.114 350.1.13.10 4.2.7.2.686 [id number] 044 [id number] [facility] 2023-09-13 11:00:00 2023-09-13 11:04:50 Outpatient R KALANI [facility] [id number] [facility] 2023-09-13 11:00:00 2023-09-13 11:04:50 Nurse Visit Nurse, [facility] Surgery [facility] 1.2.840.114 350.1.13.10 4.2.7.2.686 [id number] [facility] 2023-09-09 06:32:00 2023-09-09 14:06:00 [facility] CHARLYHayde [id number] [facility] 2023-09-09 06:32:00 2023-09-09 14:06:00 Hospital Encounter [facility] 1.2.840.114 350.1.13.10 4.2.7.2.686 [id number] 071 [id number] [facility] 2023-09-09 00:00:00 2023-09-09 11:10:49 Telephone [facility] 1.2.840.114 350.1.13.10 4.2.7.2.686 [id number] [facility] 2023-09-09 07:25:00 2023-09-09 10:00:00 Surgery [facility] 1.2.840.114 350.1.13.10 4.2.7.2.686 [id number] [facility] 2023-09-08 14:30:00 2023-09-08 15:00:00 Office Visit Aracely Zafar [facility] 1.2.840.114 350.1.13.10 4.2.7.2.686 [id number] [facility] 2023-09-08 14:30:00 2023-09-08 14:30:00 Outpatient R ARACELY ZAFAR STRAIAChiquita [facility] [id number] [facility] 2023-09-03 00:00:00 2023-09-08 09:21:11 Maggie Mayorga Fredis Billy [facility] 1.2.840.114 350.1.13.10 4.2.7.2.686 [id number] 044 [id number] [facility] 2023-09-06 00:00:00 2023-09-07 06:45:22 Patient Secure Msg Doctor Unassigned, [place] [facility] 1..840.114 350.1.13.10 4.2.7.2.686 [id number] [id number] [facility] 2023-09-02 10:15:00 2023-09-02 10:44:48 Outpatient R KALANI [facility] [id number] [facility] 2023-09-02 10:15:00 2023-09-02 10:30:00 Substance Abuse Nurse Visit Lab, Ang - Db Luz Mariafernie [facility] 1..840.114 350.1.13.10 4.2.7.2.686 [id number] [facility] 2023-08-31 00:00:00 2023-08-31 00:00:00 Telephone Kalani [facility] JANINE PROFESSIO NAL BUILDING 1..840.114 350.1.13.10 4.2.7.2.686 [id number] [facility] 2023-08-30 00:00:00 2023-08-30 00:00:00 Patient Secure Msg Aracely Zafar [facility] 1.840.114 350.1.13.10 4.2.7.2.686 [id number] 085 [id number] [facility] 2023-08-28 09:00:00 2023-08-28 09:15:00 Substance Abuse Nurse Visit Pob, Adc Lab Main Kalani [facility] BUILDING 1..840.114 350.1.13.10 4.2.7.2.686 [id number] [facility] 2023-08-28 09:00:00 2023-08-28 09:00:00 Outpatient R KALANI [facility] [id number] [facility] 2023-08-27 00:00:00 2023-08-27 00:00:00 Lillie [facility] 1..840.114 350.1.13.10 4.2.7.2.686 [id number] [id number] [facility] 2023-08-23 10:55:42 2023-08-23 23:59:00 [facility] 1..840.114 350.1.13.10 4.2.7.2.686 [id number] [facility] 2023-08-23 10:55:42 2023-08-23 23:59:00 [facility] [id number] [facility] 2023-08-23 00:00:00 2023-08-23 00:00:00 Telephone Kalani [facility] 1..840.114 350.1.13.10 4.2.7.2.686 [id number] [facility] 2023-08-20 10:40:00 2023-08-20 10:50:27 Outpatient R DAVE CARLISLE [facility] [id number] [facility] 2023-08-20 10:40:00 2023-08-20 10:50:27 Office [facility] 1.2.840.114 350.1.13.10 4.2.7.2.686 [id number] [facility] 2023-08-18 13:30:00 2023-08-18 15:34:03 Outpatient R KALANI [facility] [id number] [facility] 2023-08-18 13:30:00 2023-08-18 15:34:03 Office Visit Kalani [facility] BUILDING 1.2.840.114 350.1.13.10 4.2.7.2.686 [id number] [facility] 2023-08-16 00:00:00 2023-08-16 00:00:00 Telephone Fredis [facility]orga [facility] 1..840.114 350.1.13.10 4.2.7.2.686 [id number] 092 [id number] [facility] 2023-08-13 00:00:00 2023-08-13 00:00:00 Refill Men[facility]ivar [facility] MED[facility] OFF[facility] BUILDING 1.2.840.114 350.1.13.10 4.2.7.2.686 [id number] 044 [id number] [facility] 2023-08-07 00:00:00 2023-08-07 00:00:00 Refill Otto [facility] XAVIER?[facility] MED[facility] OFF[facility] BUILDING 1.2.840.114 350.1.13.10 4.2.7.2.686 [id number] 044 [id number] [facility] 2023-08-07 00:00:2023-08-07 00:00:00 Refill Charity [facility] 1.2840.114 350.1.13.10 4.2.7.2.686 [id number] [facility] 2023-08-07 00:00:00 2023-08-07 00:00:00 Refill Fredis Mayorga Billy [facility] XAVIER?[facility] 1.2.840.114 350.1.13.10 4.2.7.2.686 [id number] 044 [id number] [facility] 2023-07-20 00:00:00 2023-07-20 00:00:00 Refill Ramón Menjivar [facility] XAVIER?[facility] BUILD[facility] 1.2840.114 350.1.13.10 4.2.7.2.686 [id number] 044 [id number] [facility] 2023-07-12 00:00:00 2023-07-12 00:00:00 Refill Ramón Menjivar [facility] XAVIER?[facility] BU[facility] 1.2840.114 350.1.13.10 4.2.7.2.686 [id number] 044 [id number] [facility] 2023-07-08 00:00:00 2023-07-08 00:00:00 Telephone Aracely Zafar [facility] NAL BUILDING 1.2840.114 350.1.13.10 4.2.7.2.686 [id number] 085 [id number] [facility] 2023-06-18 00:00:00 2023-06-18 00:00:00 Refill Otto Ramón [facility] X[facility]IER?[facility] MED[facility] OFF[facility] BUILDING 1.2840.114 350.1.13.10 4.2.7.2.686 [id number] 044 [id number] [facility] 2023-06-11 00:00:00 2023-06-11 00:00:00 [facility] 1.2.840.114 350.1.13.10 4.2.7.2.686 [id number] 044 [id number] [facility] 2023-06-09 09:30:00 2023-06-09 09:45:00 Office Visit Ramón [facility]iv[facility] 1.2.840.114 350.1.13.10 4.2.7.2.686 [id number] 044 [id number] [facility] 2023-06-09 09:30:00 2023-06-09 09:40:49 Outpatient R RAMÓN MENJIVAR [facility] [id number] [facility] 2023-06-04 00:00:00 2023-06-04 00:00:00 Refill [facility] XAVIER?YARIEL [facility] MEDICAL OFFICE BUILDING 1.2.840.114 350.1.13.10 4.2.7.2.686 [id number] [facility] 2023-06-03 00:00:00 2023-06-03 00:00:00 Refill [facility]IER?[facility] MED[facility] OFF[facility] BUILDING 1.2.840.114 350.1.13.10 4.2.7.2.686 [id number] [facility] 2023-06-01 11:30:00 2023-06-01 11:30:00 Outpatient R EVGENY URIARTE [facility] [id number] [facility] 2023-05-19 15:30:00 2023-05-19 16:20:36 Outpatient R CHARITY CAMPBELL [facility] [id number] [facility] 2023-05-19 15:30:00 2023-05-19 16:20:36 [facility] 1.84.114 350.1.13.10 4.2.7.2.686 [id number] [facility] 2023-05-17 00:00:00 2023-05-17 00:00:00 Refill Ramón Menjivar [facility] XAVIER?YARIEL [facility] MED[facility] OFFICE BUILDING 1.84114 350.1.13.10 4.2.7.2.686 [id number] 044 [id number] [facility] 2023-05-13 00:00:00 2023-05-13 00:00:00 Refill Otto Ramón [facility] XAVIER?[facility] BUILD[facility] 1.84.114 350.1.13.10 4.2.7.2.686 [id number] 044 [id number] [facility] 2023-05-12 09:20:00 2023-05-12 09:40:00 Urgent Care Jody Kaminski Unknown, Attending [facility] 1.84.114 350.1.13.10 4.2.7.2.686 [id number] [facility] 2023-05-12 09:20:00 2023-05-12 09:20:00 Outpatient R JODY KAMINSKI [facility] [id number] [facility] 2023-05-11 10:30:00 2023-05-11 10:30:00 Outpatient LILLIE BRASHER [facility] [id number] [facility] 2023-05-08 00:00:00 2023-05-08 00:00:00 Patient Secure Msg Doctor Unassigned, [place] [facility] MED[facility] OFF[facility] BUILDING 1.84.114 350.1.13.10 4.2.7.2.686 [id number] 044 [id number] [facility] 2023-05-07 00:00:00 2023-05-07 00:00:00 Maggie Menjivar [facility] XAVIER?[facility] 1..840.114 350.1.13.10 4.2.7.2.686 [id number] [id number] [facility] 2023-05-06 10:00:00 2023-05-06 10:30:00 Office Visit Lillie Smith [facility]IER[facility] MED[facility] OFF[facility] BUILDING 1..840.114 350.1.13.10 4.2.7.2.686 [id number] [id number] [facility] 2023-05-06 10:00:00 2023-05-06 10:00:00 Out[facility] [id number] [facility] 2023-04-29 13:45:00 2023-04-29 14:06:39 Outpatient R ADEOLA RITCHIE [facility] [id number] [facility] 2023-04-29 13:45:00 2023-04-29 14:06:39 Office Visit Adeola Ritchie [facility] 1..840.114 350.1.13.10 4.2.7.2.686 [id number] [facility] 2023-04-23 00:00:00 2023-04-23 00:00:00 Maggie Menjivar [facility] XAVIER?[facility] MEDICAL OFF[facility] BUILDING 1..840.114 350.1.13.10 4.2.7.2.686 [id number] 044 [id number] [facility] 2023-04-22 14:51:00 2023-04-22 17:14:00 Emergency X BRIT [facility] ERT [id number] [facility] 2023-04-22 14:51:00 2023-04-22 17:14:00 Emergency Brit Erickson [facility] 1.2840.114 350.1.13.10 4.2.7.2.686 [id number] [facility] 2023-04-22 00:00:00 2023-04-22 00:00:00 Refill Luis Lillie [facility]?YARIEL [facility] MEDICAL OFFICE BUILDING 1.2840.114 350.1.13.10 4.2.7.2.686 [id number] 092 [id number] [facility] 2023-04-19 00:00:00 2023-04-19 00:00:00 Patient Secure Msg Doctor Unassigned, [place] [facility] BUILDING 1.2840.114 350.1.13.10 4.2.7.2.686 [id number] [id number] [facility] 2023-04-07 00:00:00 2023-04-07 00:00:00 Patient Secure Msg Doctor Unassigned, [place] [facility] PROFESS[facility] NAL BUILDING 1.2840.114 350.1.13.10 4.2.7.2.686 [id number] [facility] 2023-04-06 00:00:00 2023-04-06 00:00:00 Refill Ramón Menjivar [facility] BUILDING 1.2840.114 350.1.13.10 4.2.7.2.686 [id number] 044 [id number] [facility] 2023-04-06 00:00:00 2023-04-06 00:00:00 Patient Secure Msg Evgeny Uriarte [facility] 1.2840.114 350.1.13.10 4.2.7.2.686 [id number] [facility] 2023-04-05 00:00:00 2023-04-05 00:00:00 Patient Secure Msg Doctor Unassigned, [place] [facility] X[facility]IER?[facility] OFF[facility] BUILDING 1..840.114 350.1.13.10 4.2.7.2.686 [id number] [facility] 2023-03-30 00:00:00 2023-03-30 00:00:00 Refill Jaxson Fredis Cervantes [facility] XAVIER?[facility] MED[facility] OFF[facility] BUILDING 1..840.114 350.1.13.10 4.2.7.2.686 [id number] 092 [id number] [facility] 2023-03-28 00:00:00 2023-03-28 00:00:00 Refill Smith Lillie [facility] XAVIER?[facility] OFF[facility] BUILDING 1..840.114 350.1.13.10 4.2.7.2.686 [id number] 092 [id number] [facility] 2023-03-24 00:00:00 2023-03-24 00:00:00 Patient Secure Msg Doctor Unassigned, [place] [facility] X[facility]IER?[facility] OFF[facility] BUILDING 1.2.840.114 350.1.13.10 4.2.7.2.686 [id number] 092 [id number] [facility] 2023-03-23 10:20:00 2023-03-23 10:30:00 Imm/Inj Visit Vaccine, Ang Db Cbc Glenn Menjivar Ramón [facility] 1..840.114 350.1.13.10 4.2.7.2.686 [id number] 044 [id number] [facility] 2023-03-23 10:20:00 2023-03-23 10:20:00 Outpatient R RAMÓN MENJIVAR [facility] [id number] [facility] 2023-03-20 00:00:00 2023-03-20 00:00:00 Patient Secure Msg Evgeny Uriarte [facility] 1..114 350.1.13.10 4.2.7.2.686 [id number] [facility] 2023-03-17 00:00:00 2023-03-17 00:00:00 Patient Secure Msg Doctor Unassigned, [place] [facility]IER?[facility] 1.114 350.1.13.10 4.2.7.2.686 [id number] 044 [id number] [facility] 2023-03-15 13:56:07 2023-03-15 23:59:00 Outpatient R KALANI [facility] [id number] [facility] 2023-03-15 13:56:07 2023-03-15 23:59:00 Hospital Encounter Kori [facility] 1..114 350.1.13.10 4.2.7.2.686 [id number] [facility] 2023-03-14 00:00:00 2023-03-14 00:00:00 Patient Secure Msg Kalani [facility] 1.114 350.1.13.10 4.2.7.2.686 [id number] [facility] 2023-03-09 13:00:00 2023-03-09 13:07:33 Outpatient R KALANI [facility] [id number] [facility] 2023-03-09 13:00:00 2023-03-09 13:07:33 Substance Abuse Nurse Visit 2, Adc Lab Kalani [facility] JANINE PROFESSIO NAL BUILDING 1.84.114 350.1.13.10 4.2.7.2.686 [id number] [facility] 2023-03-07 00:00:00 2023-03-07 00:00:00 Patient Secure Msg Kalani [facility] 1.0.114 350.1.13.10 4.2.7.2.686 [id number] [facility] 2023-03-02 00:00:00 2023-03-02 00:00:00 Refill Ramón Menjivar [facility] BUILDING 1.2840.114 350.1.13.10 4.2.7.2.686 [id number] [facility] 2023-02-26 00:00:00 2023-02-26 00:00:00 Refill Fredis Mayorga [facility] XAVIER?[facility] 1.840.114 350.1.13.10 4.2.7.2.686 [id number] [id number] [facility] 2023-02-16 09:30:00 2023-02-16 10:40:53 Outpatient R KALANI [facility] [id number] [facility] 2023-02-16 09:30:00 2023-02-16 10:40:[address] [facility] 1.0.114 350.1.13.10 4.2.7.2.686 [id number] [facility] 2023-02-16 00:00:00 2023-02-16 00:00:00 Orders Only Doctor Unassigned, [place] [facility] 1.840.114 350.1.13.10 4.2.7.2.686 [id number] [facility] 2023-02-15 00:00:00 2023-02-15 00:00:00 Telephone Aracely Zafar [facility] BUILDING 1.2840.114 350.1.13.10 4.2.7.2.686 [id number] [id number] [facility] 2023-02-12 10:00:00 2023-02-12 11:00:00 Nurse Visit Nurse, [facility] 1.2840.114 350.1.13.10 4.2.7.2.686 [id number] [facility] 2023-02-12 10:00:00 2023-02-12 10:00:00 Outpatient R KALANI [facility] [id number] [facility] 2023-02-09 00:00:00 2023-02-09 00:00:00 Telephone [facility] 1.2840.114 350.1.13.10 4.2.7.2.686 [id number] [facility] 2023-02-09 00:00:00 2023-02-09 00:00:00 Patient Secure Msg [facility] 1.20.114 350.1.13.10 4.2.7.2.686 [id number] [facility] 2023-02-08 15:30:00 2023-02-08 15:39:53 [facility] [id number] [facility] 2023-02-08 15:30:00 2023-02-08 15:39:53 [facility] 1.2840.114 350.1.13.10 4.2.7.2.686 [id number] 092 [id number] [facility] 2023-02-08 00:00:00 2023-02-08 00:00:00 Telephone Kalani [facility] BUILDING 1.2840.114 350.1.13.10 4.2.7.2.686 [id number] [facility] 2023-02-05 00:00:00 2023-02-05 00:00:00 Patient Outreach Faby Crisostomo [facility]?YARIEL [facility] MEDICAL OFFICE BUILDING 1.2840.114 350.1.13.10 4.2.7.2.686 [id number] [id number] [facility] 2023-02-04 09:00:00 2023-02-04 10:00:00 Nurse Visit Nurse, Lkj Surgery Tru Uriarte [facility] 1..114 350.1.13.10 4.2.7.2.686 [id number] [facility] 2023-02-04 09:00:00 2023-02-04 09:00:00 Outpatient R KALANI [facility] [id number] [facility] 2023-01-26 00:00:00 2023-01-26 00:00:00 Marly Mayorga Fredis [facility] MEDICAL OFFICE BUILDING 1..114 350.1.13.10 4.2.7.2.686 [id number] 092 [id number] [facility] 2023-01-23 00:00:00 2023-01-23 00:00:00 Refill Ramón Menjivar [facility] MED[facility] OFF[facility] BUILDING 1.840.114 350.1.13.10 4.2.7.2.686 [id number] 044 [id number] [facility] 2023-01-23 00:00:00 2023-01-23 00:00:00 Refill [facility] MED[facility] BU[facility] 1.2840.114 350.1.13.10 4.2.7.2.686 [id number] [facility] 2023-01-18 10:00:00 2023-01-18 10:00:00 Nurse Visit Nurse, Lisa Surgery Tru Loerakanababs [facility] 1.2.840.114 350.1.13.10 4.2.7.2.686 [id number] [facility] 2023-01-18 10:00:00 2023-01-18 09:48:09 Outpatient R LUZ MARIAKANABabs [facility] [id number] [facility] 2023-01-18 00:00:00 2023-01-18 00:00:[address] [facility] BUILDING 1.2.840.114 350.1.13.10 4.2.7.2.686 [id number] [facility] 2023-01-11 00:00:00 2023-01-11 00:00:00 Telephone [facility] 1.2.840.114 350.1.13.10 4.2.7.2.686 [id number] [facility] 2023-01-11 00:00:00 2023-01-11 00:00:[address] [facility] BUILDING 1.2.840.114 350.1.13.10 4.2.7.2.686 [id number] [facility] 2023-01-06 08:49:00 2023-01-06 23:59:00 Hospital Encounter Nadine Corado BUILDING 1.2.840.114 350.1.13.10 4.2.7.2.686 [id number] [facility] 2023-01-06 00:00:00 2023-01-06 23:59:00 Outpatient R NADINE CORADO [facility] [id number] [facility] 2023-01-06 15:00:00 2023-01-06 15:30:00 Office Visit Evgeny Uriarte Rm2, Adc Surg Proc [facility] BUILDING 1.2.840.114 350.1.13.10 4.2.7.2.686 [id number] [facility] 2023-01-06 15:00:00 2023-01-06 15:00:00 [id number] 2023-01-06 00:00:00 2023-01-06 00:00:00 Telephone Luz Mariakanababs [facility] BUILDING 1.2.840.114 350.1.13.10 4.2.7.2.686 [id number] [facility] 2023-01-05 00:00:00 2023-01-05 00:00:00 Patient Secure Msg Koribabs [facility] BUILDING 1.2.840.114 350.1.13.10 4.2.7.2.686 [id number] [facility] 2023-01-01 10:30:00 2023-01-01 10:45:00 Substance Abuse Nurse Visit 2, Adc Lab [facility] NAL BUILDING 1.2.840.114 350.1.13.10 4.2.7.2.686 [id number] [facility] 2023-01-01 10:30:00 2023-01-01 10:30:00 [facility] [id number] [facility] 2022-12-29 00:00:00 2022-12-29 00:00:00 Telephone Charity Campbell [facility] NAL BUILDING 1.2.840.114 350.1.13.10 4.2.7.2.686 [id number] [facility] 2022-12-28 00:00:00 2022-12-28 00:00:00 Case Management Charity Campbell [facility] BUILDING 1.2.840.114 350.1.13.10 4.2.7.2.686 [id number] [facility] 2022-12-28 00:00:00 2022-12-28 00:00:00 Patient Secure Msg Kalani [facility] BUILDING 1..840.114 350.1.13.10 4.2.7.2.686 [id number] 204 [id number] [facility] 2022-12-25 10:00:00 2022-12-25 10:00:00 Substance Abuse Nurse Visit 2, Adc Lab Kalani [facility] BUILDING 1.2.840.114 350.1.13.10 4.2.7.2.686 [id number] [facility] 2022-12-25 10:00:00 2022-12-25 09:57:13 Outpatient R KALANI [facility] [id number] [facility] 2022-12-09 00:00:00 2022-12-09 00:00:00 Patient Outreach [facility]y [facility] 1.2.840.114 350.1.13.10 4.2.7.2.686 [id number] 044 [id number] [facility] 2022-11-26 00:00:00 2022-11-26 00:00:00 Orders Only Doctor Unassigned, [place] [facility] 1.2840.114 350.1.13.10 4.2.7.2.686 [id number] [id number] [facility] 2022-11-13 00:00:00 2022-11-13 00:00:00 Telephone Charity Campbell [facility] BUILDING 1.2.840.114 350.1.13.10 4.2.7.2.686 [id number] 204 [id number] [facility] 2022-11-04 00:00:00 2022-11-04 00:00:00 Refill Otto [facility] XAVIER?[facility] 1.2.840.114 350.1.13.10 4.2.7.2.686 [id number] 044 [id number] [facility] 2022-10-31 00:00:00 2022-10-31 00:00:00 [facility] 1.2.840.114 350.1.13.10 4.2.7.2.686 [id number] 044 [id number] [facility] 2022-10-31 00:00:00 2022-10-31 00:00:00 Refill Noreen Campbelltney [facility] BUILDING 1.2.840.114 350.1.13.10 4.2.7.2.686 [id number] [facility] 2022-10-30 00:00:00 2022-10-30 00:00:00 Telephone Charity Campbell [facility] BUILDING 1.2.840.114 350.1.13.10 4.2.7.2.686 [id number] 204 [id number] [facility] 2022-10-29 00:00:00 2022-10-29 00:00:00 Patient Secure Evgeny Tejada [facility] BUILDING 1.2.840.114 350.1.13.10 4.2.7.2.686 [id number] 204 [id number] [facility] 2022-10-21 08:00:00 2022-10-21 09:35:10 Outpatient R CHARITY CAMPBELL [facility] [id number] [facility] 2022-10-21 08:00:00 2022-10-21 09:35:10 [facility] 1.2.840.114 350.1.13.10 4.2.7.2.686 [id number] 204 [id number] [facility] 2022-10-21 00:00:00 2022-10-21 00:00:00 Orders Only Doctor Unassigned, [place] [facility] 1.2840.114 350.1.13.10 4.2.7.2.686 [id number] [facility] 2022-10-20 00:00:00 2022-10-20 00:00:00 RefRamón Magallon [facility] 1.2840.114 350.1.13.10 4.2.7.2.686 [id number] 044 [id number] [facility] 2022-10-14 00:00:00 2022-10-14 00:00:00 Telephone Charity Campbell [facility] BUILDING 1.2.840.114 350.1.13.10 4.2.7.2.686 [id number] [facility] 2022-10-12 00:00:00 2022-10-12 00:00:00 Patient Secure Msg Luz MariaEvgeny enciso [facility] BUILDING 1.2.840.114 350.1.13.10 4.2.7.2.686 [id number] [facility] 2022-09-23 00:00:00 2022-09-23 00:00:00 Patient Secure Msg Doctor Unassigned, [place] [facility]?KEONMonie [facility] OFFICE BUILDING 1.2840.114 350.1.13.10 4.2.7.2.686 [id number] 044 [id number] [facility] 2022-09-14 00:00:00 2022-09-14 00:00:00 Refill MenjivarRamón mcclain [facility] 1.2.840.114 350.1.13.10 4.2.7.2.686 [id number] 044 [id number] [facility] 2022-09-05 00:00:00 2022-09-05 00:00:00 [facility] 1.2.840.114 350.1.13.10 4.2.7.2.686 [id number] 044 [id number] [facility] 2022-09-04 00:00:00 2022-09-04 00:00:00 Patient Outreach Abbymonie Faby [facility]?YARIEL [facility] MEDICAL OFFICE BUILDING 1.2.840.114 350.1.13.10 4.2.7.2.686 [id number] 044 [id number] [facility] 2022-08-26 13:30:00 2022-08-26 14:00:00 Office Visit Aracely Zafar [facility] BUILDING 1.2.840.114 350.1.13.10 4.2.7.2.686 [id number] 085 [id number] [facility] 2022-08-26 13:30:00 2022-08-26 13:30:00 Outpatient R ARACELY ZAFAR STRAHIL [facility] [id number] [facility] 2022-08-26 13:20:00 2022-08-26 13:20:00 Outpatient R ARACELY ZAFAR STRAHIL [facility] [id number] [facility] 2022-08-25 00:00:00 2022-08-25 00:00:00 RefFredis Delgado [facility]IER?[facility] 1.2.840.114 350.1.13.10 4.2.7.2.686 [id number] 092 [id number] [facility] 2022-08-18 00:00:00 2022-08-18 00:00:00 Refill Ramón Menjivar [facility] 1.2840.114 350.1.13.10 4.2.7.2.686 [id number] 044 [id number] [facility] 2022-08-10 00:00:00 2022-08-10 00:00:00 Case Management Noreen Campbelltney [facility] BUILDING 1.2.840.114 350.1.13.10 4.2.7.2.686 [id number] 204 [id number] [facility] 2022-08-09 00:00:00 2022-08-09 00:00:00 Refill Claus Zuniga [facility] 1.2.840.114 350.1.13.10 4.2.7.2.686 [id number] 044 [id number] [facility] 2022-08-05 11:15:00 2022-08-05 11:30:00 Substance Abuse Nurse Visit 2, Adc Lab Shannan Charity [facility] BUILDING 1.2.840.114 350.1.13.10 4.2.7.2.686 [id number] [facility] 2022-08-05 10:30:00 2022-08-05 11:09:15 Outpatient R NOREEN CAMPBELLTNEY [facility] [id number] [facility] 2022-08-05 10:30:00 2022-08-05 11:09:15 Office Visit Noreen Campbelltney [facility] BUILDING 1.2.840.114 350.1.13.10 4.2.7.2.686 [id number] 204 [id number] [facility] 2022-08-05 00:00:00 2022-08-05 00:00:00 Orders Only Doctor Unassigned, [place] [facility] 1.2.840.114 350.1.13.10 4.2.7.2.686 [id number] 009 [id number] [facility] 2022-08-05 00:00:00 2022-08-05 00:00:00 Telephone CampbellCharity bell [facility] BUILDING 1.2840.114 350.1.13.10 4.2.7.2.686 [id number] 204 [id number] [facility] 2022-07-31 00:00:00 2022-07-31 00:00:00 Patient Outreach Kranthi Faby [facility] X[facility]IER?[facility] MED[facility] OFFICE BUILDING 1.2840.114 350.1.13.10 4.2.7.2.686 [id number] 044 [id number] [facility] 2022-07-24 00:00:00 2022-07-24 00:00:00 Refill Otto [facility] BUILDING 1.2840.114 350.1.13.10 4.2.7.2.686 [id number] 044 [id number] [facility] 2022-06-10 00:00:00 2022-06-10 00:00:00 Patient Outreach Abbymonie Faby [facility] MEDICAL OFFICE BUILDING 1.2840.114 350.1.13.10 4.2.7.2.686 [id number] 044 [id number] [facility] 2022-05-31 00:00:00 2022-05-31 00:00:00 Refill Ramón Menjivar [facility] BUILDING 1.2.840.114 350.1.13.10 4.2.7.2.686 [id number] [facility] 2022-05-21 08:00:00 2022-05-21 08:11:01 Outpatient R MENJIVAR RAMÓN [facility] [id number] [facility] 2022-05-21 08:00:00 2022-05-21 08:11:01 Office Visit Otto Ramón [facility] X[facility]IER?YARIEL [facility] MEDICAL OFFICE BUILDING 1.2840.114 350.1.13.10 4.2.7.2.686 [id number] 044 [id number] [facility] 2022-05-19 00:00:00 2022-05-19 00:00:00 Patient Secure Msg Doctor Unassigned, [place] [facility] 1.840.114 350.1.13.10 4.2.7.2.686 [id number] 082 [id number] [facility] 2022-05-16 00:00:00 2022-05-16 00:00:00 Refill Otto [facility] XAVIER?[facility] MED[facility] OFFICE BUILDING 1.2.114 350.1.13.10 4.2.7.2.686 [id number] 044 [id number] [facility] 2022-05-16 00:00:00 2022-05-16 00:00:00 Refill Claus Zuniga [facility] MED[facility] OFF[facility] BUILDING 1.284.114 350.1.13.10 4.2.7.2.686 [id number] 044 [id number] [facility] 2022-05-07 00:00:00 2022-05-07 00:00:00 Refill Otto [facility] XAVIER?[facility] MEDICAL OFFICE BUILDING 1.2840.114 350.1.13.10 4.2.7.2.686 [id number] 044 [id number] [facility] 2022-04-30 00:00:00 2022-04-30 00:00:00 Telephone Ramón Menjivar [facility] X[facility]IER?YARIEL [facility] MEDICAL OFFICE BUILDING 1.2.840.114 350.1.13.10 4.2.7.2.686 [id number] 044 [id number] [facility] 2022-04-29 00:00:00 2022-04-29 00:00:00 Orders Only Doctor Unassigned, [place] [facility] 1.2840.114 350.1.13.10 4.2.7.2.686 [id number] [id number] [facility] 2022-04-23 00:00:00 2022-04-23 00:00:00 Telephone Fredis Mayorga [facility] X[facility] MEDICAL OFFICE BUILDING 1.2840.114 350.1.13.10 4.2.7.2.686 [id number] 092 [id number] [facility] 2022-04-21 00:00:00 2022-04-21 00:00:00 Refill Fredis Mayorga [facility] XAVIER?[facility] MEDICAL OFFICE BUILDING 1.2840.114 350.1.13.10 4.2.7.2.686 [id number] 092 [id number] [facility] 2022-04-08 00:00:00 2022-04-08 00:00:00 Patient Outreach Faby Crisostomo [facility] MED[facility] OFF[facility] BUILDING 1.2840.114 350.1.13.10 4.2.7.2.686 [id number] 044 [id number] [facility] 2022-03-31 09:45:00 2022-03-31 10:00:00 Office Visit Ramón Menjivar [facility] MED[facility] OFF[facility] BUILDING 1.2840.114 350.1.13.10 4.2.7.2.686 [id number] 044 [id number] [facility] 2022-03-31 09:45:00 2022-03-31 09:45:00 Outpatient R RAMÓN MENJIVAR [facility] [id number] [facility] 2022-03-26 00:00:00 2022-03-26 00:00:00 [facility] 1.2.840.114 350.1.13.10 4.2.7.2.686 [id number] 044 [id number] [facility] 2022-03-12 00:00:00 2022-03-12 00:00:00 Telephone Otto Ramón [facility] X[facility] MED[facility] OFFICE BUILDING 1.2.840.114 350.1.13.10 4.2.7.2.686 [id number] 044 [id number] [facility] 2022-03-11 00:00:00 2022-03-11 00:00:00 Refill Otto [facility] XAVIER?[facility] MEDICAL OFFICE BUILDING 1..840.114 350.1.13.10 4.2.7.2.686 [id number] 044 [id number] [facility] 2022-03-11 00:00:00 2022-03-11 00:00:00 Patient Outreach Faby Crisostomo [facility] MEDICAL OFFICE BUILDING 1.2.840.114 350.1.13.10 4.2.7.2.686 [id number] 044 [id number] [facility] 2022-03-04 00:00:00 2022-03-04 00:00:00 Refill Claus Zuniga [facility] X[facility] MEDICAL OFFICE BUILDING 1.2.840.114 350.1.13.10 4.2.7.2.686 [id number] 044 [id number] [facility] 2022-02-24 00:00:00 2022-02-24 00:00:00 [facility]EL [facility] MEDICAL OFFICE BUILDING 1.2840.114 350.1.13.10 4.2.7.2.686 [id number] 044 [id number] [facility] 2022-02-23 00:00:00 2022-02-23 00:00:00 Ramón Espinosa [facility] X[facility]IER?[facility] MEDICAL OFFICE BUILDING 1.2840.114 350.1.13.10 4.2.7.2.686 [id number] 044 [id number] [facility] 2022-02-12 00:00:00 2022-02-12 00:00:00 Ramón Espinosa [facility] X[facility] MEDICAL OFFICE BUILDING 1.2840.114 350.1.13.10 4.2.7.2.686 [id number] 044 [id number] [facility] 2022-02-06 00:00:00 2022-02-06 00:00:00 Orders Only Doctor Unassigned, [place] [facility] 1.840.114 350.1.13.10 4.2.7.2.686 [id number] 009 [id number] [facility] 2022-01-13 00:00:00 2022-01-13 00:00:00 Maggie Solanosarahi Ramón [facility] X[facility] MEDICAL OFFICE BUILDING 1.0.114 350.1.13.10 4.2.7.2.686 [id number] 044 [id number] [facility] 2022-01-06 00:00:00 2022-01-06 00:00:00 Patient Secure Msg Menjivar [facility] XAVIER?[facility] MEDICAL OFFICE BUILDING 1.2840.114 350.1.13.10 4.2.7.2.686 [id number] 044 [id number] [facility] 2021-12-27 00:00:00 2021-12-27 00:00:00 RefRadha Magallonony [facility] BU[facility] 1.84.114 350.1.13.10 4.2.7.2.686 [id number] 044 [id number] [facility] 2021-12-18 00:00:00 2021-12-18 00:00:00 Refill Ramón [facility]ivar [facility]?YARIEL [facility] MEDICAL OFFICE BUILDING 1.2840.114 350.1.13.10 4.2.7.2.686 [id number] 044 [id number] [facility] 2021-12-03 00:00:00 2021-12-03 00:00:00 Patient Secure Msg Doctor Unassigned, [place] [facility]IEL [facility] MEDICAL OFFICE BUILDING 1.284.114 350.1.13.10 4.2.7.2.686 [id number] 044 [id number] [facility] 2021-12-02 00:00:00 2021-12-02 00:00:00 Telephone Otto Ramón [facility] BUILDING 1.84.114 350.1.13.10 4.2.7.2.686 [id number] 044 [id number] [facility] 2021-11-29 12:20:00 2021-11-29 13:06:09 Outpatient R JODY KAMINSKI [facility] [id number] [facility] 2021-11-29 12:20:00 2021-11-29 13:06:09 Urgent Care [facility] XAVIER?[facility] MEDICAL OFFICE BUILDING 1.284.114 350.1.13.10 4.2.7.2.686 [id number] [facility] 2021-11-28 00:00:00 2021-11-28 00:00:00 Refill Ramón Menjivar [facility] BUILDING 1.84.114 350.1.13.10 4.2.7.2.686 [id number] 044 [id number] [facility] 2021-11-27 00:00:00 2021-11-27 00:00:00 Orders Only Doctor Unassigned, [place] [facility] 1.2840.114 350.1.13.10 4.2.7.2.686 [id number] 009 [id number] [facility] 2021-11-22 00:00:00 2021-11-22 00:00:00 Refill Ramón Menjivar [facility] OFF[facility] BUILDING 1.284114 350.1.13.10 4.2.7.2.686 [id number] 044 [id number] [facility] 2021-11-18 00:00:00 2021-11-18 00:00:00 Patient Secure Msg Doctor Unassigned, [place] [facility] OFFICE BUILDING 1.284.114 350.1.13.10 4.2.7.2.686 [id number] 092 [id number] [facility] 2021-11-14 00:00:00 2021-11-14 00:00:00 Refill Doctor Unassigned, [place] [facility] MED[facility] OFFICE BUILDING 1.284.114 350.1.13.10 4.2.7.2.686 [id number] 092 [id number] [facility] 2021-11-12 00:00:00 2021-11-12 00:00:00 Refill Claus Zuniga [facility] X[facility] MED[facility] OFFICE BUILDING 1.84.114 350.1.13.10 4.2.7.2.686 [id number] 044 [id number] [facility] 2021-11-12 00:00:00 2021-11-12 00:00:00 Refill Ramón Menjivar [facility] OFF[facility] BUILDING 1.2.840.114 350.1.13.10 4.2.7.2.686 [id number] 044 [id number] [facility] 2021-11-12 00:00:00 2021-11-12 00:00:00 Refnaman MayorgaFredis [facility]?YARIEL [facility] MEDICAL OFFICE BUILDING 1.84114 350.1.13.10 4.2.7.2.686 [id number] 092 [id number] [facility] 2021-11-10 00:00:00 2021-11-10 00:00:00 Orders Only Doctor Unassigned, [place] [facility] 1..114 350.1.13.10 4.2.7.2.686 [id number] 009 [id number] [facility] 2021-10-02 00:00:00 2021-10-02 00:00:00 Telephone Aracely Zafar [facility] BUILDING 1.84.114 350.1.13.10 4.2.7.2.686 [id number] 085 [id number] [facility] 2021-10-01 00:00:00 2021-10-01 00:00:00 Refill Otto Ramón [facility]?YARIEL [facility] MEDICAL OFFICE BUILDING 1.84114 350.1.13.10 4.2.7.2.686 [id number] 044 [id number] [facility] 2021-09-28 00:00:00 2021-09-28 00:00:00 Refill Otto Ramón [facility]?YARIEL [facility] OFFICE BUILDING 1.84114 350.1.13.10 4.2.7.2.686 [id number] 044 [id number] [facility] 2021-09-20 00:00:00 2021-09-20 00:00:00 Orders Only Doctor Unassigned, [place] [address].2840.114 350.1.13.10 4.2.7.2.686 [id number] [id number] [facility] 2021-09-17 00:00:00 2021-09-17 00:00:00 Telephone Otto [facility] XAVIER?[facility] 1.2840.114 350.1.13.10 4.2.7.2.686 [id number] 044 [id number] [facility] 2021-09-15 00:00:00 2021-09-15 00:00:00 Telephone [facility] OFF[facility] BUILDING 1.2840.114 350.1.13.10 4.2.7.2.686 [id number] 044 [id number] [facility] 2021-09-09 00:00:00 2021-09-09 00:00:00 [facility] 1.2840.114 350.1.13.10 4.2.7.2.686 [id number] [facility] 2021-09-08 00:00:00 2021-09-08 00:00:00 Orders Only Doctor Unassigned, [place] [facility] 1.2840.114 350.1.13.10 4.2.7.2.686 [id number] 009 [id number] [facility] 2021-09-04 00:00:00 2021-09-04 00:00:00 Refill [facility] 1.2840.114 350.1.13.10 4.2.7.2.686 [id number] 044 [id number] [facility] 2021-08-27 14:00:00 2021-08-27 14:42:39 Outpatient ARACELY CHOE STRAHIL [facility] [id number] [facility] 2021-08-27 14:00:00 2021-08-27 14:20:00 Office Visit Aracely Zafar [facility] BUILDING 1.2.114 350.1.13.10 4.2.7.2.686 [id number] 085 [id number] [facility] 2021-08-27 14:00:00 2021-08-27 14:00:00 Outpatient R ARACELY ZAFAR STRAIAChiquita [facility] [id number] [facility] 2021-08-27 00:00:00 2021-08-27 00:00:00 Orders Only Doctor Unassigned, [place] [facility] 1..114 350.1.13.10 4.2.7.2.686 [id number] 009 [id number] [facility] 2021-08-25 00:00:00 2021-08-25 00:00:00 Refill Otto [facility] OFFICE BUILDING ONE 1..114 350.1.13.10 4.2.7.2.686 [id number] 044 [id number] [facility] 2021-08-20 10:00:00 2021-08-20 10:00:00 Outpatient R ARACELY ZAFAR [facility] [id number] [facility] 2021-08-15 00:00:00 2021-08-15 00:00:00 Refill Otto [facility] OFFICE BUILDING ONE 1..114 350.1.13.10 4.2.7.2.686 [id number] 044 [id number] [facility] 2021-08-15 00:00:00 2021-08-15 00:00:00 Refill Evgeny Uriarte [facility] BUILDING 1..114 350.1.13.10 4.2.7.2.686 [id number] [facility] 2021-08-11 00:00:00 2021-08-11 00:00:00 Orders Only Doctor Unassigned, [place] [facility] 1.114 350.1.13.10 4.2.7.2.686 [id number] 009 [id number] [facility] 2021-08-07 11:30:00 2021-08-07 11:57:48 Office Visit Kalani [facility] BUILDING 1.114 350.1.13.10 4.2.7.2.686 [id number] [facility] 2021-08-07 11:30:00 2021-08-07 11:57:48 Outpatient R KALANI [facility] [id number] [facility] 2021-08-07 11:30:00 2021-08-07 11:30:00 Outpatient R KALANI [facility] [id number] [facility] 2021-08-07 11:00:00 2021-08-07 11:10:00 Imm/Inj Visit Vaccine, [facility] Family [facility] Jacob Grey [facility] 1.114 350.1.13.10 4.2.7.2.686 [id number] [facility] 2021-07-30 00:00:00 2021-07-30 00:00:00 Ramón Espinosa [facility] OFF[facility] ONE 1.114 350.1.13.10 4.2.7.2.686 [id number] [facility] 2021-07-30 00:00:00 2021-07-30 00:00:00 Patient Secure Msg Doctor Unassigned, [place] [facility] 1.2.840.114 350.1.13.10 4.2.7.2.686 [id number] [facility] 2021-07-25 00:00:00 2021-07-25 00:00:00 Orders Only Doctor Unassigned, [place] [facility] 1.2.840.114 350.1.13.10 4.2.7.2.686 [id number] [facility] 2021-07-22 00:00:00 2021-07-22 00:00:00 Refill Evgeny Uriarte [facility] 1.2840.114 350.1.13.10 4.2.7.2.686 [id number] [facility] 2021-07-12 00:00:00 2021-07-12 00:00:00 Refill Fredis Mayorga [facility] 1.2840.114 350.1.13.10 4.2.7.2.686 [id number] [facility] 2021-07-04 00:00:00 2021-07-04 00:00:00 Refill Ramón Menjivar [facility] OFF[facility]ILD[facility] ONE 1.2840.114 350.1.13.10 4.2.7.2.686 [id number] [facility] 2021-06-25 11:00:00 2021-06-25 12:10:51 Outpatient R DIANA HASSAN [facility] [id number] [facility] 2021-06-25 11:00:00 2021-06-25 12:10:51 Office Visit Diana Hassan [facility] 1.284.114 350.1.13.10 4.2.7.2.686 [id number] [facility] 2021-06-25 11:30:00 2021-06-25 11:30:00 Outpatient DIANA BELTRE [facility] [id number] [facility] 2021-06-23 14:20:00 2021-06-23 15:50:24 Outpatient FREDIS ROSARIO [facility] [id number] [facility] 2021-06-23 14:20:00 2021-06-23 14:20:00 Outpatient FREDIS ROSARIO [facility] [id number] [facility] 2021-06-18 10:24:36 2021-06-18 23:59:00 Outpatient FREDIS ROSARIO [facility] [id number] [facility] 2021-06-18 10:24:36 2021-06-18 23:59:00 [facility] Fredis Paredes [facility] 1.840.114 350.1.13.10 4.2.7.2.686 [id number] [facility] 2021-06-18 00:00:00 2021-06-18 00:00:00 Orders Only Doctor Unassigned, [place] [facility] 1..114 350.1.13.10 4.2.7.2.686 [id number] [facility] 2021-06-16 00:00:00 2021-06-16 00:00:00 Patient Secure JaxsonFredis [facility] 1.84.114 350.1.13.10 4.2.7.2.686 [id number] [facility] 2021-06-15 00:00:00 2021-06-15 00:00:00 Orders Only Doctor Unassigned, [place] [facility] 1.840.114 350.1.13.10 4.2.7.2.686 [id number] [facility] 2021-06-11 00:00:00 2021-06-11 00:00:00 Patient Secure Fredis Rodriguez [facility] 1.2840.114 350.1.13.10 4.2.7.2.686 [id number] [facility] 2021-06-11 00:00:00 2021-06-11 00:00:[address] [facility] 1.2.840.114 350.1.13.10 4.2.7.2.686 [id number] [facility] 2021-06-11 00:00:00 2021-06-11 00:00:00 Telephone Andrade Cotychiquita Parth [facility] N[facility] BUILD[facility] 1.2840.114 350.1.13.10 4.2.7.2.686 [id number] [facility] 2021-06-09 00:00:00 2021-06-09 00:00:00 [facility] BUILDING 1.2.840.114 350.1.13.10 4.2.7.2.686 [id number] 092 [id number] [facility] 2021-06-06 00:00:00 2021-06-06 [facility]00[facility] 1.2840.114 350.1.13.10 4.2.7.2.686 [id number] 044 [id number] [facility] 2021-05-30 00:00:00 2021-05-30 00:00:00 Maggie Menjivar [facility] OFFICE BUILDING ONE 1.2840.114 350.1.13.10 4.2.7.2.686 [id number] 044 [id number] [facility] 2021-05-30 00:00:00 2021-05-30 00:00:00 Fredis Colin [facility] BUILDING 1.2840.114 350.1.13.10 4.2.7.2.686 [id number] 092 [id number] [facility] 2021-05-29 00:00:00 2021-05-29 00:00:00 Patient Secure Msg Bretjeremiah Aracely Alba [facility] BUILDING 1.2840.114 350.1.13.10 4.2.7.2.686 [id number] 085 [id number] [facility] 2021-05-22 13:28:49 2021-05-22 23:59:00 [facility] [id number] [facility] 2021-05-22 13:28:49 2021-05-22 23:59:00 Hospital Encounter Ramón Menjivar [facility] 1.20.114 350.1.13.10 4.2.7.2.686 [id number] [facility] 2021-05-20 00:00:00 2021-05-20 00:00:00 Patient Secure Msg Doctor Unassigned, [place] [facility] 1..114 350.1.13.10 4.2.7.2.686 [id number] [id number] [facility] 2021-05-16 00:00:00 2021-05-16 00:00:00 Telephone Otto Ramón [facility] OFF[facility] BUILDING 1.2840.114 350.1.13.10 4.2.7.2.686 [id number] 044 [id number] [facility] 2021-05-16 00:00:00 2021-05-16 00:00:00 Orders Only Doctor Unassigned, [place] [facility] 1.20.114 350.1.13.10 4.2.7.2.686 [id number] [facility] 2021-05-15 09:15:00 2021-05-15 09:30:00 Substance Abuse Nurse Visit Lab, [facility] MEDICAL OFFICE BUILDING 1.84114 350.1.13.10 4.2.7.2.686 [id number] [facility] 2021-05-15 09:15:00 2021-05-15 09:15:00 Outpatient R RAMÓN MENJIVAR [facility] [id number] [facility] 2021-05-15 08:00:00 2021-05-15 08:30:00 [facility] MED[facility] OFF[facility] BUILDING 1.84.114 350.1.13.10 4.2.7.2.686 [id number] 044 [id number] [facility] 2021-05-15 08:00:00 2021-05-15 08:00:00 Outpatient RAMÓN DELGADO [facility] [id number] [facility] 2021-05-15 00:00:00 2021-05-15 00:00:00 Patient Secure Msg [facility] MED[facility] OFF[facility] BUILDING 1.84114 350.1.13.10 4.2.7.2.686 [id number] 044 [id number] [facility] 2021-05-15 00:00:00 2021-05-15 00:00:00 Patient Secure Msg Doctor Unassigned, [place] [facility] MEDICAL OFFICE BUILDING 1.84114 350.1.13.10 4.2.7.2.686 [id number] 044 [id number] [facility] 2021-05-14 00:00:00 2021-05-14 00:00:00 Refill Menjivar, [facility] OFFICE BUILDING ONE 1.2.840.114 350.1.13.10 4.2.7.2.686 [id number] 044 [id number] [facility] 2021-05-10 00:00:00 2021-05-10 00:00:00 Maggie Menjivar [facility] OFFICE BUILDING ONE 1.2840.114 350.1.13.10 4.2.7.2.686 [id number] 044 [id number] [facility] 2021-05-01 00:00:00 2021-05-01 00:00:00 Maggie Menjivar [facility] OFFICE BUILDING ONE 1.2840.114 350.1.13.10 4.2.7.2.686 [id number] 044 [id number] [facility] 2021-04-17 00:00:00 2021-04-17 00:00:00 Maggie Menjivar [facility] OFFICE BUILDING ONE 1.2840.114 350.1.13.10 4.2.7.2.686 [id number] 044 [id number] [facility] 2021-03-26 00:00:00 2021-03-26 00:00:00 Maggie Menjivar [facility] OFFICE BUILDING ONE 1.2840.114 350.1.13.10 4.2.7.2.686 [id number] 044 [id number] [facility] 2021-03-15 00:00:00 2021-03-15 00:00:00 Maggie Menjivar [facility] OFFICE BUILDING ONE 1.2.840.114 350.1.13.10 4.2.7.2.686 [id number] 044 [id number] [facility] 2021-02-21 00:00:00 2021-02-21 00:00:00 Telephone Aracely Zafar [facility] Building 1.840.114 350.1.13.10 4.2.7.2.686 [id number] 085 [id number] [facility] 2021-02-18 00:00:00 2021-02-18 00:00:00 Refill Otto Ramón [facility] Office Building One 1.84.114 350.1.13.10 4.2.7.2.686 [id number] 044 [id number] [facility] 2021-02-15 00:00:00 2021-02-15 00:00:00 Refill Otto Ramón [facility] Office Building One 1.84.114 350.1.13.10 4.2.7.2.686 [id number] 044 [id number] [facility] 2021-02-14 09:00:35 2021-02-14 09:00:42 Imm/Inj Visit Nurse, Adc Pob Immunizatio Jacob Guevara [facility] Building 1.840.114 350.1.13.10 4.2.7.2.686 [id number] [facility] 2021-02-14 09:00:00 2021-02-14 09:00:00 Outpatient JACOB TRAYLOR [facility] [id number] [facility] 2021-02-10 00:00:00 2021-02-10 00:00:00 Patient Secure Msg Doctor Unassigned, [place] [facility] XAVIER?[facility] OFFICE BUILDING 1.840.114 350.1.13.10 4.2.7.2.686 [id number] 044 [id number] [facility] 2021-02-07 00:00:00 2021-02-07 00:00:00 Telephone Aracely Zafar [facility] Building 1.114 350.1.13.10 4.2.7.2.686 [id number] 085 [id number] [facility] 2021-01-30 00:00:00 2021-01-30 00:00:00 Patient Secure Msg [facility] Building 1.114 350.1.13.10 4.2.7.2.686 [id number] 044 [id number] [facility] 2021-01-18 00:00:00 2021-01-18 00:00:00 Refill Ramón Menjivar [facility] Office Building One 1.114 350.1.13.10 4.2.7.2.686 [id number] 044 [id number] [facility] 2021-01-13 00:00:00 2021-01-13 00:00:00 Orders Only Doctor Unassigned, [place] [facility] 1.114 350.1.13.10 4.2.7.2.686 [id number] [id number] [facility] 2021-01-02 00:00:00 2021-01-02 00:00:00 Patient Secure Msg Doctor Unassigned, [place] [facility] OFFICE BUILDING ONE 1.114 350.1.13.10 4.2.7.2.686 [id number] 044 [id number] [facility] 2020 00:00:00 2020 00:00:00 Refill Ramón Menjivar [facility] Office Building One .114 350.1.13.10 4.2.7.2.686 [id number] 044 [id number] [facility] 2020-12-27 00:00:00 2020-12-27 00:00:00 Telephone [facility]is [facility] Xavier?[facility] Office Building 1.114 350.1.13.10 4.2.7.2.686 [id number] 092 [id number] [facility] 2020-12-24 00:00:00 2020-12-24 00:00:00 Telephone Aracely Zafar [facility] Building 1.114 350.1.13.10 4.2.7.2.686 [id number] 085 [id number] [facility] 2020-12-23 00:00:00 2020-12-23 00:00:00 Orders Only Doctor Unassigned, [place] [facility] 1.114 350.1.13.10 4.2.7.2.686 [id number] [facility] 2020-12-20 00:00:00 2020-12-20 00:00:00 Refill Fredis Mayorga [facility] Building 1.114 350.1.13.10 4.2.7.2.686 [id number] 092 [id number] [facility] 2020-12-20 00:00:00 2020-12-20 00:00:00 Refill Ramón Menjivar [facility] Office Building One .114 350.1.13.10 4.2.7.2.686 [id number] 044 [id number] [facility] 2020-12-19 00:00:00 2020-12-19 00:00:00 Telephone Aracely Zafar [facility] .114 350.1.13.10 4.2.7.2.686 [id number] 085 [id number] [facility] 2020-12-19 00:00:00 2020-12-19 00:00:00 Patient Secure Msg Doctor Unassigned, [place] [facility] OFFICE BUILDING ONE 1.2840.114 350.1.13.10 4.2.7.2.686 [id number] 044 [id number] [facility] 2020-11-26 00:00:00 2020-11-26 00:00:00 Maggie MenjivarRamón [facility] Office [facility] One 1.2840.114 350.1.13.10 4.2.7.2.686 [id number] 044 [id number] [facility] 2020-11-26 00:00:00 2020-11-26 00:00:00 Patient Secure Msg Doctor Unassigned, [place] [facility] 1.20.114 350.1.13.10 4.2.7.2.686 [id number] 092 [id number] [facility] 2020-11-14 00:00:00 2020-11-14 00:00:00 Patient Secure Msg Doctor Unassigned, [place] [facility] 1.2840.114 350.1.13.10 4.2.7.2.686 [id number] 092 [id number] [facility] 2020-11-06 14:43:36 2020-11-06 23:59:00 Hospital Fredis Paredes [facility] 1.840.114 350.1.13.10 4.2.7.2.686 [id number] [facility] 2020-11-06 00:00:00 2020-11-06 00:00:00 Outpatient FREDIS ROSARIO [facility] [id number] [facility] 2020-11-06 00:00:00 2020-11-06 00:00:00 Orders Only Doctor Unassigned, [place] [facility] 1.2840.114 350.1.13.10 4.2.7.2.686 [id number] [id number] [facility] 2020-11-01 00:00:00 2020-11-01 00:00:00 Maggie Menjivar [facility] Office Building One 1..114 350.1.13.10 4.2.7.2.686 [id number] 044 [id number] [facility] 2020-10-28 15:56:51 2020-10-28 17:06:35 Office Visit Fredis Mayorga [facility] Building 1..114 350.1.13.10 4.2.7.2.686 [id number] 092 [id number] [facility] 2020-10-28 16:20:00 2020-10-28 16:20:00 Outpatient FREDIS ROSARIO [facility] [id number] [facility] 2020-10-28 00:00:00 2020-10-28 00:00:00 Maggie Otto [facility] Office Building One 1..114 350.1.13.10 4.2.7.2.686 [id number] 044 [id number] [facility] 2020-10-21 09:44:13 2020-10-21 23:59:00 Hospital Encounter JaxsonFredis Billy [facility] 1.84.114 350.1.13.10 4.2.7.2.686 [id number] [facility] 2020-10-21 00:00:00 2020-10-21 00:00:00 Outpatient FREDIS ROSARIO [facility] [id number] [facility] 2020-10-19 00:00:00 2020-10-19 00:00:00 Kevinnaman Otto [facility] Office Building One 1.84.114 350.1.13.10 4.2.7.2.686 [id number] 044 [id number] [facility] 2020-10-14 00:00:00 2020-10-14 00:00:00 Outpatient FREDIS ROSARIO [facility] [id number] [facility] 2020-10-09 00:00:00 2020-10-09 00:00:00 Ramón Espinosa [facility] Office Building One 1..840.114 350.1.13.10 4.2.7.2.686 [id number] 044 [id number] [facility] 2020-10-01 00:00:00 2020-10-01 00:00:00 Telephone Fredis Mayorga [facility] Building 1..840.114 350.1.13.10 4.2.7.2.686 [id number] 092 [id number] [facility] 2020-09-24 15:39:13 2020-09-24 16:33:48 Office Visit Fredis Mayorga [facility] Building 1..840.114 350.1.13.10 4.2.7.2.686 [id number] 092 [id number] [facility] 2020-09-24 15:40:00 2020-09-24 15:40:00 Outpatient FREDIS ROSARIO [facility] [id number] [facility] 2020-09-20 00:00:00 2020-09-20 00:00:00 Patient Secure Msg Doctor Unassigned, [place] [facility] BUILDING 1..840.114 350.1.13.10 4.2.7.2.686 [id number] 092 [id number] [facility] 2020-09-02 00:00:00 2020-09-02 00:00:00 Ramón Espinosa [facility] Office Building One 1.840.114 350.1.13.10 4.2.7.2.686 [id number] 044 [id number] [facility] 2020-09-02 00:00:00 2020-09-02 00:00:00 Maggie Menjivar [facility] Office Building One 1.840.114 350.1.13.10 4.2.7.2.686 [id number] 044 [id number] [facility] 2020-08-14 09:25:41 2020-08-14 09:55:41 [facility] Building 1..114 350.1.13.10 4.2.7.2.686 [id number] 085 [id number] [facility] 2020-08-14 09:30:00 2020-08-14 09:30:00 Outpatient R ARACELY ZAFAR STRAIAChiquita [facility] [id number] [facility] 2020-08-14 00:00:00 2020-08-14 00:00:00 Orders Only Doctor Unassigned, [place] [facility] 1..114 350.1.13.10 4.2.7.2.686 [id number] [facility] 2020-08-07 00:00:00 2020-08-07 00:00:00 Refnaman Menjivar [facility] Office Building One ..114 350.1.13.10 4.2.7.2.686 [id number] 044 [id number] [facility] 2020-07-14 00:00:00 2020-07-14 00:00:00 Kevinnaman Otto [facility] Office Building One 1.840.114 350.1.13.10 4.2.7.2.686 [id number] 044 [id number] [facility] 2020-07-05 10:30:45 2020-07-05 11:23:04 Office Visit Fredis Mayorga [facility] Building 1.2.840.114 350.1.13.10 4.2.7.2.686 [id number] 092 [id number] [facility] 2020-07-05 10:40:00 2020-07-05 10:40:00 Outpatient FREDIS ROSARIO [facility] [id number] [facility] 2020-06-27 00:00:00 2020-06-27 00:00:00 Ramón Espinosa [facility] Office Building One 1..840.114 350.1.13.10 4.2.7.2.686 [id number] 044 [id number] [facility] 2020-06-26 00:00:00 2020-06-26 00:00:00 Refill Fredis Mayorga [facility] Building 1.2.840.114 350.1.13.10 4.2.7.2.686 [id number] [id number] [facility] 2020-06-13 08:50:00 2020-06-13 08:50:00 Outpatient DESTIN CHOPRA [facility] [id number] [facility] 2020-06-11 00:00:00 2020-06-11 00:00:00 Ramón Espinosa [facility] Office Building One 1..840.114 350.1.13.10 4.2.7.2.686 [id number] 044 [id number] [facility] 2020-06-07 00:00:00 2020-06-07 00:00:00 Diana Malloy [facility] Building 1..840.114 350.1.13.10 4.2.7.2.686 [id number] [facility] 2020-06-05 10:59:47 2020-06-05 11:14:47 Substance Abuse Nurse Visit 2, Adc Lab Diana Hassan [facility] Building 1.2.840.114 350.1.13.10 4.2.7.2.686 [id number] [facility] 2020-06-05 09:56:15 2020-06-05 10:53:22 Office Visit Diana Hassan [facility] Building 1.840.114 350.1.13.10 4.2.7.2.686 [id number] [facility] 2020-06-05 10:00:00 2020-06-05 10:00:00 Outpatient R JAYNE HASSANELA [facility] [id number] [facility] 2020-06-03 00:00:00 2020-06-03 00:00:00 Refill Doctor Unassigned, [place] [facility] Office Building One 1.840.114 350.1.13.10 4.2.7.2.686 [id number] 044 [id number] [facility] 2020-05-28 00:00:00 2020-05-28 00:00:00 Refill Otto Ramón [facility] Office Building One 1.840.114 350.1.13.10 4.2.7.2.686 [id number] 044 [id number] [facility] 2020-05-28 00:00:00 2020-05-28 00:00:00 Patient Secure g Otto Ramón [facility] Office Building One 1.840.114 350.1.13.10 4.2.7.2.686 [id number] 044 [id number] [facility] 2020-05-28 00:00:00 2020-05-28 00:00:00 Patient Secure Ramón Menjivar [facility] Office Building One .114 350.1.13.10 4.2.7.2.686 [id number] 044 [id number] [facility] 2020-05-23 09:40:00 2020-05-23 09:40:00 Outpatient DESTIN CHOPRA [facility] [id number] [facility] 2020-05-23 00:00:00 2020-05-23 00:00:00 Patient Outreach Que Jacob Kapoor [facility] 1..114 350.1.13.10 4.2.7.2.686 [id number] [facility] 2020-05-21 00:00:00 2020-05-21 00:00:00 Patient Secure Msg Ramón Menjivar [facility] Office Building One .114 350.1.13.10 4.2.7.2.686 [id number] 044 [id number] [facility] 2020-05-21 00:00:00 2020-05-21 00:00:00 Patient Secure Msg Doctor Unassigned, [place] [facility] OFFICE BUILDING ONE 1.114 350.1.13.10 4.2.7.2.686 [id number] 044 [id number] [facility] 2020-05-16 15:20:00 2020-05-16 15:20:00 Outpatient DESTIN CHOPRA [facility] [id number] [facility] 2020-05-16 00:00:00 2020-05-16 00:00:00 Claus Kinney [facility] Office Building One .114 350.1.13.10 4.2.7.2.686 [id number] 044 [id number] [facility] 2020-05-15 00:00:00 2020-05-15 00:00:00 Telephone Ramón Menjivar [facility] Office Building One 1.840.114 350.1.13.10 4.2.7.2.686 [id number] 044 [id number] [facility] 2020-05-13 08:49:25 2020-05-13 09:27:33 Substance Abuse Nurse Visit Lab, Adc Fam Pob I Otto [facility] Office Building One 1.840.114 350.1.13.10 4.2.7.2.686 [id number] 044 [id number] [facility] 2020-05-13 08:48:42 2020-05-13 09:18:42 Office Visit Otto [facility] Office Building One 1.840.114 350.1.13.10 4.2.7.2.686 [id number] 044 [id number] [facility] 2020-05-13 09:00:00 2020-05-13 09:00:00 Outpatient R RAMÓN MENJIVAR [facility] [id number] [facility] 2020-04-23 00:00:00 2020-04-23 00:00:00 Refill NadiaClaus Watson [facility] Office Building One 1..114 350.1.13.10 4.2.7.2.686 [id number] 044 [id number] [facility] 2020-04-20 00:00:00 2020-04-20 00:00:00 Refill Otto [facility] Office Building One 1.840.114 350.1.13.10 4.2.7.2.686 [id number] 044 [id number] [facility] 2020-04-18 00:00:00 2020-04-18 00:00:00 Refill Ramón Menjivar [facility] Office Building One 1.840.114 350.1.13.10 4.2.7.2.686 [id number] 044 [id number] [facility] 2020-04-04 00:00:00 2020-04-04 00:00:00 Refill Otto [facility] Office Building One 1.840.114 350.1.13.10 4.2.7.2.686 [id number] 044 [id number] [facility] 2020-03-18 07:59:14 2020-03-18 08:47:11 Office Visit Otto [facility] Office Building One 1.0.114 350.1.13.10 4.2.7.2.686 [id number] 044 [id number] [facility] 2020-03-18 08:00:00 2020-03-18 08:00:[address] [facility] [id number] [facility] 2020-03-04 00:00:00 2020-03-04 00:00:00 Refill Otto [facility] Office Building One 1.0.114 350.1.13.10 4.2.7.2.686 [id number] 044 [id number] [facility] 2020-02-25 00:00:00 2020-02-25 00:00:00 Refill Otto [facility] Office Building One 1..114 350.1.13.10 4.2.7.2.686 [id number] 044 [id number] [facility] 2020-01-26 00:00:00 2020-01-26 00:00:00 Refill Otto [facility] Office Building One 1.840.114 350.1.13.10 4.2.7.2.686 [id number] 044 [id number] [facility] 2020-01-24 00:00:00 2020-01-24 00:00:00 Refill Menjivar, Ramón [facility] Office Building One 1.0.114 350.1.13.10 4.2.7.2.686 [id number] 044 [id number] [facility] 2020-01-19 00:00:00 2020-01-19 00:00:00 Refill Ramón Menjivar [facility] Office Building One 1.840.114 350.1.13.10 4.2.7.2.686 [id number] 044 [id number] [facility] 2020-01-15 00:00:00 2020-01-15 00:00:00 Patient Secure Msg Doctor Unassigned, [place] [facility] OFFICE BUILDING ONE 1..114 350.1.13.10 4.2.7.2.686 [id number] 044 [id number] [facility] 2019-12-30 00:00:00 2019-12-30 00:00:00 Refill Ramón Menjivar [facility] Office Building One 1.840.114 350.1.13.10 4.2.7.2.686 [id number] 044 [id number] [facility] 2019-12-30 00:00:00 2019-12-30 00:00:00 Refill Fredis Mayorga [facility] Building 1.840.114 350.1.13.10 4.2.7.2.686 [id number] 092 [id number] [facility] 2019-12-07 00:00:00 2019-12-07 00:00:00 Telephone Qi Mayorga [facility] Building 1.840.114 350.1.13.10 4.2.7.2.686 [id number] 092 [id number] [facility] 2019-12-06 00:00:00 2019-12-06 00:00:00 Refill Doctor Unassigned, [place] [facility] Office Building One 1.0.114 350.1.13.10 4.2.7.2.686 [id number] 044 [id number] [facility] 2019-12-06 00:00:00 2019-12-06 00:00:00 Refill Doctor Unassigned, [place] [facility] Office Building One 1.0.114 350.1.13.10 4.2.7.2.686 [id number] 044 [id number] [facility] 2019-12-06 00:00:00 2019-12-06 00:00:00 Refill Doctor Unassigned, [place] [facility] Building 1..114 350.1.13.10 4.2.7.2.686 [id number] [facility] 2019-12-02 00:00:00 2019-12-02 00:00:00 Refill Otto Ramón [facility] Office Building One 1.0.114 350.1.13.10 4.2.7.2.686 [id number] 044 [id number] [facility] 2019-11-25 00:00:00 2019-11-25 00:00:00 Refill Otto [facility] Office Building One 1..114 350.1.13.10 4.2.7.2.686 [id number] 044 [id number] [facility] 2019-11-01 00:00:00 2019-11-01 00:00:00 Refill Otto Ramón [facility] Office Building One 1..114 350.1.13.10 4.2.7.2.686 [id number] 044 [id number] [facility] 2019-10-19 00:00:00 2019-10-19 00:00:00 Refill Otto [facility] Office Building One 1.2840.114 350.1.13.10 4.2.7.2.686 [id number] 044 [id number] [facility] 2019-10-10 00:00:00 2019-10-10 00:00:00 Maggie Menjivar [facility] Office Building One 1.2.840.114 350.1.13.10 4.2.7.2.686 [id number] 044 [id number] [facility] 2019-10-10 00:00:00 2019-10-10 00:00:00 Patient Secure Msg Doctor Unassigned, [place] [facility] Office Building One 1.2840.114 350.1.13.10 4.2.7.2.686 [id number] 044 [id number] [facility] 2019-10-04 00:00:00 2019-10-04 00:00:00 Refnaman Menjivar [facility] Office Building One 1.2840.114 350.1.13.10 4.2.7.2.686 [id number] [facility] 2019-08-31 00:00:00 2019-08-31 00:00:00 Maggie Menjivar [facility] 1.2.840.114 350.1.13.10 4.2.7.2.686 [id number] [id number] [facility] 2019-08-17 00:00:00 2019-08-17 00:00:00 Refill Otto [facility] 1.2840.114 350.1.13.10 4.2.7.2.686 [id number] [facility] 2019-08-09 13:30:00 2019-08-09 13:30:00 Outpatient ARACELY CHOE STRAHIL [facility] [id number] [facility] 2019-08-09 08:09:07 2019-08-09 08:39:07 Telemedici ne Visit Susy Zafarswati Alba [facility] 1.20.114 350.1.13.10 4.2.7.2.686 [id number] [facility] 2019-08-07 00:00:00 2019-08-07 00:00:00 Orders Only Doctor Unassigned, [place] [facility] 1.2840.114 350.1.13.10 4.2.7.2.686 [id number] [facility] 2019-08-01 00:00:00 2019-08-01 00:00:00 Refill Otto Ramón [facility] 1.840.114 350.1.13.10 4.2.7.2.686 [id number] [facility] 2019-07-27 00:00:00 2019-07-27 00:00:00 Orders Only Doctor Unassigned, [place] [facility] 1.2840.114 350.1.13.10 4.2.7.2.686 [id number] [facility] 2019-07-14 00:00:00 2019-07-14 00:00:00 Refill Otto Ramón [facility] 1.840.114 350.1.13.10 4.2.7.2.686 [id number] [id number] [facility] 2019-07-14 00:00:00 2019-07-14 00:00:00 Refill Fredis Mayorga [facility] 1.2840.114 350.1.13.10 4.2.7.2.686 [id number] [facility] 2019-07-05 00:00:00 2019-07-05 00:00:00 Refill Doctor Unassigned, [place] [facility] 1.2.840.114 350.1.13.10 4.2.7.2.686 [id number] [facility] 2019-06-29 00:00:00 2019-06-29 00:00:00 Refill Ramón [place] [facility] 1.2840.114 350.1.13.10 4.2.7.2.686 [id number] [facility] 2019-05-23 00:00:00 2019-05-23 00:00:00 Refill Otto Ramón [facility] 1.2840.114 350.1.13.10 4.2.7.2.686 [id number] [facility] 2019-04-14 00:00:00 2019-04-14 00:00:00 Patient Secure Msg Doctor Unassigned, [place] [facility] 1.2840.114 350.1.13.10 4.2.7.2.686 [id number] [facility] 2019-01-16 13:14:36 2019-01-16 14:12:39 Office Visit Emperatriz Arriaga [facility] 1.2840.114 350.1.13.10 4.2.7.2.686 [id number] [facility] 2019-01-14 12:53:11 2019-01-14 16:18:00 Emergency Uday Vinson [facility] 1.2840.114 350.1.13.10 4.2.7.2.686 [id number] [facility] 2019-01-13 00:00:00 2019-01-13 00:00:00 Refill Otto Ramón [facility] 1.2840.114 350.1.13.10 4.2.7.2.686 [id number] [facility] 2018-11-24 00:00:00 2018-11-24 00:00:00 Ramón Espinosa [facility] One 1.2840.114 [id number] 4.2.7.2.686 [id number] [facility] Results Test Description Test Time Test Comments Results Result Co mments Source [facility], [id number] 18:57:00 * Test Item Value Reference Range Interpretation Comme nts POCT U SP GRAV (test code = 3255) 1.015 mg/dl 1.005-1.025 POCT PH U (test code = 3254) 7.0 mg/dl 5-8 POCT U LEUK EST (test code = 3263) moderate Negative - Negative A POCT U NIT (test code = 3262) positive Negative - Negati ve A POCT U PROT (test code = 3259) negative Negative - Negative POCT U GLU (test code = 3256) negative Negative - Negati ve POCT U KETONE (test code = 3258) negative Negative - Negative POCT U UROBILI (test code = 3260) 0.2 mg/dl 0.2-1 POCT U BILI (test code = 3261) negative Negative - Negative POCT U BLD (test code = 3257) trace-lysed Negative - Negat ama A POCT U COLOR (test code = 3266) yellow POCT U APPEAR (test code = 3267) clear Lab Interpretation (test cod e = 74089-5) [facility]normal [facility], [id number] 18:57:00 * Test Item Value Reference Range Interpretation Comme nts POCT U SP GRAV (test code = 3255) 1.015 mg/dl 1.005-1.025 POCT PH U (test code = 3254) 7.0 mg/dl 5-8 POCT U LEUK EST (test code = 3263) moderate Negative - Negative A POCT U NIT (test code = 3262) positive Negative - Negati ve A POCT U PROT (test code = 3259) negative Negative - Negative POCT U GLU (test code = 3256) negative Negative - Negati ve POCT U KETONE (test code = 3258) negative Negative - Negative POCT U UROBILI (test code = 3260) 0.2 mg/dl 0.2-1 POCT U BILI (test code = 3261) negative Negative - Negative POCT U BLD (test code = 3257) trace-lysed Negative - Negat ama A POCT U COLOR (test code = 3266) yellow POCT U APPEAR (test code = 3267) clear Lab Interpretation (test cod e = 06052-5) Abnormal [facility] Urinalysis, [id number] 18:57:00 * Test Item Value Reference Range Interpretation Comme nts POCT U SP GRAV (test code = 3255) 1.015 mg/dl 1.005-1.025 POCT PH U (test code = 3254) 7.0 mg/dl 5-8 POCT U LEUK EST (test code = 3263) moderate Negative - Negative A POCT U NIT (test code = 3262) positive Negative - Negati ve A POCT U PROT (test code = 3259) negative Negative - Negative POCT U GLU (test code = 3256) negative Negative - Negati ve POCT U KETONE (test code = 3258) negative Negative - Negative POCT U UROBILI (test code = 3260) 0.2 mg/dl 0.2-1 POCT U BILI (test code = 3261) negative Negative - Negative POCT U BLD (test code = 3257) trace-lysed Negative - Negat ama A POCT U COLOR (test code = 3266) yellow POCT U APPEAR (test code = 3267) clear Lab Interpretation (test cod e = 06722-5) Abnormal [facility] Urinalysis, [id number] 18:57:00 * Test Item Value Reference Range Interpretation Comme nts POCT U SP GRAV (test code = 3255) 1.015 mg/dl 1.005-1.025 POCT PH U (test code = 3254) 7.0 mg/dl 5-8 POCT U LEUK EST (test code = 3263) moderate Negative - Negative A POCT U NIT (test code = 3262) positive Negative - Negati ve A POCT U PROT (test code = 3259) negative Negative - Negative POCT U GLU (test code = 3256) negative Negative - Negati ve POCT U KETONE (test code = 3258) negative Negative - Negative POCT U UROBILI (test code = 3260) 0.2 mg/dl 0.2-1 POCT U BILI (test code = 3261) negative Negative - Negative POCT U BLD (test code = 3257) trace-lysed Negative - Negat ama A POCT U COLOR (test code = 3266) yellow POCT U APPEAR (test code = 3267) clear Lab Interpretation (test cod e = 04461-2) Abnormal [facility] Urinalysis, [id number] 18:57:00 * Test Item Value Reference Range Interpretation Comme nts POCT U SP GRAV (test code = 3255) 1.015 mg/dl 1.005-1.025 POCT PH U (test code = 3254) 7.0 mg/dl 5-8 POCT U LEUK EST (test code = 3263) moderate Negative - Negative A POCT U NIT (test code = 3262) positive Negative - Negati ve A POCT U PROT (test code = 3259) negative Negative - Negative POCT U GLU (test code = 3256) negative Negative - Negati ve POCT U KETONE (test code = 3258) negative Negative - Negative POCT U UROBILI (test code = 3260) 0.2 mg/dl 0.2-1 POCT U BILI (test code = 3261) negative Negative - Negative POCT U BLD (test code = 3257) trace-lysed Negative - Negat ama A POCT U COLOR (test code = 3266) yellow POCT U APPEAR (test code = 3267) clear Lab Interpretation (test cod e = 49861-1) [facility] [id number] 18:57:00 * Test Item Value Reference Range Interpretation Comme nts POCT U SP GRAV (test code = 3255) 1.015 mg/dl 1.005-1.025 POCT PH U (test code = 3254) 7.0 mg/dl 5-8 POCT U LEUK EST (test code = 3263) moderate Negative - Negative A POCT U NIT (test code = 3262) positive Negative - Negati ve A POCT U PROT (test code = 3259) negative Negative - Negative POCT U GLU (test code = 3256) negative Negative - Negati ve POCT U KETONE (test code = 3258) negative Negative - Negative POCT U UROBILI (test code = 3260) 0.2 mg/dl 0.2-1 POCT U BILI (test code = 3261) negative Negative - Negative POCT U BLD (test code = 3257) trace-lysed Negative - Negat ama A POCT U COLOR (test code = 3266) yellow POCT U APPEAR (test code = 3267) clear Lab Interpretation (test cod e = 68135-3) Abnormal [facility],POST-VOID RES,US,[id number] 18:56:00* Test Item Value Reference Range Interpretation Comme nts PVR (URINE VOLUME) (test code = 5193) 25 ml 0-100 [facility],POST-VOID RES,US,[id number] 18:56:00* Test Item Value Reference Range Interpretation Comme nts PVR (URINE VOLUME) (test code = 5193) 25 ml 0-100 [facility],POST-VOID RES,US,[id number] 18:56:00* Test Item Value Reference Range Interpretation Comme nts PVR (URINE VOLUME) (test code = 5193) 25 ml 0-100 [facility],POST-VOID RES,US,[id number] 18:56:00* Test Item Value Reference Range Interpretation Comme nts PVR (URINE VOLUME) (test code = 5193) 25 ml 0-100 [facility],POST-VOID RES,US,[id number] 18:56:00* Test Item Value Reference Range Interpretation Comme nts PVR (URINE VOLUME) (test code = 5193) 25 ml 0-100 [facility],POST-VOID RES,US,[id number] 18:56:00* Test Item Value Reference Range Interpretation Comme nts PVR (URINE VOLUME) (test code = 5193) 25 ml 0-100 [facility] Urinalysis, [id number] 21:44:00 * Test Item Value Reference Range Interpretation Comme nts POCT U SP GRAV (test code = 3255) 1.015 mg/dl 1.005-1.025 POCT PH U (test code = 3254) 7 mg/dl 5-8 POCT U LEUK EST (test code = 3263) mod Negative - Negative POCT U NIT (test code = 3262) pos Negative - Negative POCT U PROT (test code = 3259) neg Negative - Negative POCT U GLU (test code = 3256) neg Negative - Negative POCT U KETONE (test code = 3258) neg Negative - Negative POCT U UROBILI (test code = 3260) 0.2 mg/dl 0.2-1 POCT U BILI (test code = 3261) neg Negative - Negative POCT U BLD (test code = 3257) trace Negative - Negative POCT U COLOR (test code = 3266) yellow POCT U APPEAR (test code = 3267) slight cloudy [facility] Urinalysis, [id number] 21:44:00 * Test Item Value Reference Range Interpretation Comme nts POCT U SP GRAV (test code = 3255) 1.015 mg/dl 1.005-1.025 POCT PH U (test code = 3254) 7 mg/dl 5-8 POCT U LEUK EST (test code = 3263) mod Negative - Negative POCT U NIT (test code = 3262) pos Negative - Negative POCT U PROT (test code = 3259) neg Negative - Negative POCT U GLU (test code = 3256) neg Negative - Negative POCT U KETONE (test code = 3258) neg Negative - Negative POCT U UROBILI (test code = 3260) 0.2 mg/dl 0.2-1 POCT U BILI (test code = 3261) neg Negative - Negative POCT U BLD (test code = 3257) trace Negative - Negative POCT U COLOR (test code = 3266) yellow POCT U APPEAR (test code = 3267) slight cloudy [facility] Urinalysis, [id number] 21:44:00 * Test Item Value Reference Range Interpretation Comme nts POCT U SP GRAV (test code = 3255) 1.015 mg/dl 1.005-1.025 POCT PH U (test code = 3254) 7 mg/dl 5-8 POCT U LEUK EST (test code = 3263) mod Negative - Negative POCT U NIT (test code = 3262) pos Negative - Negative POCT U PROT (test code = 3259) neg Negative - Negative POCT U GLU (test code = 3256) neg Negative - Negative POCT U KETONE (test code = 3258) neg Negative - Negative POCT U UROBILI (test code = 3260) 0.2 mg/dl 0.2-1 POCT U BILI (test code = 3261) neg Negative - Negative POCT U BLD (test code = 3257) trace Negative - Negative POCT U COLOR (test code = 3266) yellow POCT U APPEAR (test code = 3267) slight cloudy [facility] SARS-COV-2 ANTIGEN (BINAX NOW)2023-05-12 16:27:00* Test Item Value Reference Range Interpretation Comme nts POCT SARS-COV-2 ANTIGEN (noel t code = 07402-0) Positive Not Detected A On board controls acceptable with C Line (test code = 3574) Yes Lab Interpretation (test cod e = 68620-7) Abnormal [facility] HIP LEFT WO [id number] 22:06:04 HISTORY: ?Left hip pain. Rule out fracture. COMPARISON: Left hip radiographs done today. TECHNIQUE:Multidetector CT scan of left hip was completed without contrastinjection, followed by multiplanar reformations. FINDINGS: No acute fracture or dislocation detected. Focal cortical breakseen in the plain film is caused by focal deformity in the cortex with anunderlying 7 mm benign cystic lesion in the neck. These findings are likelydevelopmental.Mild to moderate changes of degenerative arthritis is noted with narrowingof hip joint space, small osteophytes along the articular edges of theacetabulum and mild subchondral sclerosis in the dorsal portion of theacetabulum. Visualized lower lumbar spine showed severe changes of degenerative discdisease at L4-L5 with levoscoliosis, old fracture of the upper portion ofL4 as well as L5 vertebral bodies. Moderate anterior angular alignment oflower sacral segments noted, likely developmental. Visualized pelvic structures showed moderately distended urinary bladder,enlarged prostate gland and possible small indirect type inguinal herniawithout anycomplications. CONCLUSIONS: 1. No left hip fracture detected.2. Moderately distended urinary bladder.[facility] VW [id number] 21:26:05HISTORY: ?Pain. S/P fall. FINDINGS: AP view of the pelvis, AP and lateral views of left hip showedquestionable break in the lateral cortex of neck of the left femur, visibleonly in lateral view of left hip. No other suspicious area of fracture ordislocation detected. Mild bilateral hip joint arthritis noted. CONCLUSIONS: Unusual finding of a focal break in the lateral cortex of leftfemoral neck. This may be further evaluated by CT scan only if the patientis complaining of pain with movement of left hip. [facility] URINALYSIS, [id number] 14:35:00 * Test Item Value Reference Range Interpretation Comme nts POCT U SP GRAV (test code = 3255) 1.015 mg/dl 1.005-1.025 POCT PH U (test code = 3254) 6.5 mg/dl 5-8 POCT U LEUK EST (test code = 3263) Trace Negative - Negative POCT U NIT (test code = 3262) Negative Negative - Negati ve POCT U PROT (test code = 3259) Negative Negative - Negative POCT U GLU (test code = 3256) Negative Negative - Negati ve POCT U KETONE (test code = 3258) Negative Negative - Negative POCT U UROBILI (test code = 3260) 0.2 mg/dl 0.2-1 POCT U BILI (test code = 3261) Negative Negative - Negative POCT U BLD (test code = 3257) Negative Negative - Negati ve POCT U COLOR (test code = 3266) yellow POCT U APPEAR (test code = 3267) clear [facility] URINALYSIS, [id number] 14:35:00 * Test Item Value Reference Range Interpretation Comme nts POCT U SP GRAV (test code = 3255) 1.015 mg/dl 1.005-1.025 POCT PH U (test code = 3254) 6.5 mg/dl 5-8 POCT U LEUK EST (test code = 3263) Trace Negative - Negative POCT U NIT (test code = 3262) Negative Negative - Negati ve POCT U PROT (test code = 3259) Negative Negative - Negative POCT U GLU (test code = 3256) Negative Negative - Negati ve POCT U KETONE (test code = 3258) Negative Negative - Negative POCT U UROBILI (test code = 3260) 0.2 mg/dl 0.2-1 POCT U BILI (test code = 3261) Negative Negative - Negative POCT U BLD (test code = 3257) Negative Negative - Negati ve POCT U COLOR (test code = 3266) yellow POCT U APPEAR (test code = 3267) clear [facility] URINALYSIS, [id number] 13:46:00 * Test Item Value Reference Range Interpretation Comme nts POCT U SP GRAV (test code = 3255) 1.015 mg/dl 1.005-1.025 POCT PH U (test code = 3254) 7 mg/dl 5-8 POCT U LEUK EST (test code = 3263) negative Negative - Negative POCT U NIT (test code = 3262) negative Negative - Negati ve POCT U PROT (test code = 3259) negative Negative - Negative POCT U GLU (test code = 3256) negative Negative - Negati ve POCT U KETONE (test code = 3258) negative Negative - Negative POCT U UROBILI (test code = 3260) 0.2 mg/dl 0.2-1 POCT U BILI (test code = 3261) negative Negative - Negative POCT U BLD (test code = 3257) negative Negative - Negati ve POCT U COLOR (test code = 3266) yellow POCT U APPEAR (test code = 3267) clear Lab Interpretation (test cod e = 21853-3) Normal [facility] URINALYSIS, [id number] 13:46:00 * Test Item Value Reference Range Interpretation Comme nts POCT U SP GRAV (test code = 3255) 1.015 mg/dl 1.005-1.025 POCT PH U (test code = 3254) 7 mg/dl 5-8 POCT U LEUK EST (test code = 3263) negative Negative - Negative POCT U NIT (test code = 3262) negative Negative - Negati ve POCT U PROT (test code = 3259) negative Negative - Negative POCT U GLU (test code = 3256) negative Negative - Negati ve POCT U KETONE (test code = 3258) negative Negative - Negative POCT U UROBILI (test code = 3260) 0.2 mg/dl 0.2-1 POCT U BILI (test code = 3261) negative Negative - Negative POCT U BLD (test code = 3257) negative Negative - Negati ve POCT U COLOR (test code = 3266) yellow POCT U APPEAR (test code = 3267) clear Lab Interpretation (test cod e = 72383-5) [facility] URINALYSIS, [id number] 13:46:00 * Test Item Value Reference Range Interpretation Comme nts POCT U SP GRAV (test code = 3255) 1.015 mg/dl 1.005-1.025 POCT PH U (test code = 3254) 7 mg/dl 5-8 POCT U LEUK EST (test code = 3263) negative Negative - Negative POCT U NIT (test code = 3262) negative Negative - Negati ve POCT U PROT (test code = 3259) negative Negative - Negative POCT U GLU (test code = 3256) negative Negative - Negati ve POCT U KETONE (test code = 3258) negative Negative - Negative POCT U UROBILI (test code = 3260) 0.2 mg/dl 0.2-1 POCT U BILI (test code = 3261) negative Negative - Negative POCT U BLD (test code = 3257) negative Negative - Negati ve POCT U COLOR (test code = 3266) yellow POCT U APPEAR (test code = 3267) clear Lab Interpretation (test cod e = 25772-7) [facility] SARS-COV-2 ANTIGEN (BINAX NOW)2021-11-29 17:30:00* Test Item Value Reference Range Interpretation Comme nts POCT SARS-COV-2 ANTIGEN (noel t code = 5076) Positive Not Detected A On board controls acceptable with C Line (test code = 3574) Yes Lab Interpretation (test cod e = 96170-1) Abnormal [facility] History and Physical Notes Date/Time Note Provider Source 2023-09-09 07:39:36 [id number]:39:36F ormatting of this note might be different from the original.Urology Pre-Operative History and Physical Update NoteDate of Service: 09/09/2023There have been no significant interval changes in the history or physical examination. See full history and physical for more details.Risks, benefits and alternatives to the procedure were reviewed with the patient again today, and he voiced understanding of the condition present as well as the planned procedure and wishes to proceed. Informed consent was obtained and all questions answered.Diagnosis: No diagnosis found.Radiological imaging studies reviewed with patientPatient confirmed consent :Aurelia questions answered and patient voiced understandingPlanned procedure: Altaf counseled patient , risk of complications mainly damage to bladder ( perforation, , need to reconstruct). pain, bleeding, infection, injury to surrounding structures, need for prolonged catheter , failure to remove all prostate, need for additional proceduresPatient may experience urgency, transient OTF/ UUI or JOSE, if persistent may need further medical or surgical therapy ( rare)All questions answered, patient and voiced understandingEvgeny Uriarte MD ource Note - Evgeny Uriarte MD - 08/18/2023 1:30 PM CDT Urology Clinic Note / History and PhysicalReferred by: Halie Complaint: I was asked to give my opinion regarding Osmin Damon is a 82 year old male who presents with chronic urine retention on CICHistory of Present Illness08/18/2023: Osmin Damon is a 82 year old male 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 Incomplete Emptyin. Frequency: 43. Intermittency: 24. Urgency: 45. Weak Stream: 36. Strainin. Nocturia: 2TOTAL: 20Bother score: 4PSAs reviewed:PSA (ng/mL)Date Value12/25/2022 7.52 (H)HistoriesPast Medical History:Diagnosis DateHyperlipidemiaHypertensionPneumonia06/03 11/16Past Surgical History:Procedure Laterality DateBASAL CELL CARCINOMA EXCISIONSPINE SURGERYSQUAMOUS CELL CARCINOMA EXCISIONFamily HistoryProblem Relation Age of OnsetBirth defects MotherCancer FatherSocial HistorySocioeconomic HistoryMarital status: MarriedSpouse name: Not on fileNumber of children: Not on fileYears of education: Not on fileHighest education level: Not on fileOccupational HistoryNot on fileTobacco UseSmoking status: FormerPacks/day: 1.00Years: 10.00Additional pack years: 0.00Total pack years: 10.00Types: CigarettesPassive exposure: NeverSmokeless tobacco: NeverTobacco comments:quit 40 years ago.Vaping UseVaping Use: Never usedSubstance and Sexual ActivityAlcohol use: YesComment: rarelyDrug use: NoSexual activity: Not on fileOther Topics ConcernNot on fileSocial History NarrativeNot on fileSocial Determinants of HealthFinancial Resource Strain: Not on fileFood Insecurity: Not on fileTransportation Needs: Not on filePhysical Activity: Not on fileStress: Not on fileSocial Connections: Not on fileIntimate Partner Violence: Not on fileHousing Stability: Not on fileAllergiesNo Known AllergiesReview of SystemsConstitutional: negativeEyes: negativeEars, nose, mouth, throat: negativeCardiovascular: negativeRespiratory: negativeGastrointestinal: negativeGenitourinary: (+) per HPIMusculoskeletal: negativeIntegumentary: negativeNeurological: negativePsychiatric: negativeEndocrine: negativeHematologic/Lymphatic: negativeAllergic/Immunologic: negative, allergies listed abovePhysical ExaminationBlood pressure (!) 140/75, pulse 85, temperature 36.6 ?C (97.9 ?F), temperature source Temporal Artery, resp. rate 16, weight 176 lb (79.8 kg), SpO2 94 %.Constitutional: healthy, no acute distressEyes: normal external eye, conjunctiva and sclera normalEars, nose, mouth, throat: normocephalic, moist mucous membranesCardiovascular: regular rate and rhythmRespiratory: respirations unlabored on room airGastrointestinal: deferredGenitourinary: deferredMusculoskeletal: no clubbing, cyanosis or edemaSkin: no rashesNeurologic: alert and oriented l9Whivxqgnqcx: appropriate mood and affectHematologic: no bruisingLaboratoryPer HPIRadiologyMRI Prostate [id number] PATIENT WITH MODERATE TYPE III BPH AND 60 CC PROSTATE GLANDVOLUME WITH SLIGHT ELEVATION OF PSA DENSITY TO 0.13.NO LESIONS SUSPICIOUS FOR PROSTATE CANCER. SOME INCREASED VASCULARITYAROUND THE PROSTATE WITH PERIPHERAL ZONE ATROPHY SUGGESTS PROSTATITIS.Procedure NotePVR : 25 ccAssessmentThomas Marisol is a 82 year old male with:1. Elevated PSANo TRISTEN on MRIPSA screening statement AUA, opted for observation , low risk of prostate cancer2. LUTSI counseled patient about options for treating BPH and natural history if not treated ( bladder atony, voiding dysfunction, renal failure, stones recurrent infection, and need for lobsterman catheter)CIC, surgical options: TURP, ThuLVP to alleviate the obstruction and attempt improve LUTS and avoid risk of complications from lobsterman GREGORY. Possible adverse events recognized with TURP and ThuLVP include and not limited to ( pain, bleeding, infection, injury to surrounding structures, erectile dysfunction, urinary incontinence, retrograde ejaculation, stricture formation, inability to void/retention, prostatic regrowth, need for additional procedures).Trial of medical therapy Tamsulosin 0.4 mg at bedtime. Discussed usage and side-effects including dizziness, orthostatic hypotension ( drop in blood pressure) , falls, fatigue, nasal congestion and retrograde/ anejaculation ejaculationHoLEPRobotic Laparoscopic Assisted Simple Prostatectomy for large glandsThuLVP has comparable outcomes when compared with the gold standard TURP, in addition to less risk of bleeding, catheterization time and need for hospitalization.Patient opted for HoLEP : risk of complications mainly damage to bladder ( perforation, , need to reconstruct). pain, bleeding, infection, injury to surrounding structures, need for prolonged catheter , failure to remove all prostate, need for additional proceduresPatient may experience urgency, transient OTF/ UUI or JOSE, if persistent may need further medical or surgical therapy ( rare)Patient opted for HoLEP [facility] OR Plan- Ucx 10 days pre op- cardiac clearance- PCP clearance- CBC, T&S , BMP- consented as aboveAll questions answered , handed educational materialI spend a Total Time of 40 minutes.The time spent for patient care includes:PreCharting (eg, review of tests, notes, etc.), Obtaining and/or reviewing separately obtained history (Care Everywhere or paper records), Performing a medically appropriate examination and/or evaluation, Counseling and educating the patient/family/caregiver, Ordering medications, tests, or procedures, Ordering referrals and/or communicating with other health intensive care medicine specialist (when not separately reported), Documenting clinical information in the electronic or other health record and Care coordination (not separately reported).[place] [id number] History and physical [id number]:41:35Attending History and physical [id number] 9|[id number] for patient lqoq08486-0Glngfit and physical noteLNNARRATIVEFormatted C-CDA narrative textUTMBNEW MEXICO REHABILITATION CENTER - [address] ZjgmT[id number] EBGSHIHBZDXXRROD9437-09-27F69:41:351.2.840 .880166.1.72.3.15|1.2.840.670281.1.13.104. 2.7.2.727879_[id number] [facility] Procedure Notes Date/Time Note Provider Source 2023-09-09 10:50:45 vpdapajcICeAdDnZ4kqw zvZ0Ga4wxwddXwaEBlLVPE gryD2gQYZp+ozbAF6HDzTf7203-50-66H57:50:45F ormatting of this note might be different from the original.Full Operative NotePatient name: Osmin Breger Number: [id number] of operation: 09/09/2023Faculty surgeon: Evgeny Larson-operative diagnosis: BPH with LUTS, chronic urine retention on CICPost-operative diagnosis: BPH with LUTSOperation performed: Transurethral Laser Enucleation of the Prostate (CPT - 00079)Findings:Total lasing time : 1:05 minEnculation time : 55 minMorcellation time : 4 minsNormal urethra and bladder mucosa. No lesions or masses were seen. The prostate appeared enlarged and obstructive trilobar with large median lobe . Clear efflux drained from both ureteral orifices at the end of the case. Retro-trigonal prostate posteriorly with prostate stones , The bladder had increased capacity, trabeculation ++, multiple small tics with no stones or tumors. The patient tolerated the procedure well. There were no complications in this procedureThe patient was taken to the OR where a timeout was performed amongst all operative staff. GETA was administered per anesthesiology and the patient was given Ancef as a maurilio-procedural antibiotic. The patient was then positioned in dorsal lithotomy position and prepped/draped in the usual sterile fashion.The meatus was initially calibrated from 18 to 32 FrA resectoscope with a visual obturator was then advanced per urethra into the bladder and the bladder was emptied. A laser bridge was then introduced and a 550 micron Holmium laser was introduced. The prostate was noted to be large and tri-lobar in appearance. No suspicious lesions or masses were noted within the bladder.Beginning at the level of the verumontanum, the prostate was systematically enucleated. Enucleation was initiated posteriorly near the apex and continued laterally before advancing the enucleation anteriorly. After the anterior enucleation plane was created, the bladder was entered and the bladder neck was incised bilaterally until the anterior and posterior enucleation planes were join. The remaining posterior attachments were then then incised until the prostatic adenoma had been fully enucleated. The prostatic adenoma was then advanced into the bladder lumen and a transurethral morcellator was introduced. The prostatic adenoma was fully morcellated and evacuated from the bladder.Final cystoscopy demonstrated no evidence of residual adenoma within the bladder or prostatic fossa.Hemostasis was achieved with the laser fiber.All instrumentation was then removed and a 22 Fr 3-way catheter was advanced per urethra into the bladder with 30 cc of sterile water in the catheter balloon. CBI was initiated with light pink output.This concluded the procedure, there were no complications. The patient was safely extubated and transferred to PACU in stable condition.Complications: noneEstimated blood loss: 50 mLSpecimens: prostate chips , UcxDrains: as abovePatient's Condition: stable to PACULaith MD Kalani 78325-7Hrrhbndgo prbrAV6021-52-75N79:55:28Procedure noteTXT1.2.840.308417.1.13.104.2.7.2.59363 9|[id number] for patient xolj37238-9Poohslqmq noteLNNARRATIVEFormatted C-CDA narrative text[address] Bweo[id number] XKJZMVCOFDZNYIAI6996-39-04X19:55:281.2.840 .163139.1.72.3.15|1.2.840.648658.1.13.104. 2.7.2.727879_[id number] [facility] Notes Date/Time Note Provider Source 2023-09-24 08:52:43 npsc55hKwR208J1k0sQh+2cvHD2VlakxeLi X+WVjSEAbC9znVTXizzZf8Fj2V/xm3496-5 08:52:43 FYI 57009-6Zsvdipata encounter KcnuEK5483-40-29V16:52:46Telephone encounter NoteTXT1.2.840.487338.1.13.104.2.7. 2.224561|[id number] for patient lcjc22150-2BfhiWYDSJATLQECCpmbgeukx C-CDA narrative text[address] Wv[id number] 9PTFFZYQWYAPTUEDFLTUTWH3167-53-36D8 8:52:461.2.840.294050.1.72.3.15|1.2 .840.301095.1.13.104.2.7.2.727879_2 [id number] [facility] 2023-09-24 08:51:56 8FFdxeoL+ZJbX/o6W19P9r/SXvy8n8qvo0h ff9PROsat9V+ugJSXrLXgD5pYvBR94127-5 08:51:56 Copied from [facility] #[id number]. Topic: Clinical - Medical Advice>> September 24, 2023 8:49 AM Patient Nozzle Operator wrote:Pt calling to let you know he is currently in [facility] in [place]. Pt was admitted on . He Is not sure when he will be DC. He will need rehab but is not sure where he will go for that. Pt said he was admitted for sepsis. 72927-9Sxcthqxyv encounter RrugVP3921-28-45I66:52:19Telephone encounter NoteTXT1.2.840.982198.1.13.104.2.7. 2.236751|[id number] for patient iykf63763-4FfhnDIRPSCUATGWJuydglgrw C-CDA narrative [id number] N [address] Zs[id number] 4WJYWHQUZRHILKTLLRRAHCA2366-85-74J9 8:52:191.2.840.169031.1.72.3.15|1.2 .840.665159.1.13.104.2.7.2.727879_2 [id number] Xin El [facility] 2023-09-16 16:45:02 8BZi8FmCylswa46Z8uS7hVoulnZglZsGRiP AG1KNN9p8xdxQs85i9tLmWooliTw07747-8 09-15T16:45:02 Received Pathology report from [facility] placed in the providers box and scanned into pts chart. 61973-8Cqtcaqoyt encounter YezjMO7702-81-66M19:45:53Telephone encounter NoteTXT1.2.840.160506.1.13.104.2.7. 2.338294|3132122086SHCfyxqugsn for patient sfzw30907-7PrafLNYTQPMZQCPMzdwljtkt C-CDA narrative [id number] [address] MbnfCsyrjnagvWajxsxrkxSFNI459529951 5CXHUCHMDRUEKQLPXOZVGJE2220-63-20V6 6:45:531.2.840.795161.1.72.3.15|1.2 .840.733042.1.13.104.2.7.2.727879_2 [id number] Kelsy Montilla [facility] 2023-09-16 13:04:27 vpKmv4mk9djk94t1z1sPKi0/cAUkMAvOAZV EGIRcUEnCzmUZqVpwWto04ziysyVx6350-2 3:04:27 [place], [address]-0Qvevxzgqk encounter FjlzZF0405-59-58G96:04:35Telephone encounter NoteTXT1.2.840.469987.1.13.104.2.7. 2.464034|[id number] for patient igrx04531-3BpclDJEXXNINQHMTqnwrtuzz C-CDA narrative text[id number] 1RNHCZHRSVTQXVHFISFSIJV7295-54-97P3 3:04:351.2.840.343547.1.72.3.15|1.2 .840.625726.1.13.104.2.7.2.727879_2 [id number] [facility] 2023-09-16 11:23:19 cuMCSYGA6POSJ6DJFPFhamHXeGEOUA+nx98 vztla18tgW/iLg387bv5D3BLPO3MB0609-8 1:23:19 Please review and advise. 02599-6Kzygabdkv encounter HnowHT9245-12-18T47:23:48Telephone encounter NoteTXT1.2.840.040448.1.13.104.2.7. 2.516281|8994192024ZKVtwvzgoui for patient xaae77206-2AutxHOQIJEWUKWHLgazgavxo C-CDA narrative dztg381976428Waocf Flores [id number] 8TQXGPPILFHQFVBWMVFNJOG6567-40-08Z7 1:23:481.2.840.447301.1.72.3.15|1.2 .840.424960.1.13.104.2.7.2.727879_2 [id number] Zaria Orlando NOZZLE OPERATOR [facility] 2023-09-16 10:18:19 Qf5lvenKKTMR4ZgOx9DRSC04u0kt1vloOiR uxLhBQOPxvB8qO8VL2jPBgCtoMnPT0247-3 0:18:19 Copied from [facility] #[id number]. Topic: Clinical - Medical Advice>> September 16, 2023 10:17 AM Patient Nozzle Operator wrote:Pt is calling to inform Dr. Gaitan he is in the hospital in [place] for Sepsis following his prostate surgery on 09/09/23. States Cardiology will be checking with an angiogram. 12315-6Pyzbqwqhn encounter OnkcJQ7027-20-90V20:19:22Telephone encounter NoteTXT1.2.840.607840.1.13.104.2.7. 2.294329|[id number] for patient xlcu95262-9UkofZFLROMJPVXBNgopvvefk C-CDA narrative bnwi667045141Gxpv Hernandez[address] VsvpJlbejhifdVnpvmjgspXFHW166783318 8TJJFCXBWFWHLCHJYQBSNLD1924-57-21F2 0:19:221.2.840.280950.1.72.3.15|1.2 .840.069005.1.13.104.2.7.2.727879_2 [id number] Alessandro Duvall [facility] 2023-09-09 08:20:58 vlMcVigfRxJYa5OSFwmVxfDufcQBjU61km1 VHtIwSwrUO7mcfsp8yeMi+rmnYs4K1204-9 08:20:58 Updated patients on surgery status, start time and vital signs stable. No questions or concerns at this time. 66411-6Adjen DsvjOI5692-87-18A14:21:32Nurse NoteTXT1.2.840.813366.1.13.104.2.7. 2.429681|8866618430LIOlgfzrwqu for patient brbq36564-2Zjnkq NoteLNNARRATIVEFormatted C-CDA narrative [id number] G Yue RN[id number] 4XDAAKCFDGTMPHLRWVXPICG5345-32-03O8 8:21:321.2.840.412714.1.72.3.15|1.2 .840.466148.1.13.104.2.7.2.727879_2 [id number] Tabitha Brand Yue RN [facility] 2023-09-03 09:21:12 ocoUSm2m0bjotytD2yfsCb1FhHEDcvPNmjv fEuiTBoXi5cMCzry/mq0JKNGOadG57109-8 09:21:[address] Menjivar team. This medication was last filled by Dr. Mayorga x 1, but has always been filled by Dr. Menjivar previously. 21240-5Vezrfzixi encounter XuclPU2574-92-57J99:47:44Telephone encounter NoteTXT1.2.840.838986.1.13.104.2.7. 2.150847|1101237366WFInvfuckuz for patient tcjx55377-8JsnzAMFPTGUAXCNDxjjztqwu C-CDA narrative text[id number] 0HOGQRFXNRHSIDHEZIOLMDW8613-92-61S3 9:47:441.2.840.843912.1.72.3.15|1.2 .840.490895.1.13.104.2.7.2.727879_2 [id number] [facility] 2023-09-02 14:36:35 pHeM9vYGpwzE1yP2c6OJZxGGEbgO1AsuCww 8PC5u0zskJKMjJSnYumGpG1NyAuWK5391-4 09-01T14:36:35 Requested PrescriptionsRefused Prescriptions Disp RefillstraMADoL 50 mg tablet [Pharmacy Med Name: TRAMADOL HCL 50 MG TABLET] 120 tablet 3Sig: TAKE 1 TABLET BY MOUTH EVERY 6 (SIX) HOURS NEEDED FOR PAIN (SCALE 4-6) FOR UP TO 30 DAYS. INDICATIONS: CHRONIC PAIN, LUMBAR RADICULOPATHY, S/P SURGERY.Refused By: Kelin GARDNER for Refusal: Duplicate Request 68655-4Xfgzfeiww encounter EcjgJC8221-82-31E73:36:44Telephone encounter NoteTXT1.2.840.767046.1.13.104.2.7. 2.347709|0959316765BTDyerprvsu for patient eohp78503-3CwrzAILVONNLUUERrzbdlmoy C-CDA narrative textUT[address] Nboj[id number] 3FOMGOTDXQDPERWPPNKTEEC1945-16-78X6 4:36:441.2.840.264537.1.72.3.15|1.2 .840.223430.1.13.104.2.7.2.727879_2 [id number] [facility] 2023-09-02 10:15:00 oGxTC+YwO+DYaikAnoK5MPvMb5AuySKon62 OjWLc9NT9KCE1KNZD5F6G2YYSD+NH9789-2 09-01T10:15:00 Images from the original note were not included.Venipuncture collection performed by clean technique on the left anticubitus. Total of 1 attempts were made. Slight pressure and a bandage/dressing were applied to the site(s). The patient experienced no complications. The following specimens were processed according to instructions and sent to [facility] laboratories per lab order on 09/02/2023 :LT BLUESST 1REDLAV 2PPTDK GREEN (LiHep)DK GREEN (SodH)GRAYDK BLUE (K2)DK BLUE (S)ACDBlood CultureNIPT/NTD 33320-3Mfgxi JgphDM5198-10-42G73:31:03Nurse NoteTXT1.2.840.473908.1.13.104.2.7. 2.457213|[id number] for patient hbhe94241-6Outot NoteLNNARRATIVEFormatted C-CDA narrative textUT[address] Tj[id number] 4BPGPOYCVNJQEENCXZYOCKR2220-98-15V6 0:31:031.2.840.129124.1.72.3.15|1.2 .840.434364.1.13.104.2.7.2.727879_2 [id number] [facility] 2023-08-31 17:39:25 kCCGPDZiz5m75aGVwCBLyhcY4tUHZb24S7U Q+StdZFARA/ArAFHlsogqWYot7B9j8235-2 08-30T17:39:25 Images from the original note were not included.Your procedure is at [facility] on 09/09/23. The address is [address] [place] [address], [address]. [facility] nursing staff will call you the workday before your procedure to let you know what time to arrive.On the day of your procedure, please go inside that door and check in at the desk.Please note: You may not travel home alone and that includes in a taxi or by bus. We must speak to your Responsible Adult (who will be picking you up) the morning of your procedure, before the start of your procedure. This person must be an adult over the age of 18 years of age.Do not eat any solid food after midnight the night before surgery. You may have sips of clear liquids such as water, gatorade, and sprite up until two hours before your scheduled procedure.You may take your medications with a sip of water as directed by physician.Anticoagulants will be per physician guidance. Medication Note(s)/Instructions:Instructions given to hold losartan day before and morning of surgery and hold HCTZ morning of surgery.Pending screening, we may test for COVID. If a patient tests positive, their cases are cancelled and/or rescheduled. COVID SCREENING NOTE: Denies COVID symptoms, no testing required.Additional requests, questions, concerns:Patient concerned about his being at her scheduled radiation appointment that morning but does not want to change his scheduled time. Will come early if needed. Said he will CB if he wants to request time change. Pre-op labs discussed, patient will come in this week to complete. CB number and availability provided.Patient verbalized understanding of pre-op instructions and voiced no further questions at this time. 66421-2Bcbev WjkqHP9900-64-65E56:45:51Nurse NoteTXT1.2.840.681382.1.13.104.2.7. 2.504788|[id number] for patient spah83193-1Lbnmh NoteLNNARRATIVEFormatted C-CDA narrative text[address] Kbfg[id number] 3VFBTGWDBLJVCIQBEMHDKHF5698-62-70U6 7:45:511.2.840.724391.1.72.3.15|1.2 .840.281854.1.13.104.2.7.2.727879_2 [id number] [facility] 2023-08-31 13:59:02 9ws+Y8/XtgEaMxAQJRrpstSBKvOYsV0ghWO 1NeyAGCHhNQcpqMm5auylWMf3EJxi5436-6 3:59:02 Thank you 03765-0Zmfyjzreu encounter GbdoLP3936-53-01N93:59:07Telephone encounter NoteTXT1.2.840.293704.1.13.104.2.7. 2.526389|5985515301EEWzstravdv for patient jsbr35347-4NuqjUBUAMNOSLWODemkrcqxc C-CDA narrative text[id number] 1IVBPOVHVGXNUSFZJPBQAKD3144-37-20F8 3:59:071.2.840.535983.1.72.3.15|1.2 .840.884866.1.13.104.2.7.2.727879_2 [id number] [facility] 2023-08-31 13:54:02 uYY4P+x52RKGkvw0LK/Sj4OcCnXwuBGjfLy H4oLPVAS5EKmzgQzVFRVVZ7zm7h7w0201-7 3:54:02 Patient contacted, patient informed to get blood work ordered at his convenience prior to surgery. Reviewed preoperative instructions. Patient denies further questions. Encouraged patient to call office should he have further questions. 51800-1Zpeughylh encounter BshjUV9480-91-12Y75:55:50Telephone encounter NoteTXT1.2.840.471439.1.13.104.2.7. 2.033139|4057147073UZKtrqsvnpg for patient cgqr09554-2QinbYUCDSNSBTNJJcysiuqrp C-CDA narrative xhss147036350AbymednTabitha ROLDAN[id number] 7QIGOIPHKNYNNXQOATCXPRL9102-79-39O7 3:55:501.2.840.457989.1.72.3.15|1.2 .840.673502.1.13.104.2.7.2.727879_2 [id number] Tabitha Escalera RN [facility] 2023-08-31 09:13:07 pwuBXnYab0L5IOBvY+CamT+RWUQyB80B6up RXSBjqmbdsL29ECFzNM5u69P0j5Gf5026-9 09:13:07 Pt calling asking if there is anything he needs to do to prepare for procedure on 09/09/23. Please advise. 96866-4Knpormrsh encounter JcibIF1078-68-59B50:14:08Telephone encounter NoteTXT1.2.840.513219.1.13.104.2.7. 2.032847|1647624892GNYnxvqkzvd for patient mkuo16620-7HchnBMLBEFDUURGDrovnmokr C-CDA narrative uhtd437364403Qedotjg E [address] DyimY[id number] 5AXNAOOHGNKJQDKPDCQMUTT8897-90-89A5 9:14:081.2.840.826422.1.72.3.15|1.2 .840.203563.1.13.104.2.7.2.727879_2 [id number] Jerilyn Valdes [facility] 2023-08-30 15:40:59 dCKDIJ1mbNb+6k9+BOGX8pqZxxyciCKkXyG +qmTRDCkj2Q5FAduBfNR9IQLje1IQ7472-4 08-29T15:40:59 Images from the original note were not included. 75101-0Hdrkvorpe encounter VzzoWS0513-16-90U53:41:26Telephone encounter NoteTXT1.2.840.205064.1.13.104.2.7. 2.413036|7504692991DXMmnbwkydx for patient polz46691-6NmrfRSGNVQYQKYYDontyptqk C-CDA narrative [id number] J Cordell RN[id number] 9EZKXPIOMNLUBFFYRZIYIWQ0752-23-81J9 5:41:261.2.840.249738.1.72.3.15|1.2 .840.940986.1.13.104.2.7.2.727879_2 [id number] Berkley Munroe RN [facility] 2023-08-30 09:32:46 UsnuCklTFF/7Wj4NnFLcZqA1iMMDCjC42A2 mYDjaM1YKHQ216KKDvPjkpT9s9pQa0904-1 09:32:46 Requested PrescriptionsSigned Prescriptions Disp Refillsgabapentin 300 mg capsule 630 capsule 1Sig: TAKE 2 CAPSULES BY MOUTH 2 (TWO) TIMES DAILY AND 3 CAPSULES AT BEDTIME.Authorizing Provider: Kevin SMITH User: HAYLEY GARDNER 05/06/23NOV 11/11/23 11397-5Aplzweims encounter LwtgGL1318-63-79X12:35:22Telephone encounter NoteTXT1.2.840.234658.1.13.104.2.7. 2.273738|9238871016HBDsqjgfghx for patient iwmp75498-5EiliPTXZLVEHPDIFiehribwi C-CDA narrative textUTMBUT[id number] 8GQDDKRXZBBKVHEKYRWVCDD4448-97-41M6 9:35:221.2.840.830094.1.72.3.15|1.2 .840.820334.1.13.104.2.7.2.727879_2 [id number] [facility] 2023-08-28 13:06:13 nCgqgKUNBuI3JjR+jetpAQspTocbkaUUFnw Madh0MvvOB8oNb0n46wh87hH1mhw97139-4 08-27T13:06:13 This was done. 37944-6Rjlchssbk encounter ArqfPO3080-99-84H24:06:29Telephone encounter NoteTXT1.2.840.024306.1.13.104.2.7. 2.425770|9568940765YPJvangerkp for patient kajw80089-3DmavHRDXJTIBJDTHsdtcrpve C-CDA narrative textUT[id number] 1YISMNBGYNTGUZRATHIFXRM3143-97-62T9 3:06:291.2.840.573724.1.72.3.15|1.2 .840.862873.1.13.104.2.7.2.727879_2 [id number] [facility] 2023-08-28 09:00:00 lRMYpRYuzRSBW1+Lp+DsBBJkit/OSBZLXp7 wjGHBlVGgcv6CqQDLUcJaMoUD08j55260-1 08-27T09:00:00 Images from the original note were not included.Patient has been identified by and name and was provided with cup, antiseptic towelette, and clean catch instructions. 1 urine specimen(s) sent.UnpreservedUrine Culture 1Aptima tubeOther urinePt only wanting urine culture done. 53250-5Hqxwh VoziEF6196-98-80A24:48:47Nurse NoteTXT1.2.840.611847.1.13.104.2.7. 2.407289|1022420554SRLbnrfrrwn for patient oyyk20498-4Vovii NoteLNNARRATIVEFormatted C-CDA narrative textUT[id number] 8UBYZLNYJYIKNPPUKKKQAIU9318-54-31H3 0:48:471.2.840.369268.1.72.3.15|1.2 .840.806029.1.13.104.2.7.2.727879_2 [id number] [facility] 2023-08-23 09:42:55 0weUFoP1ZBmm6qWpSuYjEtNl30v218jB2FP S0gh7lTz7nlolYugPJCMkeTNVQRoH6628-4 08-22T09:42:55 Patient notified of results/recommendations, understanding was verbalized via teach back. 68469-0Dsukqzgia encounter WclcTA2510-56-08N62:42:59Telephone encounter NoteTXT1.2.840.366606.1.13.104.2.7. 2.529033|6896622773JEEqokddbmc for patient pflz53959-4AlxnZZEBLDGARXDIflfxplrb C-CDA narrative cboq151472163Vdptlz A Hall RNUT[id number] 2VFVGRRESXLZKOTQPYGUZNH3439-50-85P0 9:42:591.2.840.133281.1.72.3.15|1.2 .840.170967.1.13.104.2.7.2.727879_2 [id number] Greer Cbarera RN [facility] 2023-08-23 09:22:47 QGonHx5Gs5zJ2gG1bh6w7rXV8qHmu6JreHk mxK/HYqWS2anG3yzg2KMETEwUxOnn2753-4 09:22:47 Oral abxRepeat Ucx 5 daysRTC as scheduled 23759-6Jizdyjwyv encounter JrjvGI4240-40-23E36:26:30Telephone encounter NoteTXT1.2.840.061046.1.13.104.2.7. 2.571946|5974679195QJPtwcheqmo for patient uhux37933-4JhooCPRJXNHYJFDSvsbueupe C-CDA narrative text[address] Tjdq[id number] 8CVWYIEYLAIEYGDAIOMCGCI3012-01-90T1 9:26:301.2.840.712409.1.72.3.15|1.2 .840.498719.1.13.104.2.7.2.727879_2 [id number] [facility] 2023-08-18 13:30:00 +li851MPnneovSzg1hIxXtpuYLipPdOLO63 n3MIlCQ9PDcaZbYuPswPb6igFt+gY0653-8 3:30:00Addended by: KATIE SOL, TABITHA Javed on: 08/18/2023 03:31 PMModules accepted: Orders 94306-6Kfdjthai HtzuarslUW0347-40-25K55:31:47Addend um DocumentTXT1.2.840.695879.1.13.104. 2.7.2.629031|[id number] for patient yksk70903-2YznqYNLRXNVMZFDBjxiwzrir C-CDA narrative [id number] 4EECEWDRCWSZZBRCMNUTJPB7348-16-86A8 5:31:471.2.840.027343.1.72.3.15|1.2 .840.016718.1.13.104.2.7.2.727879_2 [id number] [facility] 2023-08-16 13:10:52 /Stone/x7+shRLAjsS3l8fmscePAfl DREt+ZVYwE9JLDw5Zau9dG3LichGX4360-8 3:10:52 Routing to provider - controlled medication. 90380-1Vufhmswhv encounter HfrhEG2402-45-28C82:11:19Telephone encounter NoteTXT1.2.840.442271.1.13.104.2.7. 2.824079|9469394246JKRhbdpgffp for patient izwf48573-1PxbyGILCAVEEKPZRhjwosmdl C-CDA narrative text[id number] 6SCUUYVXQOMAXQEWLQNNYTJ6736-33-59K4 3:11:191.2.840.840068.1.72.3.15|1.2 .840.474845.1.13.104.2.7.2.727879_2 [id number] [facility] 2023-08-16 11:55:43 q6CeZtNuVyBwNmsQ5SHdt8YJU6ha8TGEWKM S32MKN3eiNsStSYk/i8zVPV0NZDNH2920-0 1:55:43 Copied from [facility] #[id number]. Topic: Clinical - Medical Advice>> Aug 16, 2023 11:54 AM Patient Nozzle Operator wrote:Osmin Damon is a 82 year old male. Pt requesting refill of traMADoL 50 mg tablet. Please advise 38765-1Qlftvpway encounter LlepSH8407-90-79Q30:57:37Telephone encounter NoteTXT1.2.840.518606.1.13.104.2.7. 2.811429|[id number] for patient atfm89882-1SdefGKAQGHNAPHJZqptmzgct C-CDA narrative text[address] Ge[id number] 7VITUTYKXUHVKFRYBEXSFHA8965-45-39U2 1:57:371.2.840.110811.1.72.3.15|1.2 .840.405145.1.13.104.2.7.2.727879_2 [id number] [facility] 2023-08-13 17:04:35 Mri8FEayiJHFD7k0phBvh07CzKWkDqMepff FeJ32Zdv1QexuLAZyYYwOTmgs/nuc7955-9 7:04:35 Images from the original note were not included. 67528-9Raincqzvv encounter QtquFB9561-21-24B48:05:19Telephone encounter NoteTXT1.2.840.840936.1.13.104.2.7. 2.569037|[id number] for patient fpmg25714-6PipiUMPJDRODMBEFntwncmeq C-CDA narrative [id number] G [address] Rz[id number] 8BGEZGVVUBFUREYQOTNCLQT2469-01-30O9 7:05:191.2.840.221426.1.72.3.15|1.2 .840.081400.1.13.104.2.7.2.727879_2 [id number] Janaviviane Christiansen [facility] 2023-08-11 12:32:50 huJApVYnbL92uV4oR3NFAhutF+fRhyVbsxB CrWhi3zXisjWgXTPmftU9UZWn1uMY7661-8 08-10T12:32:50 [facility] 05/06/23NOV 11/11/23Routing to provider - controlled substance. 87632-6Virakuewz encounter KezgKV5627-45-76D32:36:41Telephone encounter NoteTXT1.2.840.949575.1.13.104.2.7. 2.146955|[id number] for patient nyyr98127-0JodxBPMZDRDIDXMKwyhkuadk C-CDA narrative [address] Bk[id number] 5ZAHERKXTYERKLBWZUGTGBG1040-96-90E3 2:36:411.2.840.304214.1.72.3.15|1.2 .840.068258.1.13.104.2.7.2.727879_2 [id number] [facility] 2023-08-10 10:26:38 daa7YAHsVyJodUv6niJzz4PZ0rOnjzULJ8J em3FpjEURV/6gIXIl9GcD19rO5ZL30452-4 08-09T10:26:38 Images from the original note were not included.Per last office visit note 05/19/23 05278-9Dwdcsoszj encounter QnbaOU7610-02-43H63:27:30Telephone encounter NoteTXT1.2.840.232608.1.13.104.2.7. 2.045011|[id number] for patient vfre54439-9FmrkAACDUXJSDKHRyxtyofxq C-CDA narrative [id number] A Hall RN[address] Ql[id number] 3VNAXAMABBWNLPNMZSRMUWA1430-37-37N1 0:27:301.2.840.975266.1.72.3.15|1.2 .840.707984.1.13.104.2.7.2.727879_2 [id number] Greer Cabrera [facility] 2023-07-15 15:41:10 X9OtFlNN5yOWK8Edh4FRqAmW88+3gyzvPcK PbSQ2I8LPtjhyaXWt1Pl7i1isooSW8186-5 5:41:10 Images from the original note were not included.Updated message from [facility] via [employer]: 98946-2Pczohzetb encounter ZzagBQ3357-41-48H68:41:33Telephone encounter NoteTXT1.2.840.267402.1.13.104.2.7. 2.999468|6632508962GSSgpjzkpuz for patient hzzl40140-7HvnzTKVWFRTXJWPJlkpcmbki C-CDA narrative [id number] J Windham RN[address] Apf[id number] 7VYZSGCEQWWQIJFYMBZHOWG4295-79-48H0 5:41:331.2.840.073034.1.72.3.15|1.2 .840.316583.1.13.104.2.7.2.727879_2 [id number] Svetlana Webster RN [facility] 2023-07-13 10:26:43 lwy57sXF/2HtS1KlGNyDWbpU87vC7DsECL6 mopX/+xbtO5PRq6W4vvfzm9Co++LJ3578-307-12T10:26:43 Images from the original note were not included.Message received from [employer] via [facility]: 28062-2Baxckfiwk encounter IvdnCO1610-27-14C33:27:06Telephone encounter NoteTXT1.2.840.714054.1.13.104.2.7. 2.157176|1206268687KFChrjrghrw for patient wggq97437-9NbysVUJLSONNGBDRgzpyjcvx C-CDA narrative [id number] J Windham RN[address]Eq[id number] 8ZSBZGAFHYTPFZBMZUUTXCL1955-89-69C6 0:27:061.2.840.261207.1.72.3.15|1.2 .840.257535.1.13.104.2.7.2.727879_2 [id number] Svetlana Webster RN [facility] 2023-07-12 13:17:00 lkAqkWWMw4tL+EgedZZlt0RvV53lKd4C3mn jfj210T60rX90ufkAGDJLNADuFG//07-11T13:17:00 Requested PrescriptionsPending Prescriptions Disp RefillsHYDROCHLOROTHIAZIDE 25 mg tablet [Pharmacy Med Name: HYDROCHLOROTHIAZIDE 25 MG TAB] 15 tablet 0Sig: TAKE 1 TABLET BY MOUTH EVERY DAYWill refill QTY 15, patient is due for follow up.Recent VisitsDate Type Provider Dept06/09/23 Office Visit Ramón Menjivar MD [facility] Med05/21/22 Office Visit Ramón Menjivar MD [facility] Med03/31/22 Office Visit Ramón Menjivar MD [facility] MedShowing recent visits within past 540 days with a meds authorizing provider and meeting all other requirementsFuture AppointmentsNo visits were found meeting these conditions.Showing future appointments within next 150 days with a meds authorizing provider and meeting all other requirements 97270-0Tdytdfsdc encounter YemvTH2295-28-81F71:19:46Telephone encounter NoteTXT1.2.840.873686.1.13.104.2.7. 2.048086|[id number] for patient wlcm00863-0XlhlDXPPBMFBNDFNciksmsnm C-CDA narrative [id number] A Pena MA[address] Vr[id number] 9EUHJOWIUFKJYBLJHVQMMHI2078-77-10P6 3:19:461.2.840.599035.1.72.3.15|1.2 .840.664354.1.13.104.2.7.2.727879_2 [id number] Saba Juares [facility] 2023-07-08 05:45:28 KExUNGOiwa5TlCzKWj5EnerKSe5xA237v3/ lmPztABTtf/ne2C0ctFtXOelDwUWr6663-0 05:45:28 Images from the original note were not included.Osmin Damon12/31/5192067822OVuitjkeo CPAP supply refill request from [facility] via parachute.Last office visit 08.26.2022Follow Up visit - 5.4RX sent to via Parachute 13428-3Npkwgoqyd encounter DhfgOX7144-26-85J40:46:39Telephone encounter NoteTXT1.2.840.231106.1.13.104.2.7. 2.559700|[id number] for patient qbux17537-9EhyjAFJQIAQZCWQXxpnewpqt C-CDA narrative [id number] Fa[id number] 7ZQGPHUPUVAJCTRHRRUWWPO7496-51-02A7 5:46:391.2.840.428697.1.72.3.15|1.2 .840.627495.1.13.104.2.7.2.727879_2 [id number] Federicamonie Douglass [facility] 2023-04-22 17:13:22 a0cWNYMxT/t55BDogHJcBZiRyEumvxjege8 0iTN27Si+npsGzG9m3javyVVRvWix2535-1 7:13:22 Pt discharged with diagnosis of pain of L hip, osteoarthritis of both hips., and contusion of L hip. Printed and verbal instructions reviewed with and given to patient. Prescriptions given x 1. Pt verbalized understanding of teaching, medication, and recommended follow-up. Denies questions or concerns at this time. Pt ambulatory with cane at discharge. Appears in no apparent distress. No ataxia noted. Accompanied by . 81091-9Uipfpuiyx department GqebMU2998-21-48I53:14:12Emergency department NoteTXT1.2.840.334370.1.13.104.2.7. 2.496045|[id number] for patient viyf75064-4IvvhEVEGRECNSINThlamppun C-CDA narrative vexz421253410Nterhqsergey [address] Be[id number] 6TMEGIKESYQVUMUBCEPARPD6432-32-52A6 7:14:121.2.840.355619.1.72.3.15|1.2 .840.346507.1.13.104.2.7.2.727879_1 [id number] Nyla Macias RN [facility] 2023-04-22 14:52:01 xHcNMgq5y3x5LqEqAtQvciIXnLDXW4DFxsx owgzPcdzs3kDyI5eLKj1T1REB4PZ61239-3 2-21T14:52:01 Patient arrived via [facility] c/o of a trip and fall. Patient tripped while bringing in some groceries into the house landing on his left hip. Denies any LOC. Denies any blood thinners. 15 toradol give captain waiter, 20 [place] 54444-1Fvduzfsxe department Triage vkaoYJ1140-09-80D18:53:44Emergency department Triage noteTXT1.2.840.665395.1.13.104.2.7. 2.189858|[id number] for patient iqxp60803-9Vmmjjzfmr department NoteLNNARRATIVEFormatted C-CDA narrative [id number] M Felix RNUT[address] StreetMiycOqoungtzvSkzgocnhmDERA123420373 3SKIUFDEZDNYVHTQCDJASHH2769-29-66K8 4:53:441.2.840.786122.1.72.3.15|1.2 .840.909738.1.13.104.2.7.2.727879_1 [id number] Alycia Iyer RN [facility] 2023-04-22 14:49:00 2gPUOPGx9m68YJsD/WAcl48RUJcBFsShlZg YeoNR13N0vdOPJQRBv2F9pJkBb7jI8311-6 4:49:00 Images from the original note were not included.[facility] of : 1940 82 year oldMRN: [id number] Room:[address] Care Phys[facility]- HospitalPatient Escorted by: Self [9]Mode of Arrival: EMS - [place] [51]EMS Treatment Prior to ED Arrival:ED EventsDate/Time Event User Ofkhoqvk41/21/23 1504 Medical Screening Begins BRIT ERICKSON MD --04/22/23 1504 First Provider Evaluation BRIT ERICKSON MD --Chief ComplaintChief ComplaintPatient presents withHip PainED Triage Alycia Ovalle RN 04/22/2023 14:53[facility] c/o of a trip and fall. Patient tripped while bringing in some groceries into the house landing on his left hip. Denies any LOC. Denies any blood thinners. 15 toradol give captain waiter, 20 g to right acHPIHistory provided by: PatientHip PainLocation: HipTime since incident: 1 dayInjury: yesMechanism of injury: fallFall:Fall occurred: standing.Impact surface: Hard floorPoint of impact: left hip.Entrapped after fall: noHip location: L hipPain details:Quality: AchingRadiates to: Does not radiateSeverity: ModerateOnset quality: SuddenDuration: 1 dayChronicity: NewRelieved by: RestWorsened by: Bearing weight (movement)Ineffective treatments: None triedAssociated symptoms: no fatigue and no feverPast Medical History / ImmunizationsPast Medical History:Diagnosis DateHyperlipidemiaHypertensionPneum onia06/19/16Pa Surgical HistoryPast Surgical History:Procedure Laterality DateBASAL CELL CARCINOMA EXCISIONSPINE SURGERYSQUAMOUS CELL CARCINOMA EXCISIONAllergiesNo Known AllergiesSocial HistoryTobacco UseFormer; 1 pack/day for 10.00 years; Types: CigarettesSmokeless Tobacco: Never used smokeless tobacco.Comments: quit 40 years ago.Vaping UseNever usedAlcohol UseYes.Comments: rarelyDrug UseNo.Review of SystemsReview of SystemsConstitutional: Negative. Negative for chills, fatigue, fever and unexpected weight change.HENT: Negative.Eyes: Negative. Negative for discharge and itching.Respiratory: Negative. Negative for cough, chest tightness, shortness of breath and wheezing.Cardiovascular: Negative. Negative for chest pain and palpitations.Gastrointestinal: Negative. Negative for abdominal distention, abdominal pain, nausea and vomiting.Genitourinary: Negative. Negative for dysuria, urgency, frequency and flank pain.Musculoskeletal: Positive for arthralgias.Skin: Negative. Negative for color change, pallor and wound.Neurological: Negative. Negative for dizziness, syncope, light-headedness and headaches.Psychiatric/Behavioral: Negative. Negative for agitation and behavioral problems.All other systems reviewed and are negative.Endocrine: Endocrine negativePhysical ExamED Triage Vitals [04/22/23 1453]Weight 81.6 kg (180 lb)Actual or estimated Estimated by patient/family reportHeight 1.727 m (5' 8")BP 139/72Pulse 75Resp 18Temp 36.1 ?C (96.9 ?F)Temp source OralSpO2 97 %Measured on Room airPhysical ExamVitals reviewed.Constitutional:Appearance: He is well-developed.HENT:Head: Normocephalic and atraumatic.Nose: Nose normal.Eyes:Conjunctiva/sclera: Conjunctivae normal.Neck:Trachea: No tracheal deviation.Cardiovascular:Rate and Rhythm: Normal rate and regular rhythm.Heart sounds: Normal heart sounds. No murmur heard.No friction rub.Pulmonary:Effort: Pulmonary effort is normal. No respiratory distress.Breath sounds: Normal breath sounds. No stridor. No wheezing or rales.Abdominal:General: Bowel sounds are normal. There is no distension.Palpations: Abdomen is soft.Tenderness: There is no abdominal tenderness. There is no guarding or rebound.Musculoskeletal:Cervical back: Normal range of motion and neck supple.Legs:Skin:General: Skin is warm and dry.Neurological:Mental Status: He is alert and oriented to person, place, and time.Cranial Nerves: No cranial nerve deficit.Sensory: No sensory deficit.Psychiatric:Behavior: Behavior normal.LabsLab Results - No data to displayImagingNo orders to displayOrders and TreatmentsOrders Placed This EncounterProceduresXR HIPS 3 VW LEFTNo orders of the defined types were placed in this encounter.ProceduresProceduresNotes & MDMPatient was evaluated for an emergency medical condition related to Hip PainDDXLeft hip contusionLeft hip fractureDiagnosis/Impression as of 04/22/23 1645Pain of left hipOsteoarthritis of both hips, unspecified osteoarthritis typeContusion of left hip, initial encounterMedical Decision MakingProblems Addressed:Contusion of left hip, initial encounter: acute illness or injuryOsteoarthritis of both hips, unspecified osteoarthritis type: acute illness or injuryPain of left hip: acute illness or injuryAmount and/or Complexity of Data ReviewedRadiology: ordered and independent interpretation performed. Decision-making details documented in ED Course.RiskPrescription drug management.Limitations to patient care and compliance: none.Assessment/Summary:The patient is a 82-year-old gentleman who presents for left hip pain. The patient notes that he sustained a mechanical fall and fell on his left hip. On exam he does not appear shortened or rotated. X-rays demonstrate degenerative changes in both hips however, there is concern that for femoral neck fracture on the plain film of the left hip. CT of the left hip does not demonstrate this. The patient is fully ambulatory with assistance from a cane. This is his baseline. The patient has a left hip contusion. He does have degenerative arthritis in both hips. He was sent home with a Medrol Dosepak. Of note, he has tramadol at home. He was also referred to orthopedics for possible steroid injections into his hip. The patient was discharged to follow-up. He can return for any questions or concerns.History, physical exam findings, results of visit, differential diagnosis, medication regimens and plan of future care have been considered. Additional MDM may be found in the ED course. Differential diagnosis considered and final disposition made based on information gathered during evaluation and may not be completely ruled out or specifically listed. Vital signs were rechecked before final disposition.DiagnosisFinal diagnoses:[M25.552] Pain of left hip (Primary)Disposition & Follow UpED DispositionNonePatient's MedicationsSTART taking these medicationsNo medications on fileCONTINUE taking these medications which have NOT CHANGEDATORVASTATIN 10 MG TABLET TAKE 1 TABLET BY MOUTH EVERY DAYDULOXETINE 30 MG CAPSULE TAKE 1 CAPSULE BY MOUTH EVERY MORNINGFLUOCINONIDE 0.05 % SOLUTION APPLY DAILY TO SCALP NEEDED FOR ITCHINGFLUOROURACIL 5 % CREAM APPLY TO AFFECTED AREA TWICE A DAY FOR 2 WEEKS THEN STOPGABAPENTIN 300 MG CAPSULE TAKE 2 CAPSULES BY MOUTH 3 TIMES A DAYHYDROCHLOROTHIAZIDE 25 MG TABLET TAKE 1 TABLET BY MOUTH EVERY DAYKETOCONAZOLE 2 % SHAMPOOLINZESS 72 MCG CAP Take 1 capsule by mouth in the morning.LOSARTAN 100 MG TABLET TAKE 1 TABLET BY MOUTH EVERY DAY IN THE MORNINGMELOXICAM 7.5 MG TABLET Take 1 tablet by mouth every morning.OMEPRAZOLE 40 MG CAPSULE Take 1 capsule by mouth every morning.SODIUM FLUORIDE 1.1 % PSTE BRUSH TEETH WITH PEA SIZE AMOUNT AT BEDTIMESOLIFENACIN 5 MG TABLET TAKE 1 TABLET BY MOUTH EVERY DAYTAMSULOSIN 0.4 MG 24 HR CAPSULE TAKE 1 CAPSULE BY MOUTH IN THE MORNING AND IN THE EVENINGTRAMADOL 50 MG TABLET TAKE 1 TABLET BY MOUTH EVERY 6 (SIX) HOURS NEEDED FOR PAIN (SCALE 4-6) FOR UP TO 30 DAYS. INDICATIONS: CHRONIC PAIN, LUMBAR RADICULOPATHY, S/P SURGERY. INDICATIONS: CHRONIC PAIN Indications: chronic pain, Chronic radiculopathySTART taking Modified Medications as PrescribedNo medications on fileSTOP taking these medicationsNo medications on fileFuture AppointmentsIn 2 weeks Lillie Smith FNP [facility] [place] [facility], BRIAN Yanez 3 weeks Charity Campbell FNP [facility] Urology, [facility] AngletoIn 4 months Aracely Zafar MD [facility] Pulmonary & Sleep Medicine, [facility] Jose Luis Erickson Jr. MDClinical Lace Winder ProfessorNEW MEXICO REHABILITATION CENTER Emergency DepartmentDragon Dictation Software is used frequently and may produce errors. Promptly contact for obvious discrepancies.Brit Erickson MD04/22/23 1655 27419-6Hwftcgwpj Emergency department PphyPF7476-17-18I59:55:21Physician Emergency department NoteTXT1.2.840.610246.1.13.104.2.7. 2.933042|[id number] for patient hnny78125-1Ivcdhjura department NoteLNNARRATIVEFormatted C-CDA narrative text[id number] 0RDIUTFZICMULPBSCBIEBAB4453-68-07F7 6:55:211.2.840.032146.1.72.3.15|1.2 .840.252582.1.13.104.2.7.2.727879_1 [id number] [facility] 2023-04-07 15:22:41 96E2XYa3qK+NoP5lmPhYmrZHuGtiXmAxbXi ff/Lcri1YmRFqL79mC6rf9WCoFmx91946-6 5:22:41 CORRECTION:No sooner appointment available for either provider 93522-2Njzxznvrk encounter WgygHY4842-81-02X43:23:08Telephone encounter NoteTXT1.2.840.002469.1.13.104.2.7. 2.946216|[id number] for patient udxu75733-3IjbgHLAGCPYFQBXIefclryug C-CDA narrative toei552675986Nvgurx L [id number] 3EYSKSWJBHMFPHYEFBYOAYF0134-79-81G1 5:23:081.2.840.700756.1.72.3.15|1.2 .840.404492.1.13.104.2.7.2.727879_1 [id number] Misti Garcia [facility] 2023-04-07 15:21:56 JUII6zt1iufSKMra7sWXdiDu/Pmm9ojg8Zj sV55a0tnrATSIdqIQAgQvyFlupiLS3999-4 5:21:56 Patient was moved up on [facility] schedule to 05/19/23. No sooner appt availabe for either patient at this time. 28844-2Jyaelaulp encounter SlomCR4886-67-34K18:22:19Telephone encounter NoteTXT1.2.840.197664.1.13.104.2.7. 2.425440|[id number] for patient zlhx55543-1NvixRNBLZRDMZSTVxrtitwev C-CDA narrative text[id number] 1ULDDIYOATHOZGWBNCKKIUN9999-28-97N3 5:22:191.2.840.876336.1.72.3.15|1.2 .840.964869.1.13.104.2.7.2.727879_1 [id number] [facility] 2023-01-12 14:11:07 a9BQzLISKxEDgdggQBbcYynO1B0ca2/vuQu S8n10AEK4q/qU58/2uJeJFb+AnYv/2022-4:11:07 Addended by: GREER CABRERA RN on: 01/12/2023 02:11 PM Modules accepted: Orders 16998-6Exjpcxgm PtbyrfxgUC4598-63-28M88:11:07Addend um DocumentTXT1.2.840.566927.1.13.104. 2.7.2.247079|[id number] for patient znfd32213-5IyckCL951293537Hzyfwo A Hall RN[id number] 7HOGYJJTZWMJAYNRWMHIELS1721-74-48O7 4:11:071.2.840.067948.1.72.3.15|1.2 .840.097415.1.13.104.2.7.2.727879_1 [id number] Greer Cabrera RN [facility] 2023-01-12 14:10:36 XHCPde+9GHiJ3MLEhuVLASbk4M1mG6U8M60 Cfy+2bktoMV+Sy2N44iannkm/BmB/01-12T14:10:36 Patient notified of results/recommendations, understanding was verbalized via teach back. 43737-6Bwgrmizus encounter GbafQJ2473-82-47U66:11:02Telephone encounter NoteTXT1.2.840.896076.1.13.104.2.7. 2.887496|[id number] for patient ascz90791-1EmjhJXWNYCJPLW[address] Watd[id number] 4YRQBZPAERWPBBOPOMNRIYN4751-39-08N4 4:11:021.2.840.858042.1.72.3.15|1.2 .840.785471.1.13.104.2.7.2.727879_1 [id number] [facility] 2023-01-12 08:50:35 X7iUv90O1OrCcf16DqJcKXns/qYaB+yemUh M3v1WyA1+MVKHn/rEzhb/QRG4ry6L3684-5 9-12T08:50:35 Attempted to contact patient with no answer, Voicemail left at this time with clinic phone number and instructed patient to return call. 45650-2Ytnxempaz encounter ObwbYN0204-78-45X97:51:09Telephone encounter NoteTXT1.2.840.310145.1.13.104.2.7. 2.352301|[id number] for patient cuzb50069-6SuvpJT195971141Rwpaia A Nguyễn RN[id number] 1KPFPPHBFPPUVQIVTBFCGTY5930-70-12I6 8:51:091.2.840.746734.1.72.3.15|1.2 .840.933962.1.13.104.2.7.2.727879_1 [id number] Greer A Nguyễn RN [facility] 2023-01-11 17:17:44 zft+8zD9WA1LmI2rPmhL8+XGxk6kBvylo/O vaZy/k0SAMuJW+ty14NQ3pNrzqvu72426-2 7:17:44 Augmentin called in for patient by . Contacted patient and he states he has already received the medication and taken a dose. 77088-4Thnuminae encounter TeghET7837-83-56J26:18:23Telephone encounter NoteTXT1.2.840.730967.1.13.104.2.7. 2.086351|[id number] for patient pxtv13594-9QgdtIB057320310Gjgkuzr J Warren-Bugger RN[id number] 5IURIYSOYDPFWVENSXFXVQV4647-71-90T4 7:18:231.2.840.461034.1.72.3.15|1.2 .840.129229.1.13.104.2.7.2.727879_1 [id number] Tabitha Escalera RN [facility] 2023-01-11 12:44:54 0JSw1+2p/vxf4j16tSLPIQY+SGiICiqDUCZ W98pb1hXiFe11BxJFWonKiYtYrodi3228-7 2:44:54 Oral abx sent Repeat Ucx next Wednesday01/18/2023 51025-6Jljvlabtj encounter KcvpDS3623-02-00W97:54:26Telephone encounter NoteTXT1.2.840.984532.1.13.104.2.7. 2.713689|[id number] for patient cakt77258-1RxynBOYOAEQMQE[id number] 6LCDTAIXKYHQVBWBWLVWJVX5937-47-44O8 2:54:261.2.840.591956.1.72.3.15|1.2 .840.046541.1.13.104.2.7.2.727879_1 [id number] [facility] 2023-01-11 10:52:30 ksiZwCaSvmdexQ5UMlBegyj28880xfUXWpc TAg9JZb4C72JkK9ErVDnRF6aKBq/D8519-7 0:52:30 Osmin Damon is a 82 year old malePt has Cystoscopy scheduled for 02/16Pt states 7/ pain with urination increasing x 3 daysPt states + urine culturePt requesting antibioticsPlease [phone] (home) 11672-3Bzdfgsiwy encounter MizrGQ9866-86-36B01:57:06Telephone encounter NoteTXT1.2.840.192058.1.13.104.2.7. 2.323737|[id number] for patient btxz59674-2MmbcMZ052548305Ruuwfl S Chandler [id number] 0ERUQDVHRGBLCKDNGGUWOQX8318-49-88Y0 0:57:061.2.840.940621.1.72.3.15|1.2 .840.873262.1.13.104.2.7.2.727879_1 [id number] Rodrick Garcia [facility] 2023-01-06 15:58:42 t4j24ipOeGLzbw/+b0QmqoEYi9/u3zUIBzE zLTaRPXps9M1ETHTyXOBRGGDOOm2H8263-9 5:58:42 Patient presented to clinic, visit canceled. Cystoscope rescheduled due to elevated white blood cells in POCT UA. 64225-5Mtgjyzjth encounter ZjpbWT0624-87-25V52:12:41Telephone encounter NoteTXT1.2.840.522003.1.13.104.2.7. 2.621307|[id number] for patient czxh78236-7RmfsIGCMMBMRSL[id number] 6SLHPYOMPBCWXWVKCQZAZAQ5764-72-22V1 6:12:411.2.840.416848.1.72.3.15|1.2 .840.022904.1.13.104.2.7.2.727879_1 [id number] [facility] 2023-01-05 14:39:23 /V3eCRxAp4zLtAkcKHxr77drxEhFZ5+qirN dfghHfAfkfVMN49lEv0S5pXzJ26f33396-2 4:39:23 Dear Osmin Damon,Cystoscopy is a procedure in urology using a small flexible telescope with a camera at the end. You will be allowed to drive home .Thank you for using [facility] [place] [place] to manage your healthcare needs.Sincerely,Urology [facility] 74489-7Gzhstpmwy encounter QiuxZM0702-13-57C61:48:10Telephone encounter NoteTXT1.2.840.423478.1.13.104.2.7. 2.805325|[id number] for patient tguv28194-9KianEA284288390Nzdiwed Met Herlinda BRONSON[address] Bk[id number] 3XFWTSUIDFMYXUDCKNNDAGM7287-79-23V4 4:48:101.2.840.085284.1.72.3.15|1.2 .840.227712.1.13.104.2.7.2.727879_1 [id number] Rhea Pate MA [facility] 2023-01-01 10:30:00 f42v95FKSKmfEUhT+MhI7SLKO+Xu6gnFto6 k9y/2Ts6+flLRjfqpvVxokRVpqb9d6698-3 0:30:00 Images from the original note were not included.Patient has been identified by and name and was provided with cup, antiseptic towelette, and clean catch instructions. 1 urine specimen(s) sent. Unpreserved Urine Culture 1 Aptima tube Other urine 60221-1Egekr GjcsHC1166-23-40S95:34:05Nurse NoteTXT1.2.840.060652.1.13.104.2.7. 2.362222|[id number] for patient zral06599-9Uugxt Note[id number] 8OBIDAWPJHTLQXIIFKRKNIO3041-89-93F7 0:34:051.2.840.367079.1.72.3.15|1.2 .840.954646.1.13.104.2.7.2.727879_1 [id number] [facility] 2022-12-29 13:06:32 mAQ7TXmVxxfFmUG92j2RTB08//bNn7/umJJ lujz30qHBr2VvZ0yhZe3Kg+1ohbYT0937-8 12-29T13:06:32 Images from the original note were not included.Patient is scheduled for cysto 01/06/23. Patient notified of results/recommendations, understanding was verbalized via teach back. 45497-5Wqqmbppas encounter JwjtVY6365-78-31B33:11:24Telephone encounter NoteTXT1.2.840.641895.1.13.104.2.7. 2.678383|9920497865FWFdhdcwuhz for patient eunp60350-3KyobHXBHKWHSOZ[id number] 2TBQRKKKQTMAETHKYOAOSII2072-85-99Z9 3:11:241.2.840.417523.1.72.3.15|1.2 .840.470257.1.13.104.2.7.2.727879_1 [id number] [facility] 2022-12-29 10:10:53 yp2m0jyQ4/EbdxK+xTd0g2P/DVSdgn2agOX VbTvVVwxWaD9UzkYvJeBeK9qXCgGL1559-6 12-29T10:10:53 Patient called zeldag Clarence Campbell called this morning and lvm about PSA test results. I didn't see an encounter/ note in the chart. Please give pt back [id number] signed by Sagrario El at 12/29/2022 10:15 AM ZQA74839-0Deafhmkbq encounter DtgsIZ2470-34-58M56:15:02Telephone encounter NoteTXT1.2.840.220456.1.13.104.2.7. 2.857598|[id number] for patient vayp18060-8DbaxUF024535640Iyqbhu F [id number] 8ZGOTZMJGKARCTGXDQATEIR0233-74-55I1 0:15:021.2.840.406008.1.72.3.15|1.2 .840.360011.1.13.104.2.7.2.727879_1 [id number] [facility] 2022-12-29 08:17:20 nQeR9OkkOKMq1tkM3Nsf3FLpwHPACBqypBG oQQ6EpDLFZiR0t5c5KT3eAbCCD7BV4054-6 08:17:20 LVM for patient to contact the clinic regarding results 58993-4Dudaisqbk encounter XrsvSY8402-22-20Y85:17:44Telephone encounter NoteTXT1.2.840.634392.1.13.104.2.7. 2.195860|[id number] for patient dcbe91076-0SohqDLIDDDOIFJ[id number] 3EPYTBMWCZAGTRFYSIXQLUP0896-76-33L2 8:17:441.2.840.850704.1.72.3.15|1.2 .840.540926.1.13.104.2.7.2.727879_1 [id number] [facility] 2022-12-25 10:00:00 AUJtGxT2rVAkBBxnxopBKN6LX2x0BXkw68t 8QX61VXrlLGrwvK5tufCMlRY8bX2D7404-3 0:00:00 Images from the original note were not included.Venipuncture collection performed by clean technique on the left anticubitus. Total of 1 attempts were made. Slight pressure and a bandage/dressing were applied to the site(s). The patient experienced no complications. The following specimens were processed according to instructions and sent to [facility] laboratories per lab order on 12/25/2022: LT BLUE SST 1 RED LAV PPT DK GREEN (LiHep) DK GREEN (SodH) OLIVEROS DK BLUE (K2) DK BLUE (S) ACD Blood Culture NIPT/NTD Patient has been identified by and name and was provided with cup, antiseptic towelette, and clean catch instructions. 1 urine specimen(s) sent. Unpreserved Urine Culture 1 Aptima tube Other urine [id number] [id number]:20:56Nurse [id number]. [id number] for patient [id number] NoteLN[address] [id number] [id number] 0:20:561.2.840.496448.1.72.3.15|1.2 .840.714130.1.13.104.2.7.2.727879_1 [id number] [facility]
[2023-09-25 13:44] VITALS: BMI 27.5
[2023-09-25] MEDS ORDERED: HYDROCODONE/APAP 5/325 MG TAB PO PRN (15:21)
[2023-09-25] MEDS ORDERED: NA CHLORIDE 0.9% 250 ML ONE (19:16)
[2023-09-25] MEDS: CEFEPIME 2 GM in NA CHLORIDE 0.9% 100 ML IV SCH (19:21)
[2023-09-25] MEDS: TICAGRELOR 90 MG TABLET PO SCH (19:32)
[2023-09-25] MEDS: GABAPENTIN 300 MG CAP PO SCH (19:32)
[2023-09-25] MEDS: TAMSULOSIN 0.4 MG SR CAP PO SCH (19:32)
[2023-09-25] MEDS: ATORVASTATIN 10 MG TAB PO SCH (19:33)
[2023-09-25 20:26] LABS: Specific Gravity 1.021 (1.005-1.030); Sqamous Epithelial None Seen /HPF (None Seen); Urine Bacteria None Seen /HPF (<20); Urine Bilirubin NEGATIVE (Negative); Urine Blood 2+ (Negative); Urine Clarity Turbid (Clear); Urine Color Light-Yellow (Yellow); Urine Culture Reflex Order REFLEXED; Urine Glucose NEGATIVE (Negative); Urine Ketones NEGATIVE (Negative); Urine Microscopic Reflex YN ORDER UMIC; Urine Mucus Slight /HPF (None Seen); Urine Nitrite NEGATIVE (Negative); Urine Protein TRACE (Negative); Urine RBC >50 /HPF (None Seen); Urine Urobilinogen Normal (Normal); Urine WBC 20-50 /HPF (<5)
[2023-09-25] MEDS: HYDROCODONE/APAP 5/325 MG TAB PO PRN (21:59)
[2023-09-26] MEDS: TRAMADOL HCL 50 MG TAB PO PRN (00:11)
[2023-09-26] MEDS: PANTOPRAZOLE 40MG TABLET PO SCH (04:57)
[2023-09-26 07:50] LABS: Absolute Basophils 0.1 K/uL (0-0.5); Absolute Eosinophils 0.6 K/uL (0-0.5); Absolute Lymphocytes (CBC) 0.9 K/uL (0.7-4.9); Absolute Neutrophil 8.9 K/uL (1.8-8.0); Basophils % 0.4 % (0-1.3); Eosinophils % 4.9 % (0-4.4); Hemoglobin 12.2 g/dL (13.6-17.9); Lymphocytes % 7.8 % (15.3-44.8); MCH 32.3 pg (27.0-35.0); MCHC 33.8 g/dL (32.0-36.0); MCV 95.6 fL (80-100); Monocytes % 9.1 % (3.3-12.3); Neutrophils % 77.8 % (41.7-73.7); Platelets 590 thou/uL (152-406); RBC Red Blood Cell Count 3.76 M/uL (4.33-5.43); Red Cell Distribution Width 14.5 % (12.1-15.2)
[2023-09-26] MEDS ORDERED: ENOXAPARIN 40 MG/0.4 ML SQ SCH (08:00)
[2023-09-26 08:24] LABS: Albumin 2.8 g/dL (3.4-5.0); Anion Gap 7.8 mEq/L (5.0-15.0); Magnesium 2.4 mg/dL (1.6-2.4); Potassium 3.8 mEq/L (3.5-5.1)
[2023-09-26] MEDS: ENOXAPARIN 40 MG/0.4 ML SQ SCH (08:45)
[2023-09-26] MEDS: SOLIFENACIN SUCCIN 5 MG TAB PO SCH (08:46)
[2023-09-26] MEDS: hydroCHLOROthiazide 25 MG TAB PO SCH (08:46)
[2023-09-26] MEDS: LOSARTAN POTASSIUM 50 MG TABLET PO SCH (08:46)
[2023-09-26] MEDS: MELOXICAM 7.5 MG TAB PO SCH (08:47)
[2023-09-26] MEDS: CRANBERRY FRUIT EXTRACT 200 MG CAP PO SCH (08:47)
--- NOTE | 2023-09-26 17:51 | HP ---
Date of Admission: 09/25/2023 Time Of Service: 11:00 a.m. Chief Complaint: Had problem after prostate surgery and heart attack. History Of Present Illness: Mr. Damon is an 82-year-old, right-handed, patient with dyslipidemia, h ypertension, lumbar disk disease, ocular myasthenia gravis, and benign prostatic hypertrophy, who had prostate surgery at [facility] and a week later presented back here with fever and delirium. His evaluati on at [facility] showed bilateral pneumonia, non ST-segment myocardial infarction. He had in additio n urinary tract infection. His platelets were elevated. Hemoglobin, hematocrit also were low and BU N elevated. He received IV antibiotics. Cardiac catheterization was done on September 19 and a right yue nary artery stent was placed. He is followed by the urology service with medication management and h ydration. As a result of his hospitalization over around 2-3 weeks, he has become significantly weak and debilitated. Furthermore, he had labs required, careful monitoring including his platelet count , hemoglobin, hematocrit being low and the risk of an infection with a recent myocardial infarction a nd cardiac stent placement. As a result of this, the patient requires maximum assistance for transfe rs, lying to sitting and standing position. Also, using a Rollator with a moderate assistance and pe rforming activities of daily living. He also has medical conditions that require careful and aggress ama monitoring. His prior level of functioning was fully independent without limitations in terms of ambulation, transfers, gait, and activities of daily living. Therefore, he is now admitted to the [facility] rehabilitation unit for physical and occupational therapy and medical management of his muna rbid conditions. Past Medical History: Myasthenia gravis, prostate hypertrophy, dyslipidemia, lumbar disk disease, an d an ocular myasthenia gravis. Allergies: NO KNOWN DRUG ALLERGIES. Medications: He is continuing cefepime 2 g every 12 hours, Lipitor 10 mg at bedtime, Lovenox 40 mg s ubcutaneously daily, gabapentin 600 mg 3 times daily, HydroDIURIL 25 mg daily, [place] 5/325 every 6 ho urs as needed, Cozaar 100 mg daily, Mobic 7.5 mg daily, Protonix 40 mg daily, VESIcare 5 mg daily, Fl omax 0.4 mg twice daily, Brilinta 90 mg twice daily, tramadol 50 mg every 6 hours as needed. Family History: Noncontributory. Past Surgical History: Again, with surgeries, recently had the cardiac catheterization. Laboratory Studies: White blood cell count 11.4, hemoglobin 12.2, platelets 590. Sodium 140, potass ium 3.8, chloride 108, carbon dioxide 28, BUN 22, creatinine 0.72, glucose 100, calcium 9.1. Magnesi um 2.4. Prealbumin 18, albumin 2.8. His urinalysis shows 75 esterase, greater than 50 red blood brandon ls, white blood cells 20-50, trace protein, 2+ blood, turbid clarity. Micro is in terms of cultures is depending. Current Level Of Functioning: Supervision for eating and oral hygiene is standby assistance. Toilet ing, maximum assistance. Showering, maximum assistance. Upper and lower body dressing along with do nning and doffing footwear, maximal assistance. Rolling rzqa-ak-vcsqa, sit to lying and lying to sit ting and sit to stand all maximal assistance. Transferring from bed to chair to toilet to shower, ma ximal assistance. Ambulation of 5 feet with a rolling walker and maximum assistance. Physical Examination: Vital Signs: Blood pressure 129/72, pulse is 79, respiratory rate 16, temperature 97.2, oxygen satur ation 97%. Weight 170 pounds. Height 5 feet 6 inches, BMI 27.5. General: Mr. Damon is resting comfortably in bed. He did say he had [place] and tramadol last night and actually slept well and he is otherwise normocephalic and atraumatic. Sclerae anicteric. Oropha rynx is pink and moist. Neck: Supple. Chest: Clear. Heart: Regular. Extremities: Show no significant edema or cyanosis. Neurological: Shows ceyj-bg-vzjwbwly weakness proximally and distally in the lower extremity, more t ann upper extremity and no asymmetries in terms of sensation coordination and reflexes. Rehab Medical Assessment And Plan: His rehab impairment category is 14, cardiac. His impairment melony up code is 09, cardiac is none. His etiologic diagnosis is non ST-segment myocardial infarction. Comorbidities are anemia, coronary artery disease, status post right coronary artery stent, chronic back pain, decreased mobility, decreased physical functioning, pneumonia with sepsis, urinary tract infection, prostate hypertrophy, status post surgical procedure. Plan: 1.He will have physical and occupational therapy for 3 hours a day, 5 of 7 days. 2.We will continue Lipitor for dyslipidemia, cefepime for his recent prostate infection and sepsis, Lovenox for DVT prophylaxis, gabapentin 600 mg 3 times daily for neuropathic pain, Cozaar 100 mg jillian y. Continue with Mobic 7.5 mg daily, anti-inflammatory, Protonix 40 mg for GE reflux, the VESIcare f or his urinary retention, Flomax 0.4 mg twice daily, Brilinta for reducing risk of deep vein thrombus and promoting vascular circulation and tramadol along with [place] as needed for pain. Comorbidities That Are Impacting His Rehabilitation: His recent myocardial infarction and sepsis has put him at risk for a more critical illness and he will be evaluated daily for proximal weakness in the lower extremities. He is at risk for MRSA pneumonia, additional infections, and further myocardi al ischemia and those will be carefully addressed. In addition, he does have a risk of fall and frac ture, will be addressed. Risk of pain is also being addressed with multiple modalities including luisa ro modulators and lengthy use of narcotic and lower level narcotic such as tramadol also will be used and prostate issues again addressed. Rehab Specific Plan: Mr. Damon will have physical and occupational therapy for 3 hours a day, 5 of 7 days to improve his ability to transfer from bed to chair to toilet to be able to perform toileting and showering and also to ambulate 250 feet with a rolling walker. Mobilized a wheelchair 250 feet and go up and down 10 steps with bilateral handrails. Also, to be able to perform all cognitive func tioning independently and activities of daily living as well independently. Mr. Damon given his risk of complications based on his comorbid condition and the need for his physi krystin and occupation therapy, he will be at risk of further complications if therapy is done at a lower level facility such as a snf facility and is therefore it would be more appropriate for him to be admitted to the inpatient rehabilitation unit. He will have 24 hours a day snf and physician evaluation on a daily basis. Also along with his therapy, will have social service ev aluation and management for discharge planning; home equipment, durable; and to continue therapy. Barriers To Discharge: His pain could pose a barrier and need for IV antibiotics, but those will be addressed if need be. He will go home for hypertension, on oral antibiotics and his pain currently i s managed with multiple modalities. Those will be evaluated as appropriate. In addition, he did voi ce that he wanted to be followed for the ocular myasthenia gravis in my clinic and instead of going b [facility] to [facility] and that will be a barrier, but he should be able to be scheduled within the month and cu rrently not treated with medications for myasthenia gravis. May have to have an acetylcholine recept or antibody panel test done and chest CT scan done as appropriate. Length Of Stay: About 10 days. Disposition: Home with continued home health to do physical and occupational therapy. Prognosis: Good. Rehabilitation Goals: 1.Become independent with upper and lower body dressing, donning and doffing footwear with transferr ing to the toilet, to shower, and performing his activities of daily living. 2.Be independent in his ambulation of 250 feet with a rolling walker. 3.Independently propel a wheelchair 250 feet. Again independent to go up and down 10 steps with fernando ateral handrails and independently perform cognitive functioning. The above goals were reviewed with Mr. Damon and he is in agreement. By signing this document, I acknowledge that I personally performed a full physical examination on Mr David Damon no later than 24 hours after his admission to the inpatient rehabilitation facility and dete rmined that he is able to tolerate the above course of treatment at an intensive level for a reasonab le period of time. A detailed individualized plan of care for him will be completed by hospital day 4 based on the preadmission screen history and physical, and therapy evaluations. MAAME Voice ID: [id number]
[2023-09-27] MEDS: PANTOPRAZOLE 40MG TABLET PO SCH (07:15)
[2023-09-28] MEDS ORDERED: NA CHLORIDE 0.9% 1,000 ML ONE (18:47)
[2023-09-28] MEDS: SODIUM CHLORIDE 0.9% 10ML INJ IV SCH (19:09)
--- NOTE | 2023-09-29 01:39 | PN ---
Date of Progress Note: 09/28/2023 Time Of Service: 1:30 p.m. Subjective: Mr. Damon is resting comfortably. He has no new complaints. He is improving with ther apy. He is getting stronger, but just somewhat tired today with therapy. Objective: No fevers, chills. No significant myalgias, arthralgias. The chest discomfort is doing fairly well. No other issues there. Medications: [place] 5/325 every 6 hours as needed; Lipitor 10 mg at bedtime; cefepime 2 g every 12 ho urs, which was started on 09/24 and continued to 09/28; Lovenox 40 mg subcutaneously daily; gabapenti n 600 mg 3 times daily; HydroDIURIL 25 mg daily; Cozaar 100 mg daily; Mobic 7.5 mg daily; Protonix 40 mg daily; VESIcare 5 mg daily; Flomax 0.4 mg twice daily; Brilinta 90 mg twice daily; and tramadol 5 0 mg every 6 hours as needed. Laboratory Studies: White blood cell count 11.4, hemoglobin 12.2, platelets 590. Sodium 140, potass ium 3.8, chloride 108, carbon dioxide 28, BUN 22, creatinine is 0.72. Prealbumin 18, albumin 2.8, ma gnesium 2.4. Urinalysis on the , turbid clarity, 2+ blood, 75 esterase, 20 to 50 white blood brandon ls, greater than 50 red blood cells, trace protein. X-ray/imaging: No x-rays or imaging. Progress Made With Physical, Occupational, And Speech Therapy: Today, he did multiple pam-ry-ambeo t ransfers with contact guard assistance and verbal cues. Also, multiple dglam-up-tbruy transfers with contact guard assistance. He ambulated 100 feet twice with a Rollator, another 500 feet once, anoth er 250 feet twice with contact guard assistance and verbal cues. He was able to go up and down 10 st eps with bilateral handrails and mobilized a wheelchair 250 feet independently. With occupational erapy, he completed oral care, grooming, all independently. He did multiple pull-ups to stand and gr ab bars. With speech, he exhibited limited pitch variation and pitch breaks during decreasing tones. He was able to perform at 75 decibel maximum. Maximum phonation was for 12 seconds. The study sug gested some laryngeal pathology. The patient may be seen by the ENT physicians, Dr. Hicks. Mr. Damon is making great progress with physical and occupational therapy. Still has challenges wit h his speech therapy. Assessment: Mr. Damon is an 82-year-old patient, admitted to rehabilitation unit with zwk-XR-wsycce t myocardial infarction. He has anemia; coronary artery disease, has right coronary stent; chronic b ack pain; decreased mobility; decreased physical functioning; pneumonia; sepsis, which is addressed; urinary tract infection; prostate hypertrophy and has had a recent surgical procedure. Plan: 1.We will continue with physical and occupational along with speech therapy 3.5 hours, 5 of 7 days. 2.Comorbid conditions are listed above and medications are also continued. The ENT service will be seeing the patient to help with his care. Comorbidities That Are Impacting Rehabilitation: Issues with speech, which makes it difficult to yancy rosario articulate and project voice, is being evaluated by the ENT physicians. The speech pathologist is carefully addressing and managing the issue as well. GEORGIA/ABENA Voice ID: [id number] Report ID: [id number]
--- NOTE | 2023-09-29 18:42 | CON ---
Date of Consultation: 09/28/2023 Chief Complaint: Sore throat and hoarseness. History Of Present Illness: The patient is a pleasant 82-year-old male present with his spouse today in the rehab room, sitting at bedside. Today, he complains of a dull ache in the throat with hoarseness that he has had since admission. The patient has a history of recent sepsis and a ugb-QT-aiqttbu myocardial infarction, status post IV antibiotics and right coronary stent placement. He has had prior hoarseness and mild dysphagia, he states it is slightly worse specifically with his vocal projection. He states that the swallowing has improved with speech/swallow recommendations. Currently, he is doing a chin tuck during his swallows and he is on a soft diet at this time. He denies regurgitation of food, liquid, or pills. However, he does have some throat clearing with questionable aspiration with solid food that is difficult to chew. He denies all other ears, nose, or throat complaints. The patient has a history of esophageal dilation by Dr. Judah arguelles and he stated that this did not appreciably help with his swallow function. Past Medical History: Dyslipidemia, hypertension, lumbar disk disease with frequent muscle spasms, ocular myasthenia gravis, benign prostatic hypertrophy. Past Surgical History: Laser prostate surgery and history of lumbar surgery 20 years ago. Recent cardiac stents. Medications: Currently, on cefepime, Lipitor, Lovenox, gabapentin, HydroDIURIL, [place] as needed, Cozaar, Mobic, Protonix, VESIcare, Flomax, Brilinta, and tramadol as needed. Allergies: NO KNOWN DRUG ALLERGIES. Family History: Noncontributory. Review of Systems: Ears: Negative for hearing loss, tinnitus, otorrhea, otalgia. Eyes: Negative for drainage, blurred vision, double vision. Nose: Negative for nasal congestion, but positive for mild postnasal drip. Oral Cavity: Positive for mild dysphagia and moderate hoarseness. Neck: Negative for neck mass or enlarged thyroid. Physical Examination: Vital Signs: Stable. General: Patient is awake, alert, and oriented to person, place, and time and he is sitting up right in his bed with assistance. Eyes: PERRLA/EOMI. Head: Atraumatic, normocephalic. Ears: Deferred. Nose: Moist intranasal mucosa. Midline septum. Oral Cavity: Albright type 3/4 palate with elongated uvula, but no evidence of uvulitis or soft palate edema or erythema. No evidence of exudate or erythema of the oropharynx. Neck: Supple. Trachea midline. After obtaining verbal consent, a flexible nasopharyngeal laryngoscope was introduced into the left nasal cavity and advanced along the floor back to the level of the hypopharynx and larynx. During phonation at lower, mid and high frequencies, he had adequate initial glottic closure, but at higher pitches, he actually had a peterson-glottic gap and this improved at lower pitches. With maximal vocal projection, he is able to approximate his true vocal folds. False vocal folds are intact. Posterior glottic area has adequate closure and no abnormalities of the arytenoids or aryepiglottic folds. In addition, there is no evidence of potential intubation trauma or subglottic stenosis. Bilateral true vocal folds are thin which we typically see with aging. The scope was withdrawn to the level of vallecula and base of tongue. The patient was given sips of liquid and during deglutition, patient had mild delay of laryngeal elevation, but he had adequate epiglottic inversion and protection of his airway. Vallecula and base of tongue were intact. No abnormalities of the epiglottis. The scope was withdrawn back to the oropharynx and the patient has elongated uvula with the tip touching the base of tongue. The scope was then completely withdrawn. Patient tolerated it well. Diagnoses: 1. 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 Most importantly, no evidence of intubation trauma. 2. Mild oropharyngeal dysphagia. 3. Uvular hypertrophy. Recommendations: 1. Work with Speech/Swallow pathologists for directed swallowing and voice therapy. 2. We briefly discussed bilateral vocal cord injection with calcium hydroxyapatite, which may be an option in the outpatient setting if he has frequent aspiration of food or liquids or if he becomes predominantly aphonic or hypophonic. 3. Briefly discussed uvulectomy, although the patient is not having any globus sensation and I do not feel that this is really contributing much to his dysphagia or throat pain as it is not swollen and he was able to swallow liquids with no issues. 4. We will see the patient as needed. ANDREW/ABENA Voice ID: [id number] Report ID: [id number] MTDD
[2023-09-29] MEDS: MAGNESIUM OXIDE 400 MG TAB PO SCH (19:13)
--- NOTE | 2023-09-30 01:58 | PN ---
Date of Progress Note: 09/29/2023 Time Of Service: 1:25 p.m. Subjective: Mr. Damon is in his room. Family at bedside. Dr. Hicks from ENT has seen the patient, evaluated his vocal cords, and found no significant abnormalities. He is working with Speech Patholo gy to help. There is some mild weakness overlying the vocal cords, but no paralysis or any significa nt abnormalities. Review of Systems: No fevers, chills, nausea, vomiting. No significant myalgias and arthralgias. Otherwise, negative. Physical Examination: Vital Signs: Blood pressure 115/58, pulse 93, respiratory rate 16 to 20, temperature 98.3, oxygen sa turation 98%. General: Mr. Damon is again is resting comfortably. He did a good workout session today. HEENT: He is otherwise normocephalic, atraumatic. Sclerae are anicteric. Oropharynx is moist. Neck: Supple. Chest: Clear. Extremities: Does have some proximal weakness in the lower extremities, but that is improving. Laboratory Studies: No new laboratory studies. X-ray Imaging: No new x-rays or imaging. Then, in terms of consultation, he was seen by Dr. Kayla Hicks in the ENT service, found to be diagnose d with dysphonia, bilateral true vocal cord atrophy secondary to aging. Most importantly, there is n o evidence of intubation trauma. Mild oropharyngeal dysphagia and uvular hypertrophy. She did recom mend working with speech pathology and discuss other treatment options. Progress Made With Physical, Occupational, And Speech Therapy: With physical therapy today, ambulate d with a rolling walker 100 feet, another 500 feet and 250 feet twice with contact guard assistance. He was able to go up and down 15 steps with bilateral handrails with standby assistance and he feels stronger today per the therapist notes. With occupational therapy, supervision with wheelchair to t ransfer to bed and back; bathing, supervision; upper body dressing, independent; lower body dressing, modified assistance required. Dependent on footwear. Grooming was independent. With speech, he di d engage in gliding falsettos with pitch breaks when ascending but none noted in descending order. Mr. Damon is making excellent progress with his physical and occupational therapy, also working hard with speech therapy. Assessment: Mr. Damon is an 82-year-old patient in the rehabilitation unit with xjq-XH-ftofxqv myoc ardial infarction and he is recovering very well. He has anemia, coronary artery disease, chronic ba ck pain, decreased mobility, decreased physical functioning, urinary tract infection, prostate hypert rophy, status post surgical treatment. Plan: Continue with physical, occupational, and speech therapy for 3.5 hours, 5 of 7 days. The ENT physician appreciated input from them on how he is doing. He is showing improvement in all aspects o f therapy. Comorbidities That Are Impacting Rehabilitation: Again, there is difficulty in articulation and voic e projection. It was evaluated by Dr. Hicks and no significant pathology identified with his ageing a nd associated changes, and Speech Pathology will work with them. No damage to his vocal cords. GEORG[place]/AKASHL Voice ID: [id number] Report ID: [id number]
[2023-09-30 06:54] LABS: Absolute Eosinophils 0.8 K/uL (0-0.5); Absolute Lymphocytes (CBC) 1.2 K/uL (0.7-4.9); Absolute Monocytes 1.1 K/uL (0.1-1.3); Basophils % 0.2 % (0-1.3); Eosinophils % 9.9 % (0-4.4); Hematocrit 33.8 % (39.6-49.0); Hemoglobin 11.7 g/dL (13.6-17.9); Lymphocytes % 14.8 % (15.3-44.8); MCH 33.1 pg (27.0-35.0); MCHC 34.7 g/dL (32.0-36.0); MCV 95.4 fL (80-100); MPV 7.9 fL (7.6-11.3); Monocytes % 13.9 % (3.3-12.3); Neutrophils % 61.2 % (41.7-73.7); Platelets 514 thou/uL (152-406); RBC Red Blood Cell Count 3.54 M/uL (4.33-5.43); Red Cell Distribution Width 14.3 % (12.1-15.2)
[2023-09-30 07:07] LABS: Albumin 2.8 g/dL (3.4-5.0); Anion Gap 5.9 mEq/L (5.0-15.0); Magnesium 2.5 mg/dL (1.6-2.4); Potassium 3.9 mEq/L (3.5-5.1); Prealbumin 14.5 mg/dL (20-40)
[2023-09-30] MEDS: LOSARTAN POTASSIUM 50 MG TABLET PO SCH ×3 (11:22→20:54)
[2023-09-30] MEDS: ENOXAPARIN 40 MG/0.4 ML SQ SCH (16:12)
--- NOTE | 2023-10-01 00:22 | PN ---
Date of Progress Note: 09/30/2023 Time Of Service: 1:35 p.m. Subjective: Mr. Damon just completed 500 feet of ambulation. He is doing very well. He is sitting in a chair and the therapist at his side. He has no new complaints. He has a little soreness in th e legs and chest area, but that is after he did significant amount of therapy. Physical Examination: Vital Signs: Blood pressure 112/56, pulse of 75, respiratory rate 18, temperature 97.6, oxygen satur ation 99% General: Mr. Damon is resting well. He is in no acute distress. HEENT: He is normocephalic, atraumatic. Sclerae anicteric. Oropharynx pink and moist. Neck: Supple. Chest: Clear. Heart: Regular. Extremities: Show no significant clubbing, cyanosis, or edema. Laboratory Studies: White blood cell count now normal at 8.1, it was down from 11.4 on ; hemoglo bin 11.7; platelets 514. Sodium 135, potassium 3.9, chloride 103, carbon dioxide 30, BUN 25, creatin ine 0.89, glucose 103, calcium 9.6, magnesium 2.5, albumin 2.8. Prealbumin 14.5. X-ray Imaging: No new x-rays or imaging. Progress Made With Physical, Occupational, And Speech Therapy: Today with physical therapy, supine-t o-sit transfers done independently, zuc-st-owqgo transfers done independently. He ambulated with a R ollator 100 feet twice and then 500 feet twice, another 250 feet independently. Also with a single p rafal cane, 25 feet with contact guard assistance. He was up and down 15 steps with bilateral handrai ls, all independently. With occupational therapy, supervision for toileting and for vls-wc-msbss tra nsfers. Did have verbal cues to lock the Rollator. Donned and doffed socks independently with a soc k aid. With speech, demonstrated chin tuck strategies in 3 of 4 opportunities with no sign of overt aspiration. Recommend continuing dysphagia therapy for swallowing. He is able to tolerate 7/10 sugg ested times to do exercises with his vocal cords to improve his vocalization. Mr. Damon is doing very well with physical, occupational, and speech therapy and will be ready for d ischarge in 2 days. Assessment: Mr. Damon is an 82-year-old patient in rehabilitation unit with zum-XC-ojncsfy myocardi al infarction, who has recovered very well so far. His coronary artery disease, chronic back pain, d ecreased mobility, decreased physical functioning, urinary tract infection was treated, prostate hype rtrophy and some postsurgical pain that is managed well. Plan: 1.Continue with physical, occupational, and speech therapy for 3.5 hours, 5 of 7 days. 2.Continue with the speech directed recovery of his vocal cord strength and swallowing techniques as noted by Speech. His comorbid conditions, which are listed are managed by continuing all medication s. Comorbidities That Are Impacting Rehabilitation: His issue of swallowing and speech are big factors and are addressed and will continue after his discharge by outpatient speech therapy. [place]/ABENA Voice ID: [id number] Report ID: [id number]
--- NOTE | 2023-10-01 13:18 | P.RH.PN ---
Estimated Length of Stay: 9 Expected Discharge Date: 10/02/23 Discharge Disposition Plan: Home Vital Signs: Last Vital Signs Temp 96.9 F 10/01/23 06:42 Pulse 75 10/01/23 09:07 Resp 18 10/01/23 06:42 BP 130/64 10/01/23 09:07 Pulse Ox 98 10/01/23 06:42 Laboratory: Laboratory Last Values WBC 8.10 thou/uL (4.3-10.9) 09/30/23 06:14 RBC 3.54 M/uL (4.33-5.43) L 09/30/23 06:14 Hgb 11.7 g/dL (13.6-17.9) L 09/30/23 06:14 Hct 33.8 % (39.6-49.0) L 09/30/23 06:14 MCV 95.4 fL (80-100) 09/30/23 06:14 MCH 33.1 pg (27.0-35.0) 09/30/23 06:14 MCHC 34.7 g/dL (32.0-36.0) 09/30/23 06:14 RDW 14.3 % (12.1-15.2) 09/30/23 06:14 Plt Count 514 thou/uL (152-406) H 09/30/23 06:14 MPV 7.9 fL (7.6-11.3) 09/30/23 06:14 Neutrophils % 61.2 % (41.7-73.7) 09/30/23 06:14 Lymphocytes % 14.8 % (15.3-44.8) L 09/30/23 06:14 Monocytes % 13.9 % (3.3-12.3) H 09/30/23 06:14 Eosinophils % 9.9 % (0-4.4) H 09/30/23 06:14 Basophils % 0.2 % (0-1.3) 09/30/23 06:14 Absolute Neutrophils 5.0 K/uL (1.8-8.0) 09/30/23 06:14 Absolute Lymphocytes 1.2 K/uL (0.7-4.9) 09/30/23 06:14 Absolute Monocytes 1.1 K/uL (0.1-1.3) 09/30/23 06:14 Absolute Eosinophils 0.8 K/uL (0-0.5) H 09/30/23 06:14 Absolute Basophils 0.0 K/uL (0-0.5) 09/30/23 06:14 Sodium 135 mEq/L (136-145) L 09/30/23 06:14 Potassium 3.9 mEq/L (3.5-5.1) 09/30/23 06:14 Chloride 103 mEq/L (98-107) 09/30/23 06:14 Carbon Dioxide 30 mEq/L (21-32) 09/30/23 06:14 Anion Gap 5.9 mEq/L (5.0-15.0) 09/30/23 06:14 BUN 25 mg/dL (7-18) H 09/30/23 06:14 Creatinine 0.89 mg/dL (0.70-1.30) 09/30/23 06:14 Est GFR (CKD-EPI) 87 ml/min (=/>90) L 09/30/23 06:14 Glucose 103 mg/dL (74-106) 09/30/23 06:14 Calcium 9.6 mg/dL (8.5-10.1) 09/30/23 06:14 Magnesium 2.5 mg/dL (1.6-2.4) H 09/30/23 06:14 Albumin 2.8 g/dL (3.4-5.0) L 09/30/23 06:14 Prealbumin 14.5 mg/dL (20-40) L 09/30/23 06:14 Urine Color Light-yellow (Yellow) 09/25/23 19:25 Urine Clarity Turbid (Clear) H 09/25/23 19:25 Urine pH 7.0 (5.0-7.0) 09/25/23 19:25 Ur Specific Burton 1.021 (1.005-1.030) 09/25/23 19:25 Glucose (UA)(Auto) Negative (Negative) 09/25/23 19: Urine Ketones Negative (Negative) 09/25/23 19:25 Urine Blood 2+ (Negative) H 09/25/23 19:25 Urine Nitrite Negative (Negative) 09/25/23 19: Urine Bilirubin Negative (Negative) 09/25/23 19: Urine Urobilinogen Normal (Normal) 09/25/23 19:25 Ur Leukocyte Esterase 75 Ria/uL (Negative) H 09/25/23 19:25 Urine RBC >50 /HPF (None Seen) H 09/25/23 19:25 Urine WBC 20-50 /HPF (<5) H 09/25/23 19:25 Ur Squamous Epith Cells None seen /HPF (None Seen) 09/25/23 19:25 Amorphous Crystals Trace /HPF (None Seen) 09/25/23 19:25 Urine Bacteria None seen /HPF (<20) 09/25/23 19:25 Hyaline Casts 0-5 /LPF (None Seen) 09/25/23 19:25 Urine Mucus Slight /HPF (None Seen) 09/25/23 19:25 Urine Culture Reflexed Reflexed 09/25/23 19:25 Urine Total Protein Trace (Negative) H 09/25/23 19:25 Weight: 170 lb 8 oz Wound Present: No Closed Surgical Incision Present: No Negative Pressure Wound Therapy Present: No Physician Update: Labs reviewed and are stable with low prealbumin. Pain managed with multiple modalities. Doing very well. Mild dysphonia and dysphagia, using chin tuck with thin liquids. Doing vocal exercises. Rollator 1000', 25 steps, 500 with WC. Independent with bathing and dressing. Summary: Patient's care plan and [facility] goals have been reviewed and revised as necessary. Please see the Rehabilitation Signature page for all necessary signatures.
[2023-10-01] MEDS: ENOXAPARIN 40 MG/0.4 ML SQ SCH (20:15)
[2023-10-02 07:25] VITALS: BP 117/60; TEMP 97.6
== END 2023-10-02 09:30 | disposition home health service (06) | DRG 281 ==
LOC: 5TH 13:10
PROVIDERS: ADMIT Psychiatry & Neurology Neurology with Special Qualifications in Child Neurology; ATTEND Psychiatry & Neurology Neurology with Special Qualifications in Child Neurology
DX: I21.4 Non-ST elevation (NSTEMI) myocardial infarction (principal); N39.0 Urinary tract infection, site not specified; E78.5 Hyperlipidemia, unspecified; I10 Essential (primary) hypertension; N40.0 Benign prostatic hyperplasia without lower urinary tract symptoms; G70.00 Myasthenia gravis without (acute) exacerbation; D64.9 Anemia, unspecified; I25.10 Atherosclerotic heart disease of native coronary artery without angina pectoris; R49.0 Dysphonia; R13.12 Dysphagia, oropharyngeal phase; K13.79 Other lesions of oral mucosa; G89.29 Other chronic pain; M54.9 Dorsalgia, unspecified
CPT/HCPCS: 36415; 80048; 81001; 82040; 83735; 84134; 85025; 87086; 87088; 92507; 92526; 92610; 97110; 97112; 97116; 97161; 97165; 97530; 97542; A4216; J0692; J1650; J7030; J7050